=== PATIENT | male | born 1980 | race Caucasian/White ===

== ENCOUNTER 2019-06-21 11:52 | Emergency (ER) | payer BC ==
[2019-06-21 11:57] VITALS: BP 144/86; PULSE 74; RESP 19; TEMP 98.1
--- NOTE | 2019-06-21 12:04 | ED ---
Upper Extremity HPI - General Chief Complaint: Extremity Injury, Upper Stated Complaint: hand injury Time Seen by Provider: 06/21/19 12:00 Source: patient, RN notes reviewed Mode of arrival: ambulatory Limitations: no limitations - History of Present Illness Initial Comments: 39-year-old male presents emergency Department chief complaint of right hand m edial hand pain. Patient states that he is lifting a couch other day states that he slipped causing a couch and fell on his hand. Patient has pain along the proximal fifth metacarpal and wrist region. Patient is right-hand dominant patient doesn't that he's had prior fractures. Patient denies any paresthesias patient offers no other complaints at this time. - Related Data Home Medications Medication Instructions Recorded Confirmed Ibuprofen [Motrin Ib] 400 mg PO Q6H PRN 06/21/19 06/21/19 Lisinopril-Hctz 20-12.5 mg 1 tab PO BID 06/21/19 06/21/19 [Zestoretic 20-12.5] Previous Rx's Medication Instructions Recorded Ibuprofen [Motrin] 600 mg PO Q8HR PRN #30 tab 06/21/19 Allergies Allergy/AdvReac Type Severity Reaction Status Date / Time No Known Allergies Allergy Verified 06/21/19 12:30 Review of Systems ROS Statement: Those systems with pertinent positive or pertinent negative responses have been documented in the HPI. ROS Other: All systems not noted in ROS Statement are negative. Past Medical History Past Medical History: Hypertension History of Any Multi-Drug Resistant Organisms: None Reported Past Surgical History: Appendectomy, Orthopedic Surgery Past Psychological History: No Psychological Hx Reported Smoking Status: Never smoker Past Alcohol Use History: None Reported Past Drug Use History: None Reported General Exam Limitations: no limitations General appearance: alert, in no apparent distress Head exam: Present: atraumatic, normocephalic, normal inspection Neck exam: Present: normal inspection, full ROM. Absent: tenderness, meningismus, lymphadenopathy Respiratory exam: Present: normal lung sounds bilaterally. Absent: respiratory distress, wheezes, rales, rhonchi, stridor Extremities exam: Present: other (Right hand there is tenderness along the proximal fifth metacarpal region and wrist or aspect patient's full range of motion neurovascular intact there is mild discomfort with range of motion no obvious deformity) Course Vital Signs 06/21/19 11:55 Temperature 98.1 F Pulse Rate 74 Respiratory 19 Rate Blood Pressure 144/86 O2 Sat by Pulse 97 Oximetry Medical Decision Making - Medical Decision Making X-rays are negative for acute fracture of the hand and wrist. Patient has a right wrist sprain will be discharged return parameters were discussed. Disposition Clinical Impression: Right wrist sprain Disposition: HOME SELF-CARE Condition: Stable Instructions (If sedation given, give patient instructions): Wrist Injury (ED) Additional Instructions: Please return to the Emergency Department if symptoms worsen or any other concerns. Prescriptions: Ibuprofen [Motrin] 600 mg PO Q8HR PRN #30 tab PRN Reason: Pain Is patient prescribed a controlled substance at d/c from ED?: No Referrals: Sarah Yoder DO [Primary Care Provider] - 1-2 days Time of Disposition: 12:59
--- NOTE | 2019-06-21 12:41 | XR ---
EXAMINATION TYPE: XR wrist complete RT DATE OF EXAM: 06/21/2019 CLINICAL HISTORY: Fifth right metacarpal pain after crush injury. TECHNIQUE: Frontal, lateral and oblique images of the right wrist are obtained. Scaphoid view was al so obtained. COMPARISON: None FINDINGS: There is no acute fracture/dislocation evident in the right wrist. The joint spaces in th e right wrist appear within normal limits. The overlying soft tissue appears unremarkable. IMPRESSION: There is no acute fracture or dislocation in the right wrist.
[2019-06-21] MEDS ORDERED: ACET/COD 300 MG/30 MG STARTER PACK 6 TAB BTL PO STA (12:58)
== END 2019-06-21 13:05 | disposition home or self-care (01) ==
LOC: EC 11:52
DX: S63.501A Unspecified sprain of right wrist, initial encounter (principal); I10 Essential (primary) hypertension; Z79.899 Other long term (current) drug therapy; W23.0XXA Caught, crushed, jammed, or pinched between moving objects, initial encounter
CPT/HCPCS: 99283

== ENCOUNTER 2021-11-30 11:18 | Day surgery (SDC) | payer BC ==
[~2021-11-30 11:18] MED LIST: Pre Op ABX Message 1 EACH MISC MISCELLANE ONE
[2021-11-30] MEDS ORDERED: SODIUM CHLORIDE 0.9% 1,000 ML IV ONE (12:36)
[2021-11-30 12:57] LABS: HCT 28.4 % (39.0-53.0); HGB 9.3 gm/dL (13.0-17.5); MCH 30.2 pg (25.0-35.0); MCHC 32.9 g/dL (31.0-37.0); MCV 91.8 fL (80.0-100.0); Mean Platelet Volume 7.6; Platelet Count 387 k/uL (150-450); RBC 3.09 m/uL (4.30-5.90); RDW 14.7 % (11.5-15.5); WBC 8.6 k/uL (3.8-10.6)
[2021-11-30 13:06] LABS: Magnesium 2.8 mg/dL (1.6-2.3); Potassium 4.4 mmol/L (3.5-5.1)
[2021-11-30] MEDS ORDERED: MIDAZOLAM 2 MG/2 ML VIAL IVP ONE (13:20)
--- NOTE | 2021-11-30 14:07 | P.ANPRN ---
Procedure Note - Anesthesia - Nerve Block Performed Right Axillary Time Out Performed: Yes (:19) Date of Procedure: 11/30/21 Procedure Start Time: Procedure Stop Time: Location of Patient: PreOp Indication: Acute Post-Operative Pain, Requested by Surgeon (Dr Corral) Sedation Type: Sedate with meaningful contact maintained Preparation: Sterile Prep Position: Supine Catheter: None Needle Types: Pajunk Needle Gauge: Other (see comment) (22g) Ultrasound used to visualize needle placement: Yes Ultrasound used to observe medication spread: Yes Injectate: 0.5% Ropivacaine (see comment for volume) (25cc) Blood Aspirated: No Pain Paresthesia on Injection Noted: No Resistance on Injection: Normal Image Stored and Saved: Yes Events: Uneventful and Well Tolerated
[2021-11-30] MEDS ORDERED: HEPARIN SODIUM,PORCINE 5,000 UNIT/ML 1 ML VIAL ONE (14:21)
[2021-11-30] MEDS ORDERED: fentaNYL (PF) 50 MCG/ML 2 ML AMP ONE (14:21)
[2021-11-30] MEDS ORDERED: ROPIVACAINE 5 MG/ML 30 ML VIAL ONE (14:21)
[2021-11-30] MEDS ORDERED: PROPOFOL 10 MG/ML 20 ML VIAL IV ONE (14:21)
[2021-11-30] MEDS ORDERED: MIDAZOLAM 2 MG/2 ML VIAL ONE (14:21)
[2021-11-30] MEDS ORDERED: KETAMINE 10 MG/ML 20 ML VIAL ONE (14:21)
[2021-11-30] MEDS ORDERED: LIDOCAINE 1% INJ 10MG/ML (20 ML MDV) ONE (14:21)
[2021-11-30] MEDS ORDERED: ceFAZolin 1,000 MG VIAL IRRIGATION ONE (14:30)
[2021-11-30] MEDS ORDERED: GELATIN SPONGE,ABSORB (LARGE) 1 EACH SPONGE TOPICAL ONE (14:30)
[2021-11-30] MEDS ORDERED: THROMBIN (BOVINE) 5,000 UNIT VIAL TOPICAL ONE (14:30)
[2021-11-30] MEDS ORDERED: HEPARIN SODIUM,PORCINE 2,000 UNIT in SODIUM CHLORIDE 0.9% 500 ML 500 ML IRRIGATION ONE (14:39)
--- NOTE | 2021-11-30 15:41 | P.OP ---
Date of Procedure: 11/30/21 Preoperative Diagnosis: End-stage renal disease Postoperative Diagnosis: Same Procedure(s) Performed: Right upper extremity radiocephalic Yoselin fistula creation Anesthesia: regional Surgeon: Albert Corral Estimated Blood Loss (ml): 5 Pathology: none sent Condition: stable Disposition: PACU Indications for Procedure: 41-year-old gentleman with history of end-stage renal disease on hemodialysis via right-sided chest catheter presented to the office for workup for possible fistula creation. He underwent ultrasound which demonstrated large cephalic vein and therefore he presents today for radiocephalic fistula creation. Description of Procedure: After written and informed consent was obtained from the patient the patient was brought to the operative suite and laid in a supine position. The right arm was prepped and draped in the usual sterile fashion after appropriate anesthesia was performed per the anesthesiologist. Utilizing ultrasound the cephalic vein was visualized and marked and shown to be good size. A small vertical incision was then created with a 15 blade scalpel just proximal to the wrist and dissection was carried down to the radial artery which was dissected free in a circumferential manner. Proximal distal control was then obtained with vessel loops. Attention was then placed back to the cephalic vein which was located and dissected free in a circumferential manner distally to the wrist. At the wrist it was ligated with silk suture. Further dissection was carried around the vein and the vein was brought over to the radial artery. Serial dilation was then performed on the vein and good backbleeding was noted. Patient was administered 3000 units of heparin and the radial artery was clamped at the proximal and distal aspect. Utilizing 11 blade scalpel and arteriotomy was created and extended with Pott Ramires scissors. There was good brisk backbleeding noted from the radial artery and pulsatile blood flow visualized from the proximal aspect. The vein was then spatulated and an end-to-side rajan stomosis was created with a 7-0 Prolene suture. Prior to last sutures being placed the control was released from the vein revealing good backbleeding and distal control on the radial artery was released revealing good back flow. The proximal control was then released and good pulsatile blood flow was visualized in the fistula and final sutures were secured. The area was copiously irrigated with antibiotic solution. Hemostasis was assured. The vessels were then interrogated with Doppler which demonstrated good multiphasic signal distal to the anastomosis as well as positive bruit within the vein consistent with good fistula creation. Under ultrasound there was pulsatile flow noted in the cephalic vein. A large branch just proximal to the anastomosis was noted and this was suture ligated in normal fashion. After ligation the fistula had improved bruit. The incision was then closed in a multilayer fashion. The skin was cleansed and dressings were placed. Patient does procedure well and was sent to PACU for recovery. Plan - Discharge Summary New Discharge Prescriptions: No Action Furosemide [Lasix] 80 mg PO DIRECTED amLODIPine [Norvasc] 5 mg PO BID Calcium Acetate [Phoslo] 1,334 mg PO DIRECTED Furosemide [Lasix] 80 mg PO DIRECTED Discharge Medication List Calcium Acetate [Phoslo] 1,334 mg PO DIRECTED 11/30/21 [History] Furosemide [Lasix] 80 mg PO DIRECTED 11/30/21 [History] Furosemide [Lasix] 80 mg PO DIRECTED 11/30/21 [History] amLODIPine [Norvasc] 5 mg PO BID 11/30/21 [History]
[2021-11-30 15:49] VITALS: TEMP 97.5
[2021-11-30 16:17] VITALS: RESP 16
[2021-11-30] MEDS ORDERED: hydrALAZINE HCL 20 MG/ML 1 ML VIAL IVP ONE (16:33)
[2021-11-30 17:29] VITALS: BP 164/98; PULSE 84
== END 2021-11-30 17:42 | disposition home or self-care (01) ==
LOC: OR 11:18
PROVIDERS: ATTEND Surgery
DX: N18.6 End stage renal disease (principal); I10 Essential (primary) hypertension; G89.18 Other acute postprocedural pain; Z79.899 Other long term (current) drug therapy
CPT/HCPCS: 36821; 64415; 76942; 80048; 83735; 84100; 85027; J2250; J0360; J1644; J0690 ×2; J2001; J3010; J2795; J2704

== ENCOUNTER 2022-02-16 16:50 | Emergency (ER) | payer BC ==
[2022-02-16 16:57] VITALS: BP 122/73; RESP 18; TEMP 99
[2022-02-16] MEDS ORDERED: HYDROmorphone 1 MG/ML 1 ML SYRINGE IVP STA (18:23)
[2022-02-16] MEDS ORDERED: ONDANSETRON 4 MG/2 ML VIAL IVP STA (18:23)
[2022-02-16] MEDS ORDERED: SODIUM CHLORIDE 0.9% 500 ML 500 ML IV SCH (18:30)
--- NOTE | 2022-02-16 18:34 | ED ---
General Adult HPI - General Chief complaint: Chest Pain Stated complaint: Weakness,chest pain Time Seen by Provider: 02/16/22 18:14 Source: patient Mode of arrival: wheelchair Limitations: no limitations - History of Present Illness Initial comments: 41 year-old male patient with medical conditions including end-stage renal disease with dialysis and hypertension presents to the emergency department for fever, chills, body aches, cough, and significant pain to his right chest dialysis catheter. Symptoms present for the last week. States that his last dialysis treatment was Friday. States it was somewhat painful at that time but states it is much worse now. He is also reporting upper abdominal pain. He denies nausea or vomiting. States he is having frequent soft stools. Reports dry cough and shortness of breath. States he did take 2 Tylenol prior to coming in for temperature at 102F. States he produces minimal urine but denies any dysuria or hematuria. Denies any wounds or sores. Denies any sick contacts. Patient denies any recent rash, back pain, numbness, tingling, dizziness, weakness, headache, visual changes, or any other complaints. - Related Data Home Medications Medication Instructions Recorded Confirmed Calcium Acetate [Phoslo] 1,334 mg PO DIRECTED 11/30/21 11/30/21 Furosemide [Lasix] 80 mg PO DIRECTED 11/30/21 11/30/21 Furosemide [Lasix] 80 mg PO DIRECTED 11/30/21 11/30/21 amLODIPine [Norvasc] 5 mg PO BID 11/30/21 11/30/21 Previous Rx's Medication Instructions Recorded Amoxic-Pot Clav 875-125Mg 1 tab PO Q12HR #20 tablet 02/16/22 [Augmentin 875-125] Azithromycin [Zithromax Z Pack] 250 mg PO DIRECTED #6 tab 02/16/22 Ipratropium-Albuterol Nebulize 3 ml INHALATION Q4H PRN #90 ml 02/16/22 [Duoneb 0.5 mg-3 mg/3 ml Soln] Allergies Allergy/AdvReac Type Severity Reaction Status Date / Time No Known Allergies Allergy Verified 02/16/22 16:57 Review of Systems ROS Statement: Those systems with pertinent positive or pertinent negative responses have been documented in the HPI. ROS Other: All systems not noted in ROS Statement are negative. Past Medical History Past Medical History: Dialysis, Hypertension, Renal Disease Additional Past Medical History / Comment(s): Diaylsis since may 18 2021, Kidney Failure since May 2021 History of Any Multi-Drug Resistant Organisms: None Reported Past Surgical History: Appendectomy, Orthopedic Surgery Additional Past Surgical History / Comment(s): Hemodiaylsis catheter in Friday of 2020 Past Psychological History: No Psychological Hx Reported Smoking Status: Never smoker Past Alcohol Use History: None Reported Past Drug Use History: None Reported General Exam Limitations: no limitations General appearance: alert, in no apparent distress, other (This is a well- developed, well-nourished adult male in no acute distress.) Eye exam: Present: normal appearance, PERRL, EOMI. Absent: scleral icterus, conjunctival injection, periorbital swelling ENT exam: Present: normal exam, normal oropharynx, mucous membranes moist Respiratory exam: Present: normal lung sounds bilaterally, other (Right upper chest dialysis catheter, no surrounding swelling or erythema noted.). Absent: respiratory distress, wheezes, rales, rhonchi, stridor Cardiovascular Exam: Present: regular rate, normal rhythm, normal heart sounds. Absent: systolic murmur, diastolic murmur, rubs, gallop, clicks GI/Abdominal exam: Present: soft, tenderness (Midepigastric), normal bowel sounds. Absent: distended, guarding, rebound, rigid Neurological exam: Present: alert, oriented X3, CN II-XII intact Psychiatric exam: Present: normal affect, normal mood Skin exam: Present: warm, dry, intact, normal color. 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 Physical exam did reveal clear equal lung sounds. He was febrile upon arrival. Skin saturation is normal. He does have end-stage renal disease. Labs reviewed and did reveal normal white blood cell count. Creatinine is 15.56 which she states is usual for him. Chest x-ray did reveal interstitial pneumonia. I did discuss findings and results with him. Did offer admission. Patient would prefer discharge. We will start azithromycin and Augmentin. We do have blood cultures pending, we will call with any abnormal results. He is instructed to follow-up with his primary care physician early next week. Return parameters were discussed in detail. He verbalizes understanding and agrees with this plan. My attending is Dr. Douglas. - Lab Data Result diagrams: 02/16/22 19:15 02/16/22 19:15 Lab Results 02/16/22 02/16/22 02/16/22 Range/Units 17:10 17:10 19:15 WBC 5.8 (3.8-10.6) k/uL RBC 3.16 L (4.30-5.90) m/uL Hgb 9.4 L (13.0-17.5) gm/dL Hct 28.8 L (39.0-53.0) % MCV 91.0 (80.0-100.0) fL MCH 29.6 (25.0-35.0) pg MCHC 32.6 (31.0-37.0) g/dL RDW 13.6 (11.5-15.5) % Plt Count 182 (150-450) k/uL MPV 8.0 Neutrophils % 80 % Lymphocytes % 6 % Monocytes % 8 % Eosinophils % 1 % Basophils % 2 % Neutrophils # 4.6 (1.3-7.7) k/uL Lymphocytes # 0.3 L (1.0-4.8) k/uL Monocytes # 0.5 (0-1.0) k/uL Eosinophils # 0.1 (0-0.7) k/uL Basophils # 0.1 (0-0.2) k/uL PT (9.0-12.0) sec INR (<1.2) APTT (22.0-30.0) sec Sodium (137-145) mmol/L Potassium (3.5-5.1) mmol/L Chloride (98-107) mmol/L Carbon Dioxide (22-30) mmol/L Anion Gap mmol/L BUN (9-20) mg/dL Creatinine (0.66-1.25) mg/dL Est GFR (CKD-EPI)AfAm (>60 ml/min/1.73 sqM) Est GFR (CKD-EPI)NonAf (>60 ml/min/1.73 sqM) Glucose (74-99) mg/dL Plasma Lactic Acid Lauri (0.7-2.0) mmol/L Calcium (8.4-10.2) mg/dL Total Bilirubin (0.2-1.3) mg/dL AST (17-59) U/L ALT (4-49) U/L Alkaline Phosphatase (38-126) U/L Total Protein (6.3-8.2) g/dL Albumin (3.5-5.0) g/dL Lipase (23-300) U/L Coronavirus (PCR) Not Detected (Not Detectd) Influenza Type A RNA Not Detected (Not Detectd) Influenza Type B (PCR) Not Detected (Not Detectd) 02/16/22 02/16/22 02/16/22 Range/Units 19:15 19:15 19:19 WBC (3.8-10.6) k/uL RBC (4.30-5.90) m/uL Hgb (13.0-17.5) gm/dL Hct (39.0-53.0) % MCV (80.0-100.0) fL MCH (25.0-35.0) pg MCHC (31.0-37.0) g/dL RDW (11.5-15.5) % Plt Count (150-450) k/uL MPV Neutrophils % % Lymphocytes % % Monocytes % % Eosinophils % % Basophils % % Neutrophils # (1.3-7.7) k/uL Lymphocytes # (1.0-4.8) k/uL Monocytes # (0-1.0) k/uL Eosinophils # (0-0.7) k/uL Basophils # (0-0.2) k/uL PT 11.9 (9.0-12.0) sec INR 1.1 (<1.2) APTT 25.7 (22.0-30.0) sec Sodium 133 L (137-145) mmol/L Potassium 4.0 (3.5-5.1) mmol/L Chloride 92 L (98-107) mmol/L Carbon Dioxide 25 (22-30) mmol/L Anion Gap 16 mmol/L BUN 42 H (9-20) mg/dL Creatinine 15.56 H* (0.66-1.25) mg/dL Est GFR (CKD-EPI)AfAm 4 (>60 ml/min/1.73 sqM) Est GFR (CKD-EPI)NonAf 3 (>60 ml/min/1.73 sqM) Glucose 94 (74-99) mg/dL Plasma Lactic Acid Lauri 0.8 (0.7-2.0) mmol/L Calcium 8.9 (8.4-10.2) mg/dL Total Bilirubin 0.4 (0.2-1.3) mg/dL AST 45 (17-59) U/L ALT 68 H (4-49) U/L Alkaline Phosphatase 53 (38-126) U/L Total Protein 6.5 (6.3-8.2) g/dL Albumin 3.9 (3.5-5.0) g/dL Lipase 145 (23-300) U/L Coronavirus (PCR) (Not Detectd) Influenza Type A RNA (Not Detectd) Influenza Type B (PCR) (Not Detectd) - Radiology Data Radiology results: report reviewed, image reviewed Two-view chest x-ray is obtained. Report was reviewed in its entirety. Impression by Dr. Pulido shows perihilar interstitial edema this could be acute interstitial pneumonia. Disposition Clinical Impression: Pneumonia Disposition: HOME SELF-CARE Condition: Good Instructions (If sedation given, give patient instructions): Community Acquired Pneumonia (ED) Additional Instructions: Complete both antibiotics in full. Do breathing treatments as directed. Tylenol for fever control. Await call for blood culture results, you will only be called for abnormal results in 2-3 days. Follow-up with your primary care physician for recheck early next week. Return to the emergency department for a ny new, worsening, or concerning symptoms. Prescriptions: Amoxic-Pot Clav 875-125Mg [Augmentin 875-125] 1 tab PO Q12HR #20 tablet Ipratropium-Albuterol Nebulize [Duoneb 0.5 mg-3 mg/3 ml Soln] 3 ml INHALATION Q4H PRN #90 ml PRN Reason: Wheezing/Shortness of breath Azithromycin [Zithromax Z Pack] 250 mg PO DIRECTED #6 tab Is patient prescribed a controlled substance at d/c from ED?: No Referrals: Nonstaff,Physician [REFERRING] - 1-2 days Time of Disposition: 21:29
[2022-02-16 19:14] VITALS: PULSE 91
[2022-02-16 19:43] LABS: Basophils # (A) 0.1 k/uL (0-0.2); Basophils % (A) 2 %; Eosinophils # (A) 0.1 k/uL (0-0.7); Eosinophils % (A) 1 %; HCT 28.8 % (39.0-53.0); HGB 9.4 gm/dL (13.0-17.5); Lymphocytes # (A) 0.3 k/uL (1.0-4.8); Lymphocytes % (A) 6 %; MCH 29.6 pg (25.0-35.0); MCHC 32.6 g/dL (31.0-37.0); Monocytes # (A) 0.5 k/uL (0-1.0); Monocytes % (A) 8 %; Neutrophils # (A) 4.6 k/uL (1.3-7.7); Neutrophils % (A) 80 %; Platelet Count 182 k/uL (150-450); RBC 3.16 m/uL (4.30-5.90); RDW 13.6 % (11.5-15.5); WBC 5.8 k/uL (3.8-10.6)
[2022-02-16 19:53] LABS: Albumin 3.9 g/dL (3.5-5.0); Calcium 8.9 mg/dL (8.4-10.2); Total Bilirubin 0.4 mg/dL (0.2-1.3); Total Protein 6.5 g/dL (6.3-8.2)
[2022-02-16 19:55] LABS: INR 1.1 (<1.2); Partial Thromboplastin Time 25.7 sec (22.0-30.0); Prothrombin Time 11.9 sec (9.0-12.0)
--- NOTE | 2022-02-16 19:59 | XR ---
EXAMINATION TYPE: XR chest 2V DATE OF EXAM: 02/16/2022 COMPARISON: NONE HISTORY: Cough and congestion TECHNIQUE: 2 views FINDINGS: There is no confluent pneumonic infiltrate. There is right central venous catheter with ti p in the right atrium. No pleural effusion. There are no hilar masses. There are some mild bilateral perihilar interstitial edema. IMPRESSION: There is some perihilar interstitial edema. This could be acute interstitial pneumonia.
[2022-02-16] MEDS ORDERED: AZITHROMYCIN 500 MG TAB PO STA (21:25)
[2022-02-16] MEDS ORDERED: AMOXIC-POT CLAV 875MG STARTER PACK 2 TAB BTL PO STA (21:25)
== END 2022-02-16 22:00 | disposition home or self-care (01) ==
LOC: EC 16:50
DX: J18.9 Pneumonia, unspecified organism (principal); I10 Essential (primary) hypertension; Z20.822 Contact with and (suspected) exposure to COVID-19
CPT/HCPCS: 36415; 80053; 83605; 83690; 85025; 85610; 85730; 87040; 87077; 87186; 87502; 87635; 71046; 99285; 96374; 96375; J2405; J1170; 93005; 99284

== ENCOUNTER 2022-02-17 13:42 | Inpatient (IN) | payer BC ==
[2022-02-17] MEDS ORDERED: VANCOMYCIN IV PER PHARMACY 1 EACH MISC MISCELLANE PRN (14:37)
--- NOTE | 2022-02-17 14:43 | ED ---
General Adult HPI - General Chief complaint: Recheck/Abnormal Lab/Rx Stated complaint: recheck Time Seen by Provider: 02/17/22 13:55 Source: patient, RN notes reviewed, old records reviewed Mode of arrival: ambulatory Limitations: no limitations - History of Present Illness Initial comments: This is a 41-year-old male who presents emergency department with past medical history significant for dialysis starting June 07 and hypertension. Patient states he was here in the emergency room yesterday she didn't feel well he was diagnosed with pneumonia and sent home on Augmentin. Patient states he was called back to the emergency department because he had positive blood cultures that were gram-positive cocci in clusters. Patient states that she is having a little better than he was yesterday. Patient states he still little bit short of breath. Patient denies any fever or chills. Patient denies any chest pain or palpitations. Patient denies any abdominal pain. Patient states over the last couple days at his catheter site he has noticed some soreness that wasn't there before. - Related Data Home Medications Medication Instructions Recorded Confirmed Calcium Acetate [Phoslo] 1,334 mg PO DIRECTED 11/30/21 11/30/21 Furosemide [Lasix] 80 mg PO DIRECTED 11/30/21 11/30/21 Furosemide [Lasix] 80 mg PO DIRECTED 11/30/21 11/30/21 amLODIPine [Norvasc] 5 mg PO BID 11/30/21 11/30/21 Previous Rx's Medication Instructions Recorded Amoxic-Pot Clav 875-125Mg 1 tab PO Q12HR #20 tablet 02/16/22 [Augmentin 875-125] Azithromycin [Zithromax Z Pack] 250 mg PO DIRECTED #6 tab 02/16/22 Ipratropium-Albuterol Nebulize 3 ml INHALATION Q4H PRN #90 ml 02/16/22 [Duoneb 0.5 mg-3 mg/3 ml Soln] Allergies Allergy/AdvReac Type Severity Reaction Status Date / Time No Known Allergies Allergy Verified 02/17/22 13:54 Review of Systems ROS Statement: Those systems with pertinent positive or pertinent negative responses have been documented in the HPI. ROS Other: All systems not noted in ROS Statement are negative. Past Medical History Past Medical History: Dialysis, Hypertension, Renal Disease Additional Past Medical History / Comment(s): Diaylsis since may 18 2021, Kidney Failure since May 2021 History of Any Multi-Drug Resistant Organisms: None Reported Past Surgical History: Appendectomy, Orthopedic Surgery Additional Past Surgical History / Comment(s): Hemodiaylsis catheter in Friday of 2020 Past Psychological History: No Psychological Hx Reported Smoking Status: Never smoker Past Alcohol Use History: None Reported Past Drug Use History: None Reported General Exam - General Exam Comments Initial Comments: GENERAL: Patient is well-developed and well-nourished. Patient is nontoxic and well- hydrated and is in no acute distress. ENT: Neck is soft and supple. No significant lymphadenopathy is noted. Oropharynx is clear. Moist mucous membranes. Neck has full range of motion without eliciting any pain. EYES: The sclera were anicteric and conjunctiva were pink and moist. Extraocular movements were intact and pupils were equal round and reactive to light. Eyelids were unremarkable. PULMONARY: Patient some slight crackles in the right base CARDIOVASCULAR: There is a regular rate and rhythm without any murmurs gallops or rubs. ABDOMEN: Soft and nontender with normal bowel sounds. SKIN: Skin is clear with no lesions or rashes and otherwise unremarkable. NEUROLOGIC: Patient is alert and oriented x3. Cranial nerves II through XII are grossly intact. Motor and sensory are also intact. Normal speech, volume and content. Symmetrical smile. MUSCULOSKELETAL: Normal extremities with adequate strength and full range of motion. LYMPHATICS: No significant lymphadenopathy is noted PSYCHIATRIC: Normal psychiatric evaluation. Limitations: no limitations Course Vital Signs 02/17/22 13:51 Temperature 97.8 F Pulse Rate 83 Respiratory 18 Rate Blood Pressure 132/79 O2 Sat by Pulse 95 Oximetry Disposition Clinical Impression: Bacteremia, Dialysis patient, Pneumonia Disposition: ADMITTED IP TO THIS HOSP Referrals: Sarah Yoder DO [Primary Care Provider] - 1-2 days Time of Disposition: 14:43
[2022-02-17] MEDS ORDERED: SODIUM CHLORIDE 0.9% 1,000 ML IV ONE (14:44)
[2022-02-17] MEDS ORDERED: VANCOMYCIN 1,500 MG in SODIUM CHLORIDE 0.9% 250 ML IVPB STA (14:46)
[2022-02-17 15:13] LABS: Basophils # (A) 0.1 k/uL (0-0.2); Basophils % (A) 1 %; Eosinophils # (A) 0.1 k/uL (0-0.7); Eosinophils % (A) 1 %; HCT 27.7 % (39.0-53.0); Lymphocytes # (A) 0.3 k/uL (1.0-4.8); Lymphocytes % (A) 4 %; MCH 29.7 pg (25.0-35.0); MCHC 32.6 g/dL (31.0-37.0); MCV 91.1 fL (80.0-100.0); Monocytes # (A) 0.4 k/uL (0-1.0); Monocytes % (A) 5 %; Neutrophils % (A) 86 %; Platelet Count 190 k/uL (150-450); RBC 3.04 m/uL (4.30-5.90); WBC 8.1 k/uL (3.8-10.6)
[2022-02-17 15:24] LABS: Albumin 3.5 g/dL (3.5-5.0); Calcium 8.6 mg/dL (8.4-10.2); Total Bilirubin 0.6 mg/dL (0.2-1.3); Total Protein 5.9 g/dL (6.3-8.2)
[2022-02-17 15:29] LABS: Potassium 4.4 mmol/L (3.5-5.1)
[2022-02-17] MEDS ORDERED: IBUPROFEN 800 MG TAB PO PRN (16:34)
[2022-02-17] MEDS: CALCIUM ACETATE 667 MG TAB PO SCH (16:40)
[2022-02-17] MEDS ORDERED: FUROSEMIDE 80 MG TAB PO ONE (16:45)
[2022-02-17] MEDS: SEVELAMER 800 MG TAB PO SCH (16:49)
--- NOTE | 2022-02-17 16:53 | HP ---
HISTORY AND PHYSICAL DATE OF SERVICE: 02/17/2022 CHIEF COMPLAINTS: Abnormal blood cultures, not feeling well. HISTORY OF PRESENT ILLNESS: This 41-year-old gentleman with a past medical history of chronic kidney disease secondary to hypertension, on hemodialysis, was not feeling well over the past 3 or 4 days, had rigors and chills. Patient came to the ER yesterday. Pneumonia was suspected. Patient was not willing to stay. The patient went home. Currently the blood cultures are positive for Gram-positive cocci in groups, and the patient was directed to [facility] and is being admitted for further evaluation and treatment. There is no history of any fever, rigors or chills at this time. The chest x-ray done day before yesterday which was personally reviewed by me showed some increased bronchovascular markings. PAST MEDICAL HISTORY: History of hemodialysis, hypertension, renal disease. HOME MEDICATIONS: Reviewed. They include current Renvela. Doses and the rest of the medications are noted. ALLERGIES: NONE. FAMILY HISTORY: No history of heart disease or strokes in the family. SOCIAL HISTORY: No history of smoking. No history of alcohol intake. REVIEW OF SYSTEMS: Fourteen-point review of systems negative except as mentioned earlier. PHYSICAL EXAMINATION: Pulse is 84, blood pressure 125/70, respiration 28. HEENT: Conjunctivae normal. NECK: No jugular venous distention. Status post permanent dialysis catheter present. CARDIOVASCULAR: S1, S2 muffled. RESPIRATION: Breath sounds diminished at the bases. A few scattered rhonchi. No crackles. ABDOMEN: Soft, nontender. LEGS: No edema. No swelling. NERVOUS SYSTEM: Higher functions as mentioned earlier. Moves all 4 limbs. No focal deficit. LYMPHATICS: No lymph node palpable in neck, axillae or groin. SKIN: No ulcer, rash, bleeding. JOINTS: No active deforming arthropathy. LABS: Hemoglobin 9 and creatinine 17.8. Other labs are noted. ASSESSMENT: 1. Gram-positive bacteremia for evaluation. 2. Possible pneumonia. 3. Chronic kidney disease, on hemodialysis. 4. Chronic renal disease. RECOMMENDATIONS AND DISCUSSION: In this 41-year-old gentleman who presented with multiple complex medical issues, we will monitor the patient closely. I would recommend infectious disease evaluation and nephrology consultation. Broad-spectrum IV antibiotics. Resume the home medications. Symptomatic treatment. Repeat cultures. I would also recommend a 2D echo with Doppler to complete the workup. Prognosis is guarded because of multiple complex medical issues. Further recommendations to follow. See orders for further details. MMODL / IJN: [id number] /
[2022-02-17] MEDS: carvediloL 12.5 MG TAB PO SCH (17:01)
[2022-02-17] MEDS ORDERED: VELPHORO 500 MG PO SCH (17:30)
--- NOTE | 2022-02-17 18:18 | XR ---
EXAMINATION TYPE: XR chest 1V portable DATE OF EXAM: 02/17/2022 COMPARISON: 02/16/2022 HISTORY: Pneumonia TECHNIQUE: FINDINGS: There is some coarsening of interstitial markings. Heart appears enlarged. There is right c entral venous catheter with tip in the superior vena cava. No pneumothorax. No pleural effusion. IMPRESSION: Mild pulmonary interstitial edema without much change compared to yesterday.
[2022-02-17] MEDS: amLODIPine 5 MG TAB PO SCH (20:02)
[2022-02-17] MEDS: hydrALAZINE HCL 50 MG TAB PO SCH (20:02)
[2022-02-17] MEDS: HEPARIN SODIUM,PORCINE/PF 5,000 UNIT/0.5 ML SYRINGE SQ SCH (20:02)
[2022-02-17] MEDS: HYDROcodone/APAP 5-325MG 1 EACH TAB PO PRN (22:21)
--- NOTE | 2022-02-18 00:49 | P.CONS ---
History of Present Illness - Reason for Consult Consult date: 02/17/22 Bacteremia/pneumonia Requesting physician: Man Sood - Chief Complaint Fever x few days - History of Present Illness Patient is a 47-year-old female was brought into the ER last night from [facility] on the leg for evaluation of fever and hypoxemia, apparently the patient woke up the morning of presentation to the hospital with some rigors and chills patient denies having any headache or URI symptoms no chest pain or shortness of breath occasional cough no nausea no vomiting some lower abdominal pain and also have some urinary burning or frequency on presentation to the hospital the patient did have a fever of 103.6 F patient did have white count 21,000 with a left shift urine has been positive chest x-ray small right effusion or pleural reaction and did have significant elevated procalcitonin patient did have a negative SARS-CoV-2 influenza PCR blood cultures are currently pending patient was started on Rocephin 1 g daily infectious disease was consulted for further management of antibiotic therapy Review of Systems Positive point has been mentioned in the HPI rest of the systems are negative Past Medical History Past Medical History: Dialysis, Hypertension, Renal Disease Additional Past Medical History / Comment(s): Diaylsis since may 18 2021, right chest port since 2020, Kidney Failure since May 2021 r/t htn and pre- work out drinks History of Any Multi-Drug Resistant Organisms: None Reported Past Surgical History: Appendectomy, Orthopedic Surgery Additional Past Surgical History / Comment(s): Hemodiaylsis catheter in Friday of 2020, broken jaw repair Past Psychological History: No Psychological Hx Reported Smoking Status: Never smoker Past Alcohol Use History: None Reported Past Drug Use History: None Reported Medications and Allergies Home Medications Medication Instructions Recorded Confirmed Type Calcium Acetate [Phoslo] 1,334 mg PO TID-W/MEALS 11/30/21 02/17/22 History Furosemide [Lasix] 80 mg PO DIRECTED 11/30/21 02/17/22 History Furosemide [Lasix] 160 mg PO SUMOWEFR 11/30/21 02/17/22 History amLODIPine [Norvasc] 5 mg PO BID 11/30/21 02/17/22 History Amoxic-Pot Clav 875-125Mg 1 tab PO Q12HR #20 tablet 02/16/22 02/17/22 Rx [Augmentin 875-125] Acetaminophen Tab [Tylenol Tab] 1,000 mg PO Q6HR PRN 02/17/22 02/17/22 History Azithromycin [Zithromax Z Pack] See Taper PO DIRECTED 02/17/22 02/17/22 History Ferrous Sulfate [Feosol] 325 mg PO DAILY 02/17/22 02/17/22 History Ibuprofen [Motrin Ib] 800 mg PO Q8H PRN 02/17/22 02/17/22 History Ipratropium-Albuterol Nebulize 3 ml INHALATION RT-Q4H PRN 02/17/22 02/17/22 History [Duoneb 0.5 mg-3 mg/3 ml Soln] Sevelamer [Renvela] 2,400 mg PO TID-W/MEALS 02/17/22 02/17/22 History Velphoro 500mg Chewable Tab 500 mg PO TID-W/MEALS 02/17/22 02/17/22 History Vitamin C 1000mg Gummies 1 tab PO DAILY 02/17/22 02/17/22 History Vitamin D3 25 Mcg Gummies 1 tab PO DAILY 02/17/22 02/17/22 History carvediloL [Coreg] 12.5 mg PO BID 02/17/22 02/17/22 History hydrALAZINE HCL [Apresoline] 100 mg PO TID 02/17/22 02/17/22 History Allergies Allergy/AdvReac Type Severity Reaction Status Date / Time No Known Allergies Allergy Verified 02/17/22 15:39 Physical Exam Vitals: Vital Signs Temp Pulse Pulse Resp BP BP Pulse Ox 02/17/22 20:00 72 16 96 02/17/22 19:34 97.8 F 72 18 122/69 88 L 02/17/22 16:00 97.9 F 84 20 125/78 97 02/17/22 15:15 98.5 F 80 18 130/81 99 02/17/22 13:51 97.8 F 83 18 132/79 95 Intake and Output 02/17/22 02/17/22 02/17/22 06:59 14:59 22:59 Other: Voiding Method Toilet Weight 93.44 kg 93.44 kg GENERAL DESCRIPTION: Middle-aged male lying in bed, no distress. No tachypnea or accessory muscle of respiration use. HEENT: Shows Pallor , no scleral icterus. Oral mucous membrane is dry. No phary ngeal erythema or thrush NECK: Trachea central, no thyromegaly. LUNGS: Unlabored breathing. Clear to auscultation anteriorly. No wheeze or crackle. HEART: S1, S2, regular rate and rhythm. No loud murmur ABDOMEN: Soft, no tenderness , guarding or rigidity, no organomegaly EXTREMITIES: No edema of feet. SKIN: No rash, no masses palpable. NEUROLOGICAL: The patient is awake, alert, oriented x3, mood and affect normal. Results CBC & Chem 7: 02/18/22 04:11 02/19/22 03:38 Labs: Abnormal Lab Results - Last 24 Hours (Table) 02/17/22 02/17/22 Range/Units 14:55 14:55 RBC 3.04 L (4.30-5.90) m/uL Hgb 9.0 L (13.0-17.5) gm/dL Hct 27.7 L (39.0-53.0) % Lymphocytes # 0.3 L (1.0-4.8) k/uL Sodium 130 L (137-145) mmol/L Chloride 93 L (98-107) mmol/L Carbon Dioxide 21 L (22-30) mmol/L BUN 54 H (9-20) mg/dL Creatinine 17.80 H* (0.66-1.25) mg/dL Glucose 126 H (74-99) mg/dL ALT 60 H (4-49) U/L Total Protein 5.9 L (6.3-8.2) g/dL Assessment and Plan (1) Bacteremia Current Visit: Yes Status: Acute Code(s): R78.81 - BACTEREMIA SNOMED Code(s): 2901868 Plan: 1patient with a fever now with evidence of gram-positive bacteremia with gram- positive cocci in clusters likely Staph aureus and more likely related to the dialysis catheter infection clinic not behaving as pneumonia. 2- Blood cultures will be repeated daily to document clearance of his bacteremia. 3vancomycin pharmacy to dose. 4vascular surgery evaluation for removal of the dialysis catheter. We will follow on clinical condition and cultures to further adjust medication if needed Thank you for this consultation will follow this patient along with you Time with Patient: Greater than 30
[2022-02-18] MEDS: IPRATROPIUM-ALBUTEROL 3 ML NEB INHALATION PRN ×4 (01:05→20:03)
[2022-02-18] MEDS: guaiFENesin-DM 100-10MG/5ML 10 ML CUP PO PRN ×2 (01:29→21:02)
[2022-02-18] MEDS ORDERED: VANCOMYCIN 1,500 MG in SODIUM CHLORIDE 0.9% 250 ML IVPB ONE (06:00)
[2022-02-18] MEDS: FERROUS SULFATE 325 MG TAB PO SCH (08:31)
[2022-02-18] MEDS: FUROSEMIDE 80 MG TAB PO SCH (08:31)
[2022-02-18] MEDS: CHOLECALCIFEROL 25 MCG (1000 IU) TABLET PO SCH (08:31)
[2022-02-18] MEDS: ASCORBIC ACID 500 MG TAB PO SCH (08:31)
[2022-02-18] MEDS: SEVELAMER 800 MG TAB PO SCH ×3 (08:31→16:11)
[2022-02-18] MEDS: CALCIUM ACETATE 667 MG TAB PO SCH ×3 (08:32→16:11)
[2022-02-18] MEDS: HEPARIN SODIUM,PORCINE/PF 5,000 UNIT/0.5 ML SYRINGE SQ SCH ×2 (08:32→21:02)
[2022-02-18] MEDS: PANTOPRAZOLE 40 MG TABLET PO SCH (08:32)
[2022-02-18 09:26] LABS: Basophils # (A) 0.02 X 10*3/uL (0.00-0.10); Basophils % (A) 0.3 %; Eosinophils # (A) 0.14 X 10*3/uL (0.04-0.35); HCT 25.8 % (39.6-50.0); HGB 8.1 g/dL (13.0-17.0); Immature Grans, Automated 0.4 %; Lymphocytes # (A) 0.44 X 10*3/uL (0.90-5.00); Lymphocytes % (A) 6.2 %; MCH 28.2 pg (27.0-32.0); MCHC 31.4 g/dL (32.0-37.0); MCV 89.9 fL (80.0-97.0); Mean Platelet Volume 11.5 fL (9.5-12.2); Monocytes # (A) 0.59 X 10*3/uL (0.20-1.00); Monocytes % (A) 8.3 %; NRBC Per 100 WBC 0 /100 WBCS (0.0-0.0); Neutrophils # (A) 5.87 X 10*3/uL (1.80-7.70); Neutrophils % (A) 82.8 %; Platelet Count 175 X 10*3/uL (140-440); RBC 2.87 X 10*6/uL (4.40-5.60); RDW 13.2 % (11.5-14.5); WBC 7.09 X 10*3/uL (4.50-10.00)
--- NOTE | 2022-02-18 09:39 | P.NPCON ---
History of Present Illness - Reason for Consult end stage renal disease - History of Present Illness Reason for consultation: End-stage renal disease History of present illness: Patient is a 41-year-old male seen in consultation for end-stage renal disease. He is maintained on hemodialysis on Friday schedule but was recently switched to Friday schedule to be started this week. Last hemodialysis was on Friday. Patient presents to the hospital due to not feeling well for about one week. Patient states he's had fever as high as 104F. Patient states he was taking ibuprofen and Tylenol which broke the fever but he came back. He was also having body aches. He denies any significant chest pain or shortness of breath. No cough. Denies vomiting or diarrhea. Denies any urinary symptoms. Patient tested negative for coronavirus on 02/16/2022. He has a permacath for his dialysis access. Blood cultures positive for staph aureus from 02/16/2022. He denies any redness or drainage from the access site. No fever this admission. No active complaints at this time. Vital signs are stable. General: Awake and alert. No acute distress. HEENT: Head exam is unremarkable. LUNGS: Breath sounds decreased. HEART: Rate and Rhythm are regular. ABDOMEN: Soft, no distention. EXTREMITITES: No edema. Past Medical History Past Medical History: Dialysis, Hypertension, Renal Disease Additional Past Medical History / Comment(s): Diaylsis since may 18 2021, right chest port since 2020, Kidney Failure since May 2021 r/t htn and pre- work out drinks History of Any Multi-Drug Resistant Organisms: None Reported Past Surgical History: Appendectomy, Orthopedic Surgery Additional Past Surgical History / Comment(s): Hemodiaylsis catheter in Friday of 2020, broken jaw repair Past Psychological History: No Psychological Hx Reported Smoking Status: Never smoker Past Alcohol Use History: None Reported Past Drug Use History: None Reported Medications and Allergies Home Medications Medication Instructions Recorded Confirmed Type Calcium Acetate [Phoslo] 1,334 mg PO TID-W/MEALS 11/30/21 02/17/22 History Furosemide [Lasix] 80 mg PO DIRECTED 11/30/21 02/17/22 History Furosemide [Lasix] 160 mg PO SUMOWEFR 11/30/21 02/17/22 History amLODIPine [Norvasc] 5 mg PO BID 11/30/21 02/17/22 History Amoxic-Pot Clav 875-125Mg 1 tab PO Q12HR #20 tablet 02/16/22 02/17/22 Rx [Augmentin 875-125] Acetaminophen Tab [Tylenol Tab] 1,000 mg PO Q6HR PRN 02/17/22 02/17/22 History Azithromycin [Zithromax Z Pack] See Taper PO DIRECTED 02/17/22 02/17/22 His tory Ferrous Sulfate [Feosol] 325 mg PO DAILY 02/17/22 02/17/22 History Ibuprofen [Motrin Ib] 800 mg PO Q8H PRN 02/17/22 02/17/22 History Ipratropium-Albuterol Nebulize 3 ml INHALATION RT-Q4H PRN 02/17/22 02/17/22 History [Duoneb 0.5 mg-3 mg/3 ml Soln] Sevelamer [Renvela] 2,400 mg PO TID-W/MEALS 02/17/22 02/17/22 History Velphoro 500mg Chewable Tab 500 mg PO TID-W/MEALS 02/17/22 02/17/22 History Vitamin C 1000mg Gummies 1 tab PO DAILY 02/17/22 02/17/22 History Vitamin D3 25 Mcg Gummies 1 tab PO DAILY 02/17/22 02/17/22 History carvediloL [Coreg] 12.5 mg PO BID 02/17/22 02/17/22 History hydrALAZINE HCL [Apresoline] 100 mg PO TID 02/17/22 02/17/22 History Allergies Allergy/AdvReac Type Severity Reaction Status Date / Time No Known Allergies Allergy Verified 02/17/22 15:39 Physical Exam Vitals: Vital Signs Temp Pulse Pulse Resp BP BP Pulse Ox 02/18/22 08:39 80 02/18/22 08:19 80 02/18/22 08:00 98.3 F 79 123/73 93 L 02/18/22 02:44 85 95 02/18/22 02:00 98.6 F 90 24 120/71 92 L 02/18/22 01:12 88 02/17/22 20:00 72 16 96 02/17/22 19:34 97.8 F 72 18 122/69 88 L 02/17/22 16:00 97.9 F 84 20 125/78 97 02/17/22 15:15 98.5 F 80 18 130/81 99 02/17/22 13:51 97.8 F 83 18 132/79 95 Intake and Output 02/17/22 02/18/22 02/18/22 22:59 06:59 14:59 Other: Voiding Method Toilet # Voids 3 Weight 93.44 kg Results - Lab Results Most recent lab results Calcium 8.6 mg/dL (8.4-10.2) 02/17/22 14:55 02/18/22 04:11 02/17/22 14:55 Assessment and Plan Plan: Assessment: 1. End-stage renal disease maintained on hemodialysis on Friday schedule via permacath. 2. Fever. Tested negative for coronavirus on 02/16/2022. Likely permacath infection. Blood cultures positive for staph aureus from 02/16/2022. 3. Hyponatremia secondary to chronic kidney disease. 4. Anemia of chronic disease. 5. Hypertension with chronic kidney disease. Controlled. 6. Chronic kidney disease mineral bone disease maintained on phosphate binders. Plan: Hemodialysis today. Check cultures from the catheter. Receiving IV antibiotics. Infectious disease following. Plan to DC permacath after dialysis today. Add Aranesp. Monitor vancomycin levels. Dose to be adjusted for renal function. Monitor for clearance of bacteremia. Patient has a maturing AV fistula in the left upper extremity. Thank you for the consultation. I will continue to follow the patient with you during his hospital stay.
[2022-02-18 09:42] LABS: Anion Gap 20.1 mmol/L (10.00-18.00); BUN/Creat Ratio 2.98 Ratio (12.00-20.00); Calcium 8.6 mg/dL (8.7-10.3); Carbon Dioxide 19.7 mmol/L (20.0-27.5); Potassium 5.1 mmol/L (3.5-5.5)
[2022-02-18] MEDS: hydrALAZINE HCL 50 MG TAB PO SCH ×3 (10:00→21:02)
[2022-02-18] MEDS: amLODIPine 5 MG TAB PO SCH ×2 (10:00→21:02)
[2022-02-18] MEDS: carvediloL 12.5 MG TAB PO SCH ×2 (10:00→16:11)
--- NOTE | 2022-02-18 10:46 | P.GSCN ---
History of Present Illness History of present illness: 41-year-old gentleman, patient has history of chronic renal failure having dialysis through a right IJ 3 times a week. Patient came history of fever and culture came back positive for staph consulted for removal of the dialysis catheter. Patient has no history of UTI: Negative Neck examination neck is supple patient has a dialysis catheter right jugular approach patient has a Yoselin fistula in the right arm Chest is clear first and second sound normal Abdomen soft nontender Vascular brachial radial pulses are present patient is Yoselin fistula thrill present Plan is infected catheter right IJ which is scheduled to have a removal of the catheter after dialysis today Past Medical History Past Medical History: Dialysis, Hypertension, Renal Disease Additional Past Medical History / Comment(s): Diaylsis since may 18 2021, right chest port since 2020, Kidney Failure since May 2021 r/t htn and pre- work out drinks History of Any Multi-Drug Resistant Organisms: None Reported Past Surgical History: Appendectomy, Orthopedic Surgery Additional Past Surgical History / Comment(s): Hemodiaylsis catheter in Friday2020, broken jaw repair Past Psychological History: No Psychological Hx Reported Smoking Status: Never smoker Past Alcohol Use History: None Reported Past Drug Use History: None Reported Medications and Allergies Home Medications Medication Instructions Recorded Confirmed Type Calcium Acetate [Phoslo] 1,334 mg PO TID-W/MEALS 11/30/21 02/17/22 History Furosemide [Lasix] 80 mg PO DIRECTED 11/30/21 02/17/22 History Furosemide [Lasix] 160 mg PO SUMOWEFR 11/30/21 02/17/22 History amLODIPine [Norvasc] 5 mg PO BID 11/30/21 02/17/22 History Amoxic-Pot Clav 875-125Mg 1 tab PO Q12HR #20 tablet 02/16/22 02/17/22 Rx [Augmentin 875-125] Acetaminophen Tab [Tylenol Tab] 1,000 mg PO Q6HR PRN 02/17/22 02/17/22 History Azithromycin [Zithromax Z Pack] See Taper PO DIRECTED 02/17/22 02/17/22 History Ferrous Sulfate [Feosol] 325 mg PO DAILY 02/17/22 02/17/22 History Ibuprofen [Motrin Ib] 800 mg PO Q8H PRN 02/17/22 02/17/22 History Ipratropium-Albuterol Nebulize 3 ml INHALATION RT-Q4H PRN 02/17/22 02/17/22 History [Duoneb 0.5 mg-3 mg/3 ml Soln] Sevelamer [Renvela] 2,400 mg PO TID-W/MEALS 02/17/22 02/17/22 History Velphoro 500mg Chewable Tab 500 mg PO TID-W/MEALS 02/17/22 02/17/22 History Vitamin C 1000mg Gummies 1 tab PO DAILY 02/17/22 02/17/22 History Vitamin D3 25 Mcg Gummies 1 tab PO DAILY 02/17/22 02/17/22 History carvediloL [Coreg] 12.5 mg PO BID 02/17/22 02/17/22 History hydrALAZINE HCL [Apresoline] 100 mg PO TID 02/17/22 02/17/22 History Allergies Allergy/AdvReac Type Severity Reaction Status Date / Time No Known Allergies Allergy Verified 02/17/22 15:39 Surgical - Exam Vital Signs Temp Pulse Resp BP Pulse Ox 97.8 F 83 18 132/79 95 02/17/22 13:51 02/17/22 13:51 02/17/22 13:51 02/17/22 13:51 02/17/22 13:51 Results - Labs 02/18/22 04:11 02/18/22 04:11 Abnormal Lab Results - Last 24 Hours (Table) 02/17/22 02/17/22 02/18/22 Range/Units 14:55 14:55 04:11 RBC 3.04 L 2.87 L (4.30-5.90) m/uL Hgb 9.0 L 8.1 L (13.0-17.5) gm/dL Hct 27.7 L 25.8 L (39.0-53.0) % MCHC 31.4 L (32.0-37.0) g/dL Lymphocytes # 0.3 L 0.44 L (1.0-4.8) k/uL Sodium 130 L (137-145) mmol/L Chloride 93 L (98-107) mmol/L Carbon Dioxide 21 L (22-30) mmol/L Anion Gap (10.00-18.00) mmol/L BUN 54 H (9-20) mg/dL Creatinine 17.80 H* (0.66-1.25) mg/dL Est GFR (CKD-EPI)AfAm (60.0-200.0) Est GFR (CKD-EPI)NonAf (60.0-200.0) BUN/Creatinine Ratio (12.00-20.00) Ratio Glucose 126 H (74-99) mg/dL Calcium (8.7-10.3) mg/dL ALT 60 H (4-49) U/L C-Reactive Protein (0.00-0.80) mg/dL Total Protein 5.9 L (6.3-8.2) g/dL 02/18/22 Range/Units 04:11 RBC (4.30-5.90) m/uL Hgb (13.0-17.5) gm/dL Hct (39.0-53.0) % MCHC (32.0-37.0) g/dL Lymphocytes # (1.0-4.8) k/uL Sodium 132 L (137-145) mmol/L Chloride 92 L (98-107) mmol/L Carbon Dioxide 19.7 L (22-30) mmol/L Anion Gap 20.10 H (10.00-18.00) mmol/L BUN 57.0 H (9-20) mg/dL Creatinine 19.1 H* (0.66-1.25) mg/dL Est GFR (CKD-EPI)AfAm 3.0 L (60.0-200.0) Est GFR (CKD-EPI)NonAf 2.6 L (60.0-200.0) BUN/Creatinine Ratio 2.98 L (12.00-20.00) Ratio Glucose (74-99) mg/dL Calcium 8.6 L (8.7-10.3) mg/dL ALT (4-49) U/L C-Reactive Protein 21.00 H (0.00-0.80) mg/dL Total Protein (6.3-8.2) g/dL Diabetes panel 02/17/22 02/18/22 Range/Units 14:55 04:11 Sodium 130 L 132 L (137-145) mmol/L Potassium 4.4 5.1 (3.5-5.1) mmol/L Chloride 93 L 92 L (98-107) mmol/L Carbon Dioxide 21 L 19.7 L (22-30) mmol/L BUN 54 H 57.0 H (9-20) mg/dL Creatinine 17.80 H* 19.1 H* (0.66-1.25) mg/dL Glucose 126 H 91 (74-99) mg/dL Calcium 8.6 8.6 L (8.4-10.2) mg/dL AST 40 (17-59) U/L ALT 60 H (4-49) U/L Alkaline Phosphatase 43 (38-126) U/L Total Protein 5.9 L (6.3-8.2) g/dL Albumin 3.5 (3.5-5.0) g/dL Calcium panel 02/17/22 02/18/22 Range/Units 14:55 04:11 Calcium 8.6 8.6 L (8.4-10.2) mg/dL Albumin 3.5 (3.5-5.0) g/dL Pituitary panel 02/17/22 02/18/22 Range/Units 14:55 04:11 Sodium 130 L 132 L (137-145) mmol/L Potassium 4.4 5.1 (3.5-5.1) mmol/L Chloride 93 L 92 L (98-107) mmol/L Carbon Dioxide 21 L 19.7 L (22-30) mmol/L BUN 54 H 57.0 H (9-20) mg/dL Creatinine 17.80 H* 19.1 H* (0.66-1.25) mg/dL Glucose 126 H 91 (74-99) mg/dL Calcium 8.6 8.6 L (8.4-10.2) mg/dL Adrenal panel 02/17/22 02/18/22 Range/Units 14:55 04:11 Sodium 130 L 132 L (137-145) mmol/L Potassium 4.4 5.1 (3.5-5.1) mmol/L Chloride 93 L 92 L (98-107) mmol/L Carbon Dioxide 21 L 19.7 L (22-30) mmol/L BUN 54 H 57.0 H (9-20) mg/dL Creatinine 17.80 H* 19.1 H* (0.66-1.25) mg/dL Glucose 126 H 91 (74-99) mg/dL Calcium 8.6 8.6 L (8.4-10.2) mg/dL Total Bilirubin 0.6 (0.2-1.3) mg/dL AST 40 (17-59) U/L ALT 60 H (4-49) U/L Alkaline Phosphatase 43 (38-126) U/L Total Protein 5.9 L (6.3-8.2) g/dL Albumin 3.5 (3.5-5.0) g/dL
[2022-02-18] MEDS: HYDROcodone/APAP 5-325MG 1 EACH TAB PO PRN ×2 (11:49→19:35)
--- NOTE | 2022-02-18 13:32 | P.PN ---
Subjective Progress Note Date: 02/18/22 This is a 41 year old male who was recently admitted with bacteremia likely dialysis cath associated. Multiple medical consultations following and patient is scheduled to receive dialysis today and have right chest wall permacath removed today while awaiting for clearance of blood cultures. Catheter to be sent for analysis as well. Patient does have a maturing left arm av fistula that is maturing. Patient with features of sepsis present on admission. Patient is currently afebrile and denies chest pain or shortness of breath. Review of systems: Constitutional: No reports of fatigue, fever, or chills Cardiovascular: No reports of chest pain or palpitations Respiratory: No reports of shortness of breath or cough GI: No reports of nausea, no reports of of vomiting, no reports of diarrhea : No reports of dysuria or retention Neurovascular: reports of generalized weakness All medications have been reviewed Active Medications Hydrocodone Bitart/Acetaminophen (Hydrocodone/Apap 5-325mg 1 Each Tab) 1 each PO Q6HR PRN PRN Reason: Pain Last Admin: 02/17/22 22:21 Dose: 1 each Albuterol/Ipratropium (Ipratropium-Albuterol 3 Ml Neb) 3 ml INHALATION RT-Q4H PRN PRN Reason: Wheezing/Shortness of breath Last Admin: 02/18/22 08:18 Dose: 3 ml Amlodipine Besylate (Amlodipine 5 Mg Tab) 5 mg PO BID [facility] Last Admin: 02/17/22 20:02 Dose: 5 mg Ascorbic Acid (Ascorbic Acid 500 Mg Tab) 1,000 mg PO DAILY [facility] Last Admin: 02/18/22 08:31 Dose: 1,000 mg Calcium Acetate (Calcium Acetate 667 Mg Tab) 1,334 mg PO TID-W/MEALS [facility] Last Admin: 02/18/22 08:32 Dose: 1,334 mg Carvedilol (Carvedilol 12.5 Mg Tab) 12.5 mg PO AC-BID [facility] Last Admin: 02/17/22 17:01 Dose: 12.5 mg Cholecalciferol (Cholecalciferol 25 Mcg (1000 Iu) Tablet) 25 mcg PO DAILY [facility] Last Admin: 02/18/22 08:31 Dose: 25 mcg Darbepoetin Ezequiel (Darbepoetin Ezequiel 40 Mcg/0.4 Ml Syringe) 40 mcg SQ Q7D [facility] Ferrous Sulfate (Ferrous Sulfate 325 Mg Tab) 325 mg PO DAILY [facility] Last Admin: 02/18/22 08:31 Dose: 325 mg Furosemide (Furosemide 80 Mg Tab) 160 mg PO SUMOWEFR [facility] Last Admin: 02/18/22 08:31 Dose: 160 mg Furosemide (Furosemide 80 Mg Tab) 80 mg PO TuThSa [facility] Guaifenesin/Dextromethorphan (Guaifenesin-Dm 100-10mg/5ml 10 Ml Cup) 10 ml PO Q6HR PRN PRN Reason: Cough Last Admin: 02/18/22 01:29 Dose: 10 ml Heparin Sodium (Porcine) (Heparin Sodium,Porcine/Pf 5,000 Unit/0.5 Ml Syringe) 5,000 unit SQ Q12HR [facility] Last Admin: 02/18/22 08:32 Dose: 5,000 unit Hydralazine HCl (Hydralazine Hcl 50 Mg Tab) 100 mg PO TID [facility] Last Admin: 02/17/22 20:02 Dose: 100 mg Miscellaneous Information (Vancomycin Iv Per Pharmacy 1 Each Misc) 1 each MISCELLANE DIRECTED PRN; Protocol PRN Reason: Per Protocol Pantoprazole Sodium (Pantoprazole 40 Mg Tablet) 40 mg PO AC-BRKFST [facility] Last Admin: 02/18/22 08:32 Dose: 40 mg Sevelamer Carbonate (Sevelamer 800 Mg Tab) 2,400 mg PO TID-W/MEALS [facility] Last Admin: 02/18/22 08:31 Dose: 2,400 mg PHYSICAL EXAMINATION: GENERAL: The patient is alert and oriented x4, Well developed, well nourished. HEENT:PERRLA. EOMI. no scleral icterus. No conjunctival pallor. Normocephalic, atraumatic. No pharyngeal erythema. No thyromegaly. CARDIOVASCULAR: S1 and S2 muffled PULMONARY: diminished breath sounds bilaterally with no wheezing and some rhonchi noted. ABDOMEN: soft. non tender on exam. Obese. non-distended, normal bowel sounds. No palpable organomegaly. MUSCULOSKELETAL: No joint swelling or deformity. EXTREMITIES: No cyanosis, clubbing, or pedal edema. NEUROLOGICAL: Gross neurological examination did not reveal any focal deficits. diffuse weakness SKIN: No rashes. Assessment: Gram positive bacteremia with staph aureus, possible secondary to dialysis catheter of the right chest wall Possible pneumonia Chronic kidney disease, ESRD, on hemodialysis Chronic renal disease multiple complex medical issues GI prophylaxis DVT prophylaxis Full code Plan: Recommend to continue with current medications and management . Patient to receive dialysis today and have vascular surgery remove the right chest wall catheter and monitor for clearance of bacteremia. Recommend daily blood cultures. Follow up labs in am.Due to multiple complex medical issues, prognosis is guarded. The impression and plan of care has been dictated as a scribe by Eileen Kiser, nurse practitioner as directed. MD Adrian I have performed a history and examination and MDM of this patient, discussed the same with the dictator, and has been documented as a scribe. Based on total visit time, I have performed more than 50% of the visit. Any additional findings or plans will be noted. Objective - Vital Signs Vital signs: Vital Signs Temp 98.3 F 02/18/22 08:00 Pulse 80 02/18/22 08:39 Resp 24 02/18/22 02:00 BP 123/73 02/18/22 08:00 Pulse Ox 93 L 02/18/22 08:00 FiO2 Intake & Output 02/17/22 02/18/22 02/18/22 18:59 06:59 18:59 Weight 93.44 kg Other: Voiding Method Toilet # Voids 3 - Labs CBC & Chem 7: 02/18/22 04:11 02/18/22 04:11 Labs: Abnormal Lab Results - Last 24 Hours (Table) 02/17/22 02/17/22 02/18/22 Range/Units 14:55 14:55 04:11 RBC 3.04 L 2.87 L (4.30-5.90) m/uL Hgb 9.0 L 8.1 L (13.0-17.5) gm/dL Hct 27.7 L 25.8 L (39.0-53.0) % MCHC 31.4 L (32.0-37.0) g/dL Lymphocytes # 0.3 L 0.44 L (1.0-4.8) k/uL Sodium 130 L (137-145) mmol/L Chloride 93 L (98-107) mmol/L Carbon Dioxide 21 L (22-30) mmol/L Anion Gap (10.00-18.00) mmol/L BUN 54 H (9-20) mg/dL Creatinine 17.80 H* (0.66-1.25) mg/dL Est GFR (CKD-EPI)AfAm (60.0-200.0) Est GFR (CKD-EPI)NonAf (60.0-200.0) BUN/Creatinine Ratio (12.00-20.00) Ratio Glucose 126 H (74-99) mg/dL Calcium (8.7-10.3) mg/dL ALT 60 H (4-49) U/L C-Reactive Protein (0.00-0.80) mg/dL Total Protein 5.9 L (6.3-8.2) g/dL 02/18/22 Range/Units 04:11 RBC (4.30-5.90) m/uL Hgb (13.0-17.5) gm/dL Hct (39.0-53.0) % MCHC (32.0-37.0) g/dL Lymphocytes # (1.0-4.8) k/uL Sodium 132 L (137-145) mmol/L Chloride 92 L (98-107) mmol/L Carbon Dioxide 19.7 L (22-30) mmol/L Anion Gap 20.10 H (10.00-18.00) mmol/L BUN 57.0 H (9-20) mg/dL Creatinine 19.1 H* (0.66-1.25) mg/dL Est GFR (CKD-EPI)AfAm 3.0 L (60.0-200.0) Est GFR (CKD-EPI)NonAf 2.6 L (60.0-200.0) BUN/Creatinine Ratio 2.98 L (12.00-20.00) Ratio Glucose (74-99) mg/dL Calcium 8.6 L (8.7-10.3) mg/dL ALT (4-49) U/L C-Reactive Protein 21.00 H (0.00-0.80) mg/dL Total Protein (6.3-8.2) g/dL
[2022-02-18] MEDS: DARBEPOETIN ALFA 40 MCG/0.4 ML SYRINGE SQ SCH (16:11)
--- NOTE | 2022-02-18 19:45 | PCN ---
PROCEDURE NOTE PREOPERATIVE DIAGNOSIS: Acute on chronic renal failure, positive blood culture. POSTOPERATIVE DIAGNOSIS: Acute on chronic renal failure, positive blood culture. PROCEDURE: Removal of dialysis catheter, right jugular approach. PROCEDURE DESCRIPTION: The patient was seen. Right side of the neck and chest was prepped. Drapes were applied in sterile manner. Lidocaine 1% plain was infiltrated. A small incision was made at the site of the catheter, went circumferentially around the cuff of the catheter. Catheter was removed. Incision was closed with 3-0 nylon. Dressing was applied. Patient tolerated the procedure well. Tip of the catheter was sent for culture. MMODL / IJN: [id number] /
[2022-02-18 21:36] LABS: Hepatitis B Surface Antigen Nonreactive (Nonreactive)
[2022-02-18 21:37] LABS: Hepatitis B Surface Antibody Reactive (Nonreactive)
[2022-02-19 04:32] LABS: Anion Gap 13 mmol/L; Blood Urea Nitrogen 43 mg/dL (9-20); Calcium 8.5 mg/dL (8.4-10.2); Carbon Dioxide 22 mmol/L (22-30); Chloride 96 mmol/L (98-107); Glucose 87 mg/dL (74-99); Magnesium 2.3 mg/dL (1.6-2.3); Potassium 4.1 mmol/L (3.5-5.1); Sodium 131 mmol/L (137-145)
[2022-02-19 04:38] LABS: African American GFR (CKD) 4 (>60 ml/min/1.73 sqM); Non-African American GFR(CKD) 3 (>60 ml/min/1.73 sqM)
[2022-02-19] MEDS: CALCIUM ACETATE 667 MG TAB PO SCH ×3 (08:57→17:16)
[2022-02-19] MEDS: carvediloL 12.5 MG TAB PO SCH ×2 (08:58→17:16)
[2022-02-19] MEDS: PANTOPRAZOLE 40 MG TABLET PO SCH (08:58)
[2022-02-19] MEDS: SEVELAMER 800 MG TAB PO SCH ×3 (08:58→17:16)
--- NOTE | 2022-02-19 09:01 | P.PN ---
Subjective Patient is seen in follow-up for end-stage renal disease. He is maintained on hemodialysis on Friday schedule. Last hemodialysis was on 02/18/2022. Permacath removed 02/18/2022. Blood cultures positive for gram- positive cocci. Feels better today. No vomiting or diarrhea. Oral intake is good. Vital signs are stable. General: Awake and alert. No acute distress. HEENT: Head exam is unremarkable. LUNGS: Breath sounds decreased. HEART: Rate and Rhythm are regular. ABDOMEN: Soft, no distention. EXTREMITITES: No edema. Objective - Vital Signs Vital signs: Vital Signs Temp 98.2 F 02/19/22 07:00 Pulse 96 02/19/22 07:00 Resp 16 02/19/22 07:00 BP 138/78 02/19/22 07:00 Pulse Ox 96 02/19/22 07:00 FiO2 Intake & Output 02/18/22 02/19/22 02/19/22 18:59 06:59 18:59 Output Total 3000 Balance -3000 Output: Hemodialysis 3000 Other: Voiding Method Toilet # Voids 2 2 - Labs CBC & Chem 7: 02/18/22 04:11 02/19/22 03:38 Labs: Abnormal Lab Results - Last 24 Hours (Table) 02/18/22 02/18/22 02/18/22 Range/Units 04:11 04:11 04:11 RBC 2.87 L (4.40-5.60) X 10*6/uL Hgb 8.1 L (13.0-17.0) g/dL Hct 25.8 L (39.6-50.0) % MCHC 31.4 L (32.0-37.0) g/dL Lymphocytes # 0.44 L (0.90-5.00) X 10*3/uL Sodium 132 L (135-145) mmol/L Chloride 92 L (96-109) mmol/L Carbon Dioxide 19.7 L (20.0-27.5) mmol/L Anion Gap 20.10 H (10.00-18.00) mmol/L BUN 57.0 H (9.0-27.0) mg/dL Creatinine 19.1 H* (0.6-1.5) mg/dL Est GFR (CKD-EPI)AfAm 3.0 L (60.0-200.0) Est GFR (CKD-EPI)NonAf 2.6 L (60.0-200.0) BUN/Creatinine Ratio 2.98 L (12.00-20.00) Ratio Calcium 8.6 L (8.7-10.3) mg/dL C-Reactive Protein 21.00 H (0.00-0.80) mg/dL Hep Bs Antibody Reactive A (Nonreactive) 02/19/22 Range/Units 03:38 RBC (4.40-5.60) X 10*6/uL Hgb (13.0-17.0) g/dL Hct (39.6-50.0) % MCHC (32.0-37.0) g/dL Lymphocytes # (0.90-5.00) X 10*3/uL Sodium 131 L (135-145) mmol/L Chloride 96 L (96-109) mmol/L Carbon Dioxide (20.0-27.5) mmol/L Anion Gap (10.00-18.00) mmol/L BUN 43 H (9.0-27.0) mg/dL Creatinine 15.15 H* (0.6-1.5) mg/dL Est GFR (CKD-EPI)AfAm (60.0-200.0) Est GFR (CKD-EPI)NonAf (60.0-200.0) BUN/Creatinine Ratio (12.00-20.00) Ratio Calcium (8.7-10.3) mg/dL C-Reactive Protein (0.00-0.80) mg/dL Hep Bs Antibody (Nonreactive) Microbiology - Last 24 Hours (Table) 02/18/22 04:11 Blood Culture Gram Stain - Preliminary Blood 02/18/22 04:11 Blood Culture - Final Blood 02/18/22 13:30 Blood Culture Gram Stain - Preliminary Blood 02/18/22 13:30 Blood Culture - Final Blood 02/18/22 19:22 Catheter Tip Culture - Preliminary Catheter Tip 02/17/22 14:40 Blood Culture Gram Stain - Preliminary Blood 02/17/22 14:55 Blood Culture Gram Stain - Preliminary Blood 02/17/22 14:40 Blood Culture - Preliminary Blood No Growth after 24 hours 02/17/22 14:55 Blood Culture - Preliminary Blood No Growth after 24 hours Assessment and Plan Plan: Assessment: 1. End-stage renal disease maintained on hemodialysis on Friday schedule via permacath. 2. Fever. Tested negative for coronavirus on 02/16/2022. Likely permacath infection. Blood cultures positive for staph aureus from 02/16/2022. Cultures from this admission positive for gram-positive cocci. 3. Hyponatremia secondary to chronic kidney disease. 4. Anemia of chronic kidney disease. On Aranesp. 5. Hypertension with chronic kidney disease. Controlled. 6. Chronic kidney disease mineral bone disease maintained on phosphate binders. Plan: Last hemodialysis 02/18/2022. Permacath removed 02/18/2022. Monitor vancomycin levels. Dose to be adjusted for renal function. Monitor for clearance of bacteremia. New permacath will be placed once cleared by infectious disease. Patient has a maturing AV fistula in the left upper extremity. Continue to check labs daily.
[2022-02-19] MEDS: hydrALAZINE HCL 50 MG TAB PO SCH ×3 (10:55→22:11)
[2022-02-19] MEDS: ASCORBIC ACID 500 MG TAB PO SCH (10:55)
[2022-02-19] MEDS: CHOLECALCIFEROL 25 MCG (1000 IU) TABLET PO SCH (10:56)
[2022-02-19] MEDS: FERROUS SULFATE 325 MG TAB PO SCH (10:56)
[2022-02-19] MEDS: amLODIPine 5 MG TAB PO SCH ×2 (10:56→21:10)
[2022-02-19] MEDS: FUROSEMIDE 80 MG TAB PO SCH (11:00)
[2022-02-19] MEDS: HEPARIN SODIUM,PORCINE/PF 5,000 UNIT/0.5 ML SYRINGE SQ SCH ×2 (11:00→21:19)
[2022-02-19 11:27] LABS: Non-African American GFR(CKD) 2.6 (60.0-200.0)
--- NOTE | 2022-02-19 17:07 | P.PN ---
Subjective Progress Note Date: 02/18/22 Principal diagnosis: Bacteremia dialysis catheter infection Patient is a 41-year-old male with a past medical history significant for end-stage renal disease on hemodialysis presented to hospital with bacteremia secondary to dialysis catheter infection. On today's evaluation that is 02/18/2022, the patient is afebrile this morning, patient is currently undergoing dialysis with a plan for removal of catheter afterwards the patient denies having any chest pain or shortness of breath or cough no abdominal pain or diarrhea Objective - Vital Signs Vital signs: Vital Signs Temp 98.3 F 02/18/22 08:00 Pulse 80 02/18/22 11:57 Resp 24 02/18/22 02:00 BP 123/73 02/18/22 08:00 Pulse Ox 93 L 02/18/22 08:00 FiO2 Intake & Output 02/17/22 02/18/22 02/18/22 18:59 06:59 18:59 Weight 93.44 kg Other: Voiding Method Toilet # Voids 3 - Exam GENERAL DESCRIPTION: Middle-aged male lying in bed in no distress RESPIRATORY SYSTEM: Unlabored breathing , decreased breath sounds at bases HEART: S1 S2 regular rate and rhythm , ABDOMEN: Soft , no tenderness EXTREMITIES: No edema feet - Labs CBC & Chem 7: 02/18/22 04:11 02/19/22 03:38 Labs: Abnormal Lab Results - Last 24 Hours (Table) 02/17/22 02/17/22 02/18/22 Range/Units 14:55 14:55 04:11 RBC 3.04 L 2.87 L (4.30-5.90) m/uL Hgb 9.0 L 8.1 L (13.0-17.5) gm/dL Hct 27.7 L 25.8 L (39.0-53.0) % MCHC 31.4 L (32.0-37.0) g/dL Lymphocytes # 0.3 L 0.44 L (1.0-4.8) k/uL Sodium 130 L (137-145) mmol/L Chloride 93 L (98-107) mmol/L Carbon Dioxide 21 L (22-30) mmol/L Anion Gap (10.00-18.00) mmol/L BUN 54 H (9-20) mg/dL Creatinine 17.80 H* (0.66-1.25) mg/dL Est GFR (CKD-EPI)AfAm (60.0-200.0) Est GFR (CKD-EPI)NonAf (60.0-200.0) BUN/Creatinine Ratio (12.00-20.00) Ratio Glucose 126 H (74-99) mg/dL Calcium (8.7-10.3) mg/dL ALT 60 H (4-49) U/L C-Reactive Protein (0.00-0.80) mg/dL Total Protein 5.9 L (6.3-8.2) g/dL 02/18/22 Range/Units 04:11 RBC (4.30-5.90) m/uL Hgb (13.0-17.5) gm/dL Hct (39.0-53.0) % MCHC (32.0-37.0) g/dL Lymphocytes # (1.0-4.8) k/uL Sodium 132 L (137-145) mmol/L Chloride 92 L (98-107) mmol/L Carbon Dioxide 19.7 L (22-30) mmol/L Anion Gap 20.10 H (10.00-18.00) mmol/L BUN 57.0 H (9-20) mg/dL Creatinine 19.1 H* (0.66-1.25) mg/dL Est GFR (CKD-EPI)AfAm 3.0 L (60.0-200.0) Est GFR (CKD-EPI)NonAf 2.6 L (60.0-200.0) BUN/Creatinine Ratio 2.98 L (12.00-20.00) Ratio Glucose (74-99) mg/dL Calcium 8.6 L (8.7-10.3) mg/dL ALT (4-49) U/L C-Reactive Protein 21.00 H (0.00-0.80) mg/dL Total Protein (6.3-8.2) g/dL Assessment and Plan (1) Bacteremia Current Visit: Yes Status: Acute Code(s): R78.81 - BACTEREMIA SNOMED C ode(s): 8935302 Plan: 1patient with a fever now with evidence of gram-positive bacteremia with gram- positive cocci in clusters likely Staph aureus and more likely related to the dialysis catheter infection clinic not behaving as pneumonia. 2- Blood cultures will be repeated daily to document clearance of his bacteremia. 3patient continue with vancomycin pharmacy to dose while waiting for culture finalized. 4patient has been evaluated by vascular surgery and scheduled for removal of the dialysis catheter After dialysis today Time with Patient: Less than 30
--- NOTE | 2022-02-19 17:09 | P.PN ---
Subjective Progress Note Date: 02/19/22 Principal diagnosis: Bacteremia dialysis catheter infection Patient is a 41-year-old male with a past medical history significant for end-stage renal disease on hemodialysis presented to hospital with bacteremia secondary to dialysis catheter infection. Patient did have removal of the dialysis catheter on 02/18/2022 On today's evaluation that is 02/19/2022, the patient did have a low-grade fever last night, is afebrile this morning the patient is feeling better patient is breathing comfortably no chest pain shortness of breath or cough no nausea no vomiting no abdominal pain or any diarrhea Objective - Vital Signs Vital signs: Vital Signs Temp 97.9 F 02/19/22 14:21 Pulse 75 02/19/22 14:21 Resp 17 02/19/22 14:21 BP 136/81 02/19/22 14:21 Pulse Ox 96 02/19/22 14:21 FiO2 Intake & Output 02/18/22 02/19/22 02/19/22 18:59 06:59 18:59 Intake Total 296 Output Total 3000 Balance -3000 296 Intake: Oral 296 Output: Hemodialysis 3000 Other: Voiding Method Toilet Toilet # Voids 2 2 - Exam GENERAL DESCRIPTION: Middle-aged male lying in bed in no distress RESPIRATORY SYSTEM: Unlabored breathing , decreased breath sounds at bases HEART: S1 S2 regular rate and rhythm , ABDOMEN: Soft , no tenderness EXTREMITIES: No edema feet - Labs CBC & Chem 7: 02/18/22 04:11 02/19/22 03:38 Labs: Abnormal Lab Results - Last 24 Hours (Table) 02/18/22 02/18/22 02/19/22 Range/Units 04:11 04:11 03:38 Sodium 131 L (137-145) mmol/L Chloride 96 L (98-107) mmol/L BUN 43 H (9-20) mg/dL Creatinine 19.1 H* 15.15 H* (0.6-1.5) mg/dL Est GFR (CKD-EPI)AfAm 3.0 L (60.0-200.0) Est GFR (CKD-EPI)NonAf 2.6 L (60.0-200.0) Hep Bs Antibody Reactive A (Nonreactive) Microbiology - Last 24 Hours (Table) 02/17/22 14:40 Blood Culture Gram Stain - Preliminary Blood Blood Culture - Preliminary Presumptive Staph aureus 02/17/22 14:55 Blood Culture Gram Stain - Preliminary Blood Blood Culture - Preliminary Presumptive Staph aureus 02/18/22 04:11 Blood Culture Gram Stain - Preliminary Blood 02/18/22 13:30 Blood Culture Gram Stain - Preliminary Blood 02/18/22 04:11 Blood Culture - Final Blood 02/18/22 13:30 Blood Culture - Final Blood 02/18/22 19:22 Catheter Tip Culture - Preliminary Catheter Tip 02/17/22 14:40 Blood Culture - Preliminary Blood No Growth after 24 hours 02/17/22 14:55 Blood Culture - Preliminary Blood No Growth after 24 hours Assessment and Plan (1) Bacteremia Current Visit: Yes Status: Acute Code(s): R78.81 - BACTEREMIA SNOMED Cod e(s): 9573478 Plan: 1patient with a fever now with evidence of gram-positive bacteremia with gram- positive cocci in clusters likely Staph aureus and more likely related to the dialysis catheter infection clinic not behaving as pneumonia. 2- patient has been evaluated by vascular surgery and status post removal of the dialysis catheter on 02/18/2022 3blood cultures 02/18/2022 are positive will be repeated today as well as tomorrow morning. 4will initial culture likely MSSA we will discontinue vancomycin and start the patient on naficillin Time with Patient: Less than 30
--- NOTE | 2022-02-19 19:59 | P.PN ---
Subjective Progress Note Date: 02/19/22 This is a 41 year old male who was recently admitted with bacteremia likely dialysis cath associated. Multiple medical consultations following and patient is scheduled to receive dialysis today and have right chest wall permacath removed today while awaiting for clearance of blood cultures. Catheter to be sent for analysis as well. Patient does have a maturing left arm av fistula that is maturing. Patient with features of sepsis present on admission. Patient is currently afebrile and denies chest pain or shortness of breath. 02/19/2022 Patient is evaluated today status post right chest wall catheter removal with vascular surgery yesterday. Awaiting finalized cultures and blood cultures continue to be positive and ID following. Patient being started on Nafcillin and cultures likely MSSA. Patient reports to feeling much better status post catheter removal. Patient with low grade temps. Patient denies chest pain or shortness of breath. Patient tolerating diet and no reports of nausea or vomi ting noted. Recommend daily blood cultures. Review of systems: Constitutional: No reports of fatigue, fever, or chills Cardiovascular: No reports of chest pain or palpitations Respiratory: No reports of shortness of breath or cough GI: No reports of nausea, no reports of of vomiting, no reports of diarrhea : No reports of dysuria or retention Neurovascular: no reports of generalized weakness All medications have been reviewed Active Medications Hydrocodone Bitart/Acetaminophen (Hydrocodone/Apap 5-325mg 1 Each Tab) 1 each PO Q6HR PRN PRN Reason: Pain Last Admin: 02/18/22 19:35 Dose: 1 each Albuterol/Ipratropium (Ipratropium-Albuterol 3 Ml Neb) 3 ml INHALATION RT-Q4H PRN PRN Reason: Wheezing/Shortness of breath Last Admin: 02/18/22 20:03 Dose: 3 ml Amlodipine Besylate (Amlodipine 5 Mg Tab) 5 mg PO BID [facility] Last Admin: 02/19/22 10:56 Dose: 5 mg Ascorbic Acid (Ascorbic Acid 500 Mg Tab) 1,000 mg PO DAILY [facility] Last Admin: 02/19/22 10:55 Dose: 1,000 mg Calcium Acetate (Calcium Acetate 667 Mg Tab) 1,334 mg PO TID-W/MEALS [facility] Last Admin: 02/19/22 17:16 Dose: 1,334 mg Carvedilol (Carvedilol 12.5 Mg Tab) 12.5 mg PO AC-BID [facility] Last Admin: 02/19/22 17:16 Dose: 12.5 mg Cholecalciferol (Cholecalciferol 25 Mcg (1000 Iu) Tablet) 25 mcg PO DAILY [facility] Last Admin: 02/19/22 10:56 Dose: 25 mcg Darbepoetin Ezequiel (Darbepoetin Ezequiel 40 Mcg/0.4 Ml Syringe) 40 mcg SQ Q7D [facility] Last Admin: 02/18/22 16:11 Dose: 40 mcg Ferrous Sulfate (Ferrous Sulfate 325 Mg Tab) 325 mg PO DAILY [facility] Last Admin: 02/19/22 10:56 Dose: 325 mg Furosemide (Furosemide 80 Mg Tab) 160 mg PO SUMOWEFR [facility] Last Admin: 02/18/22 08:31 Dose: 160 mg Furosemide (Furosemide 80 Mg Tab) 80 mg PO TuThSa [facility] Last Admin: 02/19/22 11:00 Dose: 80 mg Guaifenesin/Dextromethorphan (Guaifenesin-Dm 100-10mg/5ml 10 Ml Cup) 10 ml PO Q6HR PRN PRN Reason: Cough Last Admin: 02/18/22 21:02 Dose: 10 ml Heparin Sodium (Porcine) (Heparin Sodium,Porcine/Pf 5,000 Unit/0.5 Ml Syringe) 5,000 unit SQ Q12HR [facility] Last Admin: 02/19/22 11:00 Dose: 5,000 unit Hydralazine HCl (Hydralazine Hcl 50 Mg Tab) 100 mg PO TID [facility] Last Admin: 02/19/22 16:20 Dose: 100 mg Nafcillin Sodium 2 gm/ (Dextrose/Water) 100 mls @ 50 mls/hr IVPB Q4HR [facility]; Protocol Pantoprazole Sodium (Pantoprazole 40 Mg Tablet) 40 mg PO AC-BRKFST [facility] Last Admin: 02/19/22 08:58 Dose: 40 mg Sevelamer Carbonate (Sevelamer 800 Mg Tab) 2,400 mg PO TID-W/MEALS [facility] Last Admin: 02/19/22 17:16 Dose: 2,400 mg PHYSICAL EXAMINATION: GENERAL: The patient is alert and oriented x4, Well developed, well nourished. HEENT:PERRLA. EOMI. no scleral icterus. No conjunctival pallor. Normocephalic, atraumatic. No pharyngeal erythema. No thyromegaly. CARDIOVASCULAR: S1 and S2 muffled , right chest wall tenderness on palpation PULMONARY: diminished breath sounds bilaterally with no wheezing and some rhonchi noted. ABDOMEN: soft. non tender on exam. Obese. non-distended, normal bowel sounds. No palpable organomegaly. MUSCULOSKELETAL: No joint swelling or deformity. EXTREMITIES: No cyanosis, clubbing, or pedal edema. NEUROLOGICAL: Gross neurological examination did not reveal any focal deficits. SKIN: No rashes. Assessment: Gram positive bacteremia with staph aureus, possible secondary to dialysis catheter of the right chest wall status post right chest wall permacath removal on 02/18/2022 Possible pneumonia, although less likely Chronic kidney disease, ESRD, on hemodialysis Chronic renal disease multiple complex medical issues GI prophylaxis DVT prophylaxis Full code Plan: Recommend to continue with current medications and management . Patient had dialysis catheter removed by vascular surgery yesterday and sent for culture. Recommend to continue daily blood cultures and monitor for clearance of bacteremia. Patient is afebrile but did have low grade temps last night. ID following and abx being transitioned to nafcillin. Vanco has been discontinued. . Follow up labs in am.Due to multiple complex medical issues, prognosis is guarded. The impression and plan of care has been dictated by Eileen Kiser, nurse practitioner as directed. MD Adrian I have performed a history and examination and MDM of this patient, discussed the same with the dictator, and agree with the dictator's assessment and plan as written ,documented as a scribe. Based on total visit time, I have performed more than 50% of the visit. Any additional findings or plans will be noted. Objective - Vital Signs Vital signs: Vital Signs Temp 97.8 F 02/19/22 19:41 Pulse 78 02/19/22 19:41 Resp 16 02/19/22 19:41 BP 127/67 02/19/22 19:41 Pulse Ox 92 L 02/19/22 19:41 FiO2 Intake & Output 02/19/22 02/19/22 02/20/22 06:59 18:59 06:59 Intake Total 1132 Balance 1132 Intake: Oral 1132 Other: Voiding Method Toilet Toilet # Voids 2 - Labs CBC & Chem 7: 02/18/22 04:11 02/19/22 03:38 Labs: Abnormal Lab Results - Last 24 Hours (Table) 02/18/22 02/18/22 02/19/22 Range/Units 04:11 04:11 03:38 Sodium 131 L (137-145) mmol/L Chloride 96 L (98-107) mmol/L BUN 43 H (9-20) mg/dL Creatinine 19.1 H* 15.15 H* (0.6-1.5) mg/dL Est GFR (CKD-EPI)AfAm 3.0 L (60.0-200.0) Est GFR (CKD-EPI)NonAf 2.6 L (60.0-200.0) Hep Bs Antibody Reactive A (Nonreactive) Microbiology - Last 24 Hours (Table) 02/17/22 14:55 Blood Culture - Preliminary Blood No Growth after 48 hours 02/17/22 14:40 Blood Culture - Preliminary Blood No Growth after 48 hours 02/17/22 14:40 Blood Culture Gram Stain - Preliminary Blood Blood Culture - Preliminary Presumptive Staph aureus 02/17/22 14:55 Blood Culture Gram Stain - Preliminary Blood Blood Culture - Preliminary Presumptive Staph aureus 02/18/22 04:11 Blood Culture Gram Stain - Preliminary Blood 02/18/22 13:30 Blood Culture Gram Stain - Preliminary Blood 02/18/22 04:11 Blood Culture - Final Blood 02/18/22 13:30 Blood Culture - Final Blood 02/18/22 19:22 Catheter Tip Culture - Preliminary Catheter Tip
[2022-02-19] MEDS: NAFCILLIN 2 GM in DEXTROSE 5% IN WATER 100 ML IVPB SCH ×2 (20:30)
[2022-02-20] MEDS: NAFCILLIN 2 GM in DEXTROSE 5% IN WATER 100 ML IVPB SCH ×14 (00:41→23:32)
[2022-02-20 07:05] LABS: Anion Gap 17 mmol/L; Blood Urea Nitrogen 65 mg/dL (9-20); Calcium 9.1 mg/dL (8.4-10.2); Carbon Dioxide 19 mmol/L (22-30); Chloride 96 mmol/L (98-107); Glucose 77 mg/dL (74-99); Potassium 4.7 mmol/L (3.5-5.1); Sodium 132 mmol/L (137-145)
[2022-02-20 07:08] LABS: Basophils # (A) 0.1 k/uL (0-0.2); Basophils % (A) 1 %; Eosinophils # (A) 0.3 k/uL (0-0.7); Eosinophils % (A) 7 %; Lymphocytes # (A) 0.6 k/uL (1.0-4.8); Lymphocytes % (A) 16 %; MCH 30.6 pg (25.0-35.0); MCHC 33.3 g/dL (31.0-37.0); MCV 91.7 fL (80.0-100.0); Monocytes # (A) 0.2 k/uL (0-1.0); Monocytes % (A) 6 %; Neutrophils # (A) 2.7 k/uL (1.3-7.7); Neutrophils % (A) 68 %; Platelet Count 237 k/uL (150-450); RBC 2.95 m/uL (4.30-5.90); RDW 13.6 % (11.5-15.5); WBC 3.9 k/uL (3.8-10.6)
[2022-02-20 07:11] LABS: African American GFR (CKD) 3 (>60 ml/min/1.73 sqM); Non-African American GFR(CKD) 3 (>60 ml/min/1.73 sqM)
[2022-02-20 07:47] LABS: Vancomycin,Random 21.3 ug/mL
[2022-02-20] MEDS: PANTOPRAZOLE 40 MG TABLET PO SCH (08:01)
[2022-02-20] MEDS: carvediloL 12.5 MG TAB PO SCH ×2 (08:01→17:57)
[2022-02-20] MEDS: SEVELAMER 800 MG TAB PO SCH ×3 (08:01→17:57)
[2022-02-20] MEDS: CALCIUM ACETATE 667 MG TAB PO SCH ×3 (08:02→17:57)
[2022-02-20] MEDS: FUROSEMIDE 80 MG TAB PO SCH (08:02)
[2022-02-20] MEDS: ASCORBIC ACID 500 MG TAB PO SCH (08:02)
[2022-02-20] MEDS: amLODIPine 5 MG TAB PO SCH ×2 (08:02→22:42)
[2022-02-20] MEDS: FERROUS SULFATE 325 MG TAB PO SCH (08:03)
[2022-02-20] MEDS: HEPARIN SODIUM,PORCINE/PF 5,000 UNIT/0.5 ML SYRINGE SQ SCH ×2 (08:03→22:42)
[2022-02-20] MEDS: CHOLECALCIFEROL 25 MCG (1000 IU) TABLET PO SCH (08:03)
[2022-02-20] MEDS: hydrALAZINE HCL 50 MG TAB PO SCH ×3 (08:03→22:42)
--- NOTE | 2022-02-20 11:23 | P.PN ---
Subjective Patient is seen in follow-up for end-stage renal disease. He is maintained on hemodialysis on Friday schedule. Last hemodialysis was on 02/18/2022. Permacath removed 02/18/2022. Blood cultures positive for staph aureus. Denies any active complaints. Vital signs are stable. General: Awake and alert. No acute distress. HEENT: Head exam is unremarkable. LUNGS: Breath sounds decreased. HEART: Rate and Rhythm are regular. ABDOMEN: Soft, no distention. EXTREMITITES: No edema. Objective - Vital Signs Vital signs: Vital Signs Temp 97.8 F 02/20/22 07:43 Pulse 76 02/20/22 07:43 Resp 18 02/20/22 07:43 BP 123/70 02/20/22 07:43 Pulse Ox 99 02/20/22 07:43 FiO2 Intake & Output 02/19/22 02/20/22 02/20/22 18:59 06:59 18:59 Intake Total 1132 296 Balance 1132 296 Intake: Oral 1132 296 Other: Voiding Method Toilet Toilet Toilet # Voids 2 - Labs CBC & Chem 7: 02/20/22 06:15 02/20/22 06:15 Labs: Abnormal Lab Results - Last 24 Hours (Table) 02/18/22 02/20/22 02/20/22 Range/Units 04:11 06:15 06:15 RBC 2.95 L (4.30-5.90) m/uL Hgb 9.0 L (13.0-17.5) gm/dL Hct 27.0 L (39.0-53.0) % Lymphocytes # 0.6 L (1.0-4.8) k/uL Sodium 132 L (137-145) mmol/L Chloride 96 L (98-107) mmol/L Carbon Dioxide 19 L (22-30) mmol/L BUN 65 H (9-20) mg/dL Creatinine 19.1 H* 19.11 H* (0.6-1.5) mg/dL Est GFR (CKD-EPI)AfAm 3.0 L (60.0-200.0) Est GFR (CKD-EPI)NonAf 2.6 L (60.0-200.0) Microbiology - Last 24 Hours (Table) 02/18/22 04:11 Blood Culture Gram Stain - Preliminary Blood Blood Culture - Preliminary Presumptive Staph aureus 02/18/22 13:30 Blood Culture Gram Stain - Preliminary Blood Blood Culture - Preliminary Presumptive Staph aureus 02/19/22 03:38 Blood Culture - Preliminary Blood No Growth after 24 hours 02/18/22 19:22 Catheter Tip Culture - Preliminary Catheter Tip Presumptive Staph aureus Coagulase Negative Staph 02/17/22 14:55 Blood Culture - Preliminary Blood No Growth after 48 hours 02/17/22 14:40 Blood Culture - Preliminary Blood No Growth after 48 hours 02/17/22 14:40 Blood Culture Gram Stain - Preliminary Blood Blood Culture - Preliminary Presumptive Staph aureus 02/17/22 14:55 Blood Culture Gram Stain - Preliminary Blood Blood Culture - Preliminary Presumptive Staph aureus Assessment and Plan Plan: Assessment: 1. End-stage renal disease maintained on hemodialysis on Friday schedule via permacath. 2. Fever. Tested negative for coronavirus on 02/16/2022. Likely permacath infection. Blood cultures positive for staph aureus from 02/16/2022. Cultures from this admission positive for staph aureus. 3. Hyponatremia secondary to chronic kidney disease. 4. Anemia of chronic kidney disease. On Aranesp. 5. Hypertension with chronic kidney disease. Controlled. 6. Chronic kidney disease mineral bone disease maintained on phosphate binders. Plan: Last hemodialysis 02/18/2022. Permacath removed 02/18/2022. Monitor vancomycin levels. Dose to be adjusted for renal function. Monitor for clearance of bacteremia. New permacath will be placed once cleared by infectious disease. Patient has a maturing AV fistula in the left upper extremity. Continue to check labs daily. Continue to assess daily for need for renal replacement therapy.
--- NOTE | 2022-02-20 15:50 | P.PN ---
Subjective Progress Note Date: 02/20/22 This is a 41 year old male who was recently admitted with bacteremia likely dialysis cath associated. Multiple medical consultations following and patient is scheduled to receive dialysis today and have right chest wall permacath removed today while awaiting for clearance of blood cultures. Catheter to be sent for analysis as well. Patient does have a maturing left arm av fistula that is maturing. Patient with features of sepsis present on admission. Patient is currently afebrile and denies chest pain or shortness of breath. 02/19/2022 Patient is evaluated today status post right chest wall catheter removal with vascular surgery yesterday. Awaiting finalized cultures and blood cultures continue to be positive and ID following. Patient being started on Nafcillin and cultures likely MSSA. Patient reports to feeling much better status post catheter removal. Patient with low grade temps. Patient denies chest pain or shortness of breath. Patient tolerating diet and no reports of nausea or vomi ting noted. Recommend daily blood cultures. 02/20/2022 Patient is seen in follow-up today and is afebrile and awaiting for cultures to finalized. Patient is maintained on IV antibiotics in the form of nafcillin with ID following and nephrology also following closely. Patient most recent repeat blood cultures from 75 are negative for 24 hours and catheter tip preliminary culture showing presumptive staph aureus and coagulase-negative staph. Awaiting for bacteremia clearance to determine discharge antibiotics and treatment plan moving forward. Patient may likely require another dialysis c atheter and nephrology is following closely. Patient does have a maturing AV fistula and follows with vascular surgery in the outpatient setting. Patient reports this was placed in November and unsure when it will be functioning. Patient is to follow-up for ultrasound with vascular in the outpatient setting. Patient denies any chest pain or shortness of breath. Again patient is afebrile today. No reports of nausea or vomiting and patient is tolerating diet. Review of systems: Constitutional: No reports of fatigue, fever, or chills Cardiovascular: No reports of chest pain or palpitations Respiratory: No reports of shortness of breath or cough GI: No reports of nausea, no reports of of vomiting, no reports of diarrhea : No reports of dysuria or retention Neurovascular: no reports of generalized weakness All medications have been reviewed Active Medications Hydrocodone Bitart/Acetaminophen (Hydrocodone/Apap 5-325mg 1 Each Tab) 1 each PO Q6HR PRN PRN Reason: Pain Last Admin: 02/18/22 19:35 Dose: 1 each Albuterol/Ipratropium (Ipratropium-Albuterol 3 Ml Neb) 3 ml INHALATION RT-Q4H PRN PRN Reason: Wheezing/Shortness of breath Last Admin: 02/18/22 20:03 Dose: 3 ml Amlodipine Besylate (Amlodipine 5 Mg Tab) 5 mg PO BID [facility] Last Admin: 02/20/22 08:02 Dose: 5 mg Ascorbic Acid (Ascorbic Acid 500 Mg Tab) 1,000 mg PO DAILY [facility] Last Admin: 02/20/22 08:02 Dose: 1,000 mg Calcium Acetate (Calcium Acetate 667 Mg Tab) 1,334 mg PO TID-W/MEALS [facility] Last Admin: 02/20/22 13:05 Dose: 1,334 mg Carvedilol (Carvedilol 12.5 Mg Tab) 12.5 mg PO AC-BID [facility] Last Admin: 02/20/22 08:01 Dose: 12.5 mg Cholecalciferol (Cholecalciferol 25 Mcg (1000 Iu) Tablet) 25 mcg PO DAILY [facility] Last Admin: 02/20/22 08:03 Dose: 25 mcg Darbepoetin Ezequiel (Darbepoetin Ezequiel 40 Mcg/0.4 Ml Syringe) 40 mcg SQ Q7D [facility] Last Admin: 02/18/22 16:11 Dose: 40 mcg Ferrous Sulfate (Ferrous Sulfate 325 Mg Tab) 325 mg PO DAILY [facility] Last Admin: 02/20/22 08:03 Dose: 325 mg Furosemide (Furosemide 80 Mg Tab) 160 mg PO SUMOWEFR [facility] Last Admin: 02/20/22 08:02 Dose: 160 mg Furosemide (Furosemide 80 Mg Tab) 80 mg PO TuThSa [facility] Last Admin: 02/19/22 11:00 Dose: 80 mg Guaifenesin/Dextromethorphan (Guaifenesin-Dm 100-10mg/5ml 10 Ml Cup) 10 ml PO Q6HR PRN PRN Reason: Cough Last Admin: 02/18/22 21:02 Dose: 10 ml Heparin Sodium (Porcine) (Heparin Sodium,Porcine/Pf 5,000 Unit/0.5 Ml Syringe) 5,000 unit SQ Q12HR [facility] Last Admin: 02/20/22 08:03 Dose: 5,000 unit Hydralazine HCl (Hydralazine Hcl 50 Mg Tab) 100 mg PO TID [facility] Last Admin: 02/20/22 08:03 Dose: 100 mg Nafcillin Sodium 2 gm/ (Dextrose/Water) 100 mls @ 50 mls/hr IVPB Q4HR [facility]; Pr otocol Last Admin: 02/20/22 13:05 Dose: 50 mls/hr Pantoprazole Sodium (Pantoprazole 40 Mg Tablet) 40 mg PO AC-BRKFST [facility] Last Admin: 02/20/22 08:01 Dose: 40 mg Sevelamer Carbonate (Sevelamer 800 Mg Tab) 2,400 mg PO TID-W/MEALS [facility] Last Admin: 02/20/22 13:04 Dose: 2,400 mg PHYSICAL EXAMINATION: GENERAL: The patient is alert and oriented x4, Well developed, well nourished. HEENT:PERRLA. EOMI. no scleral icterus. No conjunctival pallor. Normocephalic, atraumatic. No pharyngeal erythema. No thyromegaly. CARDIOVASCULAR: S1 and S2 muffled , right chest wall tenderness on palpation PULMONARY: diminished breath sounds bilaterally with no wheezing and some rhonchi noted. ABDOMEN: soft. non tender on exam. Obese. non-distended, normal bowel sounds. No palpable organomegaly. MUSCULOSKELETAL: No joint swelling or deformity. EXTREMITIES: No cyanosis, clubbing, or pedal edema. NEUROLOGICAL: Gross neurological examination did not reveal any focal deficits. SKIN: No rashes. Assessment: Gram positive bacteremia with staph aureus, most likely secondary to dialysis ca theter of the right chest wall status post right chest wall permacath removal on 02/18/2022 Possible pneumonia, although less likely Chronic kidney disease, ESRD, on hemodialysis Chronic renal disease multiple complex medical issues GI prophylaxis DVT prophylaxis Full code Plan: Recommend to continue with current medications and management . Patient had dialysis catheter removed by vascular surgery and sent for culture with cultures preliminary showing staph. Blood cultures from 02/19/2022 have been negative for 24 hours and will need to continue monitoring closely for at least 72 hour clearance of bacteremia prior to receiving another dialysis catheter. Recommend to continue daily blood cultures and monitor for clearance of bacteremia. Patient is afebrile and currently maintained on nafcillin. Vanco has been discontinued. Infectious disease following closely. . Follow up labs in am.Due to multiple complex medical issues, prognosis is guarded. The impression and plan of care has been dictated by Eileen Kiser, nurse practitioner as directed. MD Adrian I have performed a history and examination and MDM of this patient, discussed the same with the dictator, and agree with the dictator's assessment and plan as written ,documented as a scribe. Based on total visit time, I have performed more than 50% of the visit. Any additional findings or plans will be noted. Objective - Vital Signs Vital signs: Vital Signs Temp 97.7 F 02/20/22 13:42 Pulse 68 02/20/22 13:42 Resp 18 02/20/22 13:42 BP 126/66 02/20/22 13:42 Pulse Ox 95 02/20/22 13:42 FiO2 Intake & Output 02/19/22 02/20/22 02/20/22 18:59 06:59 18:59 Intake Total 1132 592 Balance 1132 592 Intake: Oral 1132 592 Other: Voiding Method Toilet Toilet Toilet # Voids 2 - Labs CBC & Chem 7: 02/20/22 06:15 02/20/22 06:15 Labs: Abnormal Lab Results - Last 24 Hours (Table) 02/20/22 02/20/22 Range/Units 06:15 06:15 RBC 2.95 L (4.30-5.90) m/uL Hgb 9.0 L (13.0-17.5) gm/dL Hct 27.0 L (39.0-53.0) % Lymphocytes # 0.6 L (1.0-4.8) k/uL Sodium 132 L (137-145) mmol/L Chloride 96 L (98-107) mmol/L Carbon Dioxide 19 L (22-30) mmol/L BUN 65 H (9-20) mg/dL Creatinine 19.11 H* (0.66-1.25) mg/dL Microbiology - Last 24 Hours (Table) 02/17/22 14:40 Blood Culture Gram Stain - Final Blood Blood Culture - Final Staphylococcus aureus 02/17/22 14:55 Blood Culture Gram Stain - Final Blood Blood Culture - Final Staphylococcus aureus 02/18/22 04:11 Blood Culture Gram Stain - Preliminary Blood Blood Culture - Preliminary Presumptive Staph aureus 02/18/22 13:30 Blood Culture Gram Stain - Preliminary Blood Blood Culture - Preliminary Presumptive Staph aureus 02/19/22 03:38 Blood Culture - Preliminary Blood No Growth after 24 hours 02/18/22 19:22 Catheter Tip Culture - Preliminary Catheter Tip Presumptive Staph aureus Coagulase Negative Staph 02/17/22 14:55 Blood Culture - Preliminary Blood No Growth after 48 hours 02/17/22 14:40 Blood Culture - Preliminary Blood No Growth after 48 hours
[2022-02-21] MEDS: NAFCILLIN 2 GM in DEXTROSE 5% IN WATER 100 ML IVPB SCH ×10 (03:55→20:54)
[2022-02-21 06:58] LABS: Anion Gap 18 mmol/L; Blood Urea Nitrogen 79 mg/dL (9-20); Calcium 8.8 mg/dL (8.4-10.2); Carbon Dioxide 20 mmol/L (22-30); Chloride 94 mmol/L (98-107); Glucose 91 mg/dL (74-99); Sodium 132 mmol/L (137-145)
[2022-02-21 07:03] LABS: African American GFR (CKD) 3 (>60 ml/min/1.73 sqM); Non-African American GFR(CKD) 2 (>60 ml/min/1.73 sqM)
--- NOTE | 2022-02-21 07:27 | P.PN ---
Subjective Progress Note Date: 02/20/22 Principal diagnosis: Bacteremia dialysis catheter infection Patient is a 41-year-old male with a past medical history significant for end-stage renal disease on hemodialysis presented to hospital with bacteremia secondary to dialysis catheter infection. Patient did have removal of the dialysis catheter on 02/18/2022 On today's evaluation that is 02/20/2022, the patient is afebrile this morning, the patient is feeling better patient is breathing comfortably, the patient denies chest pain shortness of breath or cough no nausea no vomiting no abdominal pain or any diarrhea Objective - Vital Signs Vital signs: Vital Signs Temp 97.8 F 02/20/22 07:43 Pulse 76 02/20/22 07:43 Resp 18 02/20/22 07:43 BP 123/70 02/20/22 07:43 Pulse Ox 99 02/20/22 07:43 FiO2 Intake & Output 02/19/22 02/20/22 02/20/22 18:59 06:59 18:59 Intake Total 1132 296 Balance 1132 296 Intake: Oral 1132 296 Other: Voiding Method Toilet Toilet Toilet # Voids 2 - Exam GENERAL DESCRIPTION: Middle-aged male lying in bed in no distress RESPIRATORY SYSTEM: Unlabored breathing , decreased breath sounds at bases HEART: S1 S2 regular rate and rhythm , ABDOMEN: Soft , no tenderness EXTREMITIES: No edema feet - Labs CBC & Chem 7: 02/20/22 06:15 02/21/22 05:47 Labs: Abnormal Lab Results - Last 24 Hours (Table) 02/20/22 02/20/22 Range/Units 06:15 06:15 RBC 2.95 L (4.30-5.90) m/uL Hgb 9.0 L (13.0-17.5) gm/dL Hct 27.0 L (39.0-53.0) % Lymphocytes # 0.6 L (1.0-4.8) k/uL Sodium 132 L (137-145) mmol/L Chloride 96 L (98-107) mmol/L Carbon Dioxide 19 L (22-30) mmol/L BUN 65 H (9-20) mg/dL Creatinine 19.11 H* (0.66-1.25) mg/dL Microbiology - Last 24 Hours (Table) 02/18/22 04:11 Blood Culture Gram Stain - Preliminary Blood Blood Culture - Preliminary Presumptive Staph aureus 02/18/22 13:30 Blood Culture Gram Stain - Preliminary Blood Blood Culture - Preliminary Presumptive Staph aureus 02/19/22 03:38 Blood Culture - Preliminary Blood No Growth after 24 hours 02/18/22 19:22 Catheter Tip Culture - Preliminary Catheter Tip Presumptive Staph aureus Coagulase Negative Staph 02/17/22 14:55 Blood Culture - Preliminary Blood No Growth after 48 hours 02/17/22 14:40 Blood Culture - Preliminary Blood No Growth after 48 hours 02/17/22 14:40 Blood Culture Gram Stain - Preliminary Blood Blood Culture - Preliminary Presumptive Staph aureus 02/17/22 14:55 Blood Culture Gram Stain - Preliminary Blood Blood Culture - Preliminary Presumptive Staph aureus Assessment and Plan (1) Bacteremia Current Visit: Yes Status: Acute Code(s): R78.81 - BACTEREMIA SNOMED Code(s): 2554690 Plan: 1patient with a fever now with evidence of gram-positive bacteremia with gram- positive cocci in clusters likely Staph aureus and more likely related to the dialysis catheter infection clinic not behaving as pneumonia. 2- patient has been evaluated by vascular surgery and status post removal of the dialysis catheter on 02/18/2022 3blood cultures 02/18/2022 are positive ,catheter tip positive blood cultures 02/19/2022 negative so far 4 the patient to continue with naficillin Time with Patient: Less than 30
[2022-02-21] MEDS: CALCIUM ACETATE 667 MG TAB PO SCH ×3 (07:38→16:59)
[2022-02-21] MEDS: PANTOPRAZOLE 40 MG TABLET PO SCH (07:38)
[2022-02-21] MEDS: carvediloL 12.5 MG TAB PO SCH ×2 (07:38→16:59)
[2022-02-21] MEDS: SEVELAMER 800 MG TAB PO SCH ×3 (07:38→17:00)
[2022-02-21] MEDS: FERROUS SULFATE 325 MG TAB PO SCH (08:53)
[2022-02-21] MEDS: hydrALAZINE HCL 50 MG TAB PO SCH ×3 (08:53→20:55)
[2022-02-21] MEDS: HEPARIN SODIUM,PORCINE/PF 5,000 UNIT/0.5 ML SYRINGE SQ SCH ×2 (08:53→20:55)
[2022-02-21] MEDS: ASCORBIC ACID 500 MG TAB PO SCH (08:53)
[2022-02-21] MEDS: amLODIPine 5 MG TAB PO SCH ×2 (08:53→20:55)
[2022-02-21] MEDS: CHOLECALCIFEROL 25 MCG (1000 IU) TABLET PO SCH (08:53)
[2022-02-21] MEDS: FUROSEMIDE 80 MG TAB PO SCH (08:57)
[2022-02-21] MEDS ORDERED: SODIUM BICARB 8.4% 50 ML SYR (1 MEQ/ML) IV STA (11:12)
[2022-02-21] MEDS ORDERED: SODIUM ZIRCONIUM CYCLOSILICATE 10 GM PACKET PO ONE (11:13)
--- NOTE | 2022-02-21 11:14 | P.PN ---
Subjective Patient is seen in follow-up for end-stage renal disease. He is maintained on hemodialysis on Friday schedule. Last hemodialysis was on 02/18/2022. Permacath removed 02/18/2022. Blood cultures positive for staph aureus. Denies any active complaints. No changes overnight. Vital signs are stable. General: Awake and alert. No acute distress. HEENT: Head exam is unremarkable. LUNGS: Breath sounds decreased. HEART: Rate and Rhythm are regular. ABDOMEN: Soft, no distention. EXTREMITITES: No edema. Objective - Vital Signs Vital signs: Vital Signs Temp 98.5 F 02/21/22 09:24 Pulse 81 02/21/22 09:24 Resp 17 02/21/22 09:24 BP 165/87 02/21/22 09:24 Pulse Ox 96 02/21/22 09:24 FiO2 Intake & Output 02/20/22 02/21/22 02/21/22 18:59 06:59 18:59 Intake Total 888 Output Total 100 Balance 888 -100 Intake: Oral 888 Output: Urine 100 Other: Voiding Method Toilet Toilet Toilet # Voids 2 2 - Labs CBC & Chem 7: 02/20/22 06:15 02/21/22 05:47 Labs: Abnormal Lab Results - Last 24 Hours (Table) 02/21/22 Range/Units 05:47 Sodium 132 L (137-145) mmol/L Chloride 94 L (98-107) mmol/L Carbon Dioxide 20 L (22-30) mmol/L BUN 79 H (9-20) mg/dL Creatinine 20.94 H* (0.66-1.25) mg/dL Microbiology - Last 24 Hours (Table) 02/20/22 06:15 Blood Culture - Preliminary Blood No Growth after 24 hours 02/19/22 03:38 Blood Culture - Preliminary Blood No Growth after 48 hours 02/18/22 19:22 Catheter Tip Culture - Preliminary Catheter Tip Staphylococcus aureus Coagulase Negative Staph 02/17/22 14:40 Blood Culture - Preliminary Blood No Growth after 72 hours 02/17/22 14:55 Blood Culture - Preliminary Blood No Growth after 72 hours 02/17/22 14:40 Blood Culture Gram Stain - Final Blood Blood Culture - Final Staphylococcus aureus 02/17/22 14:55 Blood Culture Gram Stain - Final Blood Blood Culture - Final Staphylococcus aureus 02/18/22 04:11 Blood Culture Gram Stain - Preliminary Blood Blood Culture - Preliminary Presumptive Staph aureus 02/18/22 13:30 Blood Culture Gram Stain - Preliminary Blood Blood Culture - Preliminary Presumptive Staph aureus Assessment and Plan Plan: Assessment: 1. End-stage renal disease maintained on hemodialysis on Friday schedule via permacath. 2. Fever. Tested negative for coronavirus on 02/16/2022. Likely permacath infection. Blood cultures positive for staph aureus from 02/16/2022. Cultures from this admission positive for staph aureus. 3. Hyponatremia secondary to chronic kidney disease. Stable. 4. Anemia of chronic kidney disease. On Aranesp. 5. Hypertension with chronic kidney disease. Controlled. 6. Chronic kidney disease mineral bone disease maintained on phosphate binders. Plan: Last hemodialysis 02/18/2022. Permacath removed 02/18/2022. Monitor for clearance of bacteremia. New permacath will be placed once cleared by infectious disease. Patient has a maturing AV fistula in the left upper extremity. Continue to check labs daily. Continue to assess daily for need for renal replacement therapy. Discussed with infectious disease. Permacath can possibly be placed tomorrow. 2 A sodium bicarbonate IV push today. Maintain Lasix. 10 g lokelma once today.
--- NOTE | 2022-02-21 15:42 | P.PN ---
Subjective Progress Note Date: 02/21/22 This is a 41 year old male who was recently admitted with bacteremia likely dialysis cath associated. Multiple medical consultations following and patient is scheduled to receive dialysis today and have right chest wall permacath removed today while awaiting for clearance of blood cultures. Catheter to be sent for analysis as well. Patient does have a maturing left arm av fistula that is maturing. Patient with features of sepsis present on admission. Patient is currently afebrile and denies chest pain or shortness of breath. 02/19/2022 Patient is evaluated today status post right chest wall catheter removal with vascular surgery yesterday. Awaiting finalized cultures and blood cultures continue to be positive and ID following. Patient being started on Nafcillin and cultures likely MSSA. Patient reports to feeling much better status post catheter removal. Patient with low grade temps. Patient denies chest pain or shortness of breath. Patient tolerating diet and no reports of nausea or vomi ting noted. Recommend daily blood cultures. 02/20/2022 Patient is seen in follow-up today and is afebrile and awaiting for cultures to finalized. Patient is maintained on IV antibiotics in the form of nafcillin with ID following and nephrology also following closely. Patient most recent repeat blood cultures from 75 are negative for 24 hours and catheter tip preliminary culture showing presumptive staph aureus and coagulase-negative staph. Awaiting for bacteremia clearance to determine discharge antibiotics and treatment plan moving forward. Patient may likely require another dialysis c atheter and nephrology is following closely. Patient does have a maturing AV fistula and follows with vascular surgery in the outpatient setting. Patient reports this was placed in November and unsure when it will be functioning. Patient is to follow-up for ultrasound with vascular in the outpatient setting. Patient denies any chest pain or shortness of breath. Again patient is afebrile today. No reports of nausea or vomiting and patient is tolerating diet. 02/21/2022 Patient is seen and evaluated in follow-up this morning continues to be afebrile and maintained on IV antibiotics with infectious disease following closely. Awaiting for bacteremia clearance and most recent blood cultures from 02/19/2022 and 02/20/2022 have been negative for 48 hours. Patient needs dialysis and possible temporary dialysis catheter placement tomorrow. Nephrology following closely and making corrections to potassium as potassium is elevated and creatinine remains elevated and is at 20 today. Continue with diuretics as well. Patient denies any chest pain or shortness of breath. Patient denies na usea or vomiting and tolerating diet. Recommend strict renal diet and follow-up labs. Review of systems: Constitutional: No reports of fatigue, fever, or chills Cardiovascular: No reports of chest pain or palpitations Respiratory: No reports of shortness of breath or cough GI: No reports of nausea, no reports of of vomiting, no reports of diarrhea : No reports of dysuria or retention Neurovascular: no reports of generalized weakness All medications have been reviewed Active Medications Hydrocodone Bitart/Acetaminophen (Hydrocodone/Apap 5-325mg 1 Each Tab) 1 each PO Q6HR PRN PRN Reason: Pain Last Admin: 02/18/22 19:35 Dose: 1 each Albuterol/Ipratropium (Ipratropium-Albuterol 3 Ml Neb) 3 ml INHALATION RT-Q4H PRN PRN Reason: Wheezing/Shortness of breath Last Admin: 02/18/22 20:03 Dose: 3 ml Amlodipine Besylate (Amlodipine 5 Mg Tab) 5 mg PO BID [facility] Last Admin: 02/21/22 08:53 Dose: 5 mg Ascorbic Acid (Ascorbic Acid 500 Mg Tab) 1,000 mg PO DAILY [facility] Last Admin: 02/21/22 08:53 Dose: 1,000 mg Calcium Acetate (Calcium Acetate 667 Mg Tab) 1,334 mg PO TID-W/MEALS [facility] Last Admin: 02/21/22 13:33 Dose: 1,334 mg Carvedilol (Carvedilol 12.5 Mg Tab) 12.5 mg PO AC-BID [facility] Last Admin: 02/21/22 07:38 Dose: 12.5 mg Cholecalciferol (Cholecalciferol 25 Mcg (1000 Iu) Tablet) 25 mcg PO DAILY [facility] Last Admin: 02/21/22 08:53 Dose: 25 mcg Darbepoetin Ezequiel (Darbepoetin Ezequiel 40 Mcg/0.4 Ml Syringe) 40 mcg SQ Q7D [facility] Last Admin: 02/18/22 16:11 Dose: 40 mcg Ferrous Sulfate (Ferrous Sulfate 325 Mg Tab) 325 mg PO DAILY [facility] Last Admin: 02/21/22 08:53 Dose: 325 mg Furosemide (Furosemide 80 Mg Tab) 160 mg PO SUMOWEFR [facility] Last Admin: 02/20/22 08:02 Dose: 160 mg Furosemide (Furosemide 80 Mg Tab) 80 mg PO TuThSa [facility] Last Admin: 02/21/22 08:57 Dose: 80 mg Guaifenesin/Dextromethorphan (Guaifenesin-Dm 100-10mg/5ml 10 Ml Cup) 10 ml PO Q6HR PRN PRN Reason: Cough Last Admin: 02/18/22 21:02 Dose: 10 ml Heparin Sodium (Porcine) (Heparin Sodium,Porcine/Pf 5,000 Unit/0.5 Ml Syringe) 5,000 unit SQ Q12HR [facility] Last Admin: 02/21/22 08:53 Dose: 5,000 unit Hydralazine HCl (Hydralazine Hcl 50 Mg Tab) 100 mg PO TID [facility] Last Admin: 02/21/22 08:53 Dose: 100 mg Nafcillin Sodium 2 gm/ (Dextrose/Water) 100 mls @ 50 mls/hr IVPB Q4HR [facility]; Protocol Last Admin: 02/21/22 13:09 Dose: 50 mls/hr Pantoprazole Sodium (Pantoprazole 40 Mg Tablet) 40 mg PO AC-BRKFST [facility] Last Admin: 02/21/22 07:38 Dose: 40 mg Sevelamer Carbonate (Sevelamer 800 Mg Tab) 2,400 mg PO TID-W/MEALS [facility] Last Admin: 02/21/22 13:34 Dose: 2,400 mg PHYSICAL EXAMINATION: GENERAL: The patient is alert and oriented x4, Well developed, well nourished. HEENT:PERRLA. EOMI. no scleral icterus. No conjunctival pallor. Normocephalic, atraumatic. No pharyngeal erythema. No thyromegaly. CARDIOVASCULAR: S1 and S2 muffled , right chest wall tenderness on palpation PULMONARY: diminished breath sounds bilaterally with no wheezing and some rhonchi noted. ABDOMEN: soft. non tender on exam. Obese. non-distended, normal bowel sounds. No palpable organomegaly. MUSCULOSKELETAL: No joint swelling or deformity. EXTREMITIES: No cyanosis, clubbing, or pedal edema. NEUROLOGICAL: Gross neurological examination did not reveal any focal deficits. SKIN: No rashes. Assessment: Gram positive bacteremia with staph aureus, most likely secondary to dialysis catheter of the right chest wall status post right chest wall permacath removal on 02/18/2022 Chronic kidney disease, ESRD, on hemodialysis Chronic renal disease Has a maturing AV fistula GI prophylaxis DVT prophylaxis Full code Plan: Recommend to continue with current medications and management . Patient had dialysis catheter removed by vascular surgery and sent for culture with cultures showing staph. Blood cultures from 02/19/2022 have been negative for 48 hours and will need to continue monitoring closely for at least 72 hour clearance of bacteremia prior to receiving another dialysis catheter. Possible discussion of dialysis catheter placement tomorrow as patient needs dialysis. Recommend lokelma for potassium of 5.0 and also maintain diuretics. Nephrology following closely. Recommend to continue daily blood cultures and monitor for clearance of bacteremia. Patient is afebrile and currently maintained on nafcillin. Infectious disease following closely. . Follow up labs in am.Due to multiple complex medical issues, prognosis is guarded. The impression and plan of care has been dictated by Eileen Kiser, nurse practitioner as directed. MD Soha I have performed a history and examination and MDM of this patient, discussed the same with the dictator, and agree with the dictator's assessment and plan as written ,documented as a scribe. Based on total visit time, I have performed more than 50% of the visit. Any additional findings or plans will be noted. Objective - Vital Signs Vital signs: Vital Signs Temp 98.5 F 02/21/22 09:24 Pulse 81 02/21/22 09:24 Resp 17 02/21/22 09:24 BP 165/87 02/21/22 09:24 Pulse Ox 96 02/21/22 09:24 FiO2 Intake & Output 02/20/22 02/21/22 02/21/22 18:59 06:59 18:59 Intake Total 888 Output Total 100 Balance 888 -100 Intake: Oral 888 Output: Urine 100 Other: Voiding Method Toilet Toilet Toilet # Voids 2 2 - Labs CBC & Chem 7: 02/20/22 06:15 02/21/22 05:47 Labs: Abnormal Lab Results - Last 24 Hours (Table) 02/21/22 Range/Units 05:47 Sodium 132 L (137-145) mmol/L Chloride 94 L (98-107) mmol/L Carbon Dioxide 20 L (22-30) mmol/L BUN 79 H (9-20) mg/dL Creatinine 20.94 H* (0.66-1.25) mg/dL Microbiology - Last 24 Hours (Table) 02/20/22 06:15 Blood Culture - Preliminary Blood No Growth after 24 hours 02/19/22 03:38 Blood Culture - Preliminary Blood No Growth after 48 hours 02/18/22 19:22 Catheter Tip Culture - Preliminary Catheter Tip Staphylococcus aureus Coagulase Negative Staph 02/17/22 14:40 Blood Culture - Preliminary Blood No Growth after 72 hours 02/17/22 14:55 Blood Culture - Preliminary Blood No Growth after 72 hours 02/17/22 14:40 Blood Culture Gram Stain - Final Blood Blood Culture - Final Staphylococcus aureus 02/17/22 14:55 Blood Culture Gram Stain - Final Blood Blood Culture - Final Staphylococcus aureus 02/18/22 04:11 Blood Culture Gram Stain - Preliminary Blood Blood Culture - Preliminary Presumptive Staph aureus 02/18/22 13:30 Blood Culture Gram Stain - Preliminary Blood Blood Culture - Preliminary Presumptive Staph aureus
[2022-02-22] MEDS: NAFCILLIN 2 GM in DEXTROSE 5% IN WATER 100 ML IVPB SCH ×12 (01:24→21:35)
[2022-02-22] MEDS: PANTOPRAZOLE 40 MG TABLET PO SCH (07:39)
[2022-02-22] MEDS: amLODIPine 5 MG TAB PO SCH ×2 (07:39→21:35)
[2022-02-22] MEDS: CALCIUM ACETATE 667 MG TAB PO SCH ×3 (07:39→17:07)
[2022-02-22] MEDS: hydrALAZINE HCL 50 MG TAB PO SCH ×3 (07:39→21:35)
[2022-02-22] MEDS: SEVELAMER 800 MG TAB PO SCH ×3 (07:39→17:07)
[2022-02-22] MEDS: FERROUS SULFATE 325 MG TAB PO SCH (07:40)
[2022-02-22] MEDS: CHOLECALCIFEROL 25 MCG (1000 IU) TABLET PO SCH (07:40)
[2022-02-22] MEDS: carvediloL 12.5 MG TAB PO SCH ×2 (07:40→17:07)
[2022-02-22] MEDS: FUROSEMIDE 80 MG TAB PO SCH (07:40)
[2022-02-22] MEDS: ASCORBIC ACID 500 MG TAB PO SCH (07:40)
--- NOTE | 2022-02-22 07:52 | P.PN ---
Subjective Progress Note Date: 02/21/22 Principal diagnosis: Bacteremia dialysis catheter infection Patient is a 41-year-old male with a past medical history significant for end-stage renal disease on hemodialysis presented to hospital with bacteremia secondary to dialysis catheter infection. Patient did have removal of the dialysis catheter on 02/18/2022 On today's evaluation that is 02/21/2022, the patient remains to be afebrile, the patient is breathing comfortably on room air, the patient denies chest pain shortness of breath or cough no nausea no vomiting no abdominal pain or any diarrhea Objective - Vital Signs Vital signs: Vital Signs Temp 98.5 F 02/21/22 09:24 Pulse 81 02/21/22 09:24 Resp 17 02/21/22 09:24 BP 165/87 02/21/22 09:24 Pulse Ox 96 02/21/22 09:24 FiO2 Intake & Output 02/20/22 02/21/22 02/21/22 18:59 06:59 18:59 Intake Total 888 Output Total 100 Balance 888 -100 Intake: Oral 888 Output: Urine 100 Other: Voiding Method Toilet Toilet Toilet # Voids 2 2 - Exam GENERAL DESCRIPTION: Middle-aged male lying in bed in no distress RESPIRATORY SYSTEM: Unlabored breathing , decreased breath sounds at bases HEART: S1 S2 regular rate and rhythm , ABDOMEN: Soft , no tenderness EXTREMITIES: No edema feet - Labs CBC & Chem 7: 02/20/22 06:15 02/21/22 05:47 Labs: Abnormal Lab Results - Last 24 Hours (Table) 02/21/22 Range/Units 05:47 Sodium 132 L (137-145) mmol/L Chloride 94 L (98-107) mmol/L Carbon Dioxide 20 L (22-30) mmol/L BUN 79 H (9-20) mg/dL Creatinine 20.94 H* (0.66-1.25) mg/dL Microbiology - Last 24 Hours (Table) 02/20/22 06:15 Blood Culture - Preliminary Blood No Growth after 24 hours 02/19/22 03:38 Blood Culture - Preliminary Blood No Growth after 48 hours 02/18/22 19:22 Catheter Tip Culture - Preliminary Catheter Tip Staphylococcus aureus Coagulase Negative Staph 02/17/22 14:40 Blood Culture - Preliminary Blood No Growth after 72 hours 02/17/22 14:55 Blood Culture - Preliminary Blood No Growth after 72 hours 02/17/22 14:40 Blood Culture Gram Stain - Final Blood Blood Culture - Final Staphylococcus aureus 02/17/22 14:55 Blood Culture Gram Stain - Final Blood Blood Culture - Final Staphylococcus aureus 02/18/22 04:11 Blood Culture Gram Stain - Preliminary Blood Blood Culture - Preliminary Presumptive Staph aureus 02/18/22 13:30 Blood Culture Gram Stain - Preliminary Blood Blood Culture - Preliminary Presumptive Staph aureus Assessment and Plan (1) Bacteremia Current Visit: Yes Status: Acute Code(s): R78.81 - BACTEREMIA SNOMED Code(s): 5233303 Plan: 1patient with a fever now with evidence of gram-positive bacteremia with gram- positive cocci in clusters likely Staph aureus and more likely related to the dialysis catheter infection clinic not behaving as pneumonia. 2- patient has been evaluated by vascular surgery and status post removal of the dialysis catheter on 02/18/2022 3blood cultures 02/18/2022 are positive,catheter tip were multiple pathogens including MSSA, positive blood cultures 02/19/2022 negative so far 4 the patient to continue with naficillin , we will wait for the blood culture to be negative at least 72 hours before her another catheter can be placed hopefully 02/23/2022, we will also obtain an echocardiogram to make sure no evidence of any cardiac valve abnormality, this plan was discussed with the nephrology Time with Patient: Less than 30
[2022-02-22] MEDS: HEPARIN SODIUM,PORCINE/PF 5,000 UNIT/0.5 ML SYRINGE SQ SCH ×2 (10:23→21:35)
--- NOTE | 2022-02-22 11:02 | P.PN ---
Subjective Patient is seen in follow-up for end-stage renal disease. He is maintained on hemodialysis on Friday schedule. Last hemodialysis was on 02/18/2022. Permacath removed 02/18/2022. Blood cultures positive for staph aureus. Denies any active complaints. No changes overnight. Vital signs are stable. General: Awake and alert. No acute distress. HEENT: Head exam is unremarkable. LUNGS: Breath sounds decreased. HEART: Rate and Rhythm are regular. ABDOMEN: Soft, no distention. EXTREMITITES: No edema. Objective - Vital Signs Vital signs: Vital Signs Temp 97.7 F 02/22/22 06:24 Pulse 75 02/22/22 06:24 Resp 20 02/22/22 06:24 BP 144/73 02/22/22 06:24 Pulse Ox 98 02/22/22 06:24 FiO2 Intake & Output 02/21/22 02/22/22 02/22/22 18:59 06:59 18:59 Other: Voiding Method Toilet Toilet # Voids 3 3 # Bowel Movements 1 - Labs CBC & Chem 7: 02/20/22 06:15 02/21/22 05:47 Labs: Microbiology - Last 24 Hours (Table) 02/20/22 06:15 Blood Culture - Preliminary Blood No Growth after 48 hours 02/21/22 05:47 Blood Culture - Preliminary Blood No Growth after 24 hours 02/19/22 03:38 Blood Culture - Preliminary Blood No Growth after 72 hours 02/18/22 19:22 Catheter Tip Culture - Preliminary Catheter Tip Staphylococcus aureus Coagulase Negative Staph Gram Neg Bacilli 02/17/22 14:55 Blood Culture - Preliminary Blood No Growth after 96 hours 02/17/22 14:40 Blood Culture - Preliminary Blood No Growth after 96 hours 02/18/22 04:11 Blood Culture Gram Stain - Final Blood Blood Culture - Final Staphylococcus aureus 02/18/22 13:30 Blood Culture Gram Stain - Final Blood Blood Culture - Final Staphylococcus aureus Assessment and Plan Plan: Assessment: 1. End-stage renal disease maintained on hemodialysis on Friday schedule via permacath. 2. Fever. Tested negative for coronavirus on 02/16/2022. Likely permacath infection. Blood cultures positive for staph aureus from 02/16/2022. Cultures from this admission positive for staph aureus. 3. Hyponatremia secondary to chronic kidney disease. Stable. 4. Anemia of chronic kidney disease. On Aranesp. 5. Hypertension with chronic kidney disease. Stable. Partially volume sensitive. 6. Chronic kidney disease mineral bone disease maintained on phosphate binders. Plan: Last hemodialysis 02/18/2022. Permacath removed 02/18/2022. Hemodialysis today. Patient has a AV fistula in his right upper extremity - discussed with vascular surgery - will attempt to use today with small needles. If dialysis goes well today using AV fistula, he is stable to be discharged from nephrology standpoint. Echocardiogram today.
[2022-02-22 11:12] LABS: Magnesium 3.2 mg/dL (1.5-2.4)
[2022-02-22 11:23] LABS: Anion Gap 23.1 mmol/L (10.00-18.00); BUN/Creat Ratio 3.61 Ratio (12.00-20.00); Calcium 9.3 mg/dL (8.7-10.3); Carbon Dioxide 19.8 mmol/L (20.0-27.5); Potassium 5.1 mmol/L (3.5-5.5)
[2022-02-22 12:18] LABS: African American GFR (CKD) 2.5 (60.0-200.0); Non-African American GFR(CKD) 2.1 (60.0-200.0)
[2022-02-22 14:04] VITALS: BMI 27.9
--- NOTE | 2022-02-22 18:17 | P.PN ---
Subjective Progress Note Date: 02/22/22 This is a 41 year old male who was recently admitted with bacteremia likely dialysis cath associated. Multiple medical consultations following and patient is scheduled to receive dialysis today and have right chest wall permacath removed today while awaiting for clearance of blood cultures. Catheter to be sent for analysis as well. Patient does have a maturing left arm av fistula that is maturing. Patient with features of sepsis present on admission. Patient is currently afebrile and denies chest pain or shortness of breath. 02/19/2022 Patient is evaluated today status post right chest wall catheter removal with vascular surgery yesterday. Awaiting finalized cultures and blood cultures continue to be positive and ID following. Patient being started on Nafcillin and cultures likely MSSA. Patient reports to feeling much better status post catheter removal. Patient with low grade temps. Patient denies chest pain or shortness of breath. Patient tolerating diet and no reports of nausea or vomi ting noted. Recommend daily blood cultures. 02/20/2022 Patient is seen in follow-up today and is afebrile and awaiting for cultures to finalized. Patient is maintained on IV antibiotics in the form of nafcillin with ID following and nephrology also following closely. Patient most recent repeat blood cultures from 75 are negative for 24 hours and catheter tip preliminary culture showing presumptive staph aureus and coagulase-negative staph. Awaiting for bacteremia clearance to determine discharge antibiotics and treatment plan moving forward. Patient may likely require another dialysis c atheter and nephrology is following closely. Patient does have a maturing AV fistula and follows with vascular surgery in the outpatient setting. Patient reports this was placed in November and unsure when it will be functioning. Patient is to follow-up for ultrasound with vascular in the outpatient setting. Patient denies any chest pain or shortness of breath. Again patient is afebrile today. No reports of nausea or vomiting and patient is tolerating diet. 02/21/2022 Patient is seen and evaluated in follow-up this morning continues to be afebrile and maintained on IV antibiotics with infectious disease following closely. Awaiting for bacteremia clearance and most recent blood cultures from 02/19/2022 and 02/20/2022 have been negative for 48 hours. Patient needs dialysis and possible temporary dialysis catheter placement tomorrow. Nephrology following closely and making corrections to potassium as potassium is elevated and creatinine remains elevated and is at 20 today. Continue with diuretics as well. Patient denies any chest pain or shortness of breath. Patient denies na usea or vomiting and tolerating diet. Recommend strict renal diet and follow-up labs. 02/22/2022 Patient is seen today and was evaluated by vascular surgery and right arm fistula has been cleared to use for hemodialysis and RN to come today to attempt to access and hemodialysis is ordered. Patient continues on IV nafcillin with ID following. 2D echo ordered and pending at this time. Patient being arranged for outpatient antibiotic therapy. Patient continues with Frecenius and will resume. VSS. Patient remains afebrile. Patient reports of some shortness of breath and feels overloaded. Recommend dialysis today once cleared by infectious disease. Continue to monitor blood cultures. 72 hours negative thus far. Review of systems: Constitutional: No reports of fatigue, fever, or chills Cardiovascular: No reports of chest pain or palpitations Respiratory: reports of some shortness of breath GI: No reports of nausea, no reports of of vomiting, no reports of diarrhea : No reports of dysuria or retention Neurovascular: no reports of generalized weakness All medications have been reviewed Active Medications Hydrocodone Bitart/Acetaminophen (Hydrocodone/Apap 5-325mg 1 Each Tab) 1 each PO Q6HR PRN PRN Reason: Pain Last Admin: 02/18/22 19:35 Dose: 1 each Albuterol/Ipratropium (Ipratropium-Albuterol 3 Ml Neb) 3 ml INHALATION RT-Q4H PRN PRN Reason: Wheezing/Shortness of breath Last Admin: 02/18/22 20:03 Dose: 3 ml Amlodipine Besylate (Amlodipine 5 Mg Tab) 5 mg PO BID [facility] Last Admin: 02/22/22 07:39 Dose: 5 mg Ascorbic Acid (Ascorbic Acid 500 Mg Tab) 1,000 mg PO DAILY [facility] Last Admin: 02/22/22 07:40 Dose: 1,000 mg Calcium Acetate (Calcium Acetate 667 Mg Tab) 1,334 mg PO TID-W/MEALS [facility] Last Admin: 02/22/22 17:07 Dose: 1,334 mg Carvedilol (Carvedilol 12.5 Mg Tab) 12.5 mg PO AC-BID [facility] Last Admin: 02/22/22 17:07 Dose: 12.5 mg Cholecalciferol (Cholecalciferol 25 Mcg (1000 Iu) Tablet) 25 mcg PO DAILY [facility] Last Admin: 02/22/22 07:40 Dose: 25 mcg Darbepoetin Ezequiel (Darbepoetin Ezequiel 40 Mcg/0.4 Ml Syringe) 40 mcg SQ Q7D [facility] Last Admin: 02/18/22 16:11 Dose: 40 mcg Ferrous Sulfate (Ferrous Sulfate 325 Mg Tab) 325 mg PO DAILY [facility] Last Admin: 02/22/22 07:40 Dose: 325 mg Furosemide (Furosemide 80 Mg Tab) 160 mg PO SUMOWEFR [facility] Last Admin: 02/22/22 07:40 Dose: 160 mg Furosemide (Furosemide 80 Mg Tab) 80 mg PO TuThSa [facility] Last Admin: 02/21/22 08:57 Dose: 80 mg Guaifenesin/Dextromethorphan (Guaifenesin-Dm 100-10mg/5ml 10 Ml Cup) 10 ml PO Q6HR PRN PRN Reason: Cough Last Admin: 02/18/22 21:02 Dose: 10 ml Heparin Sodium (Porcine) (Heparin Sodium,Porcine/Pf 5,000 Unit/0.5 Ml Syringe) 5,000 unit SQ Q12HR [facility] Last Admin: 02/22/22 10:23 Dose: Not Given Hydralazine HCl (Hydralazine Hcl 50 Mg Tab) 100 mg PO TID [facility] Last Admin: 02/22/22 17:07 Dose: 100 mg Nafcillin Sodium 2 gm/ (Dextrose/Water) 100 mls @ 50 mls/hr IVPB Q4HR [facility]; Protocol Last Admin: 02/22/22 17:07 Dose: 50 mls/hr Pantoprazole Sodium (Pantoprazole 40 Mg Tablet) 40 mg PO AC-BRKFST [facility] Last Admin: 02/22/22 07:39 Dose: 40 mg Sevelamer Carbonate (Sevelamer 800 Mg Tab) 2,400 mg PO TID-W/MEALS [facility] Last Admin: 02/22/22 17:07 Dose: 2,400 mg PHYSICAL EXAMINATION: GENERAL: The patient is alert and oriented x4, Well developed, well nourished. HEENT:PERRLA. EOMI. no scleral icterus. No conjunctival pallor. Normocephalic, atraumatic. No pharyngeal erythema. No thyromegaly. CARDIOVASCULAR: S1 and S2 muffled , right chest wall healing PULMONARY: diminished breath sounds bilaterally with no wheezing and some rhonchi noted. ABDOMEN: soft. non tender on exam. non-distended, normal bowel sounds. No palpable organomegaly. MUSCULOSKELETAL: No joint swelling or deformity. EXTREMITIES: No cyanosis, clubbing, or pedal edema. NEUROLOGICAL: Gross neurological examination did not reveal any focal deficits. SKIN: No rashes. Assessment: Gram positive bacteremia with staph aureus, most likely secondary to dialysis catheter of the right chest wall status post right chest wall permacath removal on 02/18/2022 Chronic kidney disease, ESRD, on hemodialysis Chronic renal disease Has a maturing AV fistula that has been cleared by vascular surgery for use GI prophylaxis DVT prophylaxis Full code Plan: Recommend to continue with current medications and management . Patient has right upper extremity av fistula and was seen by vascular surgery and cleared for use. Patient is to receive dialysis today. ID following as well and working on outpatient abx therapy. Awaiting 2D echo and if negative may be considered for discharge. Patient is afebrile and anxious to be discharged. Awaiting continued clearance of bacteremia. 72 hours clear thus far on one set. Nephrology following closely. Recommend to resume hemodialysis with frecenius. Patient is afebrile and currently maintained on nafcillin. . Follow up labs in am. Awaiting 2d echo report with possible discharge in 24 hours. Due to multiple complex medical issues, prognosis is guarded. The impression and plan of care has been dictated by Eileen Kiser, nurse practitioner as directed. MD Soha I have performed a history and examination and MDM of this patient, discussed the same with the dictator, and agree with the dictator's assessment and plan as written ,documented as a scribe. Based on total visit time, I have performed more than 50% of the visit. Any additional findings or plans will be noted. Objective - Vital Signs Vital signs: Vital Signs Temp 97.7 F 02/22/22 06:24 Pulse 75 02/22/22 06:24 Resp 20 02/22/22 06:24 BP 144/73 02/22/22 06:24 Pulse Ox 98 02/22/22 06:24 FiO2 Intake & Output 02/21/22 02/22/22 02/22/22 18:59 06:59 18:59 Other: Voiding Method Toilet Toilet # Voids 3 3 # Bowel Movements 1 - Labs CBC & Chem 7: 02/20/22 06:15 02/22/22 06:37 Labs: Microbiology - Last 24 Hours (Table) 02/20/22 06:15 Blood Culture - Preliminary Blood No Growth after 48 hours 02/21/22 05:47 Blood Culture - Preliminary Blood No Growth after 24 hours 02/19/22 03:38 Blood Culture - Preliminary Blood No Growth after 72 hours 02/18/22 19:22 Catheter Tip Culture - Preliminary Catheter Tip Staphylococcus aureus Coagulase Negative Staph Gram Neg Bacilli 02/17/22 14:55 Blood Culture - Preliminary Blood No Growth after 96 hours 02/17/22 14:40 Blood Culture - Preliminary Blood No Growth after 96 hours 02/18/22 04:11 Blood Culture Gram Stain - Final Blood Blood Culture - Final Staphylococcus aureus 02/18/22 13:30 Blood Culture Gram Stain - Final Blood Blood Culture - Final Staphylococcus aureus
--- NOTE | 2022-02-22 18:50 | CA ---
Transthoracic Echo Report Name: Dionicio Sosa Age: 41 Gender: M : 1980 Exam Date: 02/22/2022 08:22 Exam Location: [place] [facility] Ht (in): 72 Wt (lb): 206 Ordering Physician: Jane Blanton MD Attending/Referring Phys: [employer] Sand[employer] Apprentice Karla Dietz RDCS Procedure CPT: Indications: mssa bacteremia Cardiac Hx: Technical Quality: Fair Contrast 1: Total Dose (mL): Contrast 2: Total Dose (mL): MEASUREMENTS (Male / Female) Normal Values 2D ECHO LV Diastolic Diameter PLAX 6.1 cm 4.2 - 5.9 / 3.9 - 5.3 cm LV Systolic Diameter PLAX 3.6 cm IVS Diastolic Thickness 1.6 cm 0.6 - 1.0 / 0.6 - 0.9 cm LVPW Diastolic Thickness 1.5 cm 0.6 - 1.0 / 0.6 - 0.9 cm LV Relative Wall Thickness 0.5 RV Internal Dim ED PLAX 3.2 cm LA Volume 104.4 cm??? 18 - 58 / 22 - 52 cm??? M-MODE Aortic Root Diameter MM 3.8 cm LA Systolic Diameter MM 4.6 cm LA Ao Ratio MM 1.2 AV Cusp Separation MM 2.4 cm DOPPLER AV Peak Velocity 230.5 cm/s AV Peak Gradient 21.3 mmHg AV Mean Velocity 169.8 cm/s AV Mean Gradient 12.8 mmHg AV Velocity Time Integral 44.6 cm AI Peak Velocity 363.2 cm/s AI Peak Gradient 52.8 mmHg AI Pressure Half Time 344.8 ms LVOT Peak Velocity 161.5 cm/s LVOT Peak Gradient 10.4 mmHg MV Area PHT 4.9 cm??? Mitral E Point Velocity 108.1 cm/s Mitral A Point Velocity 85.9 cm/s Mitral E to A Ratio 1.3 MV Deceleration Time 156.3 ms MV E' Velocity 6.0 cm/s Mitral E to MV E' Ratio 17.9 TR Peak Velocity 305.1 cm/s TR Peak Gradient 37.2 mmHg Right Ventricular Systolic Press 42.2 mmHg FINDINGS Left Ventricle Moderately increased left ventricular wall thickness. Normal left ventricular systolic function with no obvious regional wall motion abnormalities. Left ventricular ejection fraction is estimated at55-60 %. Right Ventricle Normal right ventricular size and function. Mild pulmonary hypertension. Right Atrium Normal right atrial size. Left Atrium Severely increased left atrial volume.no evidence for an atrial septal defect. Mitral Valve Structurally normal mitral valve. Mild mitral regurgitation. Aortic Valve Trileaflet aortic valve. Mild aortic stenosis with a peak gradient of 21 mmHg and a mean gradient of 13 mmHg. Mild aortic regurgitation. Can not rule out Aortic valve vegetation. Tricuspid Valve Structurally normal tricuspid valve. Mild tricuspid regurgitation. Pulmonic Valve Structurally normal pulmonic valve. Trace pulmonic regurgitation. Pericardium Minimal pericardial effusion (normal variant). Aorta Normal size aortic root and proximal ascending aorta. CONCLUSIONS Normal left ventricular dimension and systolic function. Moderate concentric LVH Thickened aortic valve. Mild aortic stenosis was identified. An echodensity attached to the downstream side of the aortic valve was seen most on the 5 chamber view Previewed by: Dr. Mark Singleton MD (Electronically Signed) Final Date: 22 February 2022 18:49
[2022-02-23] MEDS: NAFCILLIN 2 GM in DEXTROSE 5% IN WATER 100 ML IVPB SCH ×12 (00:28→21:24)
[2022-02-23] MEDS ORDERED: hydrALAZINE HCL 50 MG TAB PO STA (02:47)
--- NOTE | 2022-02-23 08:34 | P.CRDCN ---
History of Present Illness History of present illness: HISTORY OF PRESENTING ILLNESS Patient is a pleasant 41-year-old male with history of COPD on end-stage renal disease, hypertension, staph aureus bacteremia. She presented 03/16 secondary to 4-5 days of fevers, chills and right ears. Blood cultures have been positive for staph aureus. Echocardiogram 02/22/2022 showed EF 55-60% and what appeared to be a echo density on the aortic valve with mild aortic regurgitation and mild aortic stenosis, mild tricuspid regurgitation. He denies any chest pain or pressure. He has not seen a personal lines appraiser previously. Denies any current shortness breath. Anxious to go home. Currently now going through dialysis with a radial AVF. REVIEW OF SYSTEMS At the time of my exam: CONSTITUTIONAL: +fever, + chills. CARDIOVASCULAR: Denies chest pain, shortness of breath, orthopnea, PND or palpitations. RESPIRATORY: Denies cough. GASTROINTESTINAL: Denies abdominal pain, diarrhea, constipation, nausea or vomiting. MUSCULOSKELETAL: Denies myalgias. NEUROLOGIC: Denies numbness, tingling or weakness. ENDOCRINE: Denies fatigue, weight change, polydipsia or polyurina. GENITOURINARY: Denies burning, hematuria or urgency with micturation. HEMATOLOGIC: Denies history of anemia or bleeding. PHYSICAL EXAMINATION Vital signs reviewed. CONSTITUTIONAL: No apparent distress. HEENT: Head is normocephalic. Pupils are equal, round. Sclerae anicteric. Mucous membranes of the mouth are moist. No JVD. No carotid bruit. CHEST EXAMINATION: Lungs are clear to auscultation. No chest wall tenderness is noted on palpation or with deep breathing. HEART EXAMINATION: Regular rate and rhythm. S1, S2 heard. No murmurs, gallops or rub. ABDOMEN: Soft, nontender. Positive bowel sounds. EXTREMITIES: 2+ peripheral pulses, no lower extremity edema and no calf tender ness. NEUROLOGIC EXAMINATION: Patient is awake, alert and oriented x3. ASSESSMENT 1. Persistent Aureus bacteremia likely source of dialysis catheter 2. Questionable vegetation on aortic valve 3. Mild aortic stenosis, mild aortic regurgitation 4. End-stage renal disease 5. Hypertension PLAN Transthoracic echo shows concern of aortic valve vegetation. Does not appear to have significant regurgitation or compromise even if this does represent a vegetation. Currently appears to be recovering from his bacteremia. Infectious disease recommendations for HOSSEIN appreciated. Likely HOSSEIN Friday or when able. If patient came to be stable and able to be performed outpatient may be performed outpatient within the next week. Past Medical History Past Medical History: Dialysis, Hypertension, Renal Disease Additional Past Medical History / Comment(s): Diaylsis since may 18 2021, right chest port since 2020, Kidney Failure since May 2021 r/t htn and pre- work out drinks History of Any Multi-Drug Resistant Organisms: None Reported Past Surgical History: Appendectomy, Orthopedic Surgery Additional Past Surgical History / Comment(s): Hemodiaylsis catheter in Friday of 2020, broken jaw repair Past Psychological History: No Psychological Hx Reported Smoking Status: Never smoker Past Alcohol Use History: None Reported Past Drug Use History: None Reported Medications and Allergies Home Medications Medication Instructions Recorded Confirmed Type Calcium Acetate [PhosLo] 1,334 mg PO TID-W/MEALS 11/30/21 02/17/22 History Furosemide [Lasix] 80 mg PO DIRECTED 11/30/21 02/17/22 History Furosemide [Lasix] 160 mg PO SUMOWEFR 11/30/21 02/17/22 History amLODIPine [Norvasc] 5 mg PO BID 11/30/21 02/17/22 History Acetaminophen Tab [Tylenol] 1,000 mg PO Q6HR PRN 02/17/22 02/17/22 History Ferrous Sulfate [Iron (65 MG 325 mg PO DAILY 02/17/22 02/17/22 History Elemental)] Ibuprofen [Motrin Ib] 800 mg PO Q8H PRN 02/17/22 02/17/22 History Ipratropium-Albuterol Nebulize 3 ml INHALATION RT-Q4H PRN 02/17/22 02/17/22 History [Duoneb 0.5 mg-3 mg/3 ml Soln] Sevelamer [Renvela] 2,400 mg PO TID-W/MEALS 02/17/22 02/17/22 History Velphoro 500mg Chewable Tab 500 mg PO TID-W/MEALS 02/17/22 02/17/22 History Vitamin C 1000mg Gummies 1 tab PO DAILY 02/17/22 02/17/22 History Vitamin D3 25 Mcg Gummies 1 tab PO DAILY 02/17/22 02/17/22 History carvediloL [Coreg*] 12.5 mg PO BID 02/17/22 02/17/22 History hydrALAZINE HCL [Apresoline] 100 mg PO TID 02/17/22 02/17/22 History Darbepoetin Ezequiel [Aranesp] 40 mcg SQ Q7D each 02/22/22 Rx Allergies Allergy/AdvReac Type Severity Reaction Status Date / Time No Known Allergies Allergy Verified 02/17/22 15:39 Physical Exam Vitals: Vital Signs Temp Pulse Resp BP Pulse Ox 02/23/22 05:51 172/94 02/23/22 02:00 98.3 F 81 16 171/89 93 L 02/22/22 20:00 79 16 02/22/22 19:55 98.3 F 79 16 173/88 95 02/22/22 15:48 98 F 75 16 157/77 96 02/22/22 14:32 163/80 Intake and Output 02/22/22 02/23/22 02/23/22 22:59 06:59 14:59 Other: Voiding Method Toilet # Voids 1 1 Results 02/20/22 06:15 02/22/22 06:37 Comprehensive Metabolic Panel 02/22/22 Range/Units 06:37 Sodium 134 L (135-145) mmol/L Potassium 5.1 (3.5-5.5) mmol/L Chloride 91 L (96-109) mmol/L Carbon Dioxide 19.8 L (20.0-27.5) mmol/L BUN 82.0 H (9.0-27.0) mg/dL Creatinine 22.7 H* (0.6-1.5) mg/dL Glucose 83 (70-110) mg/dL Calcium 9.3 (8.7-10.3) mg/dL Current Medications Generic Name Dose Route Start Last Admin Trade Name Freq PRN Reason Stop Dose Admin Hydrocodone Bitart/Acetaminophen 1 each 02/17/22 16:35 02/18/22 19:35 Hydrocodone/Apap 5-325mg 1 Each Tab PO 1 each Q6HR PRN Administration Pain Albuterol/Ipratropium 3 ml 02/17/22 16:34 02/18/22 20:03 Ipratropium-Albuterol 3 Ml Neb INHALATION 3 ml RT-Q4H PRN Administration Wheezing/Shortness of breath Amlodipine Besylate 5 mg 02/17/22 21:00 02/22/22 21:35 Amlodipine 5 Mg Tab PO 5 mg BID [facility] Administration Ascorbic Acid 1,000 mg 02/18/22 09:00 02/22/22 07:40 Ascorbic Acid 500 Mg Tab PO 1,000 mg DAILY [facility] Administration Calcium Acetate 1,334 mg 02/17/22 17:30 02/22/22 17:07 Calcium Acetate 667 Mg Tab PO 1,334 mg TID-W/MEALS [facility] Administration Carvedilol 12.5 mg 02/17/22 17:30 02/22/22 17:07 Carvedilol 12.5 Mg Tab PO 12.5 mg AC-BID [facility] Administration Cholecalciferol 25 mcg 02/18/22 09:00 02/22/22 07:40 Cholecalciferol 25 Mcg (1000 Iu) Tablet PO 25 mcg DAILY [facility] Administration Darbepoetin Ezequiel 40 mcg 02/18/22 10:00 02/18/22 16:11 Darbepoetin Ezequiel 40 Mcg/0.4 Ml Syringe SQ 40 mcg Q7D [facility] Administration Ferrous Sulfate 325 mg 02/18/22 09:00 02/22/22 07:40 Ferrous Sulfate 325 Mg Tab PO 325 mg DAILY [facility] Administration Furosemide 160 mg 02/18/22 09:00 02/22/22 07:40 Furosemide 80 Mg Tab PO 160 mg SUMOWEFR [facility] Administration Furosemide 80 mg 02/19/22 09:00 02/21/22 08:57 Furosemide 80 Mg Tab PO 80 mg TuThSa [facility] Administration Guaifenesin/Dextromethorphan 10 ml 02/18/22 01:10 02/18/22 21:02 Guaifenesin-Dm 100-10mg/5ml 10 Ml Cup PO 10 ml Q6HR PRN Administration Cough Heparin Sodium (Porcine) 5,000 unit 02/17/22 21:00 02/22/22 21:35 Heparin Sodium,Porcine/Pf 5,000 Unit/0.5 Ml Syringe SQ 5,000 unit Q12HR [facility] Administration Hydralazine HCl 100 mg 02/17/22 22:00 02/22/22 21:35 Hydralazine Hcl 50 Mg Tab PO 100 mg TID [facility] Administration Nafcillin Sodium 2 gm/ 100 mls @ 50 mls/hr 02/19/22 20:00 02/23/22 03:04 Dextrose/Water IVPB 50 mls/hr Q4HR [facility] Administration Protocol Pantoprazole Sodium 40 mg 02/18/22 07:30 02/22/22 07:39 Pantoprazole 40 Mg Tablet PO 40 mg AC-BRKFST [facility] Administration Sevelamer Carbonate 2,400 mg 02/17/22 17:30 02/22/22 17:07 Sevelamer 800 Mg Tab PO 2,400 mg TID-W/MEALS [facility] Administration Intake and Output 02/22/22 02/23/22 02/23/22 22:59 06:59 14:59 Other: Voiding Method Toilet # Voids 1 1 02/20/22 06:15 02/22/22 06:37
[2022-02-23] MEDS: carvediloL 12.5 MG TAB PO SCH ×2 (08:36→17:22)
[2022-02-23] MEDS: ASCORBIC ACID 500 MG TAB PO SCH (08:36)
[2022-02-23] MEDS: CALCIUM ACETATE 667 MG TAB PO SCH ×3 (08:36→17:24)
[2022-02-23] MEDS: amLODIPine 5 MG TAB PO SCH ×2 (08:36→21:25)
[2022-02-23] MEDS: FERROUS SULFATE 325 MG TAB PO SCH (08:36)
[2022-02-23] MEDS: HEPARIN SODIUM,PORCINE/PF 5,000 UNIT/0.5 ML SYRINGE SQ SCH ×2 (08:36→21:24)
[2022-02-23] MEDS: FUROSEMIDE 80 MG TAB PO SCH ×2 (08:37→10:43)
[2022-02-23] MEDS: PANTOPRAZOLE 40 MG TABLET PO SCH (08:37)
[2022-02-23] MEDS: SEVELAMER 800 MG TAB PO SCH ×3 (08:37→17:24)
[2022-02-23] MEDS: hydrALAZINE HCL 50 MG TAB PO SCH ×4 (08:37→21:25)
[2022-02-23] MEDS: CHOLECALCIFEROL 25 MCG (1000 IU) TABLET PO SCH (08:37)
[2022-02-23 09:44] LABS: African American GFR (CKD) 3.2 (60.0-200.0); Anion Gap 17.9 mmol/L (10.00-18.00); BUN/Creat Ratio 3.61 Ratio (12.00-20.00); Blood Urea Nitrogen 66.5 mg/dL (9.0-27.0); Calcium 9.2 mg/dL (8.7-10.3); Carbon Dioxide 21.1 mmol/L (20.0-27.5); Non-African American GFR(CKD) 2.7 (60.0-200.0)
--- NOTE | 2022-02-23 10:18 | P.PN ---
Subjective Patient is seen in follow-up for end-stage renal disease. He is maintained on hemodialysis on Friday schedule. Permacath removed 02/18/2022. Dialysis done yesterday using AV fistula and worked fine. HOSSEIN pending. Vital signs are stable. General: Awake and alert. No acute distress. HEENT: Head exam is unremarkable. LUNGS: Breath sounds decreased. HEART: Rate and Rhythm are regular. ABDOMEN: Soft, no distention. EXTREMITITES: No edema. Objective - Vital Signs Vital signs: Vital Signs Temp 98.3 F 02/23/22 08:00 Pulse 89 02/23/22 08:00 Resp 16 02/23/22 02:00 BP 172/93 02/23/22 08:00 Pulse Ox 97 02/23/22 08:00 FiO2 Intake & Output 02/22/22 02/23/22 02/23/22 18:59 06:59 18:59 Output Total 1999 Balance -1999 Weight 93.44 kg Output: Hemodialysis 1999 Other: Voiding Method Toilet # Voids 4 1 - Labs CBC & Chem 7: 02/20/22 06:15 02/23/22 06:16 Labs: Abnormal Lab Results - Last 24 Hours (Table) 02/22/22 02/23/22 Range/Units 06:37 06:16 Sodium 134 L (135-145) mmol/L Chloride 91 L (96-109) mmol/L Carbon Dioxide 19.8 L (20.0-27.5) mmol/L Anion Gap 23.10 H (10.00-18.00) mmol/L BUN 82.0 H 66.5 H (9.0-27.0) mg/dL Creatinine 22.7 H* 18.4 H* (0.6-1.5) mg/dL Est GFR (CKD-EPI)AfAm 2.5 L 3.2 L (60.0-200.0) Est GFR (CKD-EPI)NonAf 2.1 L 2.7 L (60.0-200.0) BUN/Creatinine Ratio 3.61 L 3.61 L (12.00-20.00) Ratio Magnesium 3.2 H (1.5-2.4) mg/dL Microbiology - Last 24 Hours (Table) 02/20/22 06:15 Blood Culture - Preliminary Blood No Growth after 72 hours 02/21/22 05:47 Blood Culture - Preliminary Blood No Growth after 48 hours 02/19/22 03:38 Blood Culture - Preliminary Blood No Growth after 96 hours 02/18/22 19:22 Catheter Tip Culture - Final Catheter Tip Staphylococcus aureus Coagulase Negative Staph Klebsiella pneumoniae 02/17/22 14:55 Blood Culture - Preliminary Blood No Growth after 120 hours 02/17/22 14:40 Blood Culture - Preliminary Blood No Growth after 120 hours Assessment and Plan Plan: Assessment: 1. End-stage renal disease maintained on hemodialysis on Friday schedule. Started to use AV fistula on 02/22/2022 without any problems. 2. Fever. Tested negative for coronavirus on 02/16/2022. Etiology is permacath infection. Blood cultures positive for staph aureus from 02/16/2022. Cultures from this admission positive for staph aureus. Catheter tip culture also positive for staph aureus and Klebsiella. 3. Hyponatremia secondary to chronic kidney disease. Improved postdialysis. 4. Anemia of chronic kidney disease. On Aranesp. 5. Hypertension with chronic kidney disease. Stable. Partially volume sensitive. 6. Chronic kidney disease mineral bone disease maintained on phosphate binders. Plan: Permacath removed 02/18/2022. Hemodialysis again today as he will be maintained on Friday schedule outpatient. Vegetation not ruled out. HOSSEIN pending. Discussed with cardiology. Increase dose of Coreg.
--- NOTE | 2022-02-23 11:14 | P.PN ---
Subjective Progress Note Date: 02/22/22 Principal diagnosis: Bacteremia dialysis catheter infection Patient is a 41-year-old male with a past medical history significant for end-stage renal disease on hemodialysis presented to hospital with bacteremia secondary to dialysis catheter infection. Patient did have removal of the dialysis catheter on 02/18/2022, patient did have a right arm fistula apparently mature and is getting used as of 02/22/2022 patient did have echocardiogram this morning report is pending On today's evaluation that is 02/22/2022, the patient continues to be afebrile, the patient is breathing comfortably on room air, the patient denies chest pain shortness of breath or cough, the patient denies nausea no vomiting no abdominal pain or any diarrhea Objective - Vital Signs Vital signs: Vital Signs Temp 97.7 F 02/22/22 06:24 Pulse 75 02/22/22 06:24 Resp 20 02/22/22 06:24 BP 144/73 02/22/22 06:24 Pulse Ox 98 02/22/22 06:24 FiO2 Intake & Output 02/21/22 02/22/22 02/22/22 18:59 06:59 18:59 Other: Voiding Method Toilet Toilet # Voids 3 3 # Bowel Movements 1 - Exam GENERAL DESCRIPTION: Middle-aged male lying in bed in no distress RESPIRATORY SYSTEM: Unlabored breathing , decreased breath sounds at bases HEART: S1 S2 regular rate and rhythm , ABDOMEN: Soft , no tenderness EXTREMITIES: No edema feet - Labs CBC & Chem 7: 02/20/22 06:15 02/23/22 06:16 Labs: Abnormal Lab Results - Last 24 Hours (Table) 02/22/22 Range/Units 06:37 Sodium 134 L (135-145) mmol/L Chloride 91 L (96-109) mmol/L Carbon Dioxide 19.8 L (20.0-27.5) mmol/L Anion Gap 23.10 H (10.00-18.00) mmol/L BUN 82.0 H (9.0-27.0) mg/dL Creatinine 22.7 H* (0.6-1.5) mg/dL Est GFR (CKD-EPI)AfAm 2.5 L (60.0-200.0) Est GFR (CKD-EPI)NonAf 2.1 L (60.0-200.0) BUN/Creatinine Ratio 3.61 L (12.00-20.00) Ratio Magnesium 3.2 H (1.5-2.4) mg/dL Microbiology - Last 24 Hours (Table) 02/20/22 06:15 Blood Culture - Preliminary Blood No Growth after 48 hours 02/21/22 05:47 Blood Culture - Preliminary Blood No Growth after 24 hours 02/19/22 03:38 Blood Culture - Preliminary Blood No Growth after 72 hours 02/18/22 19:22 Catheter Tip Culture - Preliminary Catheter Tip Staphylococcus aureus Coagulase Negative Staph Gram Neg Bacilli 02/17/22 14:55 Blood Culture - Preliminary Blood No Growth after 96 hours 02/17/22 14:40 Blood Culture - Preliminary Blood No Growth after 96 hours 02/18/22 04:11 Blood Culture Gram Stain - Final Blood Blood Culture - Final Staphylococcus aureus 02/18/22 13:30 Blood Culture Gram Stain - Final Blood Blood Culture - Final Staphylococcus aureus Assessment and Plan (1) Bacteremia Current Visit: Yes Status: Acute Code(s): R78.81 - BACTEREMIA SNOMED Code(s): 9049591 Plan: 1patient with a fever now with evidence of gram-positive bacteremia with gram- positive cocci in clusters likely Staph aureus and more likely related to the dialysis catheter infection clinic not behaving as pneumonia. 2- patient has been evaluated by vascular surgery and status post removal of the dialysis catheter on 02/18/2022 3blood cultures 02/18/2022 are positive,catheter tip were multiple pathogens including MSSA, positive blood cultures 02/19/2022 negative so far 4 the patient to continue with naficillin , we will wait for echocardiogram to make sure no evidence of any cardiac valve abnormality, if normal patient will go home on cefazolin post-each dialysis prescription was provided to the home health care case manager working on discharge Time with Patient: Less than 30
--- NOTE | 2022-02-23 14:11 | P.PN ---
Subjective Progress Note Date: 02/23/22 This is a 41 year old male who was recently admitted with bacteremia likely dialysis cath associated. Multiple medical consultations following and patient is scheduled to receive dialysis today and have right chest wall permacath removed today while awaiting for clearance of blood cultures. Catheter to be sent for analysis as well. Patient does have a maturing left arm av fistula that is maturing. Patient with features of sepsis present on admission. Patient is currently afebrile and denies chest pain or shortness of breath. 02/19/2022 Patient is evaluated today status post right chest wall catheter removal with vascular surgery yesterday. Awaiting finalized cultures and blood cultures continue to be positive and ID following. Patient being started on Nafcillin and cultures likely MSSA. Patient reports to feeling much better status post catheter removal. Patient with low grade temps. Patient denies chest pain or shortness of breath. Patient tolerating diet and no reports of nausea or vomit ing noted. Recommend daily blood cultures. 02/20/2022 Patient is seen in follow-up today and is afebrile and awaiting for cultures to finalized. Patient is maintained on IV antibiotics in the form of nafcillin with ID following and nephrology also following closely. Patient most recent repeat blood cultures from 75 are negative for 24 hours and catheter tip preliminary culture showing presumptive staph aureus and coagulase-negative staph. Awaiting for bacteremia clearance to determine discharge antibiotics and treatment plan moving forward. Patient may likely require another dialysis ca theter and nephrology is following closely. Patient does have a maturing AV fistula and follows with vascular surgery in the outpatient setting. Patient reports this was placed in November and unsure when it will be functioning. Patient is to follow-up for ultrasound with vascular in the outpatient setting. Patient denies any chest pain or shortness of breath. Again patient is afebrile today. No reports of nausea or vomiting and patient is tolerating diet. 02/21/2022 Patient is seen and evaluated in follow-up this morning continues to be afebrile and maintained on IV antibiotics with infectious disease following closely. Awaiting for bacteremia clearance and most recent blood cultures from 02/19/2022 and 02/20/2022 have been negative for 48 hours. Patient needs dialysis and possible temporary dialysis catheter placement tomorrow. Nephrology following closely and making corrections to potassium as potassium is elevated and creatinine remains elevated and is at 20 today. Continue with diuretics as well. Patient denies any chest pain or shortness of breath. Patient denies deion sea or vomiting and tolerating diet. Recommend strict renal diet and follow-up labs. 02/22/2022 Patient is seen today and was evaluated by vascular surgery and right arm fistula has been cleared to use for hemodialysis and RN to come today to attempt to access and hemodialysis is ordered. Patient continues on IV nafcillin with ID following. 2D echo ordered and pending at this time. Patient being arranged for outpatient antibiotic therapy. Patient continues with [facility] and will resume. VSS. Patient remains afebrile. Patient reports of some shortness of breath and feels overloaded. Recommend dialysis today once cleared by infectious disease. Continue to monitor blood cultures. 72 hours negative thus far. Echo report reviewed and there is an echodensity on the downstream noted and cardiology has been consulted per infectious disease for further evaluation of this density, need for possible HOSSEIN to assess for vegitation. Will await cardiology input and recommendations. 02/23/2022 Patient is evaluated today he underwent hemodialysis yesterday with 2 L of fluid off through his right arm fistula. Creatinine today is improved down to 18.4. He continues on IV nafcillin and recommendations from infectious disease would like patient to undergo HOSSEIN before discharge. This was discussed at bedside with patient and and he is agreeing to stay for the HOSSEIN which will most likely happen on Friday. Otherwise he will undergo hemodialysis again today, he is being followed by nephrology. Blood Pressure today 172/93, he is afebrile. Review of systems: Constitutional: No reports of fatigue, fever, or chills Cardiovascular: No reports of chest pain or palpitations Respiratory: reports of some shortness of breath GI: No reports of nausea, no reports of of vomiting, no reports of diarrhea : No reports of dysuria or retention Neurovascular: no reports of generalized weakness All medications have been reviewed Active Medications PHYSICAL EXAMINATION: GENERAL: The patient is alert and oriented x4, Well developed, well nourished. HEENT:PERRLA. EOMI. no scleral icterus. No conjunctival pallor. Normocephalic, atraumatic. No pharyngeal erythema. No thyromegaly. CARDIOVASCULAR: S1 and S2 muffled , right chest wall healing PULMONARY: diminished breath sounds bilaterally with no wheezing and some rhonchi noted. ABDOMEN: soft. non tender on exam. non-distended, normal bowel sounds. No palpable organomegaly. MUSCULOSKELETAL: No joint swelling or deformity. EXTREMITIES: No cyanosis, clubbing, or pedal edema. NEUROLOGICAL: Gross neurological examination did not reveal any focal deficits. SKIN: No rashes. Assessment: Gram positive bacteremia with staph aureus, most likely secondary to dialysis catheter of the right chest wall status post right chest wall permacath removal on 02/18/2022 Chronic kidney disease, ESRD, on hemodialysis Chronic renal disease Has a maturing AV fistula that has been cleared by vascular surgery for use GI prophylaxis DVT prophylaxis Full code Plan: Recommend to continue with current medications and management . Patient has right upper extremity av fistula and was seen by vascular surgery and cleared for use. Patient undwent dialysis yesterday and will receive dialysis today. ID following as well. 2 D Echo has been completed with possible vegetation on aortic valve and patient will undergo HOSSEIN most likely friday. Continues on IV Nafcillin while inpatient. Patient is afebrile and anxious to be discharged. Awaiting continued clearance of bacteremia. 96 hours clear thus far on one set. Nephrology following closely. Recommend to resume hemodialysis with imani outpatient. Due to multiple complex medical issues, prognosis is guarded. The impression and plan of care has been dictated by Alexia Oswald, Nurse Practitioner as directed. Dr. Linda MD I have performed a history and physical examination and medical decision making of this patient, discussed the same with the dictator, and agree with the dictators assessment and plan as written, documented as a scribe. Based on total visit time, I have performed more than 50% of this visit. Objective - Vital Signs Vital signs: Vital Signs Temp 98.3 F 02/23/22 08:00 Pulse 89 02/23/22 08:00 Resp 16 02/23/22 02:00 BP 172/93 02/23/22 08:00 Pulse Ox 97 02/23/22 08:00 FiO2 Intake & Output 02/22/22 02/23/22 02/23/22 18:59 06:59 18:59 Output Total 1999 Balance -1999 Weight 93.44 kg Output: Hemodialysis 1999 Other: Voiding Method Toilet # Voids 4 1 - Labs CBC & Chem 7: 02/20/22 06:15 02/23/22 06:16 Labs: Abnormal Lab Results - Last 24 Hours (Table) 02/22/22 02/23/22 Range/Units 06:37 06:16 Sodium 134 L (135-145) mmol/L Chloride 91 L (96-109) mmol/L Carbon Dioxide 19.8 L (20.0-27.5) mmol/L Anion Gap 23.10 H (10.00-18.00) mmol/L BUN 82.0 H 66.5 H (9.0-27.0) mg/dL Creatinine 22.7 H* 18.4 H* (0.6-1.5) mg/dL Est GFR (CKD-EPI)AfAm 2.5 L 3.2 L (60.0-200.0) Est GFR (CKD-EPI)NonAf 2.1 L 2.7 L (60.0-200.0) BUN/Creatinine Ratio 3.61 L 3.61 L (12.00-20.00) Ratio Magnesium 3.2 H (1.5-2.4) mg/dL Microbiology - Last 24 Hours (Table) 02/20/22 06:15 Blood Culture - Preliminary Blood No Growth after 72 hours 02/21/22 05:47 Blood Culture - Preliminary Blood No Growth after 48 hours 02/19/22 03:38 Blood Culture - Preliminary Blood No Growth after 96 hours 02/18/22 19:22 Catheter Tip Culture - Final Catheter Tip Staphylococcus aureus Coagulase Negative Staph Klebsiella pneumoniae 02/17/22 14:55 Blood Culture - Preliminary Blood No Growth after 120 hours 02/17/22 14:40 Blood Culture - Preliminary Blood No Growth after 120 hours Assessment and Plan Time with Patient: Less than 30
--- NOTE | 2022-02-23 22:05 | P.PN ---
Subjective Progress Note Date: 02/23/22 Principal diagnosis: Bacteremia dialysis catheter infection Patient is a 41-year-old male with a past medical history significant for end-stage renal disease on hemodialysis presented to hospital with bacteremia secondary to dialysis catheter infection. Patient did have removal of the dialysis catheter on 02/18/2022, patient did have a right arm fistula apparently mature and is getting used as of 02/22/2022 patient did have echocardiogram which did shows thickened aortic wall and concern for possible vegetation On today's evaluation that is 02/23/2022, the patient denies any fever or chills, the patient is breathing comfortably on room air, the patient denies chest pain shortness of breath or cough, the patient denies nausea no vomiting no abdominal pain or any diarrhea, patient is feeling better and wants to go home Objective - Vital Signs Vital signs: Vital Signs Temp 98.3 F 02/23/22 08:00 Pulse 89 02/23/22 08:40 Resp 16 02/23/22 08:40 BP 172/93 02/23/22 08:00 Pulse Ox 97 02/23/22 08:00 FiO2 Intake & Output 02/22/22 02/23/22 02/23/22 18:59 06:59 18:59 Output Total 1999 Balance -1999 Weight 93.44 kg Output: Hemodialysis 1999 Other: Voiding Method Toilet Toilet # Voids 4 1 - Exam GENERAL DESCRIPTION: Middle-aged male lying in bed in no distress RESPIRATORY SYSTEM: Unlabored breathing , decreased breath sounds at bases HEART: S1 S2 regular rate and rhythm , ABDOMEN: Soft , no tenderness EXTREMITIES: No edema feet - Labs CBC & Chem 7: 02/20/22 06:15 02/23/22 06:16 Labs: Abnormal Lab Results - Last 24 Hours (Table) 02/22/22 02/23/22 Range/Units 06:37 06:16 Sodium 134 L (135-145) mmol/L Chloride 91 L (96-109) mmol/L Carbon Dioxide 19.8 L (20.0-27.5) mmol/L Anion Gap 23.10 H (10.00-18.00) mmol/L BUN 82.0 H 66.5 H (9.0-27.0) mg/dL Creatinine 22.7 H* 18.4 H* (0.6-1.5) mg/dL Est GFR (CKD-EPI)AfAm 2.5 L 3.2 L (60.0-200.0) Est GFR (CKD-EPI)NonAf 2.1 L 2.7 L (60.0-200.0) BUN/Creatinine Ratio 3.61 L 3.61 L (12.00-20.00) Ratio Magnesium 3.2 H (1.5-2.4) mg/dL Microbiology - Last 24 Hours (Table) 02/20/22 06:15 Blood Culture - Preliminary Blood No Growth after 72 hours 02/21/22 05:47 Blood Culture - Preliminary Blood No Growth after 48 hours 02/19/22 03:38 Blood Culture - Preliminary Blood No Growth after 96 hours 02/18/22 19:22 Catheter Tip Culture - Final Catheter Tip Staphylococcus aureus Coagulase Negative Staph Klebsiella pneumoniae 02/17/22 14:55 Blood Culture - Preliminary Blood No Growth after 120 hours 02/17/22 14:40 Blood Culture - Preliminary Blood No Growth after 120 hours Assessment and Plan (1) Bacteremia Current Visit: Yes Status: Acute Code(s): R78.81 - BACTEREMIA SNOMED Code(s): 2055447 Plan: 1patient with a fever now with evidence of gram-positive bacteremia with gram- positive cocci in clusters likely Staph aureus and more likely related to the dialysis catheter infection clinic not behaving as pneumonia. 2- patient has been evaluated by vascular surgery and status post removal of the dialysis catheter on 02/18/2022 3blood cultures 02/18/2022 are positive,catheter tip were multiple pathogens including MSSA, blood cultures 02/19/2022 negative so far 4 the patient echocardiogram did shows aortic valve abnormality and a question of endocarditis. Waiting for the HOSSEIN to be completed and that will determine further course as for his antibiotic duration and surgery or no surgery is concerned this was discussed with the admitting team 5continue with Naficillin while inpatient Time with Patient: Less than 30
[2022-02-24] MEDS: NAFCILLIN 2 GM in DEXTROSE 5% IN WATER 100 ML IVPB SCH ×14 (00:07→23:17)
[2022-02-24] MEDS: HYDROcodone/APAP 5-325MG 1 EACH TAB PO PRN ×2 (00:07→23:17)
[2022-02-24] MEDS: CALCIUM ACETATE 667 MG TAB PO SCH ×3 (07:47→17:03)
[2022-02-24] MEDS: PANTOPRAZOLE 40 MG TABLET PO SCH (07:47)
[2022-02-24] MEDS: SEVELAMER 800 MG TAB PO SCH ×3 (07:47→17:04)
[2022-02-24] MEDS: HEPARIN SODIUM,PORCINE/PF 5,000 UNIT/0.5 ML SYRINGE SQ SCH ×2 (07:47→21:11)
[2022-02-24] MEDS: FUROSEMIDE 80 MG TAB PO SCH (07:47)
[2022-02-24] MEDS: hydrALAZINE HCL 50 MG TAB PO SCH ×3 (07:47→21:11)
[2022-02-24] MEDS: CHOLECALCIFEROL 25 MCG (1000 IU) TABLET PO SCH (07:47)
[2022-02-24] MEDS: amLODIPine 5 MG TAB PO SCH ×2 (07:48→21:11)
[2022-02-24] MEDS: carvediloL 12.5 MG TAB PO SCH ×2 (07:48→17:04)
[2022-02-24] MEDS: ASCORBIC ACID 500 MG TAB PO SCH (07:48)
[2022-02-24] MEDS: FERROUS SULFATE 325 MG TAB PO SCH (07:48)
--- NOTE | 2022-02-24 11:05 | P.PN ---
Subjective Patient is seen in follow-up for end-stage renal disease. He is maintained on hemodialysis on Friday schedule. Permacath removed 02/18/2022. Last dialysis 02/23/2022 using AV fistula without any problems. HOSSEIN pending. Wants to go home. Vital signs are stable. General: Awake and alert. No acute distress. HEENT: Head exam is unremarkable. LUNGS: Breath sounds decreased. HEART: Rate and Rhythm are regular. ABDOMEN: Soft, no distention. EXTREMITITES: No edema. Objective - Vital Signs Vital signs: Vital Signs Temp 97.8 F 02/24/22 08:00 Pulse 78 02/24/22 08:00 Resp 14 02/24/22 07:53 BP 177/102 02/24/22 08:00 Pulse Ox 96 02/24/22 08:00 FiO2 Intake & Output 02/23/22 02/24/22 02/24/22 18:59 06:59 18:59 Intake Total 200 300 Output Total 2300 Balance 200 -2000 Intake: Intake, IV Titration 200 Amount Nafcillin 2 gm In 200 Dextrose 5% in Water 100 ml @ 50 mls/hr IVPB Q4HR [facility] Rx#:[id number] Hemodialysis 300 Output: Hemodialysis 2300 Other: Voiding Method Toilet Toilet Toilet # Voids 2 - Labs CBC & Chem 7: 02/20/22 06:15 02/23/22 06:16 Labs: Abnormal Lab Results - Last 24 Hours (Table) 02/23/22 Range/Units 06:16 BUN 66.5 H (9.0-27.0) mg/dL Creatinine 18.4 H* (0.6-1.5) mg/dL Est GFR (CKD-EPI)AfAm 3.2 L (60.0-200.0) Est GFR (CKD-EPI)NonAf 2.7 L (60.0-200.0) BUN/Creatinine Ratio 3.61 L (12.00-20.00) Ratio Microbiology - Last 24 Hours (Table) 02/20/22 06:15 Blood Culture - Preliminary Blood No Growth after 96 hours 02/21/22 05:47 Blood Culture - Preliminary Blood No Growth after 72 hours 02/19/22 03:38 Blood Culture - Preliminary Blood No Growth after 120 hours 02/17/22 14:40 Blood Culture - Final Blood No Growth after 144 hours 02/17/22 14:55 Blood Culture - Final Blood No Growth after 144 hours Assessment and Plan Plan: Assessment: 1. End-stage renal disease maintained on hemodialysis on Friday schedule. Started to use AV fistula on 02/22/2022 without any p roblems. 2. Fever. Tested negative for coronavirus on 02/16/2022. Etiology is permacath infection. Blood cultures positive for staph aureus from 02/16/2022. Cultures from this admission positive for staph aureus. Catheter tip culture also positive for staph aureus and Klebsiella. 3. Hyponatremia secondary to chronic kidney disease. Improved postdialysis. 4. Anemia of chronic kidney disease. On Aranesp. 5. Hypertension with chronic kidney disease. 6. Chronic kidney disease mineral bone disease maintained on phosphate binders. Plan: Permacath removed 02/18/2022. Hemodialysis on Friday. Last dialysis was 02/23/2022. He will be maintained on Friday schedule. Vegetation not ruled out. HOSSEIN pending. Increased dose of Coreg yesterday. Add clonidine.
[2022-02-24] MEDS: cloNIDine HCL 0.1 MG TAB PO SCH ×3 (11:47→21:11)
--- NOTE | 2022-02-24 14:17 | P.PN ---
Subjective Progress Note Date: 02/24/22 This is a 41 year old male who was recently admitted with bacteremia likely dialysis cath associated. Multiple medical consultations following and patient is scheduled to receive dialysis today and have right chest wall permacath removed today while awaiting for clearance of blood cultures. Catheter to be sent for analysis as well. Patient does have a maturing left arm av fistula that is maturing. Patient with features of sepsis present on admission. Patient is currently afebrile and denies chest pain or shortness of breath. 02/19/2022 Patient is evaluated today status post right chest wall catheter removal with vascular surgery yesterday. Awaiting finalized cultures and blood cultures continue to be positive and ID following. Patient being started on Nafcillin and cultures likely MSSA. Patient reports to feeling much better status post catheter removal. Patient with low grade temps. Patient denies chest pain or shortness of breath. Patient tolerating diet and no reports of nausea or vomit ing noted. Recommend daily blood cultures. 02/20/2022 Patient is seen in follow-up today and is afebrile and awaiting for cultures to finalized. Patient is maintained on IV antibiotics in the form of nafcillin with ID following and nephrology also following closely. Patient most recent repeat blood cultures from 75 are negative for 24 hours and catheter tip preliminary culture showing presumptive staph aureus and coagulase-negative staph. Awaiting for bacteremia clearance to determine discharge antibiotics and treatment plan moving forward. Patient may likely require another dialysis ca theter and nephrology is following closely. Patient does have a maturing AV fistula and follows with vascular surgery in the outpatient setting. Patient reports this was placed in November and unsure when it will be functioning. Patient is to follow-up for ultrasound with vascular in the outpatient setting. Patient denies any chest pain or shortness of breath. Again patient is afebrile today. No reports of nausea or vomiting and patient is tolerating diet. 02/21/2022 Patient is seen and evaluated in follow-up this morning continues to be afebrile and maintained on IV antibiotics with infectious disease following closely. Awaiting for bacteremia clearance and most recent blood cultures from 02/19/2022 and 02/20/2022 have been negative for 48 hours. Patient needs dialysis and possible temporary dialysis catheter placement tomorrow. Nephrology following closely and making corrections to potassium as potassium is elevated and creatinine remains elevated and is at 20 today. Continue with diuretics as well. Patient denies any chest pain or shortness of breath. Patient denies deion sea or vomiting and tolerating diet. Recommend strict renal diet and follow-up labs. 02/22/2022 Patient is seen today and was evaluated by vascular surgery and right arm fistula has been cleared to use for hemodialysis and RN to come today to attempt to access and hemodialysis is ordered. Patient continues on IV nafcillin with ID following. 2D echo ordered and pending at this time. Patient being arranged for outpatient antibiotic therapy. Patient continues with [facility] and will resume. VSS. Patient remains afebrile. Patient reports of some shortness of breath and feels overloaded. Recommend dialysis today once cleared by infectious disease. Continue to monitor blood cultures. 72 hours negative thus far. Echo report reviewed and there is an echodensity on the downstream noted and cardiology has been consulted per infectious disease for further evaluation of this density, need for possible HOSSEIN to assess for vegitation. Will await cardiology input and recommendations. 02/23/2022 Patient is evaluated today he underwent hemodialysis yesterday with 2 L of fluid off through his right arm fistula. Creatinine today is improved down to 18.4. He continues on IV nafcillin and recommendations from infectious disease would like patient to undergo HOSSEIN before discharge. This was discussed at bedside with patient and and he is agreeing to stay for the HOSSEIN which will most likely happen on Friday. Otherwise he will undergo hemodialysis again today, he is being followed by nephrology. Blood Pressure today 172/93, he is afebrile. 02/24/2022 Blood pressure elevated throughout the evening at 170 systolic. We will recheck this morning after morning medications. Nephrology has also added clonidine and increased patients dose of coreg. Patient received hemodialysis yesterday with 2.3 L off. Repeat blood cultures are continuing to show negative at preliminary 120 hours. Current plan is for HOSSEIN tentatively for Friday. Patient would like to be discharged home. He is being followed closely by nephrology, cardiology and infectious disease services. Review of systems: Constitutional: No reports of fatigue, fever, or chills Cardiovascular: No reports of chest pain or palpitations Respiratory: reports of some shortness of breath GI: No reports of nausea, no reports of of vomiting, no reports of diarrhea : No reports of dysuria or retention Neurovascular: no reports of generalized weakness All medications have been reviewed Active Medications PHYSICAL EXAMINATION: GENERAL: The patient is alert and oriented x4, Well developed, well nourished. HEENT:PERRLA. EOMI. no scleral icterus. No conjunctival pallor. Normocephalic, atraumatic. No pharyngeal erythema. No thyromegaly. CARDIOVASCULAR: S1 and S2 muffled , right chest wall healing PULMONARY: diminished breath sounds bilaterally with no wheezing and some rhonchi noted. ABDOMEN: soft. non tender on exam. non-distended, normal bowel sounds. No palpable organomegaly. MUSCULOSKELETAL: No joint swelling or deformity. EXTREMITIES: No cyanosis, clubbing, or pedal edema. NEUROLOGICAL: Gross neurological examination did not reveal any focal deficits. SKIN: No rashes. Assessment: Gram positive bacteremia with staph aureus, most likely secondary to dialysis catheter of the right chest wall status post right chest wall permacath removal on 02/18/2022 Chronic kidney disease, ESRD, on hemodialysis Chronic renal disease Has a maturing AV fistula that has been cleared by vascular surgery for use GI prophylaxis DVT prophylaxis Full code Plan: Recommend to continue with current medications and management . Patient has right upper extremity av fistula and was seen by vascular surgery and cleared for use. Patient undwent dialysis for the last 2 days. ID following as well. 2 D Echo has been completed with possible vegetation on aortic valve and patient will undergo HOSSEIN most likely friday. Continues on IV Nafcillin while inpatient. Patient is afebrile and anxious to be discharged. Awaiting continued clearance of bacteremia. 120 hours clear thus far on one set. Nephrology following closely. Recommend to resume hemodialysis with frecindaus outpatient. Due to multiple complex medical issues, prognosis is guarded. The impression and plan of care has been dictated by Alexia Oswald Nurse Practitioner as directed. Dr. Linda MD I have performed a history and physical examination and medical decision making of this patient, discussed the same with the dictator, and agree with the dictators assessment and plan as written, documented as a scribe. Based on total visit time, I have performed more than 50% of this visit. Objective - Vital Signs Vital signs: Vital Signs Temp 97.8 F 02/24/22 08:00 Pulse 78 02/24/22 08:00 Resp 14 02/24/22 07:53 BP 177/102 02/24/22 08:00 Pulse Ox 96 02/24/22 08:00 FiO2 Intake & Output 02/23/22 02/24/22 02/24/22 18:59 06:59 18:59 Intake Total 200 300 Output Total 2300 Balance 200 -2000 Intake: Intake, IV Titration 200 Amount Nafcillin 2 gm In 200 Dextrose 5% in Water 100 ml @ 50 mls/hr IVPB Q4HR JULIANNA Rx#:[id number] Hemodialysis 300 Output: Hemodialysis 2300 Other: Voiding Method Toilet Toilet Toilet # Voids 2 - Labs CBC & Chem 7: 02/20/22 06:15 02/23/22 06:16 Labs: Abnormal Lab Results - Last 24 Hours (Table) 02/23/22 Range/Units 06:16 BUN 66.5 H (9.0-27.0) mg/dL Creatinine 18.4 H* (0.6-1.5) mg/dL Est GFR (CKD-EPI)AfAm 3.2 L (60.0-200.0) Est GFR (CKD-EPI)NonAf 2.7 L (60.0-200.0) BUN/Creatinine Ratio 3.61 L (12.00-20.00) Ratio Microbiology - Last 24 Hours (Table) 02/20/22 06:15 Blood Culture - Preliminary Blood No Growth after 96 hours 02/21/22 05:47 Blood Culture - Preliminary Blood No Growth after 72 hours 02/19/22 03:38 Blood Culture - Preliminary Blood No Growth after 120 hours 02/17/22 14:40 Blood Culture - Final Blood No Growth after 144 hours 02/17/22 14:55 Blood Culture - Final Blood No Growth after 144 hours Assessment and Plan Time with Patient: Less than 30
--- NOTE | 2022-02-24 20:40 | P.PN ---
Subjective HISTORY OF PRESENTING ILLNESS Patient is a pleasant 41-year-old male with history of COPD on end-stage renal disease, hypertension, staph aureus bacteremia. She presented 03/16 secondary to 4-5 days of fevers, chills and right ears. Blood cultures have been positive for staph aureus. Echocardiogram 02/22/2022 showed EF 55-60% and what appeared to be a echo density on the aortic valve with mild aortic regurgitation and mild aortic stenosis, mild tricuspid regurgitation. He denies any chest pain or pressure. He has not seen a yoke setter previously. Denies any current shortness breath. Anxious to go home. Currently now going through dialysis with a radial AVF. 02/24 Patient seen and examined. No new events. States he is feeling well. Anxious to go home. PHYSICAL EXAMINATION Vital signs reviewed. CONSTITUTIONAL: No apparent distress. HEENT: Head is normocephalic. Pupils are equal, round. Sclerae anicteric. Mucous membranes of the mouth are moist. No JVD. No carotid bruit. CHEST EXAMINATION: Lungs are clear to auscultation. No chest wall tenderness is noted on palpation or with deep breathing. HEART EXAMINATION: Regular rate and rhythm. S1, S2 heard. No murmurs, gallops or rub. ABDOMEN: Soft, nontender. Positive bowel sounds. EXTREMITIES: 2+ peripheral pulses, no lower extremity edema and no calf tenderness. NEUROLOGIC EXAMINATION: Patient is awake, alert and oriented x3. ASSESSMENT 1. Persistent staph Aureus bacteremia likely source of dialysis catheter 2. Questionable vegetation on aortic valve 3. Mild aortic stenosis, mild aortic regurgitation 4. End-stage renal disease 5. Hypertension PLAN Check HOSSEIN tomorrow given concern of aortic valve vegetation. Continue with antibiotics. Blood pressure somewhat labile however elevated over last 24 hours. Objective - Vital Signs Vital signs: Vital Signs Temp 98.2 F 02/24/22 14:00 Pulse 74 02/24/22 14:00 Resp 14 02/24/22 07:53 BP 176/91 02/24/22 14:00 Pulse Ox 97 02/24/22 14:00 FiO2 Intake & Output 02/24/22 02/24/22 02/25/22 06:59 18:59 06:59 Intake Total 300 Output Total 2300 -1999 Intake: Hemodialysis 300 Output: Hemodialysis 2300 Other: Voiding Method Toilet Toilet # Voids 2 2 - Labs CBC & Chem 7: 02/20/22 06:15 02/23/22 06:16 Labs: Microbiology - Last 24 Hours (Table) 02/20/22 06:15 Blood Culture - Preliminary Blood No Growth after 96 hours 02/21/22 05:47 Blood Culture - Preliminary Blood No Growth after 72 hours 02/19/22 03:38 Blood Culture - Preliminary Blood No Growth after 120 hours 02/17/22 14:40 Blood Culture - Final Blood No Growth after 144 hours 02/17/22 14:55 Blood Culture - Final Blood No Growth after 144 hours
[2022-02-25] MEDS: NAFCILLIN 2 GM in DEXTROSE 5% IN WATER 100 ML IVPB SCH ×4 (05:02→07:21)
[2022-02-25] MEDS: CALCIUM ACETATE 667 MG TAB PO SCH (07:13)
[2022-02-25] MEDS: PANTOPRAZOLE 40 MG TABLET PO SCH (07:13)
[2022-02-25] MEDS: CHOLECALCIFEROL 25 MCG (1000 IU) TABLET PO SCH (07:13)
[2022-02-25] MEDS: ASCORBIC ACID 500 MG TAB PO SCH (07:13)
[2022-02-25] MEDS: SEVELAMER 800 MG TAB PO SCH (07:13)
[2022-02-25] MEDS: HEPARIN SODIUM,PORCINE/PF 5,000 UNIT/0.5 ML SYRINGE SQ SCH (07:14)
[2022-02-25] MEDS: FERROUS SULFATE 325 MG TAB PO SCH (07:14)
[2022-02-25] MEDS: carvediloL 12.5 MG TAB PO SCH (07:21)
[2022-02-25] MEDS: cloNIDine HCL 0.1 MG TAB PO SCH (07:21)
[2022-02-25] MEDS: hydrALAZINE HCL 50 MG TAB PO SCH (07:21)
[2022-02-25] MEDS: amLODIPine 5 MG TAB PO SCH (07:21)
[2022-02-25] MEDS: FUROSEMIDE 80 MG TAB PO SCH (07:21)
[2022-02-25] MEDS ORDERED: fentaNYL (PF) 50 MCG/ML 2 ML AMP ONE ×2 (07:55→08:20)
[2022-02-25] MEDS: BENZOCAINE SPRAY 1 CAN TOPICAL ONE ×2 (08:00→08:10)
[2022-02-25] MEDS: fentaNYL (PF) 50 MCG/ML 2 ML AMP IV ONE ×5 (08:10→08:20)
[2022-02-25] MEDS ORDERED: MIDAZOLAM 2 MG/2 ML VIAL IV ONE (08:10)
[2022-02-25] MEDS: MIDAZOLAM 2 MG/2 ML VIAL IV ONE ×4 (08:12→08:20)
[2022-02-25] MEDS ORDERED: IV FLUID CONTINUATION 200 ML IV ONE (08:18)
[2022-02-25 09:25] VITALS: RESP 18
[2022-02-25 09:53] VITALS: BP 163/80; PULSE 74; TEMP 98
[2022-02-25] MEDS: DARBEPOETIN ALFA 40 MCG/0.4 ML SYRINGE SQ SCH (10:03)
--- NOTE | 2022-02-25 12:43 | P.TEE ---
Description of Procedure(s): Procedure performed: Transesophageal Echocardiogram with color flow doppler, pulsed wave doppler and continuous wave doppler, moderate conscious sedation Moderate conscious sedation: Moderate conscious sedation was supplied with direct supervision of myself using Versed and Fentanyl. Complications: none Indications: Bacteremia, questionable aortic valve mass PROCEDURE: After the risks, benefits and alternatives of the above mentioned procedure was explained in detail with the patient, informed consent was obtained. Patient was brought to the lab in a fasting state. Patient was given IV Versed and Fentanyl for sedation. The throat was sprayed with Hurricane to anesthetize the throat. A lubricated Omni probe was then introduced into the esophagus and stomach and multiple views were obtained. 2D echo with color flow doppler, pulsed wave doppler and continuous wave doppler was utilized. Agitated saline bubbles were injected to assess for any intra-atrial shunt. The probe was then removed. Patient tolerated the procedure well. Patient was transferred to the post procedure area in stable and satisfactory condition. FINDINGS: 1. The aortic valve is tricuspid and functioning normally. There is an artifact right coronary cusp however no mass or vegetation noted. No aortic insufficiency or aortic stenosis. 2. The mitral valve appears be normal with mild mitral regurgitation. 3. Tricuspid valve normal without any significant tricuspid regurgitation. 4. The interatrial septum is intact. No evidence of PFO. 5. Left ventricular size and function is normal with left ventricular EF 55- 60%. There is left ventricular hypertrophy noted.
--- NOTE | 2022-02-27 07:13 | CDI ---
Documentation Clarification Form Date: 02/27/2022 06:27:00 AM From: Domitila Tubbs Admit Date: 02/17/2022 02:44:00 PM Patient Name: Dionicio Sosa Visit Number: [id number] Discharge Date: 02/25/2022 12:28:00 PM ATTENTION: The Clinical Documentation Specialists (CDI) and [facility] Coding Staff appreciate your assistance in clarifying documentation. Please respond to the clarification below the line at the bottom and electronically sign. The CDI & [facility] Coding staff will review the response and follow-up if needed. Please note: Queries are made part of the Legal Health Record. If you have any questions, please contact the author of this message via ITS. Dr. Kaitlin Adam Per 02/18, 02/19, 02/20, 02/21, 02/22, 02/23 and 02/24 PN's "Patient with features of sepsis present on admission. Throughout chart bacteremia is documented. Please clarify if patient had sepsis or bacteremia. History/Risk Factors: Positive blood cultures. Infected dialysis catheter Clinical Indicators: WBC: 8.1 Blood cultures: positive staph aureus Vitals signs: 97.8 F, 83 bpm, 132/79, 95% RA Treatment: Removal of catheter, IV antibiotics ID Consult: Bacteremia due to dailysis catheter Antibiotics: Vancomycin In your professional opinion, please clarify if these findings signify one of the following conditions: [x ] Sepsis POA [ ] Sepsis, Not POA [ ] Sepsis ruled out [ ] Severe Sepsis with organ failure [ ] Septic Shock [ ] SIRS, without underlying infectious process [ ] Other, please specify [ ] Unable to determine SIRS Criteria: 2 or more of the following may indicate SIRS -Temperature < 96.8F (36C) or > 101.0F (38.3C) -Heart Rate > 90 bpm -Respiratory Rate > 20 breaths/min or PaCO2 < 32 mmHg -White Blood Cell Count > 12,000 or < 4,000 cells/mm3 or > 10% bands MTDD
--- NOTE | 2022-02-28 19:05 | P.DS ---
Providers Date of admission: 02/17/22 14:44 Expected date of discharge: 02/25/22 Attending physician: Gabe Cam MD Consults: 02/17/22 14:44 Consult Physician Urgent Consulting Provider: Jane Blanton Consult Reason/Comments: Bacteremia, pneumonia Do you want consulting provider notified?: Yes 02/17/22 14:45 Consult Physician Urgent Consulting Provider: Michael Mendez Consult Reason/Comments: Chronic renal failure Do you want consulting provider notified?: Yes 02/18/22 00:49 Consult Physician Routine Consulting Provider: Barrett Polanco Consult Reason/Comments: infected dialysis catheter Do you want consulting provider notified?: Yes 02/22/22 22:30 Consult Physician Urgent Consulting Provider: Mark Singleton Consult Reason/Comments: abnormal echo , ?vegetation , HOSSEIN Do you want consulting provider notified?: Yes Primary care physician: [facility] Course: Final Diagnosis Gram positive bacteremia with staph aureus, most likely secondary to dialysis catheter of the right chest wall sepsis, present on admission status post right chest wall permacath removal on 02/18/2022 Chronic kidney disease, ESRD, on hemodialysis Chronic renal disease Has a maturing AV fistula that has been cleared by vascular surgery for use GI prophylaxis DVT prophylaxis Full code Discharge disposition Patient is being discharged in a stable condition with guarded prognosis to home. Patient will follow-up with Dr. webster and Dr. Blanton in the outpatient setting upon discharge. Patient is also to follow-up with nephrology in one week. Patient will continue on hemodialysis on his scheduled t//s. Patient to continue on antibiotics post dialysis per ID recommendations. Total time taken is greater than 35 minutes. Hospital course This is a 41-year-old male who was recently admitted Bacteremia secondary to right chest wall permacath and was removed. Patient did have maturing right arm fistula and was evaluated by cardiology and vascular surgery and is functional and was accessed. HOSSEIN was negative for vegetation, some artifact noted with hypertrophy. Patient is to follow up closely with ID outpatient and also other consultations. Currently no reports of chest pain, shortness of breath, or palpitations. Patient is afebrile. No reports of nausea or vomiting and patient is tolerating diet. Patient will be discharged home today. Guarded prognosis. Physical exam: Gen: This is a 41 -year-old male awake, alert and oriented 3 well-developed, well-nourished. HEENT: Head is atraumatic, normocephalic. Pupils equal, round. Sclerae is anicteric. NECK: Supple. No JVD. No lymphadenopathy. No thyromegaly. LUNGS: Clear to auscultation. No wheezes or rhonchi. No intercostal retractions. HEART: Regular rate and rhythm. No murmur. ABDOMEN: Soft. Bowel sounds are present. No masses. No tenderness. EXTREMITIES: No pedal edema. No calf tenderness. NEUROLOGICAL: Patient is awake, alert and oriented x3. Cranial nerves 2 through 12 are grossly intact. Please refer to medication reconciliation sheet for a list of medications. The impression and plan of care has been dictated by Eileen Kiser, Nurse Practitioner as directed. Dr. Linda MD I have performed a history and examination and MDM of this patient, discussed the same with the dictator, and agree with the dictator's assessment and plan as written ,documented as a scribe. Based on total visit time, I have performed more than 50% of the visit. Patient Condition at Discharge: Fair Plan - Discharge Summary New Discharge Prescriptions: New Darbepoetin Ezequiel [Aranesp] 40 mcg SQ Q7D each cloNIDine HCL [Catapres] 0.1 mg PO TID 30 Days #90 tab carvediloL [Coreg*] 25 mg PO AC-BID 30 Days #120 tab Continue Furosemide [Lasix] 80 mg PO DIRECTED amLODIPine [Norvasc] 5 mg PO BID Calcium Acetate [PhosLo] 1,334 mg PO TID-W/MEALS Sevelamer [Renvela] 2,400 mg PO TID-W/MEALS Acetaminophen Tab [Tylenol] 1,000 mg PO Q6HR PRN PRN Reason: Pain Or Fever > 100.5 hydrALAZINE HCL [Apresoline] 100 mg PO TID Furosemide [Lasix] 160 mg PO SUMOWEFR Ibuprofen [Motrin Ib] 800 mg PO Q8H PRN PRN Reason: Pain Or Fever > 100.5 Vitamin C 1000mg Gummies 1 tab PO DAILY Ipratropium-Albuterol Nebulize [Duoneb 0.5 mg-3 mg/3 ml Soln] 3 ml INHALATION RT-Q4H PRN PRN Reason: Wheezing/Shortness of breath Ferrous Sulfate [Iron (65 MG Elemental)] 325 mg PO DAILY Vitamin D3 25 Mcg Gummies 1 tab PO DAILY Velphoro 500mg Chewable Tab 500 mg PO TID-W/MEALS Discontinued Amoxic-Pot Clav 875-125Mg [Augmentin 875-125] 1 tab PO Q12HR #20 tablet carvediloL [Coreg*] 12.5 mg PO BID Azithromycin [Zithromax Z Pack] See Taper PO DIRECTED Discharge Medication List Calcium Acetate [PhosLo] 1,334 mg PO TID-W/MEALS 11/30/21 [History] Furosemide [Lasix] 80 mg PO DIRECTED 11/30/21 [History] Furosemide [Lasix] 160 mg PO SUMOWEFR 11/30/21 [History] amLODIPine [Norvasc] 5 mg PO BID 11/30/21 [History] Acetaminophen Tab [Tylenol] 1,000 mg PO Q6HR PRN 02/17/22 [History] Ferrous Sulfate [Iron (65 MG Elemental)] 325 mg PO DAILY 02/17/22 [History] Ibuprofen [Motrin Ib] 800 mg PO Q8H PRN 02/17/22 [History] Ipratropium-Albuterol Nebulize [Duoneb 0.5 mg-3 mg/3 ml Soln] 3 ml INHALATION RT-Q4H PRN 02/17/22 [History] Sevelamer [Renvela] 2,400 mg PO TID-W/MEALS 02/17/22 [History] Velphoro 500mg Chewable Tab 500 mg PO TID-W/MEALS 02/17/22 [History] Vitamin C 1000mg Gummies 1 tab PO DAILY 02/17/22 [History] Vitamin D3 25 Mcg Gummies 1 tab PO DAILY 02/17/22 [History] hydrALAZINE HCL [Apresoline] 100 mg PO TID 02/17/22 [History] Darbepoetin Ezequiel [Aranesp] 40 mcg SQ Q7D each 02/22/22 [Rx] carvediloL [Coreg*] 25 mg PO AC-BID 30 Days #120 tab 02/25/22 [Rx] cloNIDine HCL [Catapres] 0.1 mg PO TID 30 Days #90 tab 02/25/22 [Rx] Follow up Appointment(s)/Referral(s): [facility] [NON-STAFF] - 02/26/22 Jane Blanton MD [STAFF PHYSICIAN] - 03/05/22 3:15 pm Sarah Yoder DO [Primary Care Provider] - 1-2 days (patient to call and make appointment after discharge ) Patient Instructions/Handouts: End Stage Kidney Disease (DC), Bacteremia (DC) Activity/Diet/Wound Care/Special Instructions: Activity Limited until follow-up Follow-up with primary care provider on discharge Follow-up with nephrology and continue with hemodialysis as scheduled with Juan Continue antibiotics post dialysis and follow up with infectious disease Dr. Blanton in one week Discharge/Stand Alone Forms: Work/Release Restrictions Form, Work/School Release / Restrict Discharge Disposition: HOME SELF-CARE
--- NOTE | 2022-03-04 12:26 | P.PN ---
Subjective Progress Note Date: 02/24/22 Principal diagnosis: Bacteremia dialysis catheter infection Patient is a 41-year-old male with a past medical history significant for end-stage renal disease on hemodialysis presented to hospital with bacteremia secondary to dialysis catheter infection. Patient did have removal of the dialysis catheter on 02/18/2022, patient did have a right arm fistula apparently mature and is getting used as of 02/22/2022 patient did have echocardiogram which did shows thickened aortic wall and concern for possible vegetation On today's evaluation that is 02/24/2022, the patient continues to be afebrile, the patient is breathing comfortably on room air, the patient denies chest pain shortness of breath or cough, the patient denies nausea no vomiting no abdominal pain or any diarrhea, patient is currently waiting for HOSSEIN for abnormal echo concerning for endocarditis Objective - Vital Signs Vital signs: Vital Signs Temp 97.8 F 02/24/22 08:00 Pulse 78 02/24/22 08:00 Resp 14 02/24/22 07:53 BP 177/102 02/24/22 08:00 Pulse Ox 96 02/24/22 08:00 FiO2 Intake & Output 02/23/22 02/24/22 02/24/22 18:59 06:59 18:59 Intake Total 200 300 Output Total 2300 Balance 200 -2000 Intake: Intake, IV Titration 200 Amount Nafcillin 2 gm In 200 Dextrose 5% in Water 100 ml @ 50 mls/hr IVPB Q4HR [facility] Rx#:[id number] Hemodialysis 300 Output: Hemodialysis 2300 Other: Voiding Method Toilet Toilet Toilet # Voids 2 - Exam GENERAL DESCRIPTION: Middle-aged male lying in bed in no distress RESPIRATORY SYSTEM: Unlabored breathing , decreased breath sounds at bases HEART: S1 S2 regular rate and rhythm , ABDOMEN: Soft , no tenderness EXTREMITIES: No edema feet - Labs CBC & Chem 7: 02/20/22 06:15 02/23/22 06:16 Labs: Microbiology - Last 24 Hours (Table) 02/20/22 06:15 Blood Culture - Preliminary Blood No Growth after 96 hours 02/21/22 05:47 Blood Culture - Preliminary Blood No Growth after 72 hours 02/19/22 03:38 Blood Culture - Preliminary Blood No Growth after 120 hours 02/17/22 14:40 Blood Culture - Final Blood No Growth after 144 hours 02/17/22 14:55 Blood Culture - Final Blood No Growth after 144 hours Assessment and Plan (1) Bacteremia Status: Acute Code(s): R78.81 - BACTEREMIA SNOMED Code(s): 5850831 Plan: 1patient with a fever now with evidence of gram-positive bacteremia with gram-positive cocci in clusters likely Staph aureus and more likely related to the dialysis catheter infection clinic not behaving as pneumonia. 2- patient has been evaluated by vascular surgery and status post removal of the dialysis catheter on 02/18/2022 3blood cultures 02/18/2022 are positive,catheter tip were multiple pathogens including MSSA, blood cultures 02/19/2022 negative so far 4 the patient echocardiogram did shows aortic valve abnormality and a question of endocarditis. The patient is currently waiting for the HOSSEIN to be completed and that will determine further course as for his antibiotic duration and surgery or no surgery 5patient to continue with Naficillin and monitor clinical course closely Time with Patient: Less than 30
--- NOTE | 2022-03-04 12:30 | P.PN ---
Subjective Progress Note Date: 02/25/22 Principal diagnosis: Bacteremia dialysis catheter infection Patient is a 41-year-old male with a past medical history significant for end-stage renal disease on hemodialysis presented to hospital with bacteremia secondary to dialysis catheter infection. Patient did have removal of the dialysis catheter on 02/18/2022, patient did have a right arm fistula apparently mature and is getting used as of 02/22/2022 patient did have echocardiogram which did shows thickened aortic wall and concern for possible vegetation, the patient is status post HOSSEIN completed this morning with a verbal report mention no endocarditis On today's evaluation that is 02/25/2022, the patient denies any fever or any chills, the patient is breathing comfortably, patient denies having any chest pain or shortness of breath or cough no abdominal pain no diarrhea feeling better and wants to go home Objective - Vital Signs Vital signs: Vital Signs Temp 98.0 F 02/25/22 08:50 Pulse 74 02/25/22 08:50 Resp 18 02/25/22 08:50 BP 163/80 02/25/22 08:50 Pulse Ox 94 L 02/25/22 08:50 FiO2 Intake & Output 02/24/22 02/25/22 02/25/22 18:59 06:59 18:59 Intake Total 100 Balance 100 Intake: IV 100 Other: Voiding Method Toilet Toilet # Voids 2 - Exam GENERAL DESCRIPTION: Middle-aged male lying in bed in no distress RESPIRATORY SYSTEM: Unlabored breathing , decreased breath sounds at bases HEART: S1 S2 regular rate and rhythm , ABDOMEN: Soft , no tenderness EXTREMITIES: No edema feet - Labs CBC & Chem 7: 02/20/22 06:15 02/23/22 06:16 Labs: Microbiology - Last 24 Hours (Table) 02/20/22 06:15 Blood Culture - Preliminary Blood No Growth after 120 hours 02/21/22 05:47 Blood Culture - Preliminary Blood No Growth after 96 hours 02/19/22 03:38 Blood Culture - Final Blood No Growth after 144 hours Assessment and Plan (1) Bacteremia Status: Acute Code(s): R78.81 - BACTEREMIA SNOMED Code(s): 7794002 Plan: 1patient with a fever now with evidence of gram-positive bacteremia with gram-positive cocci in clusters likely Staph aureus and more likely related to the dialysis catheter infection clinic not behaving as pneumonia. 2- patient has been evaluated by vascular surgery and status post removal of the dialysis catheter on 02/18/2022 3blood cultures 02/18/2022 are positive,catheter tip were multiple pathogens including MSSA, blood cultures 02/19/2022 negative so far 4 the patient echocardiogram did shows aortic valve abnormality and a question of endocarditis., However HOSSEIN reported this morning did not show any vegetation antibiotic will be switched over to cefazolin 2 g post dialysis on Friday and and 3 g post dialysis on Friday 2 weeks and close out patient follow-up Time with Patient: Less than 30
== END 2022-02-25 12:28 | disposition home or self-care (01) | DRG 252 ==
LOC: EC 13:42 → 4SSUR 14:44
PROVIDERS: ADMIT Internal Medicine; ATTEND Internal Medicine
PROC: 05PY03Z Removal of Infusion Device from Upper Vein, Open Approach (ICD-10-PCS; principal; 2022-02-18)
PROC: 5A1D70Z Performance of Urinary Filtration, Intermittent, Less than 6 Hours Per Day (ICD-10-PCS; 2022-02-18)
PROC: B246ZZ4 Ultrasonography of Right and Left Heart, Transesophageal (ICD-10-PCS; 2022-02-25)
DX: T80.211A Bloodstream infection due to central venous catheter, initial encounter (principal); A41.9 Sepsis, unspecified organism; N18.6 End stage renal disease; E87.1 Hypo-osmolality and hyponatremia; I12.0 Hypertensive chronic kidney disease with stage 5 chronic kidney disease or end stage renal disease; N17.9 Acute kidney failure, unspecified; J90 Pleural effusion, not elsewhere classified; B95.61 Methicillin susceptible Staphylococcus aureus infection as the cause of diseases classified elsewhere; B96.89 Other specified bacterial agents as the cause of diseases classified elsewhere; D63.1 Anemia in chronic kidney disease; J44.9 Chronic obstructive pulmonary disease, unspecified; E83.9 Disorder of mineral metabolism, unspecified; R09.02 Hypoxemia; Y84.8 Other medical procedures as the cause of abnormal reaction of the patient, or of later complication, without mention of misadventure at the time of the procedure; Z79.899 Other long term (current) drug therapy; Z99.2 Dependence on renal dialysis
CPT/HCPCS: 71045; 80048; 80053; 80202; 83735; 85025; 86140; 86706; 87040; 87070; 87077; 87186; 87340; 90935; 93306; 93312; 93320; 93325; 94640; 94760; 96365; 99285

== ENCOUNTER 2022-07-06 21:00 | Emergency (ER) | payer BC ==
[2022-07-06 21:04] VITALS: TEMP 98.3
[2022-07-06 21:25] VITALS: RESP 24
--- NOTE | 2022-07-06 22:12 | ED ---
General Adult HPI - General Chief complaint: Shortness of Breath Stated complaint: SOB/Chest pain Time Seen by Provider: 07/06/22 21:28 Source: patient, RN notes reviewed, old records reviewed Mode of arrival: ambulatory Limitations: no limitations - History of Present Illness Initial comments: Patient is a 42-year-old male with past medical history remarkable for ESRD on hemodialysis done from home Friday, , Friday. Did not dialyze today. Usually manages his own fluid removal based ON the way. Presents over concern for two-week history of worsening shortness of breath as well as pleuritic chest pain present only when coughing the last 2 weeks. Denies any sick contacts. Denies any productive cough. Endorses some mild lower extremity edema. Endorses worsening orthopnea. Denies PND. Denies fevers, chills, sick contacts. Denies any chest pain at rest. Denies any nausea, vomiting, abdominal pain. Is not normally on oxygen at home. Endorses exertional dyspnea. Presents over concern for possible infectious etiology versus other cause for his current shortness of breath. - Related Data Home Medications Medication Instructions Recorded Confirmed Calcium Acetate [PhosLo] 1,334 mg PO TID-W/MEALS 11/30/21 02/17/22 Furosemide [Lasix] 80 mg PO DIRECTED 11/30/21 02/17/22 Furosemide [Lasix] 160 mg PO SUMOWEFR 11/30/21 02/17/22 amLODIPine [Norvasc] 5 mg PO BID 11/30/21 02/17/22 Acetaminophen Tab [Tylenol] 1,000 mg PO Q6HR PRN 02/17/22 02/17/22 Ferrous Sulfate [Iron (65 MG 325 mg PO DAILY 02/17/22 02/17/22 Elemental)] Ibuprofen [Motrin Ib] 800 mg PO Q8H PRN 02/17/22 02/17/22 Ipratropium-Albuterol Nebulize 3 ml INHALATION RT-Q4H PRN 02/17/22 02/17/22 [Duoneb 0.5 mg-3 mg/3 ml Soln] Sevelamer [Renvela] 2,400 mg PO TID-W/MEALS 02/17/22 02/17/22 Velphoro 500mg Chewable Tab 500 mg PO TID-W/MEALS 02/17/22 02/17/22 Vitamin C 1000mg Gummies 1 tab PO DAILY 02/17/22 02/17/22 Vitamin D3 25 Mcg Gummies 1 tab PO DAILY 02/17/22 02/17/22 hydrALAZINE HCL [Apresoline] 100 mg PO TID 02/17/22 02/17/22 Previous Rx's Medication Instructions Recorded Darbepoetin Ezequiel [Aranesp] 40 mcg SQ Q7D each 02/22/22 carvediloL [Coreg*] 25 mg PO AC-BID 30 Days #120 tab 02/25/22 cloNIDine HCL [Catapres] 0.1 mg PO TID 30 Days #90 tab 02/25/22 Allergies Allergy/AdvReac Type Severity Reaction Status Date / Time No Known Allergies Allergy Verified 07/06/22 21:05 Review of Systems ROS Statement: Those systems with pertinent positive or pertinent negative responses have been documented in the HPI. Review of Systems: CONST: Denies fever EYES: Denies blurry vision ENT: Denies nasal congestion C/V: Denies Chest pain RESP: Endorses shortness of breath GI: Denies abdominal pain : Denies dysuria SKIN: Denies rash. MSK: Denies joint pain. NEURO: Denies headache ROS Other: All systems not noted in ROS Statement are negative. Past Medical History Past Medical History: Dialysis, Hypertension, Renal Disease Additional Past Medical History / Comment(s): Diaylsis since may 18 2021, right chest port since 2020, Kidney Failure since May 2021 r/t htn and pre- work out drinks History of Any Multi-Drug Resistant Organisms: None Reported Past Surgical History: Appendectomy, Orthopedic Surgery Additional Past Surgical History / Comment(s): Hemodiaylsis catheter in Friday of 2020, broken jaw repair Past Psychological History: No Psychological Hx Reported Smoking Status: Never smoker Past Alcohol Use History: None Reported Past Drug Use History: None Reported General Exam - General Exam Comments Initial Comments: General: Appears in no acute distress. HEAD: Normal with no signs of head trauma. EYES: PERRLA, EOMI, conjunctiva normal, no discharge. ENT: Hearing grossly intact, normal oropharynx. RESPIRATORY: Relatively clear breath sounds bilaterally. Mild increased work of breathing. Mild hypoxia 91 and 92% on room air. C/V: Regular rate and rhythm. S1 and S2 auscultated, 1-2+ pitting edema that is symmetrical in bilateral lower extremities, peripheral pulses 2+ and intact throughout.Right upper extremity AV fistula palpable thrill and audible bruit. ABD: Abd is soft, nontender, nondistended EXT: Normal range of motion, no obvious deformity SKIN: No rashes or lesions observed on exposed skin. NEURO: Alert and oriented 4. Limitations: no limitations Course Vital Signs 07/06/22 07/06/22 07/06/22 21:02 21:19 21:23 Temperature 98.3 F Pulse Rate 104 H 98 Respiratory 32 H 22 24 Rate Blood Pressure 156/89 178/85 O2 Sat by Pulse 91 L 95 Oximetry 07/06/22 22:25 Temperature Pulse Rate 98 Respiratory 24 Rate Blood Pressure 158/115 O2 Sat by Pulse 97 Oximetry Medical Decision Making - Medical Decision Making Based on the patient's presentation and physical exam, I'm concerned for fluid overload state for the patient. Cannot rule out other etiology for his symptoms including infectious and therefore we will obtain a cardiac workup, Covid swab, flu swab, chest x-ray, screening EKG. He was in agreement this plan. Patient is resting comfortably at this time. He was placed on 2 L nasal cannula for comfort. He was in agreement with this plan. Vital signs were otherwise within acceptable limits. EKG showed no signs of acute ischemia. Chest x-ray interpreted by myself reveals bilateral pulmonary edema, no pneumothorax, no bony traumatic injury. Bony edema likely secondary to volume overload state. Laboratory studies are remarkable for chronic anemia of 9.2 which is stable. BUN and creatinine are elevated in the setting of ESRD. Troponin is mildly elevated to 0.061 which is likely secondary to his elevated kidney function, as well as the underlying volume overload state. Patient's BNP is 110,000. Covid and influenza negative. I updated the patient on the results of his workup. I believe it is best to admit him to hospital to have nephrology evaluate him and having received dialysis here in the hospital. This with a can adjust much fluid is being removed with each dialysis run. The patient declines this and would like to go home. I advised him of the risks with discharge home. He feels confident that he may feel improved if she dialyzes himself this evening and he needs to go to work tomorrow. States he will return if he does not improve after the dialysis run. Patient is understanding of the risks. He can make his own medical decisions. He is competent. The patient was apprised of the potential risks of leaving the hospital AGAINST MEDICAL ADVICE, including serious complications, permanent disability, and . At the time of my interview the patient, the patient was alert, oriented, and capable. Patient signed AMA form, which was witnessed and signed by nursing staff, and placed in patient's chart. I urged the patient to return to the hospital as soon as possible to complete evaluation and treatment. - Lab Data Result diagrams: 07/06/22 22:07/06/22 22: Lab Results 07/06/22 07/06/22 07/06/22 Range/Units 22: 22: 22: WBC 9.0 (3.8-10.6) k/uL RBC 3.12 L (4.30-5.90) m/uL Hgb 9.2 L (13.0-17.5) gm/dL Hct 27.6 L (39.0-53.0) % MCV 88.4 (80.0-100.0) fL MCH 29.6 (25.0-35.0) pg MCHC 33.4 (31.0-37.0) g/dL RDW 15.5 (11.5-15.5) % Plt Count 300 (150-450) k/uL MPV 8.0 Neutrophils % 80 % Lymphocytes % 9 % Monocytes % 3 % Eosinophils % 6 % Basophils % 1 % Neutrophils # 7.1 (1.3-7.7) k/uL Lymphocytes # 0.8 L (1.0-4.8) k/uL Monocytes # 0.3 (0-1.0) k/uL Eosinophils # 0.6 (0-0.7) k/uL Basophils # 0.1 (0-0.2) k/uL Hypochromasia Slight PT 11.6 (9.0-12.0) sec INR 1.1 (<1.2) APTT 23.2 (22.0-30.0) sec Sodium 135 L (137-145) mmol/L Potassium 4.6 (3.5-5.1) mmol/L Chloride 97 L (98-107) mmol/L Carbon Dioxide 26 (22-30) mmol/L Anion Gap 12 mmol/L BUN 74 H (9-20) mg/dL Creatinine 15.74 H* (0.66-1.25) mg/dL Est GFR (CKD-EPI)AfAm 4 (>60 ml/min/1.73 sqM) Est GFR (CKD-EPI)NonAf 3 (>60 ml/min/1.73 sqM) Glucose 80 (74-99) mg/dL Calcium 9.1 (8.4-10.2) mg/dL Magnesium 2.3 (1.6-2.3) mg/dL Total Bilirubin 0.9 (0.2-1.3) mg/dL AST 31 (17-59) U/L ALT 34 (4-49) U/L Alkaline Phosphatase 41 (38-126) U/L Troponin I (0.000-0.034) ng/mL NT-Pro-B Natriuret Pep pg/mL Total Protein 6.2 L (6.3-8.2) g/dL Albumin 4.1 (3.5-5.0) g/dL Coronavirus (PCR) (Not Detectd) Influenza Type A RNA (Not Detectd) Influenza Type B (PCR) (Not Detectd) 07/06/22 07/06/22 07/06/22 Range/Units 22:01 22:01 22:23 WBC (3.8-10.6) k/uL RBC (4.30-5.90) m/uL Hgb (13.0-17.5) gm/dL Hct (39.0-53.0) % MCV (80.0-100.0) fL MCH (25.0-35.0) pg MCHC (31.0-37.0) g/dL RDW (11.5-15.5) % Plt Count (150-450) k/uL MPV Neutrophils % % Lymphocytes % % Monocytes % % Eosinophils % % Basophils % % Neutrophils # (1.3-7.7) k/uL Lymphocytes # (1.0-4.8) k/uL Monocytes # (0-1.0) k/uL Eosinophils # (0-0.7) k/uL Basophils # (0-0.2) k/uL Hypochromasia PT (9.0-12.0) sec INR (<1.2) APTT (22.0-30.0) sec Sodium (137-145) mmol/L Potassium (3.5-5.1) mmol/L Chloride (98-107) mmol/L Carbon Dioxide (22-30) mmol/L Anion Gap mmol/L BUN (9-20) mg/dL Creatinine (0.66-1.25) mg/dL Est GFR (CKD-EPI)AfAm (>60 ml/min/1.73 sqM) Est GFR (CKD-EPI)NonAf (>60 ml/min/1.73 sqM) Glucose (74-99) mg/dL Calcium (8.4-10.2) mg/dL Magnesium (1.6-2.3) mg/dL Total Bilirubin (0.2-1.3) mg/dL AST (17-59) U/L ALT (4-49) U/L Alkaline Phosphatase (38-126) U/L Troponin I 0.061 H* (0.000-0.034) ng/mL NT-Pro-B Natriuret Pep [id number] pg/mL Total Protein (6.3-8.2) g/dL Albumin (3.5-5.0) g/dL Coronavirus (PCR) (Not Detectd) Influenza Type A RNA Not Detected (Not Detectd) Influenza Type B (PCR) Not Detected (Not Detectd) 07/06/22 Range/Units 22:23 WBC (3.8-10.6) k/uL RBC (4.30-5.90) m/uL Hgb (13.0-17.5) gm/dL Hct (39.0-53.0) % MCV (80.0-100.0) fL MCH (25.0-35.0) pg MCHC (31.0-37.0) g/dL RDW (11.5-15.5) % Plt Count (150-450) k/uL MPV Neutrophils % % Lymphocytes % % Monocytes % % Eosinophils % % Basophils % % Neutrophils # (1.3-7.7) k/uL Lymphocytes # (1.0-4.8) k/uL Monocytes # (0-1.0) k/uL Eosinophils # (0-0.7) k/uL Basophils # (0-0.2) k/uL Hypochromasia PT (9.0-12.0) sec INR (<1.2) APTT (22.0-30.0) sec Sodium (137-145) mmol/L Potassium (3.5-5.1) mmol/L Chloride (98-107) mmol/L Carbon Dioxide (22-30) mmol/L Anion Gap mmol/L BUN (9-20) mg/dL Creatinine (0.66-1.25) mg/dL Est GFR (CKD-EPI)AfAm (>60 ml/min/1.73 sqM) Est GFR (CKD-EPI)NonAf (>60 ml/min/1.73 sqM) Glucose (74-99) mg/dL Calcium (8.4-10.2) mg/dL Magnesium (1.6-2.3) mg/dL Total Bilirubin (0.2-1.3) mg/dL AST (17-59) U/L ALT (4-49) U/L Alkaline Phosphatase (38-126) U/L Troponin I (0.000-0.034) ng/mL NT-Pro-B Natriuret Pep pg/mL Total Protein (6.3-8.2) g/dL Albumin (3.5-5.0) g/dL Coronavirus (PCR) Not Detected (Not Detectd) Influenza Type A RNA (Not Detectd) Influenza Type B (PCR) (Not Detectd) - EKG Data -: EKG Interpreted by Me EKG Comments: 12-lead Electrocardiogram Interpretation Note EKG was reviewed and interpreted by myself. 12-lead ECG performed at 2111 is interpreted by me as revealing normal sinus rhythm at a rate of 95 beats per minute. [place] is normal. DC interval is 152 ms, QRS duration is 99 ms, QTc is 420 ms. Patient does have isolated T-wave inversions in leads V5 and V6. Patient does have T waves in lead V6 that are inverted from February 2022. These findings may be chronic.. There were no other acute ST or T wave abnormalities to suggest myocardial ischemia or injury. R wave progression across the pr ecordium was satisfactory. By my interpretation this EKG is non-diagnostic for acute ischemia. Disposition Clinical Impression: Volume overload state of heart, ESRD on hemodialysis, Dyspnea, Elevated troponin Disposition: Left Against Medical Advice Condition: Undetermined Instructions (If sedation given, give patient instructions): Pulmonary Edema (ED), Dialysis Diet (DC), End Stage Kidney Disease (ED) Is patient prescribed a controlled substance at d/c from ED?: No Referrals: None,Stated [Primary Care Provider] - 1-2 days Time of Disposition: 23:50
[2022-07-06 22:14] LABS: Basophils # (A) 0.1 k/uL (0-0.2); Basophils % (A) 1 %; Eosinophils # (A) 0.6 k/uL (0-0.7); Eosinophils % (A) 6 %; HCT 27.6 % (39.0-53.0); HGB 9.2 gm/dL (13.0-17.5); Hypochromasia Slight; Lymphocytes # (A) 0.8 k/uL (1.0-4.8); Lymphocytes % (A) 9 %; MCH 29.6 pg (25.0-35.0); MCHC 33.4 g/dL (31.0-37.0); MCV 88.4 fL (80.0-100.0); Monocytes # (A) 0.3 k/uL (0-1.0); Monocytes % (A) 3 %; Neutrophils # (A) 7.1 k/uL (1.3-7.7); Neutrophils % (A) 80 %; Platelet Count 300 k/uL (150-450); RBC 3.12 m/uL (4.30-5.90); RDW 15.5 % (11.5-15.5)
[2022-07-06 22:24] LABS: Albumin 4.1 g/dL (3.5-5.0); Calcium 9.1 mg/dL (8.4-10.2); Magnesium 2.3 mg/dL (1.6-2.3); Potassium 4.6 mmol/L (3.5-5.1); Total Bilirubin 0.9 mg/dL (0.2-1.3); Total Protein 6.2 g/dL (6.3-8.2)
[2022-07-06 22:27] LABS: INR 1.1 (<1.2); Partial Thromboplastin Time 23.2 sec (22.0-30.0); Prothrombin Time 11.6 sec (9.0-12.0)
--- NOTE | 2022-07-06 22:31 | XR ---
EXAMINATION TYPE: XR chest 2V DATE OF EXAM: 07/06/2022 COMPARISON: 02/17/2022 HISTORY: Short of breath TECHNIQUE: FINDINGS: Heart is enlarged. There is pulmonary interstitial and to lesser extent airspace edema. The re are no hilar masses. Costophrenic angles are clear. There are chest leads. No mediastinal adenopat hy. IMPRESSION: There is some pulmonary edema which is mostly new compared to old exam and could be acute heart failure.
[2022-07-07 00:09] VITALS: BP 185/116; PULSE 110
== END 2022-07-07 00:15 | disposition left against medical advice (07) ==
LOC: EC 21:00
DX: E87.70 Fluid overload, unspecified (principal); R06.00 Dyspnea, unspecified; R77.8 Other specified abnormalities of plasma proteins; I12.0 Hypertensive chronic kidney disease with stage 5 chronic kidney disease or end stage renal disease; N18.6 End stage renal disease; Z20.822 Contact with and (suspected) exposure to COVID-19; Z53.29 Procedure and treatment not carried out because of patient's decision for other reasons
CPT/HCPCS: 36415; 71046; 80053; 83735; 83880; 84484; 85025; 85610; 85730; 87502; 87635; 93005; 99285

== ENCOUNTER 2022-08-30 12:43 | Observation (INO) | payer BC ==
--- NOTE | 2022-08-30 13:24 | ED ---
General Adult HPI - General Chief complaint: Recheck/Abnormal Lab/Rx Stated complaint: kidney failure-not feeling well Time Seen by Provider: 08/30/22 12:47 Source: patient Mode of arrival: ambulatory Limitations: no limitations - History of Present Illness Initial comments: Dictation was produced using [employer] dictation software. please excuse any grammatical, word or spelling errors. Chief Complaint: 42-year-old male presents emergency department for feeling unwell for 1-2 weeks History of Present Illness: Is a 42-year-old male he dialyzes himself at home through an upper right extremity dialysis axis. He dialyzes himself everyday except for one day of the week. Patient for the last 1-2 weeks has been feeling unwell. He was off all last week. He went to work today states that he felt so sick that he was not able to continue working. Patient has been having symptoms of fatigue, dizziness. He does have a cough that is nonproductive. No other sick contacts. No abdominal pain. No chest pain. Patient noticed some redness around his right upper extremity. The ROS documented in this emergency department record has been reviewed and confirmed by me. Those systems with pertinent positive or negative responses h ave been documented in the HPI. All other systems are other negative and/or noncontributory. PHYSICAL EXAM: General Impression: Alert and oriented x3, not in acute distress HEENT: Normocephalic atraumatic, extra-ocular movements intact, pupils equal and reactive to light bilaterally, mucous membranes moist. Cardiovascular: Heart regular rate and rhythm Chest: Able to complete full sentences, no retractions, no tachypnea Abdomen: abdomen soft, non-tender, non-distended, no organomegaly Right upper extremity: Palpable thrill and audible bruit at the right wrist, there is some redness and warmth to touch of the area Musculoskeletal: Pulses present and equal in all extremities, no peripheral edema Motor: no focal deficits noted Neurological: CN II-XII grossly intact, no focal motor or sensory deficits noted Skin: Intact with no visualized rashes Psych: Normal affect and mood ED course: 42-year-old male presents to the emergency department for 1-2 weeks of general malaise. Patient does hemodialysis at home. Vital signs upon arrival are within acceptable limits. Nursing notes and chart review was performed My EKG interpretation: Ventricular rate 103, sinus tachycardia,. 120, QRS 107, QTc 412. No OH prolongation, no QTC prolongation, no ST or T-wave changes noted. EKG compared to 07/06/2022 showing no changes. Overall, this EKG is unremarkable Laboratory evaluation obtained. Hemoglobin 8.8. This is around his baseline. No leukocytosis. Coag panel is negative. Metabolic panel shows elevated renal markers. Potassium 5.2. Patient states he dialyzed himself yesterday. For panel viral PCR is negative. Chest x-ray is nonacute. Disposition options were discussed with patient. Patient is agreeable for observation admission with consultation to nephrology. There is concern that patient is not getting adequate dialysis. Was pt. sent in by a medical professional or institution (, [facility], CHILD CARE SUPERVISOR, urgent care, hospital, or [facility]...) When possible be specific @ -No Did you speak to anyone other than the patient for history (EMS, parent, family, police, friend...)? What history was obtained from this source @ -No Did you review nursing and triage notes (agree or disagree)? Why? @ -I reviewed and agree with nursing and triage notes Were old charts reviewed (outside hosp., previous admission, EMS record, old EKG, old radiological studies, urgent care reports/EKG's, [facility] records)? Report findings @ -No old charts were reviewed Differential Diagnosis (chest pain, altered mental status, abdominal pain women, abdominal pain men, vaginal bleeding, weakness, fever, dyspnea, syncope, headache, dizziness, GI bleed, back pain, seizure, CVA, palpatations, mental he alth)? @ -not applicable EKG interpreted by me (3pts min.). @ -As above X-rays interpreted by me (1pt min.). @ -As above CT interpreted by me (1pt min.). @ -None done U/S interpreted by me (1pt. min.). @ -None done What testing was considered but not performed or refused? (CT, X-rays, U/S, labs)? Why? @ -None What meds were considered but not given or refused? Why? @ -None Did you discuss the management of the patient with other professionals (professionals i.e. , PA, CHILD CARE SUPERVISOR, lab, RT, psych nurse, social media marketing manager, oracle database consultant, teacher, security officer, nurse case management)? Give summary @ -No Was smoking cessation discussed for >3mins.? @ -No Was critical care preformed (if so, how long)? @ -No Were there social determinants of health that impacted care today? How? (Homelessness, low income, unemployed, alcoholism, drug addiction, transportation, low edu. Level, literacy, decrease access to med. care, fdc, rehab)? @ -No Was there de-escalation of care discussed even if they declined (Discuss DNR or withdrawal of care, Hospice)? DNR status @ -No What co-morbidities impacted this encounter? (DM, HTN, Smoking, COPD, CAD, Cancer, CVA, ARF, Chemo, Hep., AIDS, mental health diagnosis, sleep apnea, morbid obesity)? @ -None Was patient admitted / discharged? Hospital course, mention meds given and route, prescriptions, significant lab abnormalities, going to OR and other pertinent info. @ -See above Undiagnosed new problem with uncertain prognosis? @ -No Drug Therapy requiring intensive monitoring for toxicity (Heparin, Nitro, Insulin, Cardizem)? @ -No Were any procedures done? @ -No Diagnosis/symptom? @ -Inadequate hemodialysis, malaise Acute, or Chronic, or Acute on Chronic? @ -Acute Uncomplicated (without systemic symptoms) or Complicated (systemic symptoms)? @ -unComplicated Side effects of treatment? @ -No Exacerbation, Progression, or Severe Exacerbation? @ -No Poses a threat to life or bodily function? How? (Chest pain, [place], [place], pneumonia, PE, COPD, DKA, ARF, appy, cholecystitis, CVA, Diverticulitis, Homicidal, Suicidal, threat to staff... and all critical care pts) @ -Yes - Related Data Home Medications Medication Instructions Recorded Confirmed Calcium Acetate [PhosLo] 1,334 mg PO TID-W/MEALS 11/30/21 02/17/22 Furosemide [Lasix] 80 mg PO DIRECTED 11/30/21 02/17/22 Furosemide [Lasix] 160 mg PO SUMOWEFR 11/30/21 02/17/22 amLODIPine [Norvasc] 5 mg PO BID 11/30/21 02/17/22 Acetaminophen Tab [Tylenol] 1,000 mg PO Q6HR PRN 02/17/22 02/17/22 Ferrous Sulfate [Iron (65 MG 325 mg PO DAILY 02/17/22 02/17/22 Elemental)] Ibuprofen [Motrin Ib] 800 mg PO Q8H PRN 02/17/22 02/17/22 Ipratropium-Albuterol Nebulize 3 ml INHALATION RT-Q4H PRN 02/17/22 02/17/22 [Duoneb 0.5 mg-3 mg/3 ml Soln] Sevelamer [Renvela] 2,400 mg PO TID-W/MEALS 02/17/22 02/17/22 Velphoro 500mg Chewable Tab 500 mg PO TID-W/MEALS 02/17/22 02/17/22 Vitamin C 1000mg Gummies 1 tab PO DAILY 02/17/22 02/17/22 Vitamin D3 25 Mcg Gummies 1 tab PO DAILY 02/17/22 02/17/22 hydrALAZINE HCL [Apresoline] 100 mg PO TID 02/17/22 02/17/22 Previous Rx's Medication Instructions Recorded Darbepoetin Ezequiel [Aranesp] 40 mcg SQ Q7D each 02/22/22 carvediloL [Coreg*] 25 mg PO AC-BID 30 Days #120 tab 02/25/22 cloNIDine HCL [Catapres] 0.1 mg PO TID 30 Days #90 tab 02/25/22 Allergies Allergy/AdvReac Type Severity Reaction Status Date / Time sulfamethoxazole Allergy Rash/Hives Verified 08/30/22 12:53 [From Bactrim] trimethoprim [From Bactrim] Allergy Rash/Hives Verified 08/30/22 12:53 Review of Systems ROS Statement: Those systems with pertinent positive or pertinent negative responses have been documented in the HPI. ROS Other: All systems not noted in ROS Statement are negative. Past Medical History Past Medical History: Dialysis, Hypertension, Renal Disease Additional Past Medical History / Comment(s): Diaylsis since may 18 2021, right chest port since 2020, Kidney Failure since May 2021 r/t htn and pre- work out drinks History of Any Multi-Drug Resistant Organisms: None Reported Past Surgical History: Appendectomy, Orthopedic Surgery Additional Past Surgical History / Comment(s): Hemodiaylsis catheter in Friday of 2020, broken jaw repair Past Psychological History: No Psychological Hx Reported Smoking Status: Never smoker Past Alcohol Use History: None Reported Past Drug Use History: None Reported General Exam Limitations: no limitations Course Vital Signs 08/30/22 12:51 Temperature 98.7 F Pulse Rate 101 H Respiratory 24 Rate Blood Pressure 152/86 O2 Sat by Pulse 97 Oximetry Medical Decision Making - Lab Data Result diagrams: 08/30/22 13:45 08/30/22 13:45 Lab Results 08/30/22 08/30/22 08/30/22 Range/Units 13:45 13:45 13:45 WBC 9.0 (3.8-10.6) k/uL RBC 2.97 L (4.30-5.90) m/uL Hgb 8.8 L (13.0-17.5) gm/dL Hct 27.2 L (39.0-53.0) % MCV 91.5 (80.0-100.0) fL MCH 29.6 (25.0-35.0) pg MCHC 32.3 (31.0-37.0) g/dL RDW 16.8 H (11.5-15.5) % Plt Count 247 (150-450) k/uL MPV 7.9 Neutrophils % 83 % Lymphocytes % 4 % Monocytes % 3 % Eosinophils % 8 % Basophils % 1 % Neutrophils # 7.5 (1.3-7.7) k/uL Lymphocytes # 0.4 L (1.0-4.8) k/uL Monocytes # 0.3 (0-1.0) k/uL Eosinophils # 0.7 (0-0.7) k/uL Basophils # 0.1 (0-0.2) k/uL Anisocytosis Slight PT 11.3 (9.0-12.0) sec INR 1.1 (<1.2) APTT 20.3 L (22.0-30.0) sec Sodium 133 L (137-145) mmol/L Potassium 5.2 H (3.5-5.1) mmol/L Chloride 93 L (98-107) mmol/L Carbon Dioxide 24 (22-30) mmol/L Anion Gap 16 mmol/L BUN 99 H (9-20) mg/dL Creatinine 19.11 H* (0.66-1.25) mg/dL Est GFR (CKD-EPI)AfAm 3 (>60 ml/min/1.73 sqM) Est GFR (CKD-EPI)NonAf 3 (>60 ml/min/1.73 sqM) Glucose 76 (74-99) mg/dL Plasma Lactic Acid Lauri (0.7-2.0) mmol/L Calcium 8.9 (8.4-10.2) mg/dL Magnesium 2.7 H (1.6-2.3) mg/dL Total Bilirubin 0.7 (0.2-1.3) mg/dL AST 28 (17-59) U/L ALT 37 (4-49) U/L Alkaline Phosphatase 46 (38-126) U/L Total Protein 6.3 (6.3-8.2) g/dL Albumin 4.0 (3.5-5.0) g/dL Influenza Type A (PCR) (Not Detectd) Influenza Type B (PCR) (Not Detectd) RSV (PCR) (Not Detectd) SARS-CoV-2 (PCR) (Not Detectd) 08/30/22 08/30/22 Range/Units 13:45 13:45 WBC (3.8-10.6) k/uL RBC (4.30-5.90) m/uL Hgb (13.0-17.5) gm/dL Hct (39.0-53.0) % MCV (80.0-100.0) fL MCH (25.0-35.0) pg MCHC (31.0-37.0) g/dL RDW (11.5-15.5) % Plt Count (150-450) k/uL MPV Neutrophils % % Lymphocytes % % Monocytes % % Eosinophils % % Basophils % % Neutrophils # (1.3-7.7) k/uL Lymphocytes # (1.0-4.8) k/uL Monocytes # (0-1.0) k/uL Eosinophils # (0-0.7) k/uL Basophils # (0-0.2) k/uL Anisocytosis PT (9.0-12.0) sec INR (<1.2) APTT (22.0-30.0) sec Sodium (137-145) mmol/L Potassium (3.5-5.1) mmol/L Chloride (98-107) mmol/L Carbon Dioxide (22-30) mmol/L Anion Gap mmol/L BUN (9-20) mg/dL Creatinine (0.66-1.25) mg/dL Est GFR (CKD-EPI)AfAm (>60 ml/min/1.73 sqM) Est GFR (CKD-EPI)NonAf (>60 ml/min/1.73 sqM) Glucose (74-99) mg/dL Plasma Lactic Acid Lauri 0.5 L (0.7-2.0) mmol/L Calcium (8.4-10.2) mg/dL Magnesium (1.6-2.3) mg/dL Total Bilirubin (0.2-1.3) mg/dL AST (17-59) U/L ALT (4-49) U/L Alkaline Phosphatase (38-126) U/L Total Protein (6.3-8.2) g/dL Albumin (3.5-5.0) g/dL Influenza Type A (PCR) Not Detected (Not Detectd) Influenza Type B (PCR) Not Detected (Not Detectd) RSV (PCR) Not Detected (Not Detectd) SARS-CoV-2 (PCR) Not Detected (Not Detectd) Disposition Clinical Impression: Malaise Disposition: ADMITTED IP TO THIS HOSP Condition: Fair Referrals: Rayne Gonzalez MD [Primary Care Provider] - 1-2 days Decision Time: 16:12
[2022-08-30] MEDS ORDERED: MORPHINE SULFATE 4 MG/ML SYRINGE IV STA (13:48)
[2022-08-30 14:16] LABS: Anisocytosis Slight; Basophils # (A) 0.1 k/uL (0-0.2); Basophils % (A) 1 %; Eosinophils # (A) 0.7 k/uL (0-0.7); Eosinophils % (A) 8 %; HCT 27.2 % (39.0-53.0); HGB 8.8 gm/dL (13.0-17.5); Lymphocytes # (A) 0.4 k/uL (1.0-4.8); Lymphocytes % (A) 4 %; MCH 29.6 pg (25.0-35.0); MCHC 32.3 g/dL (31.0-37.0); MCV 91.5 fL (80.0-100.0); Mean Platelet Volume 7.9; Monocytes # (A) 0.3 k/uL (0-1.0); Monocytes % (A) 3 %; Neutrophils # (A) 7.5 k/uL (1.3-7.7); Neutrophils % (A) 83 %; Platelet Count 247 k/uL (150-450); RBC 2.97 m/uL (4.30-5.90); RDW 16.8 % (11.5-15.5)
--- NOTE | 2022-08-30 14:16 | XR ---
EXAMINATION TYPE: XR chest 2V DATE OF EXAM: 08/30/2022 2:12 PM COMPARISON: Chest radiographs from 07/06/2022 TECHNIQUE: XR chest 2V Frontal and lateral views of the chest. CLINICAL INDICATION:Male, 42 years old with history of constitutional symptoms, cough; FINDINGS: Lungs/Pleura: There is no evidence of pleural effusion, focal consolidation, or pneumothorax. Coarse interstitial lung markings. Heart/mediastinum: Cardiomediastinal silhouette is prominent size and stable. Musculoskeletal: No acute osseous pathology. IMPRESSION: Mild pulmonary interstitial edema.
[2022-08-30 14:22] LABS: Potassium 5.2 mmol/L (3.5-5.1)
[2022-08-30 14:24] LABS: Calcium 8.9 mg/dL (8.4-10.2); Total Bilirubin 0.7 mg/dL (0.2-1.3); Total Protein 6.3 g/dL (6.3-8.2)
[2022-08-30 14:25] LABS: Magnesium 2.7 mg/dL (1.6-2.3)
[2022-08-30 14:45] LABS: INR 1.1 (<1.2); Partial Thromboplastin Time 20.3 sec (22.0-30.0); Prothrombin Time 11.3 sec (9.0-12.0)
[2022-08-30] MEDS ORDERED: NALOXONE 0.4 MG/ML 1 ML VIAL IV PRN (16:03)
[2022-08-30] MEDS: ONDANSETRON 4 MG/2 ML VIAL IVP PRN (17:29)
[2022-08-30] MEDS: MORPHINE SULFATE 4 MG/ML SYRINGE IVP PRN ×2 (17:31→22:55)
[2022-08-30] MEDS ORDERED: hydrALAZINE HCL 20 MG/ML 1 ML VIAL IVP PRN (18:25)
[2022-08-30] MEDS: carvediloL 12.5 MG TAB PO SCH (20:30)
[2022-08-30] MEDS: MUPIROCIN 2% OINT 22 GM TUBE TOPICAL SCH (20:30)
[2022-08-30] MEDS: amLODIPine 5 MG TAB PO SCH (20:30)
[2022-08-31] MEDS: carvediloL 12.5 MG TAB PO SCH ×2 (06:17→17:02)
[2022-08-31] MEDS: SEVELAMER 800 MG TAB PO SCH ×2 (06:17→17:03)
[2022-08-31] MEDS: MORPHINE SULFATE 4 MG/ML SYRINGE IVP PRN ×3 (06:20→20:37)
[2022-08-31] MEDS: CALCIUM ACETATE 667 MG TAB PO SCH ×2 (08:32→17:02)
[2022-08-31] MEDS: MUPIROCIN 2% OINT 22 GM TUBE TOPICAL SCH ×3 (08:33→20:39)
[2022-08-31] MEDS: amLODIPine 5 MG TAB PO SCH ×2 (08:33→20:37)
[2022-08-31 11:17] LABS: Anisocytosis Slight; Basophils % (A) 1 %; Eosinophils # (A) 0.8 k/uL (0-0.7); Eosinophils % (A) 13 %; HCT 25.2 % (39.0-53.0); HGB 8.3 gm/dL (13.0-17.5); Lymphocytes # (A) 0.3 k/uL (1.0-4.8); Lymphocytes % (A) 6 %; MCHC 32.8 g/dL (31.0-37.0); MCV 91.4 fL (80.0-100.0); Mean Platelet Volume 7.9; Monocytes # (A) 0.3 k/uL (0-1.0); Monocytes % (A) 4 %; Neutrophils # (A) 4.6 k/uL (1.3-7.7); Neutrophils % (A) 76 %; Platelet Count 201 k/uL (150-450); RBC 2.76 m/uL (4.30-5.90); RDW 16.3 % (11.5-15.5)
[2022-08-31 11:28] LABS: ALT 34 U/L (4-49); AST 23 U/L (17-59); Albumin 3.7 g/dL (3.5-5.0); Albumin/Globulin Ratio 1.7; Alkaline Phosphatase 42 U/L (38-126); Anion Gap 14 mmol/L; Carbon Dioxide 27 mmol/L (22-30); Chloride 93 mmol/L (98-107); Globulin 2.2 g/dL; Glucose 92 mg/dL (74-99); Potassium 5.1 mmol/L (3.5-5.1); Sodium 134 mmol/L (137-145); Total Bilirubin 0.5 mg/dL (0.2-1.3); Total Protein 5.9 g/dL (6.3-8.2)
[2022-08-31 11:34] LABS: African American GFR (CKD) 3 (>60 ml/min/1.73 sqM); Non-African American GFR(CKD) 2 (>60 ml/min/1.73 sqM)
[2022-08-31 12:02] LABS: Blood Urea Nitrogen 109 mg/dL (9-20)
[2022-08-31] MEDS: ONDANSETRON 4 MG/2 ML VIAL IVP PRN (12:43)
--- NOTE | 2022-08-31 13:14 | P.NPCON ---
History of Present Illness - Reason for Consult Consult date: 08/31/22 end stage renal disease - Chief Complaint Nausea vomiting - History of Present Illness This is a 42-year-old male seen in consultation because of ESRD on dialysis since 05/18/2021, home hemodialysis 5 days a week at home with a fistula in his right arm. Cause of his ESRD is supposedly hypertension which is somewhat surprising He came in because of nausea vomiting confusion at times with uncontrolled blood pressure for the last several days. Recently his dialysis was increased from 30 L back to 40 and her back about a month ago and was told that he has good clearance. Admission creatinine was 19 BUN was 99 potassium is 5.2 bicarb was 24 and hemoglobin is 8.8 More recently there was some infiltration of his fistula and was treated with antibiotics. Not clear what he took. He was similarly admitted on 02/17/2022 not feeling weak for a week with a temperature of 104, and gram positives bacteremia, staph aureus. Past Medical History Past Medical History: Dialysis, Hypertension, Renal Disease Additional Past Medical History / Comment(s): Diaylsis since may 18 2021, right chest port since 2020, Kidney Failure since May 2021 r/t htn and pre- work out drinks History of Any Multi-Drug Resistant Organisms: None Reported Past Surgical History: Appendectomy, Orthopedic Surgery Additional Past Surgical History / Comment(s): Hemodiaylsis catheter in Friday2020, broken jaw repair Past Psychological History: No Psychological Hx Reported Smoking Status: Never smoker Past Alcohol Use History: None Reported Past Drug Use History: None Reported Medications and Allergies Home Medications Medication Instructions Recorded Confirmed Type Calcium Acetate [PhosLo] 1,334 mg PO BID-W/MEALS 11/30/21 08/30/22 History amLODIPine [Norvasc] 5 mg PO BID 11/30/21 08/30/22 History Lanthanum Carbonate [Lanthanum 1,000 mg PO BID-W/MEALS 08/30/22 08/30/22 History Carbonate Chew] Mupirocin 2% Oint [Bactroban 2% 1 applic TOPICAL TID 08/30/22 08/30/22 History Oint] carvediloL [Coreg] 12.5 mg PO BID 08/30/22 08/30/22 History Allergies Allergy/AdvReac Type Severity Reaction Status Date / Time sulfamethoxazole Allergy Rash/Hives Verified 08/30/22 17:38 [From Bactrim] trimethoprim [From Bactrim] Allergy Rash/Hives Verified 08/30/22 17:38 Physical Exam Vitals: Vital Signs Temp Pulse Pulse Pulse Resp BP BP 08/31/22 08:00 104 H 86 18 08/31/22 07:00 98.2 F 86 18 137/75 08/31/22 06:17 154/78 08/31/22 03:25 97.7 F 84 18 144/85 08/31/22 02:37 104 H 101 H 17 08/30/22 20:30 104 H 101 H 17 08/30/22 19:07 98.0 F 101 H 16 161/91 08/30/22 18:18 104 H 08/30/22 18:10 98.0 F 101 H 17 172/101 08/30/22 17:02 104 H 20 158/91 Pulse Ox 08/31/22 08:00 08/31/22 07:00 93 L 08/31/22 06:17 08/31/22 03:25 95 08/31/22 02:37 08/30/22 20:30 08/30/22 19:07 92 L 08/30/22 18:18 08/30/22 18:10 93 L 08/30/22 17:02 94 L Intake and Output 08/30/22 08/31/22 08/31/22 22:59 06:59 14:59 Intake Total 118 Balance 118 Intake: Oral 118 Other: Voiding Method CAPD CAPD CAPD # Voids 0 0 Weight 92.986 kg On exam he is a well-built male comfortable. No JVP noted neck is supple no facial asymmetry Lungs are clear to auscultation good air entry bilaterally Heart sounds unremarkable especially there was no rub murmur gallop Abdomen soft nontender Extremity examination no edema Neurologically awake alert oriented No asterixis. Results - Lab Results Most recent lab results Calcium 9.0 mg/dL (8.4-10.2) 08/31/22 10:55 Magnesium 2.7 mg/dL (1.6-2.3) H 08/30/22 13:45 08/31/22 10:55 08/31/22 10:55 Assessment and Plan Assessment: Impression 1. ESRD on home hemodialysis 5 times a week with a fistula in the right forearm. 2. Admitted with nausea vomiting for several weeks, possible under dialysis although supposedly he was told that he had good clearance a month ago after increase in his dialysate volume from 30 L to 4 L a month ago. The cause of this is not clear. We will recheck his clearance 3. Rule out infection 4. Anemia rule out iron deficiency 5. Not on a transplant list. Recommendation 1. Will be dialyzed today 2. Obtain blood culture is not done 3. Check KT/V is a measure of dialysis adequacy. 4. Check iron saturation 5. Start Aranesp 60 g every week 6. If he does not improve with 2 consecutive dialysis consider doing EGD. Thank you for this consultation we'll continue to follow
--- NOTE | 2022-08-31 13:36 | P.HPIM ---
History of Present Illness H&P Date: 08/31/22 History of present illness; patient is a 42-year-old gentleman with past medical history significant for end-stage renal disease on home dialysis 5 times a week, hypertension, anemia who presented to the ER because of nausea and vomiting. Patient stated that for the last few weeks he'll be noticing that he gets Confused often. Also complaining of shortness of breath on exertion. Patient also has been complaining of nausea and vomiting. Denies abdominal pain. Denies any chest pain. Patient states that his blood pressure also been high at home. Denies any swelling of lower extremities. Because of the symptoms, patient came to the ER of [facility]. Initial chest x-ray showed mild pulmonary edema. Initial lab work done showed patient hemoglobin of 8.8, hematocrit of 27.2, platelet count 247, sodium 133, potassium 5.2, BUN 99, creatinine 19.11. Patient was admitted to hospitalist service for further evaluation and treatment REVIEW OF SYSTEMS: CONSTITUTIONAL: No fever,. Complaining of malaise and fatigue HEENT: No recent visual problems or hearing problems. Denied any sore throat. CARDIOVASCULAR: No chest pain, no palpitations, no syncope. Complaining of shortness of breath on exertion PULMONARY: no cough, no hemoptysis. GASTROINTESTINAL: No diarrhea, no abdominal pain. NEUROLOGICAL: No headaches, no weakness, no numbness. HEMATOLOGICAL: Denies any bleeding or petechiae. GENITOURINARY: Denies any burning micturition, frequency, or urgency. MUSCULOSKELETAL/RHEUMATOLOGICAL: Denies any joint pain, swelling, or any muscle pain. ENDOCRINE: Denies any polyuria or polydipsia. The rest of the 14-point review of systems is negative. PHYSICAL EXAMINATION: GENERAL: The patient is alert and oriented x3, not in any acute distress. Well developed, well nourished. HEENT: Pupils are round and equally reacting to light. EOMI. No scleral icterus. No conjunctival pallor. Normocephalic, atraumatic. No pharyngeal erythema. No thyromegaly. CARDIOVASCULAR: S1 and S2 present. No murmurs, rubs, or gallops. PULMONARY: Chest is clear to auscultation, no wheezing or crackles. ABDOMEN: Soft, nontender, nondistended, normoactive bowel sounds. No palpable organomegaly. MUSCULOSKELETAL: No joint swelling or deformity. EXTREMITIES: No cyanosis, clubbing, or pedal edema. NEUROLOGICAL: Gross neurological examination did not reveal any focal deficits. SKIN: No rashes. Assessment and plan End-stage renal disease. Hyperkalemia Uncontrolled hypertension Anemia Plan; Monitor CBC Monitor CMP Blood cultures ordered Ordered anemia workup Ordered 2-D echo Resume home meds of Norvasc, Coreg, Renvela and PhosLo Follow-up in nephrology recommendations DVT prophylaxis: Past Medical History Past Medical History: Dialysis, Hypertension, Renal Disease Additional Past Medical History / Comment(s): Diaylsis since may 18 2021, right chest port since 2020, Kidney Failure since May 2021 r/t htn and pre- work out drinks History of Any Multi-Drug Resistant Organisms: None Reported Past Surgical History: Appendectomy, Orthopedic Surgery Additional Past Surgical History / Comment(s): Hemodiaylsis catheter in Friday2020, broken jaw repair Past Psychological History: No Psychological Hx Reported Smoking Status: Never smoker Past Alcohol Use History: None Reported Past Drug Use History: None Reported Medications and Allergies Home Medications Medication Instructions Recorded Confirmed Type Calcium Acetate [PhosLo] 1,334 mg PO BID-W/MEALS 11/30/21 08/30/22 History amLODIPine [Norvasc] 5 mg PO BID 11/30/21 08/30/22 History Lanthanum Carbonate [Lanthanum 1,000 mg PO BID-W/MEALS 08/30/22 08/30/22 History Carbonate Chew] Mupirocin 2% Oint [Bactroban 2% 1 applic TOPICAL TID 08/30/22 08/30/22 History Oint] carvediloL [Coreg] 12.5 mg PO BID 08/30/22 08/30/22 History Allergies Allergy/AdvReac Type Severity Reaction Status Date / Time sulfamethoxazole Allergy Rash/Hives Verified 08/30/22 17:38 [From Bactrim] trimethoprim [From Bactrim] Allergy Rash/Hives Verified 08/30/22 17:38 Physical Exam Vitals: Vital Signs Temp Pulse Pulse Pulse Resp BP BP 08/31/22 08:00 104 H 86 18 08/31/22 07:00 98.2 F 86 18 137/75 08/31/22 06:17 154/78 08/31/22 03:25 97.7 F 84 18 144/85 08/31/22 02:37 104 H 101 H 17 08/30/22 20:30 104 H 101 H 17 08/30/22 19:07 98.0 F 101 H 16 161/91 08/30/22 18:18 104 H 08/30/22 18:10 98.0 F 101 H 17 172/101 08/30/22 17:02 104 H 20 158/91 Pulse Ox 08/31/22 08:00 08/31/22 07:00 93 L 08/31/22 06:17 08/31/22 03:25 95 08/31/22 02:37 08/30/22 20:30 08/30/22 19:07 92 L 08/30/22 18:18 08/30/22 18:10 93 L 08/30/22 17:02 94 L Intake and Output 08/30/22 08/31/22 08/31/22 22:59 06:59 14:59 Intake Total 118 Balance 118 Intake: Oral 118 Other: Voiding Method CAPD CAPD CAPD # Voids 0 0 Weight 92.986 kg Results CBC & Chem 7: 08/31/22 10:55 08/31/22 10:55 Labs: Abnormal Lab Results - Last 24 Hours (Table) 08/30/22 08/30/22 08/30/22 Range/Units 13:45 13:45 13:45 RBC 2.97 L (4.30-5.90) m/uL Hgb 8.8 L (13.0-17.5) gm/dL Hct 27.2 L (39.0-53.0) % RDW 16.8 H (11.5-15.5) % Lymphocytes # 0.4 L (1.0-4.8) k/uL Eosinophils # (0-0.7) k/uL APTT 20.3 L (22.0-30.0) sec Sodium 133 L (137-145) mmol/L Potassium 5.2 H (3.5-5.1) mmol/L Chloride 93 L (98-107) mmol/L BUN 99 H (9-20) mg/dL Creatinine 19.11 H* (0.66-1.25) mg/dL Plasma Lactic Acid Lauri (0.7-2.0) mmol/L Magnesium 2.7 H (1.6-2.3) mg/dL Total Protein (6.3-8.2) g/dL 08/30/22 08/31/22 08/31/22 Range/Units 13:45 10:55 10:55 RBC 2.76 L (4.30-5.90) m/uL Hgb 8.3 L (13.0-17.5) gm/dL Hct 25.2 L (39.0-53.0) % RDW 16.3 H (11.5-15.5) % Lymphocytes # 0.3 L (1.0-4.8) k/uL Eosinophils # 0.8 H (0-0.7) k/uL APTT (22.0-30.0) sec Sodium 134 L (137-145) mmol/L Potassium (3.5-5.1) mmol/L Chloride 93 L (98-107) mmol/L BUN 109 H* (9-20) mg/dL Creatinine 22.06 H* (0.66-1.25) mg/dL Plasma Lactic Acid Lauri 0.5 L (0.7-2.0) mmol/L Magnesium (1.6-2.3) mg/dL Total Protein 5.9 L (6.3-8.2) g/dL Thrombosis Risk Factor Assmnt - Choose All That Apply Any of the Below Risk Factors Present?: Yes Each Factor Represents 1 point: Age 41-60 years Other Risk Factors: No Thrombosis Risk Factor Assessment Total Risk Factor Score: 1 Thrombosis Risk Factor Assessment Level: Low Risk
[2022-08-31] MEDS ORDERED: DARBEPOETIN ALFA 60 MCG/0.3 ML SYRINGE SQ SCH (14:00)
[2022-09-01 00:11] LABS: % Iron Saturation 7.81 (15.00-50.00)
[2022-09-01] MEDS: MORPHINE SULFATE 4 MG/ML SYRINGE IVP PRN ×3 (04:45→23:48)
[2022-09-01] MEDS: ONDANSETRON 4 MG/2 ML VIAL IVP PRN (06:52)
[2022-09-01] MEDS: SEVELAMER 800 MG TAB PO SCH ×2 (08:16→17:52)
[2022-09-01] MEDS: amLODIPine 5 MG TAB PO SCH ×2 (08:16→20:01)
[2022-09-01] MEDS: MUPIROCIN 2% OINT 22 GM TUBE TOPICAL SCH ×3 (08:17→20:01)
[2022-09-01] MEDS: CALCIUM ACETATE 667 MG TAB PO SCH ×2 (08:17→17:52)
[2022-09-01 09:05] LABS: HCT 26.9 % (39.6-50.0); HGB 8.4 g/dL (13.0-17.0); MCH 29.6 pg (27.0-32.0); MCHC 31.2 g/dL (32.0-37.0); MCV 94.7 fL (80.0-97.0); Mean Platelet Volume 10.3 fL (9.5-12.2); NRBC Per 100 WBC 0 /100 WBCS (0.0-0.0); Platelet Count 234 X 10*3/uL (140-440); RBC 2.84 X 10*6/uL (4.40-5.60); RDW 15.8 % (11.5-14.5); WBC 6.68 X 10*3/uL (4.50-10.00)
[2022-09-01 09:23] LABS: Albumin/Globulin Ratio 1.99 (1.60-3.17); Anion Gap 14.4 mmol/L (10.00-18.00); BUN/Creat Ratio 3.5 Ratio (12.00-20.00); Calcium 9.2 mg/dL (8.7-10.3); Carbon Dioxide 28.9 mmol/L (20.0-27.5); Potassium 4.6 mmol/L (3.5-5.5); Total Bilirubin 0.3 mg/dL (0.30-1.20)
[2022-09-01] MEDS: carvediloL 12.5 MG TAB PO SCH ×2 (10:26→17:51)
--- NOTE | 2022-09-01 11:43 | P.PN ---
Subjective Progress Note Date: 09/01/22 patient is a 42-year-old gentleman with past medical history significant for end-stage renal disease on home dialysis 5 times a week, hypertension, anemia who presented to the ER because of nausea and vomiting. Patient stated that for the last few weeks he'll be noticing that he gets Confused often. Also complaining of shortness of breath on exertion. Patient also has been complaining of nausea and vomiting. Denies abdominal pain. Denies any chest pain. Patient states that his blood pressure also been high at home. Denies any swelling of lower extremities. Because of the symptoms, patient came to the ER of [place]. Initial chest x-ray showed mild pulmonary edema. Initial lab work done showed patient hemoglobin of 8.8, hematocrit of 27.2, platelet count 247, sodium 133, potassium 5.2, BUN 99, creatinine 19.11. Patient was admitted to hospitalist service for further evaluation and treatment 09/01. Patient seen and examined. Patient underwent dialysis yesterday. States he feels much better after that. Shortness of breath is improved. Vital signs stable REVIEW OF SYSTEMS: CONSTITUTIONAL: No fever, no malaise,. CARDIOVASCULAR: No chest pain, no palpitations, no syncope. PULMONARY: No shortness of breath, no cough, GASTROINTESTINAL: No diarrhea, no nausea, no vomiting, no abdominal pain. NEUROLOGICAL: No headaches, no weakness, PHYSICAL EXAMINATION: GENERAL: The patient is alert and oriented x3, not in any acute distress. Well developed, well nourished. HEENT: Pupils are round and equally reacting to light. EOMI. No scleral icterus. No conjunctival pallor. Normocephalic, atraumatic. No pharyngeal erythema. No thyromegaly. CARDIOVASCULAR: S1 and S2 present. No murmurs, rubs, or gallops. PULMONARY: Chest is clear to auscultation, no wheezing or crackles. ABDOMEN: Soft, nontender, nondistended, normoactive bowel sounds. No palpable organomegaly. MUSCULOSKELETAL: No joint swelling or deformity. EXTREMITIES: No cyanosis, clubbing, or pedal edema. NEUROLOGICAL: Gross neurological examination did not reveal any focal deficits. SKIN: No rashes. Assessment and plan End-stage renal disease. Hyperkalemia Uncontrolled hypertension Anemia Plan; Monitor CBC Monitor CMP Follow-up on blood cultures Follow-up on 2-D echo Continue Norvasc, Coreg, Renvela and PhosLo Follow-up in nephrology recommendations Objective - Vital Signs Vital signs: Vital Signs Temp 98.4 F 09/01/22 07:55 Pulse 104 H 09/01/22 08:00 Resp 16 09/01/22 08:00 BP 135/72 09/01/22 07:55 Pulse Ox 92 L 09/01/22 07:55 FiO2 Intake & Output 08/31/22 09/01/22 09/01/22 18:59 06:59 18:59 Intake Total 118 Balance 118 Intake: Oral 118 Other: Voiding Method CAPD CAPD # Voids 0 0 - Labs CBC & Chem 7: 09/01/22 06:11 09/01/22 06:11 Labs: Abnormal Lab Results - Last 24 Hours (Table) 08/31/22 08/31/22 08/31/22 Range/Units 10:55 14:50 19:00 RBC (4.40-5.60) X 10*6/uL Hgb (13.0-17.0) g/dL Hct (39.6-50.0) % MCHC (32.0-37.0) g/dL RDW (11.5-14.5) % Sodium 134 L (137-145) mmol/L Chloride 93 L (98-107) mmol/L Carbon Dioxide (20.0-27.5) mmol/L BUN 109 H* 112 H* 42 H (9-20) mg/dL Creatinine 22.06 H* (0.66-1.25) mg/dL Est GFR (CKD-EPI)AfAm (60.0-200.0) Est GFR (CKD-EPI)NonAf (60.0-200.0) BUN/Creatinine Ratio (12.00-20.00) Ratio Iron 27 L (65-175) ug/dL % Saturation 7.81 L (15.00-50.00) Total Protein 5.9 L (6.3-8.2) g/dL 09/01/22 09/01/22 Range/Units 06:11 06:11 RBC 2.84 L (4.40-5.60) X 10*6/uL Hgb 8.4 L (13.0-17.0) g/dL Hct 26.9 L (39.6-50.0) % MCHC 31.2 L (32.0-37.0) g/dL RDW 15.8 H (11.5-14.5) % Sodium (137-145) mmol/L Chloride 94 L (98-107) mmol/L Carbon Dioxide 28.9 H (20.0-27.5) mmol/L BUN 48.0 H (9-20) mg/dL Creatinine 13.7 H* (0.66-1.25) mg/dL Est GFR (CKD-EPI)AfAm 4.5 L (60.0-200.0) Est GFR (CKD-EPI)NonAf 3.9 L (60.0-200.0) BUN/Creatinine Ratio 3.50 L (12.00-20.00) Ratio Iron (65-175) ug/dL % Saturation (15.00-50.00) Total Protein 6.0 L (6.3-8.2) g/dL Microbiology - Last 24 Hours (Table) 08/30/22 13:45 Blood Culture - Preliminary Blood No Growth after 24 hours
--- NOTE | 2022-09-01 13:00 | P.PN ---
Subjective Progress Note Date: 09/01/22 Principal diagnosis: This is a 42-year-old male known to us with ESRD on dialysis at home 5 days a week, came in because of not feeling well. There is some suspicion that he may be noncompliant with his treatment regimen. I spoke to Dr. 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 He is labs are suggestive under dialysis although he claims name entry and was supported by his and daughter were in the room that he is doing dialysis 5 days history. He is using a 40 L bag that should give him adequate clearances. In spite of this he came in with creatinine off and, , with a BUN of 99 and 109. Sodium and bicarbonate and albumin 1 normal though. He was dialyzed yesterday. His pre-and post BUN were 112 and 42 suggesting that there is no problem with the access an no recirculation. This morning is feeling better denies any nausea vomiting shortness of breath. He is awake and alert. Seems very little urine. Objective - Vital Signs Vital signs: Vital Signs Temp 98.4 F 09/01/22 07:55 Pulse 104 H 09/01/22 08:00 Resp 16 09/01/22 08:00 BP 135/72 09/01/22 07:55 Pulse Ox 92 L 09/01/22 07:55 FiO2 Intake & Output 08/31/22 09/01/22 09/01/22 18:59 06:59 18:59 Intake Total 118 Balance 118 Intake: Oral 118 Other: Voiding Method CAPD CAPD # Voids 0 0 On examination awake alert oriented comfortable No JVP neck is supple no facial asymmetry Lungs clear to auscultation good air entry bilaterally Heart sounds unremarkable Abdomen soft nontender Extremity Examination unremarkable no edema Neurologically awake alert oriented no asterixis - Labs CBC & Chem 7: 09/01/22 06:11 09/01/22 06:11 Labs: Abnormal Lab Results - Last 24 Hours (Table) 08/31/22 08/31/22 09/01/22 Range/Units 14:50 19:00 06:11 RBC 2.84 L (4.40-5.60) X 10*6/uL Hgb 8.4 L (13.0-17.0) g/dL Hct 26.9 L (39.6-50.0) % MCHC 31.2 L (32.0-37.0) g/dL RDW 15.8 H (11.5-14.5) % Chloride (96-109) mmol/L Carbon Dioxide (20.0-27.5) mmol/L BUN 112 H* 42 H (9-20) mg/dL Creatinine (0.6-1.5) mg/dL Est GFR (CKD-EPI)AfAm (60.0-200.0) Est GFR (CKD-EPI)NonAf (60.0-200.0) BUN/Creatinine Ratio (12.00-20.00) Ratio Iron 27 L (65-175) ug/dL % Saturation 7.81 L (15.00-50.00) Total Protein (6.2-8.2) g/dL 09/01/22 Range/Units 06:11 RBC (4.40-5.60) X 10*6/uL Hgb (13.0-17.0) g/dL Hct (39.6-50.0) % MCHC (32.0-37.0) g/dL RDW (11.5-14.5) % Chloride 94 L (96-109) mmol/L Carbon Dioxide 28.9 H (20.0-27.5) mmol/L BUN 48.0 H (9-20) mg/dL Creatinine 13.7 H* (0.6-1.5) mg/dL Est GFR (CKD-EPI)AfAm 4.5 L (60.0-200.0) Est GFR (CKD-EPI)NonAf 3.9 L (60.0-200.0) BUN/Creatinine Ratio 3.50 L (12.00-20.00) Ratio Iron (65-175) ug/dL % Saturation (15.00-50.00) Total Protein 6.0 L (6.2-8.2) g/dL Microbiology - Last 24 Hours (Table) 08/30/22 13:45 Blood Culture - Preliminary Blood No Growth after 24 hours Assessment and Plan Assessment: Impression 1. ESRD on home hemodialysis 5 times a week with a fistula in the right forearm. Admitted with under dialysis with questionable compliance 2. Admitted with nausea vomiting for several weeks, possible under dialysis although supposedly he was told that he had good clearance a month ago after increase in his dialysate volume from 30 L to 4 L a month ago. The cause of this is not clear. His pre-and post BUN are not suggestive of any problem with the fistula such as recirculation 3. Rule out infection, blood cultures so far negative drawn 08/30/2022 2 days ago 4. Anemia. 5. Iron saturation 7% on 08/31/2022 iron deficiency 6. Not on a transplant list. Recommendation 1. Will be dialyzed today and he may be discharged after this. 2. Regarding is iron deficiency we can address this as an outpatient.
[2022-09-02] MEDS: carvediloL 12.5 MG TAB PO SCH ×2 (06:05→16:49)
[2022-09-02] MEDS: CALCIUM ACETATE 667 MG TAB PO SCH ×2 (07:56→17:51)
[2022-09-02] MEDS: MUPIROCIN 2% OINT 22 GM TUBE TOPICAL SCH ×3 (07:57→20:26)
[2022-09-02] MEDS: amLODIPine 5 MG TAB PO SCH ×2 (07:57→20:24)
[2022-09-02] MEDS: SEVELAMER 800 MG TAB PO SCH ×2 (07:57→17:51)
[2022-09-02 09:24] LABS: Basophils # (A) 0.05 X 10*3/uL (0.00-0.10); Eosinophils # (A) 0.64 X 10*3/uL (0.04-0.35); Eosinophils % (A) 12.3 %; HCT 29.5 % (39.6-50.0); Immature Grans, Automated 0.4 %; Lymphocytes # (A) 0.46 X 10*3/uL (0.90-5.00); Lymphocytes % (A) 8.8 %; MCHC 30.5 g/dL (32.0-37.0); MCV 95.2 fL (80.0-97.0); Mean Platelet Volume 9.9 fL (9.5-12.2); Monocytes # (A) 0.46 X 10*3/uL (0.20-1.00); Monocytes % (A) 8.8 %; NRBC Per 100 WBC 0 /100 WBCS (0.0-0.0); Neutrophils # (A) 3.59 X 10*3/uL (1.80-7.70); Neutrophils % (A) 68.7 %; Platelet Count 243 X 10*3/uL (140-440); RDW 15.5 % (11.5-14.5); WBC 5.22 X 10*3/uL (4.50-10.00)
[2022-09-02 09:31] LABS: Albumin 3.9 g/dL (3.8-4.9); Albumin/Globulin Ratio 1.95 (1.60-3.17); Anion Gap 11.2 mmol/L (10.00-18.00); BUN/Creat Ratio 3.14 Ratio (12.00-20.00); Blood Urea Nitrogen 41.5 mg/dL (9.0-27.0); Calcium 9.5 mg/dL (8.7-10.3); Carbon Dioxide 28.8 mmol/L (20.0-27.5); Potassium 4.8 mmol/L (3.5-5.5); Total Bilirubin 0.3 mg/dL (0.30-1.20); Total Protein 5.9 g/dL (6.2-8.2)
[2022-09-02] MEDS: MORPHINE SULFATE 4 MG/ML SYRINGE IVP PRN ×2 (09:59→20:58)
[2022-09-02 11:31] LABS: African American GFR (CKD) 4.5 (60.0-200.0); Non-African American GFR(CKD) 3.9 (60.0-200.0)
[2022-09-02 11:55] LABS: African American GFR (CKD) 4.7 (60.0-200.0); Non-African American GFR(CKD) 4.1 (60.0-200.0)
--- NOTE | 2022-09-02 13:23 | P.PN ---
Subjective Progress Note Date: 09/02/22 patient is a 42-year-old gentleman with past medical history significant for end-stage renal disease on home dialysis 5 times a week, hypertension, anemia who presented to the ER because of nausea and vomiting. Patient stated that for the last few weeks he'll be noticing that he gets Confused often. Also complaining of shortness of breath on exertion. Patient also has been complaining of nausea and vomiting. Denies abdominal pain. Denies any chest pain. Patient states that his blood pressure also been high at home. Denies any swelling of lower extremities. Because of the symptoms, patient came to the ER of [place]. Initial chest x-ray showed mild pulmonary edema. Initial lab work done showed patient hemoglobin of 8.8, hematocrit of 27.2, platelet count 247, sodium 133, potassium 5.2, BUN 99, creatinine 19.11. Patient was admitted to hospitalist service for further evaluation and treatment 09/01. Patient seen and examined. Patient underwent dialysis yesterday. States he feels much better after that. Shortness of breath is improved. Vital signs stable 09/02. Patient seen and examined. Laying comfortably in the bed. Vital signs stable. Plan for dialysis today REVIEW OF SYSTEMS: CONSTITUTIONAL: No fever, no malaise,. CARDIOVASCULAR: No chest pain, no palpitations, no syncope. PULMONARY: No shortness of breath, no cough, GASTROINTESTINAL: No diarrhea, no nausea, no vomiting, no abdominal pain. NEUROLOGICAL: No headaches, no weakness, PHYSICAL EXAMINATION: GENERAL: The patient is alert and oriented x3, not in any acute distress. Well developed, well nourished. HEENT: Pupils are round and equally reacting to light. EOMI. No scleral icterus. No conjunctival pallor. Normocephalic, atraumatic. No pharyngeal erythema. No thyromegaly. CARDIOVASCULAR: S1 and S2 present. No murmurs, rubs, or gallops. PULMONARY: Chest is clear to auscultation, no wheezing or crackles. ABDOMEN: Soft, nontender, nondistended, normoactive bowel sounds. No palpable organomegaly. MUSCULOSKELETAL: No joint swelling or deformity. EXTREMITIES: No cyanosis, clubbing, or pedal edema. NEUROLOGICAL: Gross neurological examination did not reveal any focal deficits. SKIN: No rashes. Assessment and plan End-stage renal disease. Hyperkalemia Uncontrolled hypertension Anemia Plan; Monitor CBC Monitor CMP Follow-up on blood cultures Follow-up on 2-D echo Continue Norvasc, Coreg, Renvela and PhosLo Continue dialysis per nephrology Objective - Vital Signs Vital signs: Vital Signs Temp 98 F 09/02/22 07:00 Pulse 104 H 09/02/22 08:00 Resp 15 09/02/22 08:00 BP 151/78 09/02/22 07:00 Pulse Ox 94 L 09/02/22 07:00 FiO2 Intake & Output 09/01/22 09/02/22 09/02/22 18:59 06:59 18:59 Intake Total 220 Balance 220 Intake: Oral 220 Other: Voiding Method CAPD CAPD CAPD # Voids 0 0 - Labs CBC & Chem 7: 09/02/22 05:12 09/02/22 05:12 Labs: Abnormal Lab Results - Last 24 Hours (Table) 09/01/22 09/02/22 09/02/22 Range/Units 06:11 05:12 05:12 RBC 3.10 L (4.40-5.60) X 10*6/uL Hgb 9.0 L (13.0-17.0) g/dL Hct 29.5 L (39.6-50.0) % MCHC 30.5 L (32.0-37.0) g/dL RDW 15.5 H (11.5-14.5) % Lymphocytes # 0.46 L (0.90-5.00) X 10*3/uL Eosinophils # 0.64 H (0.04-0.35) X 10*3/uL Carbon Dioxide 28.8 H (20.0-27.5) mmol/L BUN 41.5 H (9.0-27.0) mg/dL Creatinine 13.7 H* 13.2 H* (0.6-1.5) mg/dL Est GFR (CKD-EPI)AfAm 4.5 L 4.7 L (60.0-200.0) Est GFR (CKD-EPI)NonAf 3.9 L 4.1 L (60.0-200.0) BUN/Creatinine Ratio 3.14 L (12.00-20.00) Ratio Total Protein 5.9 L (6.2-8.2) g/dL Microbiology - Last 24 Hours (Table) 08/31/22 14:50 Blood Culture - Preliminary Blood No Growth after 24 hours 08/30/22 13:45 Blood Culture - Preliminary Blood No Growth after 48 hours
[2022-09-02 20:17] VITALS: RESP 17
[2022-09-03] MEDS: MORPHINE SULFATE 4 MG/ML SYRINGE IVP PRN ×2 (04:53→09:21)
[2022-09-03] MEDS: SEVELAMER 800 MG TAB PO SCH (07:57)
[2022-09-03] MEDS: carvediloL 12.5 MG TAB PO SCH (07:57)
[2022-09-03] MEDS: CALCIUM ACETATE 667 MG TAB PO SCH (07:57)
[2022-09-03] MEDS: amLODIPine 5 MG TAB PO SCH (07:57)
[2022-09-03] MEDS: MUPIROCIN 2% OINT 22 GM TUBE TOPICAL SCH (07:58)
[2022-09-03 08:04] VITALS: BP 131/75; PULSE 80; TEMP 98.1
[2022-09-03 09:00] LABS: HCT 30.1 % (39.6-50.0); HGB 9.1 g/dL (13.0-17.0); MCH 28.9 pg (27.0-32.0); MCHC 30.2 g/dL (32.0-37.0); MCV 95.6 fL (80.0-97.0); NRBC Per 100 WBC 0 /100 WBCS (0.0-0.0); Platelet Count 276 X 10*3/uL (140-440); RBC 3.15 X 10*6/uL (4.40-5.60); RDW 15.7 % (11.5-14.5); WBC 6.46 X 10*3/uL (4.50-10.00)
[2022-09-03 09:12] LABS: African American GFR (CKD) 5.4 (60.0-200.0); Albumin/Globulin Ratio 1.82 (1.60-3.17); BUN/Creat Ratio 2.91 Ratio (12.00-20.00); Blood Urea Nitrogen 34.3 mg/dL (9.0-27.0); Calcium 9.1 mg/dL (8.7-10.3); Globulin 2.2 g/dL (1.6-3.3); Non-African American GFR(CKD) 4.6 (60.0-200.0); Potassium 4.4 mmol/L (3.5-5.5); Total Bilirubin 0.2 mg/dL (0.30-1.20); Total Protein 6.2 g/dL (6.2-8.2)
--- NOTE | 2022-09-03 11:26 | P.DS ---
Providers Date of admission: 08/30/22 16:04 Expected date of discharge: 09/03/22 Attending physician: Gabe Cam MD Consults: 08/30/22 16:03 Consult Physician Routine Consulting Provider: Stephen Everett Consult Reason/Comments: suspect inadequate HD Do you want consulting provider notified?: Yes Primary care physician: Rayne Gonzalez MD Hospital Course: Discharge diagnoses; End-stage renal disease. Hyperkalemia Uncontrolled hypertension Anemia Hospital course; patient is a 42-year-old gentleman with past medical history significant for end-stage renal disease on home dialysis 5 times a week, hypertension, anemia who presented to the ER because of nausea and vomiting. Patient stated that for the last few weeks he'll be noticing that he gets Confused often. Also complaining of shortness of breath on exertion. Patient also has been complaining of nausea and vomiting. Denies abdominal pain. Denies any chest pain. Patient states that his blood pressure also been high at home. Denies any swelling of lower extremities. Because of the symptoms, patient came to the ER of [place]. Initial chest x-ray showed mild pulmonary edema. Initial lab work done showed patient hemoglobin of 8.8, hematocrit of 27.2, platelet count 247, sodium 133, potassium 5.2, BUN 99, creatinine 19.11. Patient was admitted to hospitalist service for further evaluation and treatment 09/01. Patient seen and examined. Patient underwent dialysis yesterday. States he feels much better after that. Shortness of breath is improved. Vital signs stable 09/02. Patient seen and examined. Laying comfortably in the bed. Vital signs stable. Plan for dialysis today 09/03. Patient seen and examined. Vital signs stable. Patient underwent dialysis yesterday. Outpatient follow-up with nephrology PHYSICAL EXAMINATION: GENERAL: The patient is alert and oriented x3, not in any acute distress. Well developed, well nourished. HEENT: Pupils are round and equally reacting to light. EOMI. No scleral icterus. No conjunctival pallor. Normocephalic, atraumatic. No pharyngeal erythema. No thyromegaly. CARDIOVASCULAR: S1 and S2 present. No murmurs, rubs, or gallops. PULMONARY: Chest is clear to auscultation, no wheezing or crackles. ABDOMEN: Soft, nontender, nondistended, normoactive bowel sounds. No palpable organomegaly. MUSCULOSKELETAL: No joint swelling or deformity. EXTREMITIES: No cyanosis, clubbing, or pedal edema. NEUROLOGICAL: Gross neurological examination did not reveal any focal deficits. SKIN: No rashes. Patient Condition at Discharge: Fair Plan - Discharge Summary Discharge Rx Participant: No New Discharge Prescriptions: Continue amLODIPine [Norvasc] 5 mg PO BID Calcium Acetate [PhosLo] 1,334 mg PO BID-W/MEALS Mupirocin 2% Oint [Bactroban 2% Oint] 1 applic TOPICAL TID carvediloL [Coreg] 12.5 mg PO BID Lanthanum Carbonate [Lanthanum Carbonate Chew] 1,000 mg PO BID-W/MEALS Discharge Medication List Calcium Acetate [PhosLo] 1,334 mg PO BID-W/MEALS 11/30/21 [History] amLODIPine [Norvasc] 5 mg PO BID 11/30/21 [History] Lanthanum Carbonate [Lanthanum Carbonate Chew] 1,000 mg PO BID-W/MEALS 08/30/22 [History] Mupirocin 2% Oint [Bactroban 2% Oint] 1 applic TOPICAL TID 08/30/22 [History] carvediloL [Coreg] 12.5 mg PO BID 08/30/22 [History] Follow up Appointment(s)/Referral(s): Rayne Gonzalez MD [Primary Care Provider] - 1-2 days Michael Mendez DO [STAFF PHYSICIAN] - 1 Week Discharge Disposition: HOME SELF-CARE
--- NOTE | 2022-09-03 13:06 | P.PN ---
Subjective Patient is seen for follow-up for end-stage renal disease. He is maintained on home hemodialysis with questionable compliance as outpatient. He has had consecutive treatments during his hospitalization with improvement in serum creatinine which is down to 11.8 today. Patient can be discharged from nephrology standpoint and follow-up as outpatient Objective - Vital Signs Vital signs: Vital Signs Temp 98.1 F 09/03/22 07:00 Pulse 80 09/03/22 07:00 Resp 17 09/03/22 08:00 BP 131/75 09/03/22 07:00 Pulse Ox 95 09/03/22 07:00 FiO2 Intake & Output 09/02/22 09/03/22 09/03/22 18:59 06:59 18:59 Intake Total 520 118 Output Total 3878 Balance -3358 118 Intake: Oral 220 118 Hemodialysis 300 Output: Hemodialysis 9 Other 1789 Other: Voiding Method CAPD # Voids 0 0 - Exam Awake, comfortable, no acute distress Examination of the heart S1 and S2 Examination lungs bilateral breath sounds are heard Abdomen is soft nontender Examination lower extremities shows no significant edema. AV fistula in the right forearm appears intact - Labs CBC & Chem 7: 09/03/22 03:41 09/03/22 03:41 Labs: Abnormal Lab Results - Last 24 Hours (Table) 09/03/22 09/03/22 Range/Units 03:41 03:41 RBC 3.15 L (4.40-5.60) X 10*6/uL Hgb 9.1 L (13.0-17.0) g/dL Hct 30.1 L (39.6-50.0) % MCHC 30.2 L (32.0-37.0) g/dL RDW 15.7 H (11.5-14.5) % Carbon Dioxide 29.0 H (20.0-27.5) mmol/L BUN 34.3 H (9.0-27.0) mg/dL Creatinine 11.8 H* (0.6-1.5) mg/dL Est GFR (CKD-EPI)AfAm 5.4 L (60.0-200.0) Est GFR (CKD-EPI)NonAf 4.6 L (60.0-200.0) BUN/Creatinine Ratio 2.91 L (12.00-20.00) Ratio Total Bilirubin 0.20 L (0.30-1.20) mg/dL Microbiology - Last 24 Hours (Table) 08/31/22 14:50 Blood Culture - Preliminary Blood No Growth after 48 hours 08/30/22 13:45 Blood Culture - Preliminary Blood No Growth after 72 hours Assessment and Plan Assessment: 1. ESRD on home hemodialysis 5 times a week with a fistula in the right forearm. Admitted with under dialysis with questionable compliance 2. Admitted with nausea vomiting for several weeks, possible under dialysis although supposedly he was told that he had good clearance a month ago after increase in his dialysate volume from 30 L to 4 L a month ago. The cause of this is not clear. His pre-and post BUN are not suggestive of any problem with the fistula such as recirculation 3. Rule out infection, blood cultures so far negative drawn 08/30/2022 2 days ago 4. Anemia. 5. Iron saturation 7% on 08/31/2022 iron deficiency 6. Not on a transplant list. Plan: Patient can be discharged from nephrology standpoint. Follow-up as outpatient for home hemodialysis.
--- NOTE | 2022-09-03 16:01 | CA ---
Transthoracic Echo Report Name: Dionicio Sosa Age: 42 Gender: M : 1980 Exam Date: 09/03/2022 08:29 Exam Location: [facility] Ht (in): 72 Wt (lb): 205 Ordering Physician: Pasquale Maya MD Attending/Referring Phys: [facility] Justice Umesh Ramos RDCS Procedure CPT: Indications: SHORTNESS OF BREATH Cardiac Hx: Technical Quality: Contrast 1: Total Dose (mL): Contrast 2: Total Dose (mL): MEASUREMENTS (Male / Female) Normal Values 2D ECHO LV Diastolic Diameter PLAX 4.0 cm 4.2 - 5.9 / 3.9 - 5.3 cm LV Systolic Diameter PLAX 3.7 cm IVS Diastolic Thickness 1.5 cm 0.6 - 1.0 / 0.6 - 0.9 cm LVPW Diastolic Thickness 3.8 cm 0.6 - 1.0 / 0.6 - 0.9 cm LV Relative Wall Thickness 1.3 RV Internal Dim ED PLAX 3.2 cm LA Systolic Diameter LX 3.6 cm 3.0 - 4.0 / 2.7 - 3.8 cm LV Diastolic Volume MOD BP 140.4 cm??? 67 - 155 / 56 - 104 cm??? LV Systolic Volume MOD BP 82.7 cm??? 22 - 58 / 19 - 49 cm??? LV Ejection Fraction MOD BP 41.1 % >= 55 % LV Diastolic Volume MOD 4C 138.9 cm??? LV Systolic Volume MOD 4C 72.5 cm??? LV Ejection Fraction MOD 4C 47.8 % LV Diastolic Length 4C 8.4 cm LV Systolic Length 4C 7.2 cm LV Diastolic Volume MOD 2C 129.7 cm??? LV Systolic Volume MOD 2C 71.5 cm??? LV Ejection Fraction MOD 2C 44.9 % LV Diastolic Length 2C 9.3 cm LV Systolic Length 2C 9.6 cm LA Volume 107.6 cm??? 18 - 58 / 22 - 52 cm??? M-MODE Aortic Root Diameter MM 3.4 cm LA Systolic Diameter MM 5.2 cm LA Ao Ratio MM 1.5 MV E Point Septal Separation 1.0 cm AV Cusp Separation MM 2.0 cm DOPPLER AV Peak Velocity 146.4 cm/s AV Peak Gradient 8.6 mmHg AI Peak Velocity 319.3 cm/s AI Peak Gradient 40.8 mmHg AI Pressure Half Time 540.2 ms MV Area PHT 5.9 cm??? MR Peak Velocity 405.7 cm/s MR Peak Gradient 65.8 mmHg Mitral E Point Velocity 129.6 cm/s Mitral A Point Velocity 74.0 cm/s Mitral E to A Ratio 1.8 MV Deceleration Time 129.5 ms MV E' Velocity 5.5 cm/s Mitral E to MV E' Ratio 23.5 TR Peak Velocity 251.9 cm/s TR Peak Gradient 25.4 mmHg Right Ventricular Systolic Press 27.8 mmHg PV Peak Velocity 123.9 cm/s PV Peak Gradient 6.1 mmHg FINDINGS Left Ventricle Moderately increased septal wall thickness. Moderately increased left ventricular systolic volume. Moderately decreased left ventricular ejection fraction. Right Ventricle Right ventricle systolic dysfunction. Increased right ventricular wall thickness. Right Atrium Normal right atrial size. Left Atrium Severely increased left atrial volume. Mildly increased left atrial area. Mitral Valve Mitral valve thickened. Mild mitral regurgitation. Aortic Valve Trileaflet aortic valve. Thickened aortic valve without stenosis. Tricuspid Valve Structurally normal tricuspid valve. Mild tricuspid regurgitation. Pulmonic Valve Mild pulmonic regurgitation. Pericardium No pericardial effusion. Aorta Normal size aortic root and proximal ascending aorta. CONCLUSIONS Mildly Reduced LV systolic function with septal hypokinesis Previewed by: Dr. Hoang Hernandez MD (Electronically Signed) Final Date: 03 September 2022 15:59
== END 2022-09-03 11:57 | disposition home or self-care (01) ==
LOC: EC 12:43 → 6NMEDSUR 16:04
PROVIDERS: ADMIT Internal Medicine; ATTEND Internal Medicine
DX: R11.2 Nausea with vomiting, unspecified (principal); I12.0 Hypertensive chronic kidney disease with stage 5 chronic kidney disease or end stage renal disease; N18.6 End stage renal disease; D63.1 Anemia in chronic kidney disease; E87.5 Hyperkalemia; E61.1 Iron deficiency; Z99.2 Dependence on renal dialysis; Z79.899 Other long term (current) drug therapy; Z88.2 Allergy status to sulfonamides; Z20.822 Contact with and (suspected) exposure to COVID-19
CPT/HCPCS: 96372; 96376 ×6; 96374; 96375; 99285; 36415; 93005; 93306; 80053 ×5; 83540; 83550; 83605; 83735; 84520; 85025 ×3; 85027 ×2; 85610; 85730; 87040 ×2; 87636; 71046; G0378 ×5; J2270 ×5; J2405 ×3; J0881; 90935

== ENCOUNTER 2023-08-13 11:59 | Emergency (ER) | payer BC | END 2023-08-13 12:56 | disposition left against medical advice (07) | LOC: EC 11:59 | DX: Z53.21 Procedure and treatment not carried out due to patient leaving prior to being seen by health care provider (principal) | CPT/HCPCS: 99499 ==

== ENCOUNTER 2023-10-23 07:43 | Emergency (ER) | payer BC ==
[2023-10-23 07:52] VITALS: RESP 18
--- NOTE | 2023-10-23 08:06 | ED ---
Upper Extremity HPI - General Chief Complaint: Extremity Injury, Upper Stated Complaint: L Shoulder Pain Time Seen by Provider: 10/23/23 07:47 Source: patient, RN notes reviewed Mode of arrival: ambulatory Limitations: no limitations - History of Present Illness Initial Comments: This is a 43-year-old male who presents to the emergency department for left shoulder pain. Patient was moving a basketball hoop last night, when he suddenly heard and felt a pop in his left shoulder. When he woke up this morning, the pain became much more severe and he noticed a possible deformity. He is unable to move the arm as a result of the pain. MD Complaint: Injury to:: left, shoulder - Related Data Home Medications Medication Instructions Recorded Confirmed Velphoro 500mg 500 mg PO DIRECTED PRN 10/04/22 10/04/22 Velphoro 500mg 500 mg PO TID-W/MEALS 10/04/22 10/04/22 carvediloL [Coreg] 3.125 mg PO BID 10/04/22 10/04/22 Previous Rx's Medication Instructions Recorded Famotidine [Pepcid] 20 mg PO DAILY #30 tablet 10/07/22 amLODIPine [Norvasc] 5 mg PO BID #60 tab 10/07/22 Allergies Allergy/AdvReac Type Severity Reaction Status Date / Time sulfamethoxazole Allergy Rash/Hives Verified 10/23/23 07:47 [From Bactrim] trimethoprim [From Bactrim] Allergy Rash/Hives Verified 10/23/23 07:47 Review of Systems ROS Statement: Those systems with pertinent positive or pertinent negative responses have been documented in the HPI. ROS Other: All systems not noted in ROS Statement are negative. Past Medical History Past Medical History: Dialysis, Hypertension, Renal Disease Additional Past Medical History / Comment(s): Diaylsis since may 18 2021, right chest port since 2020, Kidney Failure since May 2021 r/t htn and pre- work out drinks History of Any Multi-Drug Resistant Organisms: None Reported Past Surgical History: Appendectomy, Orthopedic Surgery Additional Past Surgical History / Comment(s): Hemodiaylsis catheter in Friday of 2020, broken jaw repair Past Anesthesia/Blood Transfusion Reactions: No Reported Reaction Past Psychological History: No Psychological Hx Reported Smoking Status: Never smoker Past Alcohol Use History: None Reported Past Drug Use History: None Reported General Exam Limitations: no limitations General appearance: alert, in no apparent distress Head exam: Present: atraumatic, normocephalic, normal inspection Respiratory exam: Present: normal lung sounds bilaterally. Absent: respiratory distress, wheezes, rales, rhonchi, stridor Cardiovascular Exam: Present: regular rate, normal rhythm, normal heart sounds. Absent: systolic murmur, diastolic murmur, rubs, gallop, clicks Extremities exam: Present: other (Tenderness palpation over the left shoulder and surrounding areas. Limited range of motion secondary to pain. 2+ radial pulses.) Neurological exam: Present: alert, oriented X3, CN II-XII intact Psychiatric exam: Present: normal affect, normal mood Skin exam: Present: warm, dry, intact, normal color. Absent: rash Course Vital Signs 10/23/23 10/23/23 10/23/23 07:44 08:38 09:03 Temperature 97.6 F 97.8 F Pulse Rate 91 78 76 Respiratory 18 18 Rate Blood Pressure 208/112 129/71 131/93 O2 Sat by Pulse 97 99 96 Oximetry 10/23/23 10/23/23 10/23/23 09:07 09:15 10:06 Temperature 98.1 F Pulse Rate 69 Respiratory 18 Rate Blood Pressure 131/93 136/89 157/82 O2 Sat by Pulse 95 97 Oximetry Medical Decision Making - Medical Decision Making This is a 43-year-old male who presents to the emergency department for left shoulder pain. Was pt. sent in by a medical professional or institution? @ -No Did you speak to anyone other than the patient for history? @ -No Did you review nursing and triage notes? @ -Yes, and I agree, it is accurate with regards to the patient's symptoms. Were old charts reviewed? @ -No Differential Diagnosis? @ -Differential Musculoskeletal: Muscular strain, contusion, ligament sprain, fracture, arthritis, septic arthritis, bursitis, cellulitis, muscle spasm, nerve compression, DVT, arterial occlusion, herpes zoster, electrolyte abnormality, tumor.... This is not meant to be in all inclusive list EKG interpreted by me (3pts min.)? @ -Not obtained X-rays interpreted by me (1pt min.)? @ -X-ray of the left shoulder obtained. My interpretation identifies no acute fractures. CT interpreted by me (1pt min.)? @ -Not obtained U/S interpreted by me (1pt. min.)? @ -Not obtained What testing was considered but not performed? (CT, X-rays, U/S, labs)? Why? @ -None What meds were considered but not given? Why? @ -None Did you discuss the management of the patient with other professionals? @ -No Did you reconcile home meds? @ -No Was smoking cessation discussed for >3mins.? @ -No Was critical care preformed (if so, how long)? @ -No Were there social determinants of health that impacted care today? How? (Homelessness, low income, unemployed, alcoholism, drug addiction, tra nsportation, low edu. Level, literacy, decrease access to med. care, prison, rehab)? @ -No Was there de-escalation of care discussed even if they declined? (Discuss DNR or withdrawal of care, Hospice)? @ -No What co-morbidities impacted this encounter? (DM, HTN, Smoking, COPD, CAD, Cancer, CVA, Hep., AIDS, mental health diagnosis, sleep apnea, morbid obesity)? @ -Renal disease Was patient admitted / discharged? @ -Discharged. X-ray of the left shoulder obtained demonstrating no acute process. Discussed with the patient that this does not rule out the possibility of an injury to the rotator cuff, tendons, or ligaments. Symptoms well- controlled in the emergency department. Information for orthopedic follow-up provided for further evaluation in the event symptoms do not improve. Advised Tylenol as needed for pain relief. Patient discharged home in stable condition. Undiagnosed new problem with uncertain prognosis? @ -None Drug Therapy requiring intensive monitoring for toxicity (Heparin, Nitro, Insulin, Cardizem)? @ -None Were any procedures done? @ -None Diagnosis/symptom? @ -Left shoulder pain/injury Acute, or Chronic, or Acute on Chronic? @ -Acute Uncomplicated (without systemic symptoms) or Complicated (systemic symptoms)? @ -Uncomplicated Side effects of treatment? @ -None Exacerbation, Progression, or Severe Exacerbation] @ -Not applicable Poses a threat to life or bodily function? @ -This may limit the use of the left arm for the mean time. Return precautions reviewed in depth, the patient is instructed to return to the emergency department with any new, worsening, or concerning symptoms. Patient verbalized understanding. This case was discussed in detail with the attending ED physician, Dr. Douglas. Presentation, findings, and treatment plan discussed in detail as well. - Radiology Data Radiology results: report reviewed, image reviewed Disposition Clinical Impression: Left shoulder pain Disposition: HOME SELF-CARE Instructions (If sedation given, give patient instructions): Rotator Cuff Injury (ED), Shoulder Sprain (ED) Additional Instructions: Return to the emergency department with any new, worsening, or concerning symptoms. Take Tylenol as needed for pain relief and take the [place] when your pain is the most severe. Be aware that it may make you drowsy. Contact orthopedics as listed below for a follow-up appointment and reevaluation of ongoing symptoms. Follow up with your primary care provider in 1-2 days. Is patient prescribed a controlled substance at d/c from ED?: Yes When asked, does pt state using other controlled substances?: No If prescribed controlled substance>3 days was MAPS reviewed?: Prescribed <3 Days Referrals: Nonstaff,Physician [Primary Care Provider] - 1-2 days Hakeem Glass MD [Medical Doctor] - 1-2 days Time of Disposition: 09:46
--- NOTE | 2023-10-23 08:09 | XR ---
EXAMINATION TYPE: XR shoulder complete LT DATE OF EXAM: 10/23/2023 CLINICAL HISTORY: pain COMPARISON: NONE TECHNIQUE: Three views of the left shoulder are obtained. FINDINGS: There is no acute fracture/dislocation evident. The acromioclavicular and glenohumeral ignacio int spaces appear within normal limits. The visualized ribs are intact and unremarkable. IMPRESSION: 1. There is no acute fracture or dislocation. ICD 10 NO FRACTURE, INITIAL EVALUATION
[2023-10-23] MEDS: HYDROmorphone 1 MG/ML 1 ML SYRINGE IM STA (08:11)
[2023-10-23] MEDS: KETOROLAC 15 MG/ML 1 ML VIAL IM STA (08:14)
[2023-10-23] MEDS: SODIUM CHLORIDE 0.9% 1,000 ML IV STA (08:35)
[2023-10-23] MEDS: ONDANSETRON 4 MG/2 ML VIAL IM STA (08:53)
[2023-10-23] MEDS: ONDANSETRON 4 MG/2 ML VIAL IVP STA (09:05)
[2023-10-23 10:13] VITALS: PULSE 69
[2023-10-23 10:14] VITALS: BP 157/82; TEMP 98.1
== END 2023-10-23 10:10 | disposition home or self-care (01) ==
LOC: EC 07:43
DX: M25.512 Pain in left shoulder (principal); I12.0 Hypertensive chronic kidney disease with stage 5 chronic kidney disease or end stage renal disease; N18.6 End stage renal disease; Z99.2 Dependence on renal dialysis; Z88.8 Allergy status to other drugs, medicaments and biological substances
CPT/HCPCS: 73030; 99284; 96374; 96361; 96372 ×2; J2405; J1170

== ENCOUNTER 2024-01-23 21:27 | Inpatient (IN) | payer BC ==
--- NOTE | 2024-01-23 22:20 | ED ---
Weakness HPI - General Chief complaint: Weakness Stated complaint: Vomitting, Weakness Time Seen by Provider: 01/23/24 21:35 Source: patient Mode of arrival: EMS Limitations: no limitations - History of Present Illness Initial comments: 43-year-old male with past medical history of end-stage renal disease on home hemodialysis who presents emergency department with bodyaches, fevers and cough. States that for the past 3 days he has had symptoms. Patient has had little to eat or drink due to his symptoms. He did not do dialysis today due to weakness. He has not taken anything for his fever yet. Admits to vomiting. Patient denies any chest pain or abdominal pain. Patient does not make any urine. He does admit to a history of bacteremia due to his home hemodialysis. Patient also reports to a blistering rash. No other alleviating, precipitating or modifying factors - Related Data Home Medications Medication Instructions Recorded Confirmed Folic Acid/Vit B Complex and C 0.8 mg PO DAILY 01/24/24 01/24/24 [Nephro-Do Tablet] Lanthanum Carbonate [Lanthanum 1,000 - 2,000 mg PO TID-W/MEALS 01/24/24 01/24/24 Carbonate Chewable] Sevelamer [Renvela] 2,400 mg PO TID-W/MEALS 01/24/24 01/24/24 Sevelamer [Renvela] 800 mg PO DAILY PRN 01/24/24 01/24/24 Testosterone Cypionate 200 mg IM Q7D 01/24/24 01/24/24 [Depo-Testosterone] amLODIPine [Norvasc] 10 mg PO DAILY 01/24/24 01/24/24 calcitrioL [Rocaltrol] 0.5 mcg PO Q7D 01/24/24 01/24/24 Previous Rx's Medication Instructions Recorded Acetaminophen Tab [Tylenol] 650 mg PO Q6HR PRN tab 01/26/24 Azithromycin [Zithromax] 500 mg PO DAILY #3 tab 01/26/24 Cefdinir [Omnicef] 300 mg PO Q12HR #10 capsule 01/26/24 carvediloL [Coreg] 3.125 mg PO BID-W/MEALS #60 tab 01/26/24 Allergies Allergy/AdvReac Type Severity Reaction Status Date / Time sulfamethoxazole Allergy Rash/Hives Verified 01/24/24 13:46 [From Bactrim] trimethoprim [From Bactrim] Allergy Rash/Hives Verified 01/24/24 13:46 Review of Systems ROS Statement: Those systems with pertinent positive or pertinent negative responses have been documented in the HPI. ROS Other: All systems not noted in ROS Statement are negative. Past Medical History Past Medical History: Dialysis, Hypertension, Renal Disease Additional Past Medical History / Comment(s): Diaylsis since may 18 2021, right chest port since 2020, Kidney Failure since May 2021 r/t htn and pre- work out drinks History of Any Multi-Drug Resistant Organisms: None Reported Past Surgical History: Appendectomy, Orthopedic Surgery Additional Past Surgical History / Comment(s): Hemodiaylsis catheter in Friday of 2020, broken jaw repair Past Anesthesia/Blood Transfusion Reactions: No Reported Reaction Past Psychological History: No Psychological Hx Reported Smoking Status: Never smoker Past Alcohol Use History: None Reported Past Drug Use History: None Reported - Past Family History Mother Brother(s) Family Medical History: Hyperlipidemia General Exam Limitations: no limitations General appearance: alert, in no apparent distress Head exam: Present: atraumatic, normocephalic, normal inspection Eye exam: Present: normal appearance, PERRL, EOMI. Absent: scleral icterus, conjunctival injection, periorbital swelling ENT exam: Present: mucous membranes dry Neck exam: Present: normal inspection. Absent: tenderness, meningismus, lymphadenopathy Respiratory exam: Present: wheezes. Absent: respiratory distress, rales, rhonchi, stridor Cardiovascular Exam: Present: normal rhythm, tachycardia GI/Abdominal exam: Present: soft, normal bowel sounds. Absent: distended, tenderness, guarding, rebound, rigid Extremities exam: Present: other (Graft right upper extremity with palpable thrill) Neurological exam: Present: alert, oriented X3, CN II-XII intact Skin exam: Present: other (Multiple ruptured blisters. No surrounding cellulitis) Course Vital Signs 01/23/24 01/23/24 01/23/24 21:29 22:48 23:01 Temperature 100.7 F H 98.7 F Pulse Rate 109 H 102 H Pulse Rate [ Outsole Leveler ] Respiratory 20 20 Rate Blood Pressure 164/85 Blood Pressure [Left Arm] O2 Sat by Pulse 96 97 Oximetry 01/24/24 01/24/24 01/24/24 01:00 03:32 05:38 Temperature 98.2 F Pulse Rate 106 H 100 Pulse Rate [ Outsole Leveler ] Respiratory 20 18 Rate Blood Pressure 158/82 145/100 Blood Pressure [Left Arm] O2 Sat by Pulse 95 96 97 Oximetry 01/24/24 01/24/24 01/24/24 09:02 13:23 16:00 Temperature 98.8 F Pulse Rate 103 H 76 128 H Pulse Rate [ Outsole Leveler ] Respiratory 24 18 18 Rate Blood Pressure 154/95 154/103 158/107 Blood Pressure [Left Arm] O2 Sat by Pulse 95 97 98 Oximetry 01/24/24 01/24/24 01/24/24 18:41 19:16 20:37 Temperature Pulse Rate 113 H 110 H 109 H Pulse Rate [ Outsole Leveler ] Respiratory 18 19 19 Rate Blood Pressure 153/95 144/96 145/102 Blood Pressure [Left Arm] O2 Sat by Pulse 95 100 Oximetry 01/24/24 01/24/24 22:00 22:40 Temperature 99.8 F H 98.0 F Pulse Rate 122 H Pulse Rate [ 113 H Outsole Leveler ] Respiratory 19 20 Rate Blood Pressure 156/97 Blood Pressure 156/97 [Left Arm] O2 Sat by Pulse 99 99 Oximetry Medical Decision Making - Medical Decision Making Was pt. sent in by a medical professional or institution (, PA, TOPOGRAPHY TECHNICIAN, urgent care, hospital, or usp...) When possible be specific @ -No Did you speak to anyone other than the patient for history (EMS, parent, family, police, friend...)? What history was obtained from this source @ -Spoke with EMS for history Did you review nursing and triage notes (agree or disagree)? Why? @ -I reviewed and agree with nursing and triage notes Were old charts reviewed (outside hosp., previous admission, EMS record, old EKG, old radiological studies, urgent care reports/EKG's, usp records)? Report findings @ -No old charts were reviewed Differential Diagnosis (chest pain, altered mental status, abdominal pain women, abdominal pain men, vaginal bleeding, weakness, fever, dyspnea, syncope, headache, dizziness, GI bleed, back pain, seizure, CVA, palpatations, mental health, musculoskeletal)? @ -Differential Fever: Pneumonia, viral URI, endocarditis, myocarditis, pericarditis, otitis, sinusitis, peritonsillar Abscess, retropharyngeal Abscess, epiglottitis, peritonitis, appendicitis, Karen cystitis, diverticulitis, hepatitis, colitis, UTI, PID, TOA, pyelonephritis, prostatitis, epididymitis, meningitis, encephalitis, pulmonary embolism, CVA, thyroid storm, pancreatitis, adrenal crisis, cavernous sinus thrombosis, this is not meant to be an all-inclusive list. EKG interpreted by me (3pts min.). @ -Yes and demonstrates sinus tachycardia with a rate of 111. CA interval 124. QRS 108. QTc of 398. Mild ST depression inferior leads as well as V5V6 X-rays interpreted by me (1pt min.). @ -Yes and demonstrates bilateral pneumonia CT interpreted by me (1pt min.). @ -None done U/S interpreted by me (1pt. min.). @ -None done What testing was considered but not performed or refused? (CT, X-rays, U/S, labs)? Why? @ -None What meds were considered but not given or refused? Why? @ -None Did you discuss the management of the patient with other professionals (professionals i.e. , PA, TOPOGRAPHY TECHNICIAN, lab, RT, psych nurse, social contact worker, epic interface analyst, teacher, air crew officer, housing case manager)? Give summary @ -Spoke with Dr. Ramesh who will admit the patient Was smoking cessation discussed for >3mins.? @ -No Was critical care preformed (if so, how long)? @ -No Were there social determinants of health that impacted care today? How? (Ho melessness, low income, unemployed, alcoholism, drug addiction, transportation, low edu. Level, literacy, decrease access to med. care, care home, rehab)? @ -No Was there de-escalation of care discussed even if they declined (Discuss DNR or withdrawal of care, Hospice)? DNR status @ -No What co-morbidities impacted this encounter? (DM, HTN, Smoking, COPD, CAD, Cancer, CVA, ARF, Chemo, Hep., AIDS, mental health diagnosis, sleep apnea, morbid obesity)? @ -End-stage renal disease on hemodialysis Was patient admitted / discharged? Hospital course, mention meds given and route, prescriptions, significant lab abnormalities, going to OR and other pertinent info. @ -Upon arrival patient seen and evaluated in room 22. Thorough history and physical exam was performed. IV was established. Laboratory studies are conducted. Chest x-ray was performed. Chest x-ray does demonstrate pneumonia. Patient initiated on antibiotics. He will be admitted. Spoke with Dr. Ramesh for admission Undiagnosed new problem with uncertain prognosis? @ -No Drug Therapy requiring intensive monitoring for toxicity (Heparin, Nitro, Insulin, Cardizem)? @ -No Were any procedures done? @ -No Diagnosis/symptom? @ -Acute pyrexia, community-acquired pneumonia, end-stage renal disease on hemodialysis Acute, or Chronic, or Acute on Chronic? @ -Acute Uncomplicated (without systemic symptoms) or Complicated (systemic symptoms)? @ -Complicated Side effects of treatment? @ -No Exacerbation, Progression, or Severe Exacerbation? @ -No Poses a threat to life or bodily function? How? (Chest pain, [place], [place], pneumonia, PE, COPD, DKA, ARF, appy, cholecystitis, CVA, Diverticulitis, Homicidal, Suicidal, threat to staff... and all critical care pts) @ -No - Lab Data Result diagrams: 01/26/24 05:48 01/26/24 05:48 Lab Results 01/23/24 01/23/24 01/23/24 Range/Units 22:40 22:40 22:40 WBC 7.6 (3.8-10.6) k/uL RBC 4.25 L (4.30-5.90) m/uL Hgb 12.0 L (13.0-17.5) gm/dL Hct 38.9 L (39.0-53.0) % MCV 91.6 (80.0-100.0) fL MCH 28.2 (25.0-35.0) pg MCHC 30.8 L (31.0-37.0) g/dL RDW 15.6 H (11.5-15.5) % Plt Count 256 (150-450) k/uL MPV 8.2 Neutrophils % 83 % Lymphocytes % 6 % Monocytes % 5 % Eosinophils % 1 % Basophils % 2 % Neutrophils # 6.4 (1.3-7.7) k/uL Lymphocytes # 0.5 L (1.0-4.8) k/uL Monocytes # 0.4 (0-1.0) k/uL Eosinophils # 0.1 (0-0.7) k/uL Basophils # 0.1 (0-0.2) k/uL Sodium 134 L (137-145) mmol/L Potassium 5.5 H (3.5-5.1) mmol/L Chloride 93 L (98-107) mmol/L Carbon Dioxide 22 (22-30) mmol/L Anion Gap 19 mmol/L BUN 80 H (9-20) mg/dL Creatinine 19.43 H* (0.66-1.25) mg/dL Est GFR (CKD-EPI)AfAm 3 (>60 ml/min/1.73 sqM) Est GFR (CKD-EPI)NonAf 3 (>60 ml/min/1.73 sqM) Glucose 81 (74-99) mg/dL Plasma Lactic Acid Lauri 1.0 (0.7-2.0) mmol/L Calcium 8.9 (8.4-10.2) mg/dL Total Bilirubin 1.0 (0.2-1.3) mg/dL AST 52 (17-59) U/L ALT 85 H (4-49) U/L Alkaline Phosphatase 72 (38-126) U/L Total Protein 6.6 (6.3-8.2) g/dL Albumin 4.0 (3.5-5.0) g/dL Lipase 335 H (23-300) U/L Influenza Type A (PCR) (Not Detectd) Influenza Type B (PCR) (Not Detectd) RSV (PCR) (Not Detectd) SARS-CoV-2 (PCR) (Not Detectd) 01/23/24 Range/Units 22:40 WBC (3.8-10.6) k/uL RBC (4.30-5.90) m/uL Hgb (13.0-17.5) gm/dL Hct (39.0-53.0) % MCV (80.0-100.0) fL MCH (25.0-35.0) pg MCHC (31.0-37.0) g/dL RDW (11.5-15.5) % Plt Count (150-450) k/uL MPV Neutrophils % % Lymphocytes % % Monocytes % % Eosinophils % % Basophils % % Neutrophils # (1.3-7.7) k/uL Lymphocytes # (1.0-4.8) k/uL Monocytes # (0-1.0) k/uL Eosinophils # (0-0.7) k/uL Basophils # (0-0.2) k/uL Sodium (137-145) mmol/L Potassium (3.5-5.1) mmol/L Chloride (98-107) mmol/L Carbon Dioxide (22-30) mmol/L Anion Gap mmol/L BUN (9-20) mg/dL Creatinine (0.66-1.25) mg/dL Est GFR (CKD-EPI)AfAm (>60 ml/min/1.73 sqM) Est GFR (CKD-EPI)NonAf (>60 ml/min/1.73 sqM) Glucose (74-99) mg/dL Plasma Lactic Acid Lauri (0.7-2.0) mmol/L Calcium (8.4-10.2) mg/dL Total Bilirubin (0.2-1.3) mg/dL AST (17-59) U/L ALT (4-49) U/L Alkaline Phosphatase (38-126) U/L Total Protein (6.3-8.2) g/dL Albumin (3.5-5.0) g/dL Lipase (23-300) U/L Influenza Type A (PCR) Not Detected (Not Detectd) Influenza Type B (PCR) Not Detected (Not Detectd) RSV (PCR) Not Detected (Not Detectd) SARS-CoV-2 (PCR) Not Detected (Not Detectd) Disposition Clinical Impression: Pneumonia, Pyrexia, ESRD (end stage renal disease) on dialysis Disposition: ADMITTED IP TO THIS [facility] Condition: Good Is patient prescribed a controlled substance at d/c from ED?: No Time of Disposition: 00:08 Decision to Admit Reason: Admit from EC Decision Date: 01/24/24 Decision Time: 00:08
[2024-01-23] MEDS: MORPHINE SULFATE 4 MG/ML SYRINGE IVP STA (22:47)
[2024-01-23] MEDS: ONDANSETRON 4 MG/2 ML VIAL IVP STA (22:47)
[2024-01-23] MEDS: ACETAMINOPHEN TAB 500 MG TAB PO STA (22:48)
[2024-01-23] MEDS: SODIUM CHLORIDE 0.9% 1,000 ML IV STA (22:49)
[2024-01-23 23:08] LABS: Basophils # (A) 0.1 k/uL (0-0.2); Basophils % (A) 2 %; Eosinophils # (A) 0.1 k/uL (0-0.7); Eosinophils % (A) 1 %; HCT 38.9 % (39.0-53.0); Lymphocytes # (A) 0.5 k/uL (1.0-4.8); Lymphocytes % (A) 6 %; MCH 28.2 pg (25.0-35.0); MCHC 30.8 g/dL (31.0-37.0); MCV 91.6 fL (80.0-100.0); Mean Platelet Volume 8.2; Monocytes # (A) 0.4 k/uL (0-1.0); Monocytes % (A) 5 %; Neutrophils # (A) 6.4 k/uL (1.3-7.7); Neutrophils % (A) 83 %; Platelet Count 256 k/uL (150-450); RBC 4.25 m/uL (4.30-5.90); RDW 15.6 % (11.5-15.5); WBC 7.6 k/uL (3.8-10.6)
[2024-01-23 23:25] LABS: ALT 85 U/L (4-49); AST 52 U/L (17-59); Alkaline Phosphatase 72 U/L (38-126); Anion Gap 19 mmol/L; Blood Urea Nitrogen 80 mg/dL (9-20); Calcium 8.9 mg/dL (8.4-10.2); Carbon Dioxide 22 mmol/L (22-30); Chloride 93 mmol/L (98-107); Glucose 81 mg/dL (74-99); Lipase 335 U/L (23-300); Potassium 5.5 mmol/L (3.5-5.1); Sodium 134 mmol/L (137-145); Total Protein 6.6 g/dL (6.3-8.2)
[2024-01-23 23:30] LABS: African American GFR (CKD) 3 (>60 ml/min/1.73 sqM); Non-African American GFR(CKD) 3 (>60 ml/min/1.73 sqM)
--- NOTE | 2024-01-23 23:43 | XR ---
EXAMINATION TYPE: XR chest 2V DATE OF EXAM: 01/23/2024 COMPARISON: Prior chest x-ray October 04, 2022 HISTORY: Fever TECHNIQUE: Frontal and lateral views of the chest are obtained. FINDINGS: There are new peripheral bilateral midlung increased opacities left greater than right. N o pleural effusion or pneumothorax seen bilaterally. Cardiomegaly is present. The osseous structure s are intact. IMPRESSION: New left greater than right peripheral midlung acute infiltrates.
[2024-01-24] MEDS ORDERED: NALOXONE 0.4 MG/ML 1 ML VIAL IV PRN (00:08)
[2024-01-24] MEDS ORDERED: PNEUMONIA PROTOCOL UTILIZED 1 EACH MISC PO PRN (00:13)
[2024-01-24] MEDS: FAMOTIDINE 20 MG/2 ML VIAL IV STA (00:29)
[2024-01-24] MEDS: MORPHINE SULFATE 4 MG/ML SYRINGE IV PRN (01:19)
[2024-01-24] MEDS: AZITHROMYCIN 500 MG in SODIUM CHLORIDE 0.9% 250 ML IVPB STA (01:23)
--- NOTE | 2024-01-24 02:43 | P.HPIM ---
History of Present Illness H&P Date: 01/24/24 Patient is a 43-year-old male with a PMH of ESRD on hemodialysis (self performed at home) via right forearm AV fistula, hypertension, and hyperlipidemia who presents to the emergency room with complaints of cough and myalgias. Patient reports that over the past 5 days he has been experiencing generalized bodyaches and intermittent fevers which gradually worsened. He then developed a productive cough 3 days ago. Denies experiencing any lower extremity swelling or pain. Also denies chest discomfort, nausea, vomiting, abdominal pain, diarrhea. Chest x-ray in the emergency room revealed bilateral scattered infiltrates with EKG showing sinus tachycardia at 111 bpm with T wave inversion in lead V5 and LVH as reviewed by me. Laboratory evaluation was remarkable for hemoglobin 12.0, sodium 134, potassium 5.5, chloride 93, BUN 80, creatinine 19.4, and lipase 335. ED documentation reviewed and case discussed with ED provider. Review of systems: Pertinent positives and negatives as discussed in HPI, a complete review of systems was performed and all other systems are negative. Physical examination: Vital signs reviewed General: non toxic, no distress, appears at stated age Derm: no unusual rashes/lesions, warm Head: atraumatic, normocephalic, symmetric Eyes: EOMI, no lid lag, anicteric sclera, pupils equal round reactive to light ENT: Nose and ears atraumatic Neck: No cervical lymphadenopathy, trachea midline, supple Mouth: no lip lesion, mucus membranes moist Cardiovascular: S1S2 reg, no murmur, positive dorsalis pedis pulse bilateral, no edema Lungs: Some scattered rhonchi without wheezing, no accessory muscle use Abdominal: soft, nontender to palpation, no guarding Ext: muscle strength 5 out of 5 in all 4 extremities grossly, no gross muscle atrophy, no contractures, right AV fistula with palpable thrill Neuro: CN II-XI grossly intact, no gross focal neuro deficits Psych: Alert, oriented, appropriate affect Assessment: Community-acquired pneumonia ESRD on hemodialysis Hyperkalemia Hypochloremic hyponatremia Transaminitis Imaging: Chest x-ray in the emergency room revealed bilateral scattered infiltrates with EKG showing sinus tachycardia at 111 bpm with T wave inversion in lead V5 and LVH as reviewed by me. Data Review: Laboratory evaluation was remarkable for hemoglobin 12.0, sodium 134, potassium 5.5, chloride 93, BUN 80, creatinine 19.4, and lipase 335. Plan: Continue with azithromycin and ceftriaxone at this time Nephrology consulted for resumption of hemodialysis Cardiac monitoring Follow-up Legionella, blood, and sputum cultures Monitor BMP DVT prophylaxis: Lovenox subcu The patient is admitted with an anticipated greater than 2 midnight stay for evaluation of CAP CODE STATUS: Full Code Discussed with: Patient Anticipated discharge place: Home Past Medical History Past Medical History: Dialysis, Hypertension, Renal Disease Additional Past Medical History / Comment(s): Diaylsis since may 18 2021, right chest port since 2020, Kidney Failure since May 2021 r/t htn and pre- work out drinks History of Any Multi-Drug Resistant Organisms: None Reported Past Surgical History: Appendectomy, Orthopedic Surgery Additional Past Surgical History / Comment(s): Hemodiaylsis catheter in Friday2020, broken jaw repair Past Anesthesia/Blood Transfusion Reactions: No Reported Reaction Past Psychological History: No Psychological Hx Reported Smoking Status: Never smoker Past Alcohol Use History: None Reported Past Drug Use History: None Reported - Past Family History Mother Brother(s) Family Medical History: Hyperlipidemia Medications and Allergies Home Medications Medication Instructions Recorded Confirmed Type Velphoro 500mg 500 mg PO DIRECTED PRN 10/04/22 10/04/22 History Velphoro 500mg 500 mg PO TID-W/MEALS 10/04/22 10/04/22 History carvediloL [Coreg] 3.125 mg PO BID 10/04/22 10/04/22 History Famotidine [Pepcid] 20 mg PO DAILY #30 tablet 10/07/22 Rx amLODIPine [Norvasc] 5 mg PO BID #60 tab 10/07/22 Rx Allergies Allergy/AdvReac Type Severity Reaction Status Date / Time sulfamethoxazole Allergy Rash/Hives Verified 01/23/24 21:36 [From Bactrim] trimethoprim [From Bactrim] Allergy Rash/Hives Verified 01/23/24 21:36 Physical Exam Vitals: Vital Signs Temp Pulse Resp BP Pulse Ox 01/24/24 01:00 106 H 20 158/82 95 01/23/24 23:01 102 H 20 97 01/23/24 21:29 100.7 F H 109 H 20 164/85 96 Intake and Output 01/23/24 01/23/24 01/24/24 14:59 22:59 06:59 Other: Weight 88.451 kg Results CBC & Chem 7: 01/23/24 22:40 01/23/24 22:40 Labs: Abnormal Lab Results - Last 24 Hours (Table) 01/23/24 01/23/24 Range/Units 22:40 22:40 RBC 4.25 L (4.30-5.90) m/uL Hgb 12.0 L (13.0-17.5) gm/dL Hct 38.9 L (39.0-53.0) % MCHC 30.8 L (31.0-37.0) g/dL RDW 15.6 H (11.5-15.5) % Lymphocytes # 0.5 L (1.0-4.8) k/uL Sodium 134 L (137-145) mmol/L Potassium 5.5 H (3.5-5.1) mmol/L Chloride 93 L (98-107) mmol/L BUN 80 H (9-20) mg/dL Creatinine 19.43 H* (0.66-1.25) mg/dL ALT 85 H (4-49) U/L Lipase 335 H (23-300) U/L
[2024-01-24] MEDS: IBUPROFEN 200 MG TAB PO STA (04:59)
[2024-01-24] MEDS: ENOXAPARIN 30 MG/0.3 ML SYRINGE SQ SCH (08:08)
[2024-01-24] MEDS: ACETAMINOPHEN TAB 325 MG TAB PO PRN (09:02)
[2024-01-24] MEDS ORDERED: VANCOMYCIN IV PER PHARMACY 1 EACH MISC MISCELLANE PRN (09:20)
[2024-01-24] MEDS: PIPERACILLIN-TAZOBACTAM 3.375 GM in SODIUM CHLORIDE 0.9% 100 ML IVPB SCH (09:30)
[2024-01-24] MEDS: VANCOMYCIN 1,500 MG in SODIUM CHLORIDE 0.9% 500 ML 500 ML IVPB SCH (10:33)
--- NOTE | 2024-01-24 12:00 | P.NPCON ---
History of Present Illness - Reason for Consult end stage renal disease - History of Present Illness Reason for consultation: End-stage renal disease History of present illness: Patient is a 43-year-old male seen in renal consultation for end-stage renal disease. He is maintained on home hemodialysis via AV fistula. Last hemodialysis treatment was on . Patient states since Friday night he has been feeling unwell. He denies checking his fever at home but did develop chills starting Friday. He also developed vomiting and diarrhea on Friday. He has been coughing up brownish phlegm and states now it is red. He denies chest pain. Denies history of diabetes or coronary artery disease. Chest x-ray suggestive of pneumonia. He is currently on IV antibiotics. Pulmonology has been consulted for potential bronchoscopy. Vital signs are stable. General: No acute distress. HEENT: Head exam is unremarkable. LUNGS: No audible rhonchi or wheezes. HEART: Rate and Rhythm are regular. ABDOMEN: Nontender. EXTREMITITES: No edema. Past Medical History Past Medical History: Dialysis, Hypertension, Renal Disease Additional Past Medical History / Comment(s): Diaylsis since may 18 2021, right chest port since 2020, Kidney Failure since May 2021 r/t htn and pre- work out drinks History of Any Multi-Drug Resistant Organisms: None Reported Past Surgical History: Appendectomy, Orthopedic Surgery Additional Past Surgical History / Comment(s): Hemodiaylsis catheter in Friday of 2020, broken jaw repair Past Anesthesia/Blood Transfusion Reactions: No Reported Reaction Past Psychological History: No Psychological Hx Reported Smoking Status: Never smoker Past Alcohol Use History: None Reported Past Drug Use History: None Reported - Past Family History Mother Brother(s) Family Medical History: Hyperlipidemia Medications and Allergies Home Medications Medication Instructions Recorded Confirmed Type Velphoro 500mg 500 mg PO DIRECTED PRN 10/04/22 10/04/22 History Velphoro 500mg 500 mg PO TID-W/MEALS 10/04/22 10/04/22 History carvediloL [Coreg] 3.125 mg PO BID 10/04/22 10/04/22 History Famotidine [Pepcid] 20 mg PO DAILY #30 tablet 10/07/22 Rx amLODIPine [Norvasc] 5 mg PO BID #60 tab 10/07/22 Rx Allergies Allergy/AdvReac Type Severity Reaction Status Date / Time sulfamethoxazole Allergy Rash/Hives Verified 01/23/24 21:36 [From Bactrim] trimethoprim [From Bactrim] Allergy Rash/Hives Verified 01/23/24 21:36 Physical Exam Vitals: Vital Signs Temp Pulse Resp BP Pulse Ox 01/24/24 09:02 103 H 24 154/95 95 01/24/24 05:38 98.2 F 100 18 145/100 97 01/24/24 03:32 96 01/24/24 01:00 106 H 20 158/82 95 01/23/24 23:01 102 H 20 97 01/23/24 22:48 98.7 F 01/23/24 21:29 100.7 F H 109 H 20 164/85 96 Intake and Output 01/23/24 01/24/24 01/24/24 22:59 06:59 14:59 Other: Weight 88.451 kg Results - Lab Results Most recent lab results Calcium 8.9 mg/dL (8.4-10.2) 01/23/24 22:40 01/23/24 22:40 01/23/24 22:40 Assessment and Plan Plan: Assessment: 1. End-stage renal disease maintained on home hemodialysis via AV fistula. 2. Pneumonia maintained on antibiotics. 3. Hypertension with chronic kidney disease. 4. Chronic kidney disease mineral bone disease. Plan: Hemodialysis today. Follow-up cultures. Monitor vancomycin levels. Dose to be adjusted for renal function. Renal diet. Check phosphorus level. Resume home dose amlodipine and coreg. Thank you for the consultation. I will continue to follow the patient with you during his hospital stay.
[2024-01-24] MEDS: amLODIPine 10 MG TAB PO SCH (12:09)
[2024-01-24] MEDS: carvediloL 3.125 MG TAB PO SCH (12:09)
--- NOTE | 2024-01-24 12:28 | P.CNPUL ---
History of Present Illness Consult date: 01/24/24 Requesting physician: Pricila Metzger Reason for consult: dyspnea, abnormal CXR/CT Chief complaint: Shortness of breath, muscle aches, fever History of present illness: This is a 43-year-old male patient with a known history of end-stage renal disease secondary to hypertension and anabolic steroid use. He started on dialysis in 2020. He has a right upper extremity AV fistula and does his dialysis treatments at home 5 days a week. The past several days he has had increasing body aches, fever cough and congestion. He has had poor oral intake. He did not do his dialysis yesterday due to his weakness. He ended up coming into the emergency room last night for the same. Chest x-ray reveals bilateral peripheral opacities left greater than right. Cardiomegaly. White count 7.6. Hemoglobin 12.0. Platelets 256. Sodium 134. Potassium 5.5. Bicarb 22. BUN 80. Creatinine 19.4. AST 52. ALT 85. Lipase 335. Viral screen pending. He is currently on vancomycin, Zosyn, ceftriaxone. He is seen today in consultation in the emergency department. He is currently sitting up on a stretcher. Awake and alert in no acute distress. He is maintaining good O2 saturations in the mid 90s on 2 L/min per nasal cannula. Initial temperature 100.7 he is currently afebrile. Somewhat hypertensive. Tachycardic. Review of Systems REVIEW OF SYSTEMS: CONSTITUTIONAL: Positive for generalized body aches, weakness. Denies any recent significant weight loss or weight gain. EYES: Denies change in vision. EARS, NOSE, MOUTH, THROAT: Denies headaches, denies sore throat. CARDIOVASCULAR: Denies chest pain, palpitations or syncopal episodes. RESPIRATORY: Positive for shortness of breath, cough, congestion no hemoptysis. GASTROINTESTINAL: Denies change in appetite, denies abdominal pain GENITOURINARY: Denies hematuria, denies infections. MUSKULOSKELETAL: Denies pain, denies swelling. INTEGUMENTARY: Denies rash, denies eczema. NEUROLOGICAL: Denies recent memory loss, no recent seizure activity. PSYCHIATRIC: Denies anxiety, denies depression. HEMATOLOGIC/LYMPHATIC: Denies anemia, denies enlarged lymph nodes. Past Medical History Past Medical History: Dialysis, Hypertension, Renal Disease Additional Past Medical History / Comment(s): Diaylsis since may 18 2021, right chest port since 2020, Kidney Failure since May 2021 r/t htn and pre- work out drinks History of Any Multi-Drug Resistant Organisms: None Reported Past Surgical History: Appendectomy, Orthopedic Surgery Additional Past Surgical History / Comment(s): Hemodiaylsis catheter in Friday of 2020, broken jaw repair Past Anesthesia/Blood Transfusion Reactions: No Reported Reaction Past Psychological History: No Psychological Hx Reported Smoking Status: Never smoker Past Alcohol Use History: None Reported Past Drug Use History: None Reported - Past Family History Mother Brother(s) Family Medical History: Hyperlipidemia Medications and Allergies Home Medications Medication Instructions Recorded Confirmed Type Velphoro 500mg 500 mg PO DIRECTED PRN 10/04/22 10/04/22 History Velphoro 500mg 500 mg PO TID-W/MEALS 10/04/22 10/04/22 History carvediloL [Coreg] 3.125 mg PO BID 10/04/22 10/04/22 History Famotidine [Pepcid] 20 mg PO DAILY #30 tablet 10/07/22 Rx amLODIPine [Norvasc] 5 mg PO BID #60 tab 10/07/22 Rx Allergies Allergy/AdvReac Type Severity Reaction Status Date / Time sulfamethoxazole Allergy Rash/Hives Verified 01/23/24 21:36 [From Bactrim] trimethoprim [From Bactrim] Allergy Rash/Hives Verified 01/23/24 21:36 Physical Exam Vitals: Vital Signs Temp Pulse Resp BP Pulse Ox 01/24/24 09:02 103 H 24 154/95 95 01/24/24 05:38 98.2 F 100 18 145/100 97 01/24/24 03:32 96 01/24/24 01:00 106 H 20 158/82 95 01/23/24 23:01 102 H 20 97 01/23/24 22:48 98.7 F 01/23/24 21:29 100.7 F H 109 H 20 164/85 96 Intake and Output 01/23/24 01/24/24 01/24/24 22:59 06:59 14:59 Other: Weight 88.451 kg GENERAL EXAM: Alert, pleasant, 43-year-old male patient, on 2 L nasal cannula, fairly comfortable in no apparent distress. HEAD: Normocephalic. EYES: Normal reaction of pupils, equal size. NOSE: Clear with pink turbinates. THROAT: No erythema or exudates. NECK: No masses, no JVD. CHEST: No chest wall deformity. LUNGS: Equal air entry with coarse rhonchi bilaterally. CVS: S1 and S2 normal with no audible murmur, regular rhythm. ABDOMEN: No hepatosplenomegaly, normal bowel sounds, no guarding or rigidity. SPINE: No scoliosis or deformity SKIN: No rashes CENTRAL NERVOUS SYSTEM: No focal deficits, tone is normal in all 4 extremities. EXTREMITIES: Right upper extremity AV fistula. There is no peripheral edema. No clubbing, no cyanosis. Peripheral pulses are intact. Results - Laboratory Findings CBC and BMP: 01/23/24 22:40 01/23/24 22:40 Abnormal lab findings: Abnormal Labs 01/23/24 01/23/24 22:40 22:40 RBC 4.25 L Hgb 12.0 L Hct 38.9 L MCHC 30.8 L RDW 15.6 H Lymphocytes # 0.5 L Sodium 134 L Potassium 5.5 H Chloride 93 L BUN 80 H Creatinine 19.43 H* ALT 85 H Lipase 335 H - Diagnostic Findings Chest x-ray: image reviewed Assessment and Plan Assessment: Acute hypoxemic respiratory failure secondary to suspected community-acquired pneumonia. Viral screen negative. Procalcitonin pending. Legionella screen pending Acute on chronic renal failure secondary to missed hemodialysis yesterday Hyperkalemia secondary to above End-stage renal disease secondary to years of anabolic steroid use and hypertension Hypertension Plan: The patient was seen and evaluated Chest x-ray, labs and medications reviewed Procalcitonin pending Legionella screen pending Sputum culture pending Blood cultures pending To be on community-acquired pneumonia antibiotics for now Discussed with Dr. Spencer Will continue ceftriaxone and azithromycin No need for vancomycin and Zosyn at this point Plan is for hemodialysis today We will continue to follow and make further recommendations based on his clinical status I have personally seen and examined the patient, performed the documentation and the assessment and plan as written. Number of minutes spent on the visit: 20.
[2024-01-24] MEDS: ONDANSETRON 4 MG/2 ML VIAL IVP PRN (13:16)
[2024-01-24] MEDS: HYDROmorphone 0.5 MG/0.5 ML SYRINGE IVP PRN (14:13)
[2024-01-24] MEDS ORDERED: PROCHLORPERAZINE INJ 10 MG/2 ML VIAL IVP PRN (14:54)
[2024-01-24] MEDS: HEPARIN SODIUM,PORCINE 5,000 UNIT/ML 1 ML VIAL SQ SCH (17:15)
--- NOTE | 2024-01-25 07:31 | XR ---
EXAMINATION TYPE: XR chest 2V DATE OF EXAM: 01/25/2024 7:07 AM CLINICAL INDICATION:Male, 43 years old with history of pneumonia; [facility] COMPARISON: Chest radiographs from TECHNIQUE: XR chest 2V Frontal and lateral views of the chest. FINDINGS: Lungs/Pleura: Similar multifocal airspace opacities prominent perihilar regions. No evidence of pneum othorax or pleural effusion. Pulmonary vascularity: Unremarkable. Heart/mediastinum: Cardiomediastinal silhouette is prominent in size. Musculoskeletal: No acute osseous pathology. IMPRESSION: Similar multifocal airspace opacities.
[2024-01-25] MEDS: AZITHROMYCIN 500 MG TAB PO SCH (08:33)
--- NOTE | 2024-01-25 08:38 | P.PN ---
Subjective Progress Note Date: 01/25/24 This is a 43-year-old male patient with a known history of end-stage renal disease secondary to hypertension and anabolic steroid use. He started on dialysis in 2020. He has a right upper extremity AV fistula and does his dialysis treatments at home 5 days a week. The past several days he has had increasing body aches, fever cough and congestion. He has had poor oral intake. He did not do his dialysis yesterday due to his weakness. He ended up coming into the emergency room last night for the same. Chest x-ray reveals bilateral peripheral opacities left greater than right. Cardiomegaly. White count 7.6. Hemoglobin 12.0. Platelets 256. Sodium 134. Potassium 5.5. Bicarb 22. BUN 80. Creatinine 19.4. AST 52. ALT 85. Lipase 335. Viral screen pending. He is currently on vancomycin, Zosyn, ceftriaxone. He is seen today in consultation in the emergency department. He is currently sitting up on a stretcher. Awake and alert in no acute distress. He is maintaining good O2 saturations in the mid 90s on 2 L/min per nasal cannula. Initial temperature 100.7 he is currently afebrile. Somewhat hypertensive. Tachycardic. The patient is seen today January 25, 2024 in follow-up on the regular medical floor. He is currently resting quite comfortably in bed. Awake and alert in no acute distress. Breathing easier today compared to yesterday. He is maintaining O2 saturations in the upper 90s on 4 L/min. Per nasal cannula. He did undergo hemodialysis yesterday with 3 L of fluid removed. Chest x-ray continues to show similar multifocal airspace opacities. proBNP was 90,400. His procalcitonin was 1.4. He is continued on ceftriaxone and azithromycin. Heparin for DVT prophylaxis. Today's labs are pending. Objective - Vital Signs Vital signs: Vital Signs Temp 98.9 F 01/25/24 08:00 Pulse 105 H 01/25/24 08:00 Resp 20 01/25/24 08:00 BP 143/80 01/25/24 08:00 Pulse Ox 93 L 01/25/24 08:22 FiO2 Intake & Output 01/24/24 01/25/24 01/25/24 18:59 06:59 18:59 Intake Total 1350 Output Total 3000 Balance -1650 Weight 88.451 kg Intake: Oral 950 Hemodialysis 400 Output: Hemodialysis 3000 - Exam GENERAL EXAM: Alert, 43-year-old male on 4 L nasal cannula, comfortable in no apparent distress. HEAD: Normocephalic. EYES: Normal reaction of pupils, equal size. NOSE: Clear with pink turbinates. THROAT: No erythema or exudates. NECK: No masses, no JVD. CHEST: No chest wall deformity. LUNGS: Equal air entry with coarse rhonchi bilaterally. CVS: S1 and S2 normal with no audible murmur, regular rhythm. ABDOMEN: No hepatosplenomegaly, normal bowel sounds, no guarding or rigidity. SPINE: No scoliosis or deformity SKIN: No rashes CENTRAL NERVOUS SYSTEM: No focal deficits, tone is normal in all 4 extremities. EXTREMITIES: Right upper extremity AV fistula. There is no peripheral edema. No clubbing, no cyanosis. Peripheral pulses are intact. - Labs CBC & Chem 7: 01/23/24 22:40 01/23/24 22:40 Labs: Abnormal Lab Results - Last 24 Hours (Table) 01/24/24 Range/Units 13:09 Procalcitonin 1.40 H (0.02-0.09) ng/mL Microbiology - Last 24 Hours (Table) 01/23/24 22:40 Blood Culture - Preliminary Blood 01/23/24 22:55 Blood Culture - Preliminary Blood Assessment and Plan Assessment: Acute hypoxemic respiratory failure secondary to suspected community-acquired pneumonia and fluid volume overload. Viral screen negative. proBNP 90,400, procalcitonin 1.4. Legionella screen pending Acute on chronic renal failure secondary to missed hemodialysis Hyperkalemia secondary to above End-stage renal disease secondary to years of anabolic steroid use and hypertension Hypertension Plan: The patient was seen and evaluated Chest x-ray and medications reviewed Today's labs are pending Procalcitonin 1.4 Continue ceftriaxone and azithromycin Had hemodialysis yesterday with 3 L of fluid removed Titrate down the FiO2 as tolerated This patient was seen independently by the pulmonary nurse practitioner addressing pulmonary issues I have personally seen and examined the patient, performed the documentation and the assessment and plan as written. Number of minutes spent on the visit: 25.
[2024-01-25] MEDS ORDERED: AZITHROMYCIN 500 MG TAB PO SCH (09:00)
[2024-01-25 09:41] LABS: Basophils # (A) 0.06 X 10*3/uL (0.00-0.10); Eosinophils # (A) 0.05 X 10*3/uL (0.04-0.35); Eosinophils % (A) 0.8 %; HGB 10.2 g/dL (13.0-17.0); Lymphocytes # (A) 0.52 X 10*3/uL (0.90-5.00); Lymphocytes % (A) 8.8 %; MCH 28.2 pg (27.0-32.0); MCHC 31.9 g/dL (32.0-37.0); MCV 88.4 FL (80.0-97.0); Monocytes # (A) 0.35 X 10*3/uL (0.20-1.00); Monocytes % (A) 5.9 %; NRBC Per 100 WBC 0 X 10*3/uL (0.00-0.01); Neutrophils # (A) 4.93 X 10*3/uL (1.80-7.70); Neutrophils % (A) 83.2 %; Platelet Count 231 X 10*3/uL (140-440); RBC 3.62 X 10*6/uL (4.40-5.60); RDW 15.6 % (11.5-14.5); WBC 5.93 X 10*3/uL (4.50-10.00)
[2024-01-25 10:05] LABS: Phosphorus 6.2 mg/dL (2.4-5.1)
[2024-01-25 10:26] LABS: BUN/Creat Ratio 3.26 Ratio (12.00-20.00); Blood Urea Nitrogen 52.2 mg/dL (9.0-27.0); Calcium 8.7 mg/dL (8.7-10.3); Carbon Dioxide 24.9 mmol/L (21.6-31.8); Chloride 89 mmol/L (96-109); Glucose 89 mg/dL (70-110); Potassium 4.8 mmol/L (3.5-5.5); Sodium 133 mmol/L (135-145)
--- NOTE | 2024-01-25 11:41 | P.PN ---
Subjective Patient is seen in follow-up for end-stage renal disease. He is maintained on home hemodialysis. No problems with dialysis yesterday. Cough improved. Denies chest pain or shortness of breath. Vital signs are stable. General: No acute distress. HEENT: Head exam is unremarkable. LUNGS: No audible rhonchi or wheezes. HEART: Rate and Rhythm are regular. ABDOMEN: Nontender. EXTREMITITES: No edema. Objective - Vital Signs Vital signs: Vital Signs Temp 98.9 F 01/25/24 08:00 Pulse 105 H 01/25/24 08:00 Resp 20 01/25/24 08:00 BP 143/80 01/25/24 08:00 Pulse Ox 93 L 01/25/24 08:22 FiO2 Intake & Output 01/24/24 01/25/24 01/25/24 18:59 06:59 18:59 Intake Total 1350 Output Total 3000 Balance -1650 Weight 88.451 kg Intake: Oral 950 Hemodialysis 400 Output: Hemodialysis 3000 - Labs CBC & Chem 7: 01/25/24 06:33 01/25/24 06:33 Labs: Abnormal Lab Results - Last 24 Hours (Table) 01/24/24 01/25/24 01/25/24 Range/Units 13:09 06:33 06:33 RBC 3.62 L (4.40-5.60) X 10*6/uL Hgb 10.2 L (13.0-17.0) g/dL Hct 32.0 L (39.6-50.0) % MCHC 31.9 L (32.0-37.0) g/dL RDW 15.6 H (11.5-14.5) % Lymphocytes # 0.52 L (0.90-5.00) X 10*3/uL Sodium 133 L (135-145) mmol/L Chloride 89 L (96-109) mmol/L Anion Gap 19.10 H (4.00-12.00) mmol/L BUN 52.2 H (9.0-27.0) mg/dL Creatinine 16.0 A* (0.6-1.5) mg/dL Est GFR (CKD-EPI) 3 L (>=60) BUN/Creatinine Ratio 3.26 L (12.00-20.00) Ratio Phosphorus 6.2 H (2.4-5.1) mg/dL Procalcitonin 1.40 H (0.02-0.09) ng/mL Microbiology - Last 24 Hours (Table) 01/23/24 22:40 Blood Culture - Preliminary Blood 01/23/24 22:55 Blood Culture - Preliminary Blood Assessment and Plan Plan: Assessment: 1. End-stage renal disease maintained on home hemodialysis via AV fistula. 2. Pneumonia maintained on antibiotics. 3. Hypertension with chronic kidney disease. 4. Chronic kidney disease mineral bone disease. Phosphorus level 6.2. Plan: Hemodialysis tomorrow. Follow-up cultures. Renal diet. Resume Renvela.
[2024-01-25] MEDS: SEVELAMER 800 MG TAB PO SCH (12:19)
--- NOTE | 2024-01-25 12:39 | P.PN ---
Subjective Progress Note Date: 01/25/24 No new complaitns today. Had dialysis yesterday and had 3L pulled off. Tachcyardia improved. Ongoing abx. PC is 1.4 Gen: In NAD, non-toxic HEENT: normocephalic, atraumatic, hearing acuity is intant, mucous membranes moist CVS: perfusing all extremities well, no pitting edema, Respiratory: symmetric chest expansion, no accessory muscle use, GI: soft, NTTP, ND, : no suprapubic tenderness, no CVA tenderness MSK/Derm: no rashes, cyanosis, right upper extremity fistula, distal blisters in both the upper extremities and lower extremities Neuro: CN II-XII intact, no motor weakness, Psych: cooperative, euthymic mood, judgment and insight is intact Hospital course: Patient is a 43-year-old male with a PMH of ESRD on hemodialysis (self performed at home) via right forearm AV fistula, hypertension, and hyperlipidemia who presents to the emergency room with complaints of cough and myalgias. Chest x- ray in the emergency room revealed bilateral scattered infiltrates with EKG showing sinus tachycardia at 111 bpm with T wave inversion in lead V5 and LVH as reviewed by me. Laboratory evaluation was remarkable for hemoglobin 12.0, sodium 134, potassium 5.5, chloride 93, BUN 80, creatinine 19.4, and lipase 335. Assessment/plan: Severe sepsis secondary to Community-acquired pneumonia -Continue with azithromycin and ceftriaxone at this time -BCx pending, legionella pending -pulmonology following for consideration of bronch -CXR with multifocal pneumonia, personally interpreted ESRD on hemodialysis Hyperkalemia Hypochloremic hyponatremia -Nephrology consulted -ongoing dialysis with UF DVT prophylaxis: Lovenox subcu The patient is admitted with an anticipated greater than 2 midnight stay for evaluation of CAP CODE STATUS: Full Code Discussed with: Patient Anticipated discharge place: Home Objective - Vital Signs Vital signs: Vital Signs Temp 98.9 F 01/25/24 08:00 Pulse 105 H 01/25/24 08:00 Resp 20 01/25/24 08:00 BP 143/80 01/25/24 08:00 Pulse Ox 93 L 01/25/24 08:22 FiO2 Intake & Output 01/24/24 01/25/24 01/25/24 18:59 06:59 18:59 Intake Total 1350 Output Total 3000 Balance -1650 Weight 88.451 kg Intake: Oral 950 Hemodialysis 400 Output: Hemodialysis 3000 - Labs CBC & Chem 7: 01/25/24 06:33 01/25/24 06:33 Labs: Abnormal Lab Results - Last 24 Hours (Table) 01/24/24 01/25/24 01/25/24 Range/Units 13:09 06:33 06:33 RBC 3.62 L (4.40-5.60) X 10*6/uL Hgb 10.2 L (13.0-17.0) g/dL Hct 32.0 L (39.6-50.0) % MCHC 31.9 L (32.0-37.0) g/dL RDW 15.6 H (11.5-14.5) % Lymphocytes # 0.52 L (0.90-5.00) X 10*3/uL Sodium 133 L (135-145) mmol/L Chloride 89 L (96-109) mmol/L Anion Gap 19.10 H (4.00-12.00) mmol/L BUN 52.2 H (9.0-27.0) mg/dL Creatinine 16.0 A* (0.6-1.5) mg/dL Est GFR (CKD-EPI) 3 L (>=60) BUN/Creatinine Ratio 3.26 L (12.00-20.00) Ratio Phosphorus 6.2 H (2.4-5.1) mg/dL Procalcitonin 1.40 H (0.02-0.09) ng/mL Microbiology - Last 24 Hours (Table) 01/23/24 22:40 Blood Culture - Preliminary Blood 01/23/24 22:55 Blood Culture - Preliminary Blood
[2024-01-26 07:48] LABS: Hepatitis B Surface Antigen Nonreactive (Nonreactive)
[2024-01-26 07:50] VITALS: BP 132/82; PULSE 76; RESP 18; TEMP 97.9
[2024-01-26 09:19] LABS: Magnesium 2.5 mg/dL (1.5-2.4)
[2024-01-26 09:42] LABS: BUN/Creat Ratio 3.25 Ratio (12.00-20.00); Blood Urea Nitrogen 63.1 mg/dL (9.0-27.0); Calcium 8.9 mg/dL (8.7-10.3); Carbon Dioxide 23.6 mmol/L (21.6-31.8); Chloride 89 mmol/L (96-109); Glucose 86 mg/dL (70-110); Sodium 133 mmol/L (135-145)
[2024-01-26 09:49] LABS: Basophils # (A) 0.04 X 10*3/uL (0.00-0.10); Basophils % (A) 0.7 %; Eosinophils # (A) 0.15 X 10*3/uL (0.04-0.35); Eosinophils % (A) 2.6 %; HCT 32.9 % (39.6-50.0); HGB 10.5 g/dL (13.0-17.0); Lymphocytes # (A) 0.43 X 10*3/uL (0.90-5.00); Lymphocytes % (A) 7.5 %; MCH 28.2 pg (27.0-32.0); MCHC 31.9 g/dL (32.0-37.0); MCV 88.4 FL (80.0-97.0); Mean Platelet Volume 10.4 FL (9.5-12.2); Monocytes # (A) 0.29 X 10*3/uL (0.20-1.00); Monocytes % (A) 5.1 %; NRBC Per 100 WBC 0 X 10*3/uL (0.00-0.01); Neutrophils % (A) 83.6 %; Platelet Count 240 X 10*3/uL (140-440); RBC 3.72 X 10*6/uL (4.40-5.60); RDW 15.5 % (11.5-14.5); WBC 5.74 X 10*3/uL (4.50-10.00)
--- NOTE | 2024-01-26 12:37 | P.DS ---
Providers Date of admission: 01/24/24 00:12 Expected date of discharge: 01/26/24 Attending physician: Pricila Metzger MD Consults: 01/24/24 00:08 Consult Physician Urgent Consulting Provider: Michael Mendez Consult Reason/Comments: esrd on hd Do you want consulting provider notified?: Yes 01/24/24 08:38 Consult Physician Routine Consulting Provider: Sen Spencer Consult Reason/Comments: multifocal pneumonia, bronch? Do you want consulting provider notified?: Yes Primary care physician: Physician Nonstaff Hospital Course: Severe sepsis secondary to Community-acquired pneumonia ESRD on hemodialysis Hyperkalemia Hypochloremic hyponatremia Gen: In NAD, non-toxic HEENT: normocephalic, atraumatic, hearing acuity is intant, mucous membranes moist CVS: perfusing all extremities well, no pitting edema, Respiratory: symmetric chest expansion, no accessory muscle use, GI: soft, NTTP, ND, : no suprapubic tenderness, no CVA tenderness MSK/Derm: no rashes, cyanosis, right upper extremity fistula, distal blisters in both the upper extremities and lower extremities Neuro: CN II-XII intact, no motor weakness, Psych: cooperative, euthymic mood, judgment and insight is intact Hospital course: Patient is a 43-year-old male with a PMH of ESRD on hemodialysis (self performed at home) via right forearm AV fistula, hypertension, and hyperlipidemia who presents to the emergency room with complaints of cough and myalgias. Chest x- ray in the emergency room revealed bilateral scattered infiltrates with EKG showing sinus tachycardia at 111 bpm with T wave inversion in lead V5 and LVH as reviewed by me. Laboratory evaluation was remarkable for hemoglobin 12.0, sodium 134, potassium 5.5, chloride 93, BUN 80, creatinine 19.4, and lipase 335. Patient was admitted to the hospital and treated for community-acquired pneumonia. Blood cultures remain negative. Pulmonology was consulted and recommended ongoing treatment for community-acquired pneumonia. Patient improved back to room air with treatment with antibiotics as well as dialysis session with ultrafiltration of 3 L. Patient was subsequently discharged home to continue his home hemodialysis as well as to complete 7 days of cefdinir and 5 days of azithromycin. I spent 34 minutes coordinating this discharge. Patient Condition at Discharge: Good Plan - Discharge Summary New Discharge Prescriptions: New Azithromycin [Zithromax] 500 mg PO DAILY #3 tab carvediloL [Coreg] 3.125 mg PO BID-W/MEALS #60 tab Cefdinir [Omnicef] 300 mg PO Q12HR #10 capsule Acetaminophen Tab [Tylenol] 650 mg PO Q6HR PRN tab PRN Reason: Mild Pain Or Fever > 100.5 Continue amLODIPine [Norvasc] 10 mg PO DAILY Folic Acid/Vit B Complex and C [Nephro-Do Tablet] 0.8 mg PO DAILY Testosterone Cypionate [Depo-Testosterone] 200 mg IM Q7D calcitrioL [Rocaltrol] 0.5 mcg PO Q7D Lanthanum Carbonate [Lanthanum Carbonate Chewable] 1,000 - 2,000 mg PO TID- W/MEALS Sevelamer [Renvela] 2,400 mg PO TID-W/MEALS Sevelamer [Renvela] 800 mg PO DAILY PRN PRN Reason: snacks Discontinued Sodium Bicarbonate Tab 650 mg PO BID carvediloL [Coreg] 25 mg PO DAILY Discharge Medication List Folic Acid/Vit B Complex and C [Nephro-Do Tablet] 0.8 mg PO DAILY 01/24/24 [History] Lanthanum Carbonate [Lanthanum Carbonate Chewable] 1,000 - 2,000 mg PO TID- W/MEALS 01/24/24 [History] Sevelamer [Renvela] 2,400 mg PO TID-W/MEALS 01/24/24 [History] Sevelamer [Renvela] 800 mg PO DAILY PRN 01/24/24 [History] Testosterone Cypionate [Depo-Testosterone] 200 mg IM Q7D 01/24/24 [History] amLODIPine [Norvasc] 10 mg PO DAILY 01/24/24 [History] calcitrioL [Rocaltrol] 0.5 mcg PO Q7D 01/24/24 [History] Acetaminophen Tab [Tylenol] 650 mg PO Q6HR PRN tab 01/26/24 [Rx] Azithromycin [Zithromax] 500 mg PO DAILY #3 tab 01/26/24 [Rx] Cefdinir [Omnicef] 300 mg PO Q12HR #10 capsule 01/26/24 [Rx] carvediloL [Coreg] 3.125 mg PO BID-W/MEALS #60 tab 01/26/24 [Rx] Follow up Appointment(s)/Referral(s): Nonstaff,Physician [Primary Care Provider] - 1-2 days Discharge Disposition: HOME SELF-CARE
--- NOTE | 2024-01-27 15:16 | CDI ---
Documentation Clarification Form Date: 01/27/2024 02:58:45 PM From: Stephany Leigh RN CCDS Phone: [phone] Admit Date: 01/24/2024 12:12:00 AM Patient Name: Dionicio Sosa Visit Number: [id number] Discharge Date: 01/26/2024 11:55:00 AM ATTENTION: The Clinical Documentation Specialists (CDI) and [facility] Coding Staff appreciate your assistance in clarifying documentation. Please respond to the clarification below the line at the bottom and electronically sign. The CDI & [facility] Coding staff will review the response and follow-up if needed. Please note: Queries are made part of the Legal Health Record. If you have any questions, please contact the author of this message via ITS. Dr. Malcolm Louise Sepsis is documented 01/25, Discharge summary, which may lack sufficient clinical evidence/support in the medical record. Additional clarification is requested. History/Risk Factors:43-year-old male presents to the ED with cough and myalgias. Has been experiencing generalized body aches and intermittent fevers which gradually worsened and developed a productive cough three days ago. Medical History: ESRD, Dialysis and HTN. 01/23, H&P Clinical Indicators: VSS, 01/22 21:29: B/P 164/65; HR 109; Temp 100.7 F Oral; SpO2 96% CXR, 01/22: New left greater than right peripheral midlung acute infiltrates. LAB, 01/22: Wbc 7.6, Neutrophils 6.4; lactic acid venous 1.0 Treatment: 01/22 Tylenol 1,000mg PO x 1; Antibiotics: 01/22 Azithromycin ivpb x 1; 01/23 Ceftriaxone ivpb x 1; 01/23 Zoysn 3.375gm IVPB x 1; 01/23 Vancomycin 1,500mg IVPB x 1; 01/24 Zithromax 500mg po daily x 2 doses; 01/24 -01/25 Ceftriaxone IVPB x 4 doses Only 2 doses administered. Fluids: 01/22 0.9NS 1L IV Bolus; Please clarify if Sepsis is a valid diagnosis? [ ] No, Sepsis is ruled out [x] Yes, Sepsis is present as evidence by (additional clinical support): tachycardia, RR, oxygen requirement [ ] Other (please specify diagnosis) [ ] Unable to determine History/Risk Factors: SIRS Criteria: 2 or more of the following may indicate SIRS Temperature < 96.8F (36C) or > 101.0F (38.3C) Heart Rate > 90 bpm Respiratory Rate > 20 breaths/min or PaCO2 < 32 mmHg White Blood Cell Count > 12,000 or < 4,000 cells/mm3 or > 10% bands (Template Last Revised: January 2024) MTDD
== END 2024-01-26 11:55 | disposition home or self-care (01) | DRG 871 ==
LOC: EC 21:27 → 5NMEDONC 01-24 00:12
PROVIDERS: ADMIT Internal Medicine; ATTEND Internal Medicine
PROC: 5A1D70Z Performance of Urinary Filtration, Intermittent, Less than 6 Hours Per Day (ICD-10-PCS; principal; 2024-01-24)
DX: A41.9 Sepsis, unspecified organism (principal); J18.9 Pneumonia, unspecified organism; J96.01 Acute respiratory failure with hypoxia; N18.6 End stage renal disease; N17.9 Acute kidney failure, unspecified; I12.0 Hypertensive chronic kidney disease with stage 5 chronic kidney disease or end stage renal disease; E87.1 Hypo-osmolality and hyponatremia; R65.20 Severe sepsis without septic shock; E83.9 Disorder of mineral metabolism, unspecified; Z99.2 Dependence on renal dialysis; Z28.310 Unvaccinated for COVID-19; E87.8 Other disorders of electrolyte and fluid balance, not elsewhere classified; E87.70 Fluid overload, unspecified; E87.5 Hyperkalemia; E78.5 Hyperlipidemia, unspecified; R21 Rash and other nonspecific skin eruption; R74.01 Elevation of levels of liver transaminase levels; Z91.158 Patient's noncompliance with renal dialysis for other reason; Z79.899 Other long term (current) drug therapy; Z88.1 Allergy status to other antibiotic agents; Z88.2 Allergy status to sulfonamides
CPT/HCPCS: 36415; 71046; 80048; 80053; 83605; 83690; 83735; 83880; 84100; 84145; 85025; 86706; 87040; 87340; 87636; 90935; 93005; 94760; 96361; 96365; 96366; 96367; 96368; 96372; 96375; 96376; 99285

== ENCOUNTER 2024-08-25 01:25 | Emergency (ER) | payer BC ==
--- NOTE | 2024-08-25 01:53 | ED ---
Fall HPI - General Chief Complaint: Fall Stated Complaint: Fall, R Hip Pain Time Seen by Provider: 08/25/24 01:32 Source: patient, RN notes reviewed Mode of arrival: wheelchair Limitations: no limitations - History of Present Illness Initial Comments: Patient is a 44 year old male with past medical history of renal disease on dialysis and hypertension presenting for R hip and knee pain x 3 days. He states 3 days ago he slipped down his 2 cement stairs and landed on his right hip. He states he has not been able to bear weight, or bend his knee due to the pain. He states that he also had to leave dialysis 30 minutes earlier yesterday because sitting also causes pain and made him feel nauseous, causing him to have to lay on the floor. He states the pain is a 11/10. He states that he has tried Ibuprofen and heating pads, without relief. He denies numbness, tingling, assosciated back pain. - Related Data Home Medications Medication Instructions Recorded Confirmed Folic Acid/Vit B Complex and C 0.8 mg PO DAILY 01/24/24 01/24/24 [Nephro-Do Tablet] Lanthanum Carbonate [Lanthanum 1,000 - 2,000 mg PO TID-W/MEALS 01/24/24 01/24/24 Carbonate Chewable] Sevelamer [Renvela] 2,400 mg PO TID-W/MEALS 01/24/24 01/24/24 Sevelamer [Renvela] 800 mg PO DAILY PRN 01/24/24 01/24/24 Testosterone Cypionate 200 mg IM Q7D 01/24/24 01/24/24 [Depo-Testosterone] amLODIPine [Norvasc] 10 mg PO DAILY 01/24/24 01/24/24 calcitrioL [Rocaltrol] 0.5 mcg PO Q7D 01/24/24 01/24/24 Previous Rx's Medication Instructions Recorded Acetaminophen Tab [Tylenol] 650 mg PO Q6HR PRN tab 01/26/24 Azithromycin [Zithromax] 500 mg PO DAILY #3 tab 01/26/24 Cefdinir [Omnicef] 300 mg PO Q12HR #10 capsule 01/26/24 carvediloL [Coreg] 3.125 mg PO BID-W/MEALS #60 tab 01/26/24 Cyclobenzaprine [Flexeril] 10 mg PO TID PRN #15 tab 08/25/24 Allergies Allergy/AdvReac Type Severity Reaction Status Date / Time sulfamethoxazole Allergy Rash/Hives Verified 08/25/24 01:29 [From Bactrim] trimethoprim [From Bactrim] Allergy Rash/Hives Verified 08/25/24 01:29 Review of Systems ROS Statement: Those systems with pertinent positive or pertinent negative responses have been documented in the HPI. ROS Other: All systems not noted in ROS Statement are negative. Past Medical History Past Medical History: Dialysis, Hypertension, Renal Disease Additional Past Medical History / Comment(s): Diaylsis since may 18 2021, right chest port since 2020, Kidney Failure since May 2021 r/t htn and pre- work out drinks History of Any Multi-Drug Resistant Organisms: None Reported Past Surgical History: Appendectomy, Orthopedic Surgery Additional Past Surgical History / Comment(s): Hemodiaylsis catheter in Friday of 2020, broken jaw repair Past Anesthesia/Blood Transfusion Reactions: No Reported Reaction Past Psychological History: No Psychological Hx Reported Smoking Status: Never smoker Past Alcohol Use History: None Reported Past Drug Use History: None Reported - Past Family History Mother Brother(s) Family Medical History: Hyperlipidemia General Exam General appearance: alert, in no apparent distress, in distress Head exam: Present: atraumatic, normocephalic, normal inspection Eye exam: Present: normal appearance, PERRL, EOMI. Absent: scleral icterus, conjunctival injection, periorbital swelling Neck exam: Present: normal inspection. Absent: tenderness, meningismus, lymphadenopathy Respiratory exam: Present: normal lung sounds bilaterally. Absent: respiratory distress, wheezes, rales, rhonchi, stridor Cardiovascular Exam: Present: regular rate, normal rhythm, normal heart sounds. Absent: systolic murmur, diastolic murmur, rubs, gallop, clicks GI/Abdominal exam: Present: soft, normal bowel sounds. Absent: distended, tenderness, guarding, rebound, rigid Extremities exam: Present: tenderness. Absent: full ROM (unable to extend hip or knee) Right Hip exam: Present: tenderness. Absent: full ROM, ecchymosis Upper Leg exam: Present: tenderness. Absent: full ROM Knee exam: Present: tenderness. Absent: full ROM Ankle exam: Present: normal inspection, full ROM Gait: unable to bear weight Back exam: Present: normal inspection Psychiatric exam: Present: normal affect, normal mood, anxious Skin exam: Present: warm, dry, intact, normal color. Absent: rash Course Vital Signs 08/25/24 08/25/24 08/25/24 01:27 01:37 03:09 Temperature 101.2 F H 98.8 F Pulse Rate 104 H 107 H 106 H Respiratory 20 19 18 Rate Blood Pressure 167/111 170/122 147/88 O2 Sat by Pulse 97 98 97 Oximetry Medical Decision Making - Medical Decision Making Was pt. sent in by a medical professional or institution (, [facility], [facility], urgent care, hospital, or long-term...) When possible be specific @ -No Did you speak to anyone other than the patient for history (EMS, parent, family, police, friend...)? What history was obtained from this source @ -No Did you review nursing and triage notes (agree or disagree)? Why? @ -I reviewed and agree with nursing and triage notes Were old charts reviewed (outside hosp., previous admission, EMS record, old EKG, old radiological studies, urgent care reports/EKG's, long-term records)? Report findings @ -No old charts were reviewed Differential Diagnosis (chest pain, altered mental status, abdominal pain women, abdominal pain men, vaginal bleeding, weakness, fever, dyspnea, syncope, headache, dizziness, GI bleed, back pain, seizure, CVA, palpatations, mental health, musculoskeletal)? @ -Fall, hip contusion, hip fracture, leg fracture EKG interpreted by me (3pts min.). @ -None X-rays interpreted by me (1pt min.). @ -X-ray right hip no acute fracture noted X-ray right knee no acute fracture CT interpreted by me (1pt min.). @ -None done U/S interpreted by me (1pt. min.). @ -None done What testing was considered but not performed or refused? (CT, X-rays, U/S, labs)? Why? @ -None What meds were considered but not given or refused? Why? @ -None Did you discuss the management of the patient with other professionals (professionals i.e. , [facility], [facility], lab, RT, psych nurse, geriatric social work professor, lab head, teacher, physics technical officer, correctional case manager)? Give summary @ -No Was smoking cessation discussed for >3mins.? @ -No Was critical care preformed (if so, how long)? @ -No Were there social determinants of health that impacted care today? How? (Homelessness, low income, unemployed, alcoholism, drug addiction, transportation, low edu. Level, literacy, decrease access to med. care, halfway, rehab)? @ -No Was there de-escalation of care discussed even if they declined (Discuss DNR or withdrawal of care, Hospice)? DNR status @ -No What co-morbidities impacted this encounter? (DM, HTN, Smoking, COPD, CAD, Cancer, CVA, ARF, Chemo, Hep., AIDS, mental health diagnosis, sleep apnea, morbid obesity)? @ -None Was patient admitted / discharged? Hospital course, mention meds given and route, prescriptions, significant lab abnormalities, going to OR and other pertinent info. @ -Discharge patient presented for fall, right hip pain, right hip contusion. Patient's x-rays were negative. Patient is able to ambulate now after some analgesics. Patient initially had fever upon arrival though upon repeat check not noted have fever, patient has no symptoms and no overt signs of infection. Patient feels comfortable discharge and close follow-up. Undiagnosed new problem with uncertain prognosis? @ -No Drug Therapy requiring intensive monitoring for toxicity (Heparin, Nitro, Insulin, Cardizem)? @ -No Were any procedures done? @ -No Diagnosis/symptom? @ -Fall, hip contusion Acute, or Chronic, or Acute on Chronic? @ -Acute Uncomplicated (without systemic symptoms) or Complicated (systemic symptoms)? @ -Uncomplicated Side effects of treatment? @ -No Exacerbation, Progression, or Severe Exacerbation? @ -No Poses a threat to life or bodily function? How? (Chest pain, [place], [place], pneumonia, PE, COPD, DKA, ARF, appy, cholecystitis, CVA, Diverticulitis, Homicidal, S uicidal, threat to staff... and all critical care pts) @ -No - Lab Data Lab Results 08/25/24 Range/Units 02:20 Influenza Type A (PCR) Not Detected (Not Detectd) Influenza Type B (PCR) Not Detected (Not Detectd) RSV (PCR) Not Detected (Not Detectd) SARS-CoV-2 (PCR) Not Detected (Not Detectd) Disposition Clinical Impression: Fall, Contusion of right hip Disposition: HOME SELF-CARE Condition: Stable Instructions (If sedation given, give patient instructions): Hip Contusion (ED) Additional Instructions: Please return to the Emergency Department if symptoms worsen or any other concerns. Prescriptions: Cyclobenzaprine [Flexeril] 10 mg PO TID PRN #15 tab PRN Reason: Muscle Spasm Is patient prescribed a controlled substance at d/c from ED?: No Referrals: None,Stated [Primary Care Provider] - 1-2 days Time of Disposition: 03:38
[2024-08-25] MEDS: HYDROmorphone 1 MG/ML 1 ML SYRINGE IM STA (02:21)
[2024-08-25 03:16] VITALS: RESP 18
[2024-08-25] MEDS: CYCLOBENZAPRINE 10MG STARTER 3 TAB BTL PO STA (03:45)
[2024-08-25] MEDS: ACET/COD 300 MG/30 MG STARTER PACK 6 TAB BTL PO STA (03:46)
[2024-08-25] MEDS: carvediloL 3.125 MG TAB PO STA (03:46)
[2024-08-25] MEDS: HYDROcodone/APAP 10-325MG 1 EACH TAB PO ONE (03:46)
[2024-08-25] MEDS: amLODIPine 10 MG TAB PO STA (03:46)
[2024-08-25 03:50] VITALS: BP 150/92; PULSE 78; TEMP 98.3
--- NOTE | 2024-08-25 05:03 | XR ---
EXAM: 2 VIEWS OF THE RIGHT HIP AND 3 VIEWS OF THE RIGHT KNEE CLINICAL HISTORY: ITS.REASON XR Reason: fall TECHNIQUE: 2 views of the right hip and 3 views of the right knee were obtained. COMPARISON: No relevant prior studies available. IMPRESSION: 1. No evidence of acutely displaced fracture or dislocation within the right hip or right knee. 2. Mild lateral tibiofemoral compartment and patellofemoral compartment osteoarthrosis. 3. Vascular calcifications.
== END 2024-08-25 03:50 | disposition home or self-care (01) ==
LOC: EC 01:25
DX: S70.01XA Contusion of right hip, initial encounter (principal); Z88.2 Allergy status to sulfonamides; Z88.1 Allergy status to other antibiotic agents; W10.8XXA Fall (on) (from) other stairs and steps, initial encounter
CPT/HCPCS: 87636; 73502; 73562; 99284; 96372; J1171

== ENCOUNTER 2024-08-28 02:46 | Emergency (ER) | payer BC ==
[2024-08-28] MEDS: HYDROmorphone 0.5 MG/0.5 ML SYRINGE IM STA (03:13)
--- NOTE | 2024-08-28 03:16 | ED ---
General Adult HPI - General Chief complaint: Extremity Injury, Lower Stated complaint: Right hip pain Time Seen by Provider: 08/28/24 03:00 Source: patient, RN notes reviewed, old records reviewed Mode of arrival: wheelchair Limitations: no limitations - History of Present Illness Initial comments: Patient is a 44-year-old male who presents emergency department complaining of right hip pain. Patient fell approximately 5 days ago. Was already evaluated for this pain in our department. X-rays were obtained on August 25 which revealed no obvious acute fracture or injury of the right hip or knee. Patient does have significant arthritis of the right knee. States he is having continued pain primarily in the lateral aspect of the right hip with radiation down towards the outside aspect of the right knee. States this is inhibited his ability to ambulate. Has a history of ESRD and does hemodialysis at home and has not missed any runs. Has no other acute complaints. Presents over concern for continued pain of the right hip.Patient denies any urinary or bowel incontinence or retention. Denies lower extremity paralysis. Denies any groin paresthesias. Denies any back pain. - Related Data Home Medications Medication Instructions Recorded Confirmed Folic Acid/Vit B Complex and C 0.8 mg PO DAILY 01/24/24 01/24/24 [Nephro-Do Tablet] Lanthanum Carbonate [Lanthanum 1,000 - 2,000 mg PO TID-W/MEALS 01/24/24 01/24/24 Carbonate Chewable] Sevelamer [Renvela] 2,400 mg PO TID-W/MEALS 01/24/24 01/24/24 Sevelamer [Renvela] 800 mg PO DAILY PRN 01/24/24 01/24/24 Testosterone Cypionate 200 mg IM Q7D 01/24/24 01/24/24 [Depo-Testosterone] amLODIPine [Norvasc] 10 mg PO DAILY 01/24/24 01/24/24 calcitrioL [Rocaltrol] 0.5 mcg PO Q7D 01/24/24 01/24/24 Previous Rx's Medication Instructions Recorded Acetaminophen Tab [Tylenol] 650 mg PO Q6HR PRN tab 01/26/24 Azithromycin [Zithromax] 500 mg PO DAILY #3 tab 01/26/24 Cefdinir [Omnicef] 300 mg PO Q12HR #10 capsule 01/26/24 carvediloL [Coreg] 3.125 mg PO BID-W/MEALS #60 tab 01/26/24 Cyclobenzaprine [Flexeril] 10 mg PO TID PRN #15 tab 08/25/24 HYDROcodone/APAP 5-325MG [[place] 1 tab PO Q6HR PRN 3 Days #12 tab 08/28/24 5-325] methocarbamoL [Robaxin] 1,000 mg PO QID PRN 5 Days #40 tab 08/28/24 Allergies Allergy/AdvReac Type Severity Reaction Status Date / Time sulfamethoxazole Allergy Rash/Hives Verified 08/28/24 03:00 [From Bactrim] trimethoprim [From Bactrim] Allergy Rash/Hives Verified 08/28/24 03:00 Review of Systems ROS Statement: Those systems with pertinent positive or pertinent negative responses have been documented in the HPI. Review of Systems: CONST: Denies fever EYES: Denies blurry vision ENT: Denies nasal congestion C/V: Denies Chest pain RESP: Denies shortness of breath GI: Denies abdominal pain : Denies dysuria SKIN: Denies rash. MSK: Endorses right hip pain NEURO: Denies headache ROS Other: All systems not noted in ROS Statement are negative. Past Medical History Past Medical History: Dialysis, Hypertension, Renal Disease Additional Past Medical History / Comment(s): Diaylsis since may 18 2021, right chest port since 2020, Kidney Failure since May 2021 r/t htn and pre- work out drinks History of Any Multi-Drug Resistant Organisms: None Reported Past Surgical History: Appendectomy, Orthopedic Surgery Additional Past Surgical History / Comment(s): Hemodiaylsis catheter in Friday of 2020, broken jaw repair Past Anesthesia/Blood Transfusion Reactions: No Reported Reaction Past Psychological History: No Psychological Hx Reported Smoking Status: Never smoker Past Alcohol Use History: None Reported Past Drug Use History: None Reported - Past Family History Mother Brother(s) Family Medical History: Hyperlipidemia General Exam - General Exam Comments Initial Comments: General: Appears in no acute distress. HEAD: Normal with no signs of head trauma. EYES: EOMI. ENT: Hearing grossly intact. RESPIRATORY: No respiratory distress. C/V: Regular rate and rhythm. Right upper extremity AV fistula has a palpable thrill and audible bruit. ABD: Abdomen is nondistended. EXT: No obvious deformity. Tenderness to palpation over the lateral right hip with no obvious deformity. Reduced range of motion secondary to pain. Pain seems to radiate down the lateral aspect of the femur. No midline lumbar spine tenderness to palpation.Neurovascular intact throughout the right lower extremity. SKIN: No rashes or lesions observed on exposed skin. NEURO: Alert and oriented. Limitations: no limitations Course Vital Signs 08/28/24 02:49 Temperature 98 F Pulse Rate 92 Respiratory 16 Rate Blood Pressure 153/107 O2 Sat by Pulse 98 Oximetry Medical Decision Making - Medical Decision Making Was pt. sent in by a medical professional or institution (, PA, SPACE AND STORAGE CLERK, urgent care, hospital, or [facility]...) When possible be specific @ -No Did you speak to anyone other than the patient for history (EMS, parent, family, police, friend...)? What history was obtained from this source @ -No Did you review nursing and triage notes (agree or disagree)? Why? @ -I reviewed and agree with nursing and triage notes Were old charts reviewed (outside hosp., previous admission, EMS record, old EKG, old radiological studies, urgent care reports/EKG's, [facility] records)? Report findings @ -Reviewed x-rays from August 25, 2024. These showed no obvious acute fracture. Arthritis in the right knee. Differential Diagnosis (chest pain, altered mental status, abdominal pain women, abdominal pain men, vaginal bleeding, weakness, fever, dyspnea, syncope, headache, dizziness, GI bleed, back pain, seizure, CVA, palpatations, mental health, musculoskeletal)? @ -Differential Musculoskeletal Muscular strain, contusion, ligament sprain, fracture, arthritis, septic arthritis, bursitis, cellulitis, muscle spasm, nerve compression, DVT, arterial occlusion, herpes zoster, electrolyte abnormality, tumor.... This is not meant to be in all inclusive list EKG interpreted by me (3pts min.). @ -None done X-rays interpreted by me (1pt min.). @ -None done CT interpreted by me (1pt min.). @ -CT hip shows the area of injection and air in the muscle. Old pelvic fractures present. No obvious injury to the right femur or hip. U/S interpreted by me (1pt. min.). @ -None done What testing was considered but not performed or refused? (CT, X-rays, U/S, labs)? Why? @ -None What meds were considered but not given or refused? Why? @ -None Did you discuss the management of the patient with other professionals (professionals i.e. , PA, SPACE AND STORAGE CLERK, lab, RT, psych nurse, social services analyst, geothermal hvac technician, teacher, ground nuclear weapons assembly officer, child support case officer)? Give summary @ -No Was smoking cessation discussed for >3mins.? @ -No Was critical care preformed (if so, how long)? @ -No Were there social determinants of health that impacted care today? How? (Homelessness, low income, unemployed, alcoholism, drug addiction, transportation, low edu. Level, literacy, decrease access to med. care, [place] [facility], rehab)? @ -No Was there de-escalation of care discussed even if they declined (Discuss DNR or withdrawal of care, Hospice)? DNR status @ -No What co-morbidities impacted this encounter? (DM, HTN, Smoking, COPD, CAD, Cancer, CVA, ARF, Chemo, Hep., AIDS, mental health diagnosis, sleep apnea, morbid obesity)? @ -None Was patient admitted / discharged? Hospital course, mention meds given and route, prescriptions, significant lab abnormalities, going to OR and other pertinent info. @ -Based on patient's presentation and physical exam, presents with continued right hip and lateral femur pain after a fall from earlier this week. We will obtain CT imaging of the right hip without contrast. Patient will be administered IM Dilaudid. He was in agreement this plan. Close are within acceptable limits. Exam is relatively unremarkable however he does have pain with movement of the right hip. Imaging unremarkable for obvious traumatic injury. I updated the patient. Patient is feeling improved. Patient will be discharged home at this time with analgesia medications, crutches and instructions to follow-up with orthopedics if pain persist. Does seem to be more muscular pain or muscular spasm. He was in agreement this plan. I will provide the patient with a prescription for Robaxin, [place]. I instructed the patient to follow up with their PCP in the next 1-3 days. I provided contact information for follow up with orthopedic surgery. I explained that the patient should return to the emergency department if they experience any wors ening symptoms. Strict return precautions were discussed with the patient. The patient expressed understanding of these instructions. I answered all questions that the patient had. The patient was discharged home in fair condition with their prescriptions and follow up information. Undiagnosed new problem with uncertain prognosis? @ -No Drug Therapy requiring intensive monitoring for toxicity (Heparin, Nitro, Insulin, Cardizem)? @ -No Were any procedures done? @ -No Diagnosis/symptom? @ -Right hip pain, muscle spasm Acute, or Chronic, or Acute on Chronic? @ -Acute Uncomplicated (without systemic symptoms) or Complicated (systemic symptoms)? @ -Uncomplicated Side effects of treatment? @ -None Exacerbation, Progression, or Severe Exacerbation] @ -No Poses a threat to life or bodily function? @ -Unlikely Disposition Clinical Impression: Right hip pain, Muscle spasm Disposition: HOME SELF-CARE Condition: Fair Instructions (If sedation given, give patient instructions): Hip Pain (ED) Prescriptions: HYDROcodone/APAP 5-325MG [[place] 5-325] 1 tab PO Q6HR PRN 3 Days #12 tab PRN Reason: Pain methocarbamoL [Robaxin] 1,000 mg PO QID PRN 5 Days #40 tab PRN Reason: Pain Is patient prescribed a controlled substance at d/c from ED?: No Referrals: None,Stated [Primary Care Provider] - 1-2 days Luis Enrique Malcolm MD [STAFF PHYSICIAN] - 1-2 days Forms: Area PCPs Time of Disposition: 07:39
--- NOTE | 2024-08-28 07:25 | CT ---
EXAMINATION TYPE: CT hip RT wo con DATE OF EXAM: 08/28/2024 3:35 AM COMPARISON: None. CLINICAL INDICATION: Male, 44 years old with history of pain, fall radiating to foot TECHNIQUE: Contrast used: mL of , (none if empty) Oral contrast used: (none if empty) Axial images 3 mm thick sections. Reconstructed images in the coronal and sagittal planes. FINDINGS: There is some free air within the soft tissues over the greater trochanter. Femoral head articulates with the acetabulum. Joint space is preserved. No acute fractures of the lef t hip or proximal femur are evident. Some vascular calcification is noted Old fracture fragments may be present posterior to the ischio ramus and at the right pubic symphysis. No acute fracture identified. IMPRESSION: 1. NO ACUTE OSSEOUS ABNORMALITY EVIDENT. 2. OLD APPEARING FRACTURE FRAGMENTS AT THE RIGHT PUBIC SYMPHYSIS AND POSSIBLE AVULSION FROM THE RIGHT POSTERIOR FASCIAL RAMUS. 3. SOME LINEAR FREE AIR TRACKING OVER THE GREATER TROCHANTER WITHIN THE SOFT TISSUES OF THE RIGHT HIP IS PRESENT [facility], , 08/28/2024 7:23 AM
[2024-08-28] MEDS: HYDROcodone/APAP 5-325MG 1 EACH TAB PO STA (07:46)
[2024-08-28 07:49] VITALS: BP 141/84; PULSE 89; RESP 18
[2024-08-28 08:04] VITALS: TEMP 98
== END 2024-08-28 08:04 | disposition home or self-care (01) ==
LOC: EC 02:46
DX: M25.551 Pain in right hip (principal); M62.838 Other muscle spasm; Z88.2 Allergy status to sulfonamides
CPT/HCPCS: 73700; 99284; 96372; J1171

== ENCOUNTER 2024-10-13 01:45 | Emergency (ER) | payer BC ==
[2024-10-13 02:53] LABS: Influenza A Not Detected (Not Detectd); Influenza B Not Detected (Not Detectd); RSV Not Detected (Not Detectd)
[2024-10-13 03:41] LABS: Anisocytosis Slight; Basophils # (A) 0.1 k/uL (0-0.2); Basophils % (A) 1 %; Eosinophils # (A) 0.4 k/uL (0-0.7); Eosinophils % (A) 4 %; HCT 46.1 % (39.0-53.0); HGB 14.2 gm/dL (13.0-17.5); Lymphocytes # (A) 0.9 k/uL (1.0-4.8); Lymphocytes % (A) 9 %; MCH 28.7 pg (25.0-35.0); MCHC 30.9 g/dL (31.0-37.0); Mean Platelet Volume 7.9; Monocytes # (A) 0.3 k/uL (0-1.0); Monocytes % (A) 3 %; Neutrophils # (A) 8.2 k/uL (1.3-7.7); Neutrophils % (A) 82 %; Platelet Count 172 k/uL (150-450); RBC 4.95 m/uL (4.30-5.90); RDW 18.3 % (11.5-15.5); WBC 10.1 k/uL (3.8-10.6)
[2024-10-13 04:02] LABS: ALT 24 U/L (4-49); AST 20 U/L (17-59); African American GFR (CKD) 4 (>60 ml/min/1.73 sqM); Albumin 4.4 g/dL (3.5-5.0); Alkaline Phosphatase 85 U/L (38-126); Anion Gap 18 mmol/L; Blood Urea Nitrogen 73 mg/dL (9-20); Calcium 9.2 mg/dL (8.4-10.2); Carbon Dioxide 24 mmol/L (22-30); Chloride 90 mmol/L (98-107); Glucose 83 mg/dL (74-99); Non-African American GFR(CKD) 4 (>60 ml/min/1.73 sqM); Potassium 5.5 mmol/L (3.5-5.1); Sodium 132 mmol/L (137-145); Total Bilirubin 1.1 mg/dL (0.2-1.3)
--- NOTE | 2024-10-13 04:25 | XR ---
EXAM: XR Chest, 2 Views CLINICAL HISTORY: ITS.REASON XR Reason: cough TECHNIQUE: Frontal and lateral views of the chest. COMPARISON: No relevant prior studies available. FINDINGS: Lungs: Unremarkable. No consolidation. Pleural space: Unremarkable. No pneumothorax. Heart: Cardiomegaly. Mediastinum: Unremarkable. Bones/joints: Unremarkable. IMPRESSION: No consolidation.
[2024-10-13 04:39] LABS: NT-Pro-B-Type Natriuretic Pept 122000 pg/mL
--- NOTE | 2024-10-13 05:17 | ED ---
General Adult HPI - General Chief complaint: Upper Respiratory Infection Stated complaint: cough,body aches Time Seen by Provider: 10/13/24 01:52 Source: patient Mode of arrival: ambulatory Limitations: no limitations - History of Present Illness Initial comments: This patient is a 44-year-old man with history of kidney failure, who performs home dialysis. Presents to have evaluation for cough, congestion, sore throat going on 2 to 3 days now. Patient concerned because partner diagnosed with pneumonia. Patient denies chest pain, dyspnea, productive cough. No fever or chills. -: days(s) Severity scale (1-10): 0 Consistency: constant Improves with: none Worsens with: none Associated Symptoms: cough Treatments Prior to Arrival: none - Related Data Home Medications Medication Instructions Recorded Confirmed Folic Acid/Vit B Complex and C 0.8 mg PO DAILY 01/24/24 01/24/24 [Nephro-Do Tablet] Lanthanum Carbonate [Lanthanum 1,000 - 2,000 mg PO TID-W/MEALS 01/24/24 01/24/24 Carbonate Chewable] Sevelamer [Renvela] 2,400 mg PO TID-W/MEALS 01/24/24 01/24/24 Sevelamer [Renvela] 800 mg PO DAILY PRN 01/24/24 01/24/24 Testosterone Cypionate 200 mg IM Q7D 01/24/24 01/24/24 [Depo-Testosterone] amLODIPine [Norvasc] 10 mg PO DAILY 01/24/24 01/24/24 calcitrioL [Rocaltrol] 0.5 mcg PO Q7D 01/24/24 01/24/24 Previous Rx's Medication Instructions Recorded Acetaminophen Tab [Tylenol] 650 mg PO Q6HR PRN tab 01/26/24 Azithromycin [Zithromax] 500 mg PO DAILY #3 tab 01/26/24 Cefdinir [Omnicef] 300 mg PO Q12HR #10 capsule 01/26/24 carvediloL [Coreg] 3.125 mg PO BID-W/MEALS #60 tab 01/26/24 Cyclobenzaprine [Flexeril] 10 mg PO TID PRN #15 tab 08/25/24 HYDROcodone/APAP 5-325MG [[place] 1 tab PO Q6HR PRN 3 Days #12 tab 08/28/24 5-325] methocarbamoL [Robaxin] 1,000 mg PO QID PRN 5 Days #40 tab 08/28/24 Allergies Allergy/AdvReac Type Severity Reaction Status Date / Time sulfamethoxazole Allergy Rash/Hives Verified 10/13/24 01:49 [From Bactrim] trimethoprim [From Bactrim] Allergy Rash/Hives Verified 10/13/24 01:49 Review of Systems ROS Statement: Those systems with pertinent positive or pertinent negative responses have been documented in the HPI. ROS Other: All systems not noted in ROS Statement are negative. Constitutional: Denies: fever, chills, weakness ENT: Reports: throat pain, congestion Respiratory: Reports: cough. Denies: dyspnea, wheezes, hemoptysis Cardiovascular: Denies: chest pain, palpitations, orthopnea, edema, syncope Gastrointestinal: Denies: abdominal pain, nausea, vomiting Genitourinary: Denies: dysuria, hematuria Musculoskeletal: Denies: back pain Skin: Denies: rash Neurological: Denies: headache, weakness, numbness Past Medical History Past Medical History: Dialysis, Hypertension, Renal Disease Additional Past Medical History / Comment(s): Diaylsis since may 18 2021, right chest port since 2020, Kidney Failure since May 2021 r/t htn and pre- work out drinks History of Any Multi-Drug Resistant Organisms: None Reported Past Surgical History: Appendectomy, Orthopedic Surgery Additional Past Surgical History / Comment(s): Hemodiaylsis catheter in Friday of 2020, broken jaw repair Past Anesthesia/Blood Transfusion Reactions: No Reported Reaction Past Psychological History: No Psychological Hx Reported Smoking Status: Never smoker Past Alcohol Use History: None Reported Past Drug Use History: None Reported - Past Family History Mother Brother(s) Family Medical History: Hyperlipidemia General Exam Limitations: no limitations General appearance: alert, in no apparent distress Head exam: Present: atraumatic, normocephalic Eye exam: Present: normal appearance. Absent: scleral icterus, conjunctival injection ENT exam: Present: normal oropharynx Neck exam: Present: normal inspection Respiratory exam: Present: normal lung sounds bilaterally. Absent: respiratory distress, wheezes, rales, rhonchi, stridor, accessory muscle use Cardiovascular Exam: Present: regular rate, normal rhythm, normal heart sounds. Absent: systolic murmur, diastolic murmur, rubs, gallop GI/Abdominal exam: Present: soft. Absent: distended, tenderness, guarding, rebound, rigid, mass Extremities exam: Present: normal inspection, normal capillary refill. Absent: pedal edema, calf tenderness Back exam: Present: normal inspection. Absent: CVA tenderness (R), CVA tenderness (L) Neurological exam: Present: alert Skin exam: Present: warm, dry, intact, normal color. Absent: rash Course Vital Signs 10/13/24 10/13/24 10/13/24 01:46 04:15 05:28 Temperature 98.1 F 98.0 F Pulse Rate 101 H 97 97 Respiratory 20 19 18 Rate Blood Pressure 166/113 142/91 138/91 O2 Sat by Pulse 98 97 97 Oximetry 10/13/24 06:48 Temperature 98.8 F Pulse Rate 100 Respiratory 20 Rate Blood Pressure 153/91 O2 Sat by Pulse 97 Oximetry Medical Decision Making - Medical Decision Making Patient is 44-year-old man with history of end-stage renal disease presenting that evaluation for concerns about possible pneumonia given recent exposure. The patient's workup includes viral panel that was negative and chest x-ray which I interpreted as negative for acute infiltrate, pneumothorax, congestive heart failure. Discussed results with patient who would like to go home. Patient counseled about blood pressure, states he will take his medications and also dialysis usually helps with his pressure. Discussed return parameters Was pt. sent in by a medical professional or institution ([facility], [employer] WELDER, urgent care, hospital, or group home...) When possible be specific @ -[No] Did you speak to anyone other than the patient for history (EMS, parent, family, police, friend...)? What history was obtained from this source @ -[No] Did you review nursing and triage notes (agree or disagree)? Why? @ -[I reviewed and agree with nursing and triage notes] Were old charts reviewed (outside hosp., previous admission, EMS record, old EKG, old radiological studies, urgent care reports/EKG's, group home records)? Report findings @ -[No old charts were reviewed] Differential Diagnosis (chest pain, altered mental status, abdominal pain women, abdominal pain men, vaginal bleeding, weakness, fever, dyspnea, syncope, headache, dizziness, GI bleed, back pain, seizure, CVA, palpatations, mental health, musculoskeletal)? @ -[Differential cough: Coronary syndrome, arrhythmia, tamponade, asthma, COPD, pulmonary embolism, pneumonia, pneumothorax, pulmonary effusion, anaphylaxis, diabetic ketoacidosis, this is not meant to be an all-inclusive list. EKG interpreted by me (3pts min.). @ -[ X-rays interpreted by me (1pt min.). @ -[I interpreted as above CT interpreted by me (1pt min.). @ -[None done] U/S interpreted by me (1pt. min.). @ -[None done] What testing was considered but not performed or refused? (CT, X-rays, U/S, labs)? Why? @ -[None] What meds were considered but not given or refused? Why? @ -[None] Did you discuss the management of the patient with other professionals (rubio miller i.e. , PA, [employer] WELDER, lab, RT, psych nurse, manager social responsibility, bellman driver, teacher, logistics officer, window caser)? Give summary @ -[No] Was smoking cessation discussed for >3mins.? @ -[No] Was critical care preformed (if so, how long)? @ -[No] Were there social determinants of health that impacted care today? How? (Homelessness, low income, unemployed, alcoholism, drug addiction, transportation, low edu. Level, literacy, decrease access to med. care, correction, rehab)? @ -[No] Was there de-escalation of care discussed even if they declined (Discuss DNR or withdrawal of care, Hospice)? DNR status @ -[No] What co-morbidities impacted this encounter? (DM, HTN, Smoking, COPD, CAD, Cancer, CVA, ARF, Chemo, Hep., AIDS, mental health diagnosis, sleep apnea, morbid obesity)? @ -[Hypertension, end-stage renal disease Was patient admitted / discharged? Hospital course, mention meds given and route, prescriptions, significant lab abnormalities, going to OR and other pertinent info. @ -[See above Undiagnosed new problem with uncertain prognosis? @ -[No] Drug Therapy requiring intensive monitoring for toxicity (Heparin, Nitro, Insulin, Cardizem)? @ -[No] Were any procedures done? @ -[No] Diagnosis/symptom? @ -Viral upper respiratory infection Hypertension, chronic End-stage renal disease, chronic Acute, or Chronic, or Acute on Chronic? @ -[default] Uncomplicated (without systemic symptoms) or Complicated (systemic symptoms)? @ -[Uncomplicated Side effects of treatment? @ -[No] Exacerbation, Progression, or Severe Exacerbation? @ -[No] Poses a threat to life or bodily function? How? (Chest pain, [place], [place], pneumonia, PE, COPD, DKA, ARF, appy, cholecystitis, CVA, Diverticulitis, Homicidal, Suicidal, threat to staff... and all critical care pts) @ -[No] All treatments are based on ideal body weight as in ED triage - Lab Data Result diagrams: 10/13/24 03:10/13/24 03: Lab Results 10/13/24 10/13/24 10/13/24 Range/Units 02:09 03:27 03:27 WBC 10.1 (3.8-10.6) k/uL RBC 4.95 (4.30-5.90) m/uL Hgb 14.2 (13.0-17.5) gm/dL Hct 46.1 (39.0-53.0) % MCV 93.0 (80.0-100.0) fL MCH 28.7 (25.0-35.0) pg MCHC 30.9 L (31.0-37.0) g/dL RDW 18.3 H (11.5-15.5) % Plt Count 172 (150-450) k/uL MPV 7.9 Neutrophils % 82 % Lymphocytes % 9 % Monocytes % 3 % Eosinophils % 4 % Basophils % 1 % Neutrophils # 8.2 H (1.3-7.7) k/uL Lymphocytes # 0.9 L (1.0-4.8) k/uL Monocytes # 0.3 (0-1.0) k/uL Eosinophils # 0.4 (0-0.7) k/uL Basophils # 0.1 (0-0.2) k/uL Anisocytosis Slight Sodium 132 L (137-145) mmol/L Potassium 5.5 H (3.5-5.1) mmol/L Chloride 90 L (98-107) mmol/L Carbon Dioxide 24 (22-30) mmol/L Anion Gap 18 mmol/L BUN 73 H (9-20) mg/dL Creatinine 14.73 H* (0.66-1.25) mg/dL Est GFR (CKD-EPI)AfAm 4 (>60 ml/min/1.73 sqM) Est GFR (CKD-EPI)NonAf 4 (>60 ml/min/1.73 sqM) Glucose 83 (74-99) mg/dL Calcium 9.2 (8.4-10.2) mg/dL Total Bilirubin 1.1 (0.2-1.3) mg/dL AST 20 (17-59) U/L ALT 24 (4-49) U/L Alkaline Phosphatase 85 (38-126) U/L NT-Pro-B Natriuret Pep [id number] pg/mL Total Protein 7.0 (6.3-8.2) g/dL Albumin 4.4 (3.5-5.0) g/dL Influenza Type A (PCR) Not Detected (Not Detectd) Influenza Type B (PCR) Not Detected (Not Detectd) RSV (PCR) Not Detected (Not Detectd) SARS-CoV-2 (PCR) Not Detected (Not Detectd) Disposition Clinical Impression: Hypertension Disposition: HOME SELF-CARE Condition: Good Instructions (If sedation given, give patient instructions): Hypertension (ED) Is patient prescribed a controlled substance at d/c from ED?: No Referrals: Nonstaff,Physician [Primary Care Provider] - 1-2 days
[2024-10-13] MEDS: NITROGLYCERIN EXTENDED RELEASE 6.5 MG CAPSULE.ER PO STA (05:35)
[2024-10-13 06:49] VITALS: BP 153/91; PULSE 100; RESP 20; TEMP 98.8
== END 2024-10-13 06:49 | disposition home or self-care (01) ==
LOC: EC 01:45
DX: I10 Essential (primary) hypertension (principal); J06.9 Acute upper respiratory infection, unspecified; Z99.2 Dependence on renal dialysis; Z88.2 Allergy status to sulfonamides
CPT/HCPCS: 36415; 71046; 80053; 83880; 85025; 87636; 99283

== ENCOUNTER 2025-03-09 16:00 | Inpatient (IN) | payer MEDICARE, BC ==
--- NOTE | 2025-03-09 16:10 | ED ---
Chest Pain HPI - General Chief Complaint: Chest Pain Stated Complaint: Chest Pain Time Seen by Provider: 03/09/25 16:07 Source: EMS, RN notes reviewed, old records reviewed Mode of arrival: EMS Limitations: no limitations - History of Present Illness Initial Comments: This is a 44-year-old male to the ER for evaluation is presented today for evaluation in regards to chest patient has severely elevated blood pressure here in the ER significant chest pain for about 2 days some shortness of breath difficult to control blood pressure at home. Patient has felt chills like he may have had a fever but without cough or congestion. Patient has a long history of uncontrolled hypertension is a dialysis patient and renal failure was strong history of substance abuse MD Complaint: chest pain -: days(s) Onset: during rest, during exertion Pain Location: substernal Pain Radiation: none Severity: moderate Severity scale (1-10): 4 Quality: tightness, heaviness Consistency: intermittent Improves With: nothing Worsens With: exertion Anginal Symptoms: sense of impending doom Other Symptoms: palpitations Treatments Prior to Arrival: none - Related Data Home Medications Medication Instructions Recorded Confirmed Sevelamer [Renvela] 2,400 - 4,800 mg PO TID-W/MEALS 01/24/24 03/09/25 Testosterone Cypionate 200 mg IM ROSS 01/24/24 03/09/25 [Depo-Testosterone] calcitrioL [Rocaltrol] 0.5 mcg PO TH 01/24/24 03/09/25 Cinacalcet HCl [Sensipar] 60 mg PO MOTUWETHFR 03/09/25 03/09/25 Sildenafil Citrate 100 mg PO DAILY PRN 03/09/25 03/09/25 carvediloL [Coreg] 25 mg PO BID 03/10/25 03/10/25 Previous Rx's Medication Instructions Recorded Amoxic-Pot Clav 875-125Mg 1 tab PO Q12HR 5 Days #10 tab 03/11/25 [Augmentin 875-125] Isosorbide Dinitrate [Isordil] 10 mg PO TID #90 tab 03/11/25 hydrALAZINE HCL [Apresoline] 25 mg PO TID #90 tab 03/11/25 Allergies Allergy/AdvReac Type Severity Reaction Status Date / Time sulfamethoxazole Allergy Rash/Hives Verified 03/09/25 21:13 [From Bactrim] trimethoprim [From Bactrim] Allergy Rash/Hives Verified 03/09/25 21:13 Review of Systems ROS Statement: Those systems with pertinent positive or pertinent negative responses have been documented in the HPI. ROS Other: All systems not noted in ROS Statement are negative. EKG Findings - EKG Comments: EKG Findings:: EKG sinus tachycardia 111 IN 148 QRS 113 QTc 398 - EKG Results: EKG: interpreted by MARIE Past Medical History Past Medical History: Dialysis, Hypertension, Renal Disease Additional Past Medical History / Comment(s): Diaylsis since may 18 2021, right chest port since 2020, Kidney Failure since May 2021 r/t htn and pre- work out drinks History of Any Multi-Drug Resistant Organisms: None Reported Past Surgical History: Appendectomy, Orthopedic Surgery Additional Past Surgical History / Comment(s): Hemodiaylsis catheter in Friday2020, broken jaw repair Past Anesthesia/Blood Transfusion Reactions: No Reported Reaction Past Psychological History: No Psychological Hx Reported Smoking Status: Never smoker Past Alcohol Use History: None Reported Past Drug Use History: None Reported - Past Family History Mother Brother(s) Family Medical History: Hyperlipidemia General Exam General appearance: alert, in no apparent distress Head exam: Present: atraumatic, normocephalic, normal inspection Eye exam: Present: normal appearance, PERRL, EOMI. Absent: scleral icterus, conjunctival injection, periorbital swelling ENT exam: Present: normal exam, mucous membranes moist Neck exam: Present: normal inspection. Absent: tenderness, meningismus, lymphadenopathy Respiratory exam: Present: normal lung sounds bilaterally. Absent: respiratory distress, wheezes, rales, rhonchi, stridor Cardiovascular Exam: Present: regular rate, normal rhythm, normal heart sounds. Absent: systolic murmur, diastolic murmur, rubs, gallop, clicks GI/Abdominal exam: Present: soft, normal bowel sounds. Absent: distended, tenderness, guarding, rebound, rigid Extremities exam: Present: normal inspection, full ROM, normal capillary refill. Absent: tenderness, pedal edema, joint swelling, calf tenderness Back exam: Present: normal inspection Neurological exam: Present: alert, oriented X3, CN II-XII intact Psychiatric exam: Present: normal affect, normal mood Skin exam: Present: warm, dry, intact, normal color. Absent: rash Course Vital Signs 03/09/25 03/09/25 03/09/25 16:02 17:15 17:19 Temperature 99 F 100.6 F H Pulse Rate 109 H 115 H Respiratory 24 16 Rate Blood Pressure 171/91 162/88 O2 Sat by Pulse 95 97 Oximetry 03/09/25 03/09/25 03/09/25 18:22 20:00 21:47 Temperature 98.5 F Pulse Rate 109 H 108 H 98 Respiratory 18 18 16 Rate Blood Pressure 172/91 167/97 144/94 O2 Sat by Pulse 95 97 97 Oximetry 03/09/25 23:36 Temperature 98.3 F Pulse Rate 101 H Respiratory 18 Rate Blood Pressure 150/94 O2 Sat by Pulse 97 Oximetry - Reevaluation(s) Reevaluation #1: 03/09/25 16:29 Medical records reviewed Reevaluation #2: 03/09/25 18:01 Patient still with chest pain here in the ER blood pressure improved Reevaluation #3: 03/09/25 18:01 Patient informed of results and questions answered Reevaluation #4: Was pt. sent in by a medical professional or institution (, PA, [employer], urgent ca re, hospital, or prison...) When possible be specific @ -no Did you speak to anyone other than the patient for history (EMS, parent, family, police, friend...)? What history was obtained from this source @ -no Did you review nursing and triage notes (agree or disagree)? Why? @ -agree Are old charts reviewed (outside hosp., previous admission, EMS record, old EKG, old radiological studies, urgent care reports/EKG's, prison records)? Report findings @ -yes Differential Diagnosis (chest pain, altered mental status, abdominal pain women, abdominal pain men, vaginal bleeding, weakness, fever, dyspnea, syncope, headache, dizziness, GI bleed, back pain, seizure, CVA, palpatations, mental health, musculoskeletal)? @ -prior EKG interpreted by me (3pts min.). @ -yes X-rays interpreted by me (1pt min.). @ -yes negative for acute disease CT interpreted by me (1pt min.). @ -no U/S interpreted by me (1pt. min.). @ -no What testing was considered but not performed or refused? (CT, X-rays, U/S, labs)? Why? @ -none What meds were considered but not given or refused? Why? @ -none Did you discuss the management of the patient with other professionals (professionals i.e. , PA, [employer], lab, RT, psych nurse, social security specialist, cafeteria table attendant, teacher, evp chief exploration officer, case loader operator)? Give summary @ -no Was smoking cessation discussed for >3mins.? @ -no Was critical care preformed (if so, how long)? @ -yes31 Were there social determinants of health that impacted care today? How? (Homelessness, low income, unemployed, alcoholism, drug addiction, transportation, low edu. Level, literacy, decrease access to med. care, m[facility], rehab)? @ -none Was there de-escalation of care discussed even if they declined (Discuss DNR or withdrawal of care, Hospice)? DNR status @ -no What co-morbidities impacted this encounter? (DM, HTN, Smoking, COPD, CAD, Cancer, CVA, ARF, Chemo, Hep., AIDS, mental health diagnosis, sleep apnea, morbid obesity)? @ -none Was patient admitted / discharged? Hospital course, mention meds given and route, prescriptions, significant lab abnormalities, going to OR and other pertinent info. @ - 44 male to the ER for evaluation of chest pain elevated troponin here in the ER also found to have fever no cause of fever found here in the ER patient will be admitted for non-ST elevated FL we will evaluate patient for VQ scan in the morning as well elevated D-dimer blood pressure is improved here in the ER chest pain is improved Admitted chest pain non-STEMI Undiagnosed new problem with uncertain prognosis? @ -no Drug Therapy requiring intensive monitoring for toxicity (Heparin, Nitro, Insulin, Cardizem)? @ -no Were any procedures done? @ -no Diagnosis/symptom? @ - Acute, or Chronic, or Acute on Chronic? @ -Acute Uncomplicated (without systemic symptoms) or Complicated (systemic symptoms)? @ -Complicated Side effects of treatment? @ -no Exacerbation, Progression, or Severe Exacerbation? @ -exacerbation Poses a threat to life or bodily function? How? (Chest pain, USA, FL, pneumonia, PE, COPD, DKA, ARF, appy, cholecystitis, CVA, Diverticulitis, Homicidal, Suicidal, threat to staff... and all critical care pts) @ -yes with chest pain Reevaluation #5: Differential Chest Pain: Stable Angina, Unstable Angina, STEMI, NSTEMI Aortic Dissection, Pneumothorax, Musculoskeletal, Esophageal Spasm GERD, Cholecystitis, Pancreatitis, Zoster, this is not meant to be an all-inclusive list. - Consultations Consultation #1: Spoke with sound who agrees to admit this patient Chest Pain MDM - MDM 44 male to the ER for evaluation of chest pain elevated troponin here in the ER also found to have fever no cause of fever found here in the ER patient will be admitted for non-ST elevated FL we will evaluate patient for VQ scan in the morning as well elevated D-dimer blood pressure is improved here in the ER chest pain is improved Critical Care Time Critical Care Time: Yes Total Critical Care Time: 31 Disposition Clinical Impression: Chest pain, Atypical chest pain, Fever, Hypertension, Dialysis patient, Acute non-ST elevation myocardial infarction (NSTEMI), Pneumonia, ESRD (end stage renal disease) on dialysis Disposition: ADMITTED IP TO THIS HOSP Condition: Stable Is patient prescribed a controlled substance at d/c from ED?: No Time of Disposition: 18:00
[2025-03-09 16:28] LABS: Basophils # (A) 0.10 10*3/uL (0.00-0.10); Basophils % (A) 1.1 %; Eosinophils # (A) 0.29 10*3/uL (0.04-0.35); Eosinophils % (A) 3.1 %; HCT 41.9 % (39.6-50.0); HGB 13.6 g/dL (13.0-17.0); Lymphocytes # (A) 0.38 10*3/uL (0.90-5.00); Lymphocytes % (A) 4.0 %; MCH 26.7 pg (27.0-32.0); MCHC 32.5 g/dL (32.0-37.0); MCV 82.2 fL (80.0-97.0); Monocytes # (A) 0.71 10*3/uL (0.20-1.00); Monocytes % (A) 7.5 %; Neutrophils # (A) 7.95 10*3/uL (1.80-7.70); Neutrophils % (A) 84.0 %; Platelet Count 273 10*3/uL (140-440); RBC 5.10 10*6/uL (4.40-5.60); RDW 16.1 % (11.5-14.5); WBC 9.46 10*3/uL (4.50-10.00)
[2025-03-09 16:38] LABS: ALT 17 U/L (4-49); AST 24 U/L (17-59); African American GFR (CKD) 5 (>60 ml/min/1.73 sqM); Albumin 4.8 g/dL (3.5-5.0); Alkaline Phosphatase 75 U/L (38-126); Anion Gap 17 mmol/L; Blood Urea Nitrogen 53 mg/dL (9-20); Calcium 9.6 mg/dL (8.4-10.2); Carbon Dioxide 24 mmol/L (22-30); Chloride 92 mmol/L (98-107); Glucose 101 mg/dL (74-99); Lipase 167 U/L (23-300); Magnesium 2.3 mg/dL (1.6-2.3); Non-African American GFR(CKD) 5 (>60 ml/min/1.73 sqM); Sodium 133 mmol/L (137-145); Total Protein 8.0 g/dL (6.3-8.2)
[2025-03-09 16:41] LABS: Potassium 4.8 mmol/L (3.5-5.1)
[2025-03-09 16:44] LABS: INR 1.2 (<1.2); Partial Thromboplastin Time 24.7 sec (22.0-30.0); Prothrombin Time 12.7 sec (10.0-12.5)
--- NOTE | 2025-03-09 17:02 | XR ---
EXAMINATION TYPE: XR chest 2V DATE OF EXAM: 03/09/2025 4:56 PM COMPARISON: Chest radiographs from and 24 TECHNIQUE: XR chest 2V Frontal and lateral views of the chest. CLINICAL INDICATION:Male, 44 years old with history of Chest Pain; FINDINGS: Lungs/Pleura: No pneumothorax or pleural effusion. Patchy left upper lung airspace opacities. Pulmonary vascularity: Unremarkable. Heart/mediastinum: Cardiomediastinal silhouette is enlarged and stable. Musculoskeletal: No acute osseous pathology. IMPRESSION: Patchy left upper lung airspace opacities concerning for pneumonia. [facility], , 03/09/2025 5:00 PM
[2025-03-09 17:03] LABS: NT-Pro-B-Type Natriuretic Pept 105000 pg/mL
[2025-03-09] MEDS: HYDROmorphone 1 MG/ML 1 ML SYRINGE IVP STA (17:16)
[2025-03-09] MEDS ORDERED: NITROGLYCERIN SL TABS 0.4 MG TAB SUBLINGUAL PRN (17:55)
[2025-03-09] MEDS: ASPIRIN 81 MG PO STA (18:13)
[2025-03-09] MEDS: ATORVASTATIN 80 MG TAB PO SCH (18:13)
[2025-03-09] MEDS: cloNIDine 0.1 MG/24HR PATCH TRANSDERM STA (18:15)
[2025-03-09] MEDS: HEPARIN SODIUM 1,000 UN/ML (10ML VL) IV ONE (18:16)
[2025-03-09] MEDS: HEPARIN SOD,PORK IN 0.45% NACL 25,000 UNIT in 0.45% NACL 1 250ML.BAG IV SCH (18:20)
[2025-03-09] MEDS ORDERED: PNEUMONIA PROTOCOL UTILIZED 1 EACH MISC PO PRN (18:21)
[2025-03-09] MEDS ORDERED: IPRATROPIUM-ALBUTEROL 3 ML NEB INHALATION PRN (18:21)
[2025-03-09] MEDS: ACETAMINOPHEN IV (For NPO) 1,000 MG in EMPTY BAG 1 BAG IVPB STA (18:38)
[2025-03-09] MEDS: AZITHROMYCIN 500 MG in SODIUM CHLORIDE 0.9% 250 ML IVPB STA (20:12)
[2025-03-09] MEDS: MORPHINE SULFATE 4 MG/ML SYRINGE IV PRN (21:07)
[2025-03-09] MEDS: LABETALOL 5 MG/ML VIAL MDV IVP STA (23:25)
--- NOTE | 2025-03-09 23:37 | P.HPIM ---
History of Present Illness H&P Date: 03/09/25 Chief Complaint: Chest pain and Shortness of breath Patient is a 44-year-old male with past medical history of ESRD on dialysis, hypertension, testosterone use comes into the ED today for chest pain and shortness of breath. Patient stated that he had intermittent shortness of breath starting on Friday, which he thought retaliated to his fluid overload since he is on dialysis. Patient stated normally he gets fatigued and short of breath with exertion, but on Friday he was feverish and feeling cold. He also stated having bodyaches and feeling weak, but denied having chest pain. Patient is on home dialysis 6 days a week. He had dialysis today from 11 AM to 2:30 PM. He stated that he is only on blood pressure meds at home and his testosterone supplement. In the ED, his temperature was 100.6 F and he was tachycardic with HR 115. At bedside, patient stated a brief episode of mild chest pain for 5 minutes that subsided on its own. He denied abdominal pain headache, change in vision, numbness or tingling, neck swelling. Imaging Chest x-ray 03/09 Patchy left upper lung airspace opacities concerning for pneumonia. Labs WBC 9.46, Hgb 13.6, HCT 41.9, plt count 273 Na 133, K4.8, BUN 53, CR 11.71, GFR 5 Troponin 0.138, 0.154 Vitals T100.6 F, HR 115, RR 16, BP 162/88, O2 sat 97% on RA ED documentation reviewed. Review of systems: Pertinent positives and negatives as discussed in HPI, a complete review of systems was performed and all other systems are negative. Physical examination: Vital signs reviewed General Appearance: non toxic, no distress, alert and oriented x 3 Head: atraumatic, normocephalic Eyes: EOMI, anicteric sclera, pupils equal round reactive to light. ENT: Nose and ears atraumatic Neck: supple Mouth: no lip lesion, mucus membranes moist Cardiovascular: S1S2 reg, no murmur, no edema Lungs: Labored shallow breathing, no rhonchi, no rales, no accessory muscle use Abdominal: Firm, nontender to palpation, nondistended no guarding Ext: muscle strength 5 out of 5 in all 4 extremities grossly, no gross muscle atrophy, no deformity, tenderness. Derm: no unusual rashes/lesions, warm. Dialysis fistula on right forearm Neuro: Motor and sensory function normal, no focal neuro deficits Psych: Mood and affect appropriate Assessment/Plan: #. Acute pneumonia of left upper lung -Patchy airspace opacities in left upper lung on CXR -Continue IV ceftriaxone and azithromycin -Order DuoNeb inhalation PRN - Follow up on Echo to rule out CHF #. ESRD on home dialysis - Consult nephrology - Monitor electrolyte levels # Primary hypertension - Resume amlodipine 10 mg DVT prophylaxis: Heparin 4000 units IV The patient is admitted with an anticipated venous than 2 midnight stay for evaluation of shortness of breath CODE STATUS: Full code Discussed with: Dr. Gooden Anticipated discharge place: Home Luis Feliciano MD PGY-1 IM Dictation was produced using [employer] dictation software. please excuse any grammatical, word or spelling errors. I have seen and evaluated the patient today. I Discussed the case with the resident and agree with the resident's findings I edited the assessment and plan as necessary as documented in the resident's note. Past Medical History Past Medical History: Dialysis, Hypertension, Renal Disease Additional Past Medical History / Comment(s): Diaylsis since may 18 2021, right chest port since 2020, Kidney Failure since May 2021 r/t htn and pre- work out drinks History of Any Multi-Drug Resistant Organisms: None Reported Past Surgical History: Appendectomy, Orthopedic Surgery Additional Past Surgical History / Comment(s): Hemodiaylsis catheter in of 2020, broken jaw repair Past Anesthesia/Blood Transfusion Reactions: No Reported Reaction Past Psychological History: No Psychological Hx Reported Smoking Status: Never smoker Past Alcohol Use History: None Reported Past Drug Use History: None Reported - Past Family History Mother Brother(s) Family Medical History: Hyperlipidemia Medications and Allergies Home Medications Medication Instructions Recorded Confirmed Type Sevelamer [Renvela] 2,400 - 4,800 mg PO TID-W/MEALS 01/24/24 03/09/25 History Testosterone Cypionate 200 mg IM ROSS 01/24/24 03/09/25 History [Depo-Testosterone] amLODIPine [Norvasc] 10 mg PO DAILY 01/24/24 03/09/25 History calcitrioL [Rocaltrol] 0.5 mcg PO TH 01/24/24 03/09/25 History Cinacalcet HCl [Sensipar] 60 mg PO MOTUWETHFR 03/09/25 03/09/25 History Coreg(Unknown Dose) 1 tab PO BID 03/09/25 03/09/25 History Sildenafil Citrate 100 mg PO DAILY PRN 03/09/25 03/09/25 History Allergies Allergy/AdvReac Type Severity Reaction Status Date / Time sulfamethoxazole Allergy Rash/Hives Verified 03/09/25 21:13 [From Bactrim] trimethoprim [From Bactrim] Allergy Rash/Hives Verified 03/09/25 21:13 Physical Exam Vitals: Vital Signs Temp Pulse Resp BP Pulse Ox 03/09/25 21:47 98 16 144/94 97 03/09/25 20:00 98.5 F 108 H 18 167/97 97 03/09/25 18:22 109 H 18 172/91 95 03/09/25 17:19 100.6 F H 03/09/25 17:15 115 H 16 162/88 97 03/09/25 16:02 99 F 109 H 24 171/91 95 Intake and Output 03/09/25 03/09/25 03/10/25 14:59 22:59 06:59 Other: Weight 90.265 kg Results CBC & Chem 7: 03/09/25 16:16 03/09/25 16:16 Labs: Abnormal Lab Results - Last 24 Hours (Table) 03/09/25 03/09/25 03/09/25 Range/Units 16:16 16:16 16:16 MCH 26.7 L (27.0-32.0) pg Neutrophils # 7.95 H (1.80-7.70) 10*3/uL Lymphocytes # 0.38 L (0.90-5.00) 10*3/uL PT 12.7 H (10.0-12.5) sec INR 1.2 H (<1.2) D-Dimer 0.61 H (<0.60) mg/L FEU Sodium 133 L (137-145) mmol/L Chloride 92 L (98-107) mmol/L BUN 53 H (9-20) mg/dL Creatinine 11.71 H* (0.66-1.25) mg/dL Glucose 101 H (74-99) mg/dL Troponin I (0.000-0.034) ng/mL 03/09/25 03/09/25 Range/Units 16:16 18:54 MCH (27.0-32.0) pg Neutrophils # (1.80-7.70) 10*3/uL Lymphocytes # (0.90-5.00) 10*3/uL PT (10.0-12.5) sec INR (<1.2) D-Dimer (<0.60) mg/L FEU Sodium (137-145) mmol/L Chloride (98-107) mmol/L BUN (9-20) mg/dL Creatinine (0.66-1.25) mg/dL Glucose (74-99) mg/dL Troponin I 0.138 H* 0.154 H* (0.000-0.034) ng/mL
[2025-03-10] MEDS: HEPARIN SODIUM 1,000 UN/ML (10ML VL) IV PRN (01:46)
[2025-03-10 02:36] LABS: RSV Not Detected (Not Detectd)
[2025-03-10] MEDS: ACETAMINOPHEN TAB 325 MG TAB PO PRN (05:57)
--- NOTE | 2025-03-10 07:50 | XR ---
EXAMINATION TYPE: XR chest 2V DATE OF EXAM: 03/10/2025 7:22 AM COMPARISON: 03/09/2025 CLINICAL INDICATION: Male, 44 years old with history of pneumonia, TECHNIQUE: XR chest 2V view(s) obtained. FINDINGS: The heart size is prominent. The pulmonary vasculature is prominent. There is a left upper lobe opacification periphery. Correlate for pneumonia. Underlying mass should b e considered. Clinical correlation Follow-up is recommended. IMPRESSION: 1. Left upper lobe opacity. Pneumonia should be considered. This should be followed to [facility], , 03/10/2025 7:47 AM
[2025-03-10] MEDS ORDERED: NITROGLYCERIN SL TABS 0.4 MG TAB SUBLINGUAL PRN (08:37)
[2025-03-10] MEDS ORDERED: ALPRAZolam 0.5 MG TAB PO PRN (08:37)
[2025-03-10] MEDS ORDERED: ASPIRIN 325 MG TAB PO SCH (09:00)
[2025-03-10] MEDS: ASPIRIN 325 MG TAB PO STA (09:09)
[2025-03-10] MEDS: ATORVASTATIN 80 MG TAB PO STA (09:09)
[2025-03-10] MEDS: ASPIRIN 81 MG PO SCH (09:10)
[2025-03-10] MEDS: amLODIPine 10 MG TAB PO SCH (09:11)
[2025-03-10] MEDS: SODIUM CHLORIDE 0.9% 1,000 ML in EMPTY BAG 1 BAG IV SCH (10:14)
[2025-03-10] MEDS: ALPRAZolam 0.25 MG TAB PO PRN (10:27)
--- NOTE | 2025-03-10 11:00 | P.CRDCN ---
History of Present Illness History of present illness: HISTORY OF PRESENT ILLNESS: This is a 44-year-old male with a past medical history significant for hypertension and end-stage renal disease on hemodialysis. 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 We have been asked to see the patient in consultation for non-STEMI. Patient examined at the bedside. Patient states over the past few days he has been feeling unwell and has been having nausea fever of 102 to 103 F. Patient states yesterday he was doing hemodialysis at home when he began to have chest discomfort towards the end of his treatment. He states that it felt like a hard hitting in his chest. He states it would last for a couple minutes and then go away. He states this continued on and off for a while. He also reports that he felt like his heart was racing and felt like it was beating weird. He came to the hospital for further evaluation. Patient has had no further episodes of chest pain or palpitations since being in the hospital. He states he has had renal failure since 2020 and does complete hemodialysis at home. He denies any known history of diabetes or hyperlipidemia. He denies any smoking, drug use including marijuana, or alcohol use. He is currently on IV heparin for elevated troponins. DIAGNOSTICS: - EKG reveals sinus mechanism with incomplete right bundle branch block. LVH. - Chest xray patchy left upper lung airspace opacities concerning for pneumonia. - Laboratory data: WBC 9.46. Hemoglobin 13.6. Platelet count 273. D-dimer 0 .61. Sodium 133. Potassium 4.8. BUN 53. Creatinine 11.71. proBNP 105,000. Troponin 0.138. 0.154. 0.165. - Current home cardiac medications include amlodipine 10 mg daily and carvedilol 25 mg twice a day. - No previous echocardiogram available in EMR for review - Cardiac catheterization history: Patient denies REVIEW OF SYSTEMS: At the time of my exam: CONSTITUTIONAL: Denies fever or chills. HEENT: Denies blurred vision, vision changes, or eye pain. Denies hemoptysis CARDIOVASCULAR: Denies chest pain. Denies orthopnea. Denies PND. Denies palpitations RESPIRATORY: Denies shortness of breath. GASTROINTESTINAL: Denies abdominal pain. Denies nausea or vomiting. HEMATOLOGIC: Denies bleeding disorders. GENITOURINARY: Denies any blood in urine. SKIN: Denies pruitis. Denies rash. PHYSICAL EXAM: VITAL SIGNS: Reviewed. GENERAL: Well-developed in no acute distress. HEENT: Head is normocephalic. Pupils are equal, round. Sclerae anicteric. Mucous membranes of the mouth are moist. Neck supple. No JVD or thyromegaly LUNGS: Respirations even and unlabored. Lungs essentially clear to auscultation bilaterally. HEART: Regular rate and rhythm. S1 and S2 heard. ABDOMEN: Soft. Nondistended. Nontender. EXTREMITIES: Normal range of motion. No clubbing or cyanosis. Peripheral pulses intact. No lower extremity edema NEUROLOGIC: Awake and alert. Oriented x 3. ASSESSMENT: Fever at home, resolved Chest pain with elevated troponins, possible non-STEMI, versus elevated troponins due to poor renal clearance End-stage renal disease on hemodialysis Hypertension PLAN: Obtain 2D echo to assess cardiac structure and function Resume home cardiac medications including amlodipine and carvedilol Continue IV heparin Add aspirin and Lipitor Check lipid panel, hemoglobin A1c, and TSH Patient to undergo cardiac catheterization today with Dr. Singleton Further recommendations pending patient course Nurse practitioner note has been reviewed by physician. Signing provider agrees with the documented findings, assessment, and plan of care documented by RESAW TAILER as a scribe. Past Medical History Past Medical History: Dialysis, Hypertension, Renal Disease Additional Past Medical History / Comment(s): Diaylsis since may 18 2021, right chest port since 2020, Kidney Failure since May 2021 r/t htn and pre- work out drinks History of Any Multi-Drug Resistant Organisms: None Reported Past Surgical History: Appendectomy, Orthopedic Surgery Additional Past Surgical History / Comment(s): Hemodiaylsis catheter in Friday2020, broken jaw repair Past Anesthesia/Blood Transfusion Reactions: No Reported Reaction Past Psychological History: No Psychological Hx Reported Smoking Status: Never smoker Past Alcohol Use History: None Reported Past Drug Use History: None Reported - Past Family History Mother Brother(s) Family Medical History: Hyperlipidemia Medications and Allergies Home Medications Medication Instructions Recorded Confirmed Type Sevelamer [Renvela] 2,400 - 4,800 mg PO TID-W/MEALS 01/24/24 03/09/25 History Testosterone Cypionate 200 mg IM ROSS 01/24/24 03/09/25 History [Depo-Testosterone] amLODIPine [Norvasc] 10 mg PO DAILY 01/24/24 03/09/25 History calcitrioL [Rocaltrol] 0.5 mcg PO TH 01/24/24 03/09/25 History Cinacalcet HCl [Sensipar] 60 mg PO MOTUWETHFR 03/09/25 03/09/25 History Sildenafil Citrate 100 mg PO DAILY PRN 03/09/25 03/09/25 History carvediloL [Coreg] 25 mg PO BID 03/10/25 03/10/25 History Allergies Allergy/AdvReac Type Severity Reaction Status Date / Time sulfamethoxazole Allergy Rash/Hives Verified 03/09/25 21:13 [From Bactrim] trimethoprim [From Bactrim] Allergy Rash/Hives Verified 03/09/25 21:13 Physical Exam Vitals: Vital Signs Temp Pulse Pulse Resp BP BP Pulse Ox 03/10/25 03:55 99.5 F 109 H 23 163/75 99 03/10/25 02:15 99.7 F H 03/09/25 23:57 98.3 F 104 H 22 150/87 100 03/09/25 23:36 98.3 F 101 H 18 150/94 97 03/09/25 21:47 98 16 144/94 97 03/09/25 20:00 98.5 F 108 H 18 167/97 97 03/09/25 18:22 109 H 18 172/91 95 03/09/25 17:19 100.6 F H 03/09/25 17:15 115 H 16 162/88 97 03/09/25 16:02 99 F 109 H 24 171/91 95 Intake and Output 03/09/25 03/10/25 03/10/25 22:59 06:59 14:59 Intake Total 334.333 Balance 334.333 Intake: IV 20 Invasive Line 1 10 Invasive Line 2 10 Intake, IV Titration 74.333 Amount Heparin Sod,Pork in 0.45% 74.333 NaCl 25,000 unit In 0.45 % NaCl 1 250ml.bag @ 11. 078 UNITS/KG/HR 10 mls/hr IV .Q24H [facility] Rx#: [id number] Oral 240 Other: Voiding Method Toilet Weight 90.265 kg 87.8 kg Results 03/09/25 16:16 03/09/25 16:16 Cardiac Enzymes 03/09/25 03/09/25 03/09/25 Range/Units 16:16 16:16 18:54 AST 24 (17-59) U/L Troponin I 0.138 H* 0.154 H* (0.000-0.034) ng/mL 03/10/25 Range/Units 00:16 AST (17-59) U/L Troponin I 0.165 H* (0.000-0.034) ng/mL Coagulation 03/09/25 03/10/25 Range/Units 16:16 00:16 PT 12.7 H (10.0-12.5) sec APTT 24.7 25.3 (22.0-30.0) sec CBC 03/09/25 Range/Units 16:16 WBC 9.46 (4.50-10.00) 10*3/uL RBC 5.10 (4.40-5.60) 10*6/uL Hgb 13.6 (13.0-17.0) g/dL Hct 41.9 (39.6-50.0) % Plt Count 273 (140-440) 10*3/uL Comprehensive Metabolic Panel 03/09/25 Range/Units 16:16 Sodium 133 L (137-145) mmol/L Potassium 4.8 (3.5-5.1) mmol/L Chloride 92 L (98-107) mmol/L Carbon Dioxide 24 (22-30) mmol/L BUN 53 H (9-20) mg/dL Creatinine 11.71 H* (0.66-1.25) mg/dL Glucose 101 H (74-99) mg/dL Calcium 9.6 (8.4-10.2) mg/dL AST 24 (17-59) U/L ALT 17 (4-49) U/L Alkaline Phosphatase 75 (38-126) U/L Total Protein 8.0 (6.3-8.2) g/dL Albumin 4.8 (3.5-5.0) g/dL Current Medications Generic Name Dose Route Start Last Admin Trade Name Freq PRN Reason Stop Dose Admin Acetaminophen 650 mg 03/10/25 05:28 03/10/25 05:57 Acetaminophen Tab 325 Mg Tab PO 650 mg Q6HR PRN Administration Fever and/ or Pain Albuterol/Ipratropium 3 ml 03/09/25 18:21 Ipratropium-Albuterol 3 Ml Neb INHALATION RT-Q4H PRN shortness of breath Amlodipine Besylate 10 mg 03/10/25 09:00 Amlodipine 10 Mg Tab PO DAILY [facility] Aspirin 325 mg 03/10/25 09:00 Aspirin 325 Mg Tab PO DAILY [facility] Atorvastatin Calcium 80 mg 03/09/25 18:00 03/09/25 18:13 Atorvastatin 80 Mg Tab PO 80 mg DAILY [facility]UL[facility] Administration Heparin Sodium (Porcine) 0 unit 03/09/25 17:23 03/10/25 01:46 Heparin Sodium 1,000 Un/Ml (10ml Vl) IV 4,000 unit PER PROTOCOL PRN Administration Low PTT Protocol Heparin Sodium/Sodium Chloride 250 mls @ 10 mls/hr 03/09/25 17:30 03/10/25 01:46 25,000 unit/ Sodium Chloride IV 14.078 units/kg/hr .Q24H [facility] 12.708 mls/hr Titration Protocol 11.078 UNITS/KG/HR Ceftriaxone Sodium 2 gm/ 50 mls @ 100 mls/hr 03/10/25 09:00 Sodium Chloride IVPB 03/13/25 09:29 Q24HR [facility] Protocol Azithromycin 500 mg/ Sodium 250 mls @ 250 mls/hr 03/10/25 18:00 Chloride IVPB 03/11/25 18:59 DAILY@1800 [facility] Protocol Miscellaneous Information 1 each 03/09/25 18:21 Pneumonia Protocol Utilized 1 Each Misc PO ONCE PRN Per Protocol Morphine Sulfate 4 mg 03/09/25 17:55 03/10/25 00:41 Morphine Sulfate 4 Mg/Ml Syringe IV 4 mg Q4HR PRN Administration Chest Pain Nitroglycerin 0.4 mg 03/09/25 17:55 Nitroglycerin Sl Tabs 0.4 Mg Tab SUBLINGUAL Q5M PRN Chest Pain Intake and Output 03/09/25 03/10/25 03/10/25 22:59 06:59 14:59 Intake Total 334.333 Balance 334.333 Intake: IV 20 Invasive Line 1 10 Invasive Line 2 10 Intake, IV Titration 74.333 Amount Heparin Sod,Pork in 0.45% 74.333 NaCl 25,000 unit In 0.45 % NaCl 1 250ml.bag @ 11. 078 UNITS/KG/HR 10 mls/hr IV .Q24H [facility] Rx#: [id number] Oral 240 Other: Voiding Method Toilet Weight 90.265 kg 87.8 kg 03/09/25 16:16 03/09/25 16:16
--- NOTE | 2025-03-10 11:23 | P.NPCON ---
History of Present Illness - Reason for Consult end stage renal disease - History of Present Illness Patient is a 44-year-old male with end-stage renal disease maintained on home hemodialysis 6 days a week. He is admitted to the hospital with complaints of shortness of breath which progressively worsened over the last 2 days. Patient did increase his UF with hemodialysis to 3 L yesterday but this did not improve his shortness of breath. Noted to have fever of 100.6 F with heart rate of 115. Chest x-ray showed left lung infiltrates with concern for pneumonia. Patient is currently maintained on IV antibiotics. No complaints of nausea vomiting diarrhea Patient has been compliant with his hemodialysis treatments. Past Medical History Past Medical History: Dialysis, Hypertension, Renal Disease Additional Past Medical History / Comment(s): Diaylsis since may 18 2021, right chest port since 2020, Kidney Failure since May 2021 r/t htn and pre- work out drinks History of Any Multi-Drug Resistant Organisms: None Reported Past Surgical History: Appendectomy, Orthopedic Surgery Additional Past Surgical History / Comment(s): Hemodiaylsis catheter in Friday of 2020, broken jaw repair Past Anesthesia/Blood Transfusion Reactions: No Reported Reaction Past Psychological History: No Psychological Hx Reported Smoking Status: Never smoker Past Alcohol Use History: None Reported Past Drug Use History: None Reported - Past Family History Mother Brother(s) Family Medical History: Hyperlipidemia Medications and Allergies Home Medications Medication Instructions Recorded Confirmed Type Sevelamer [Renvela] 2,400 - 4,800 mg PO TID-W/MEALS 01/24/24 03/09/25 History Testosterone Cypionate 200 mg IM ROSS 01/24/24 03/09/25 History [Depo-Testosterone] amLODIPine [Norvasc] 10 mg PO DAILY 01/24/24 03/09/25 History calcitrioL [Rocaltrol] 0.5 mcg PO TH 01/24/24 03/09/25 History Cinacalcet HCl [Sensipar] 60 mg PO MOTUWETHFR 03/09/25 03/09/25 History Sildenafil Citrate 100 mg PO DAILY PRN 03/09/25 03/09/25 History carvediloL [Coreg] 25 mg PO BID 03/10/25 03/10/25 History Allergies Allergy/AdvReac Type Severity Reaction Status Date / Time sulfamethoxazole Allergy Rash/Hives Verified 07/23/25 21:13 [From Bactrim] trimethoprim [From Bactrim] Allergy Rash/Hives Verified 03/09/25 21:13 Physical Exam Vitals: Vital Signs Temp Pulse Pulse Resp BP BP Pulse Ox 03/10/25 08:00 98 F 98 22 148/103 99 03/10/25 03:55 99.5 F 109 H 23 163/75 99 03/10/25 02:15 99.7 F H 03/09/25 23:57 98.3 F 104 H 22 150/87 100 03/09/25 23:36 98.3 F 101 H 18 150/94 97 03/09/25 21:47 98 16 144/94 97 03/09/25 20:00 98.5 F 108 H 18 167/97 97 03/09/25 18:22 109 H 18 172/91 95 03/09/25 17:19 100.6 F H 03/09/25 17:15 115 H 16 162/88 97 03/09/25 16:02 99 F 109 H 24 171/91 95 Intake and Output 03/09/25 03/10/25 03/10/25 22:59 06:59 14:59 Intake Total 334.333 40 Balance 334.333 40 Intake: IV 20 40 Invasive Line 1 10 20 Invasive Line 2 10 20 Intake, IV Titration 74.333 Amount Heparin Sod,Pork in 0.45% 74.333 NaCl 25,000 unit In 0.45 % NaCl 1 250ml.bag @ 11. 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 End-stage renal disease on home hemodialysis 6 days a week via right arm AV fistula 2. Left lung pneumonia maintained on antibiotics 3. Hypertension with end-stage renal disease 4. CKD mineral bone disorder and secondary hyperparathyroidism, maintained on calcitriol and Sensipar 5. Elevated troponin being followed by cardiology, currently maintained on IV heparin Plan: Continue with antibiotics Continue Rocaltrol and Sensipar Hemodialysis in a.m.
[2025-03-10] MEDS: MIDAZOLAM 2 MG/2 ML VIAL IVP ONE (11:45)
[2025-03-10] MEDS: LIDOCAINE 2% (PF) 20 MG/ML 5 ML VIAL SQ ONE (11:45)
[2025-03-10] MEDS: fentaNYL (PF) 50 MCG/1 ML VIAL IVP ONE (11:45)
[2025-03-10] MEDS: HEPARIN SODIUM 1,000 UN/ML (10ML VL) IVP ONE (11:50)
[2025-03-10] MEDS: SODIUM CHLORIDE 0.9% 1,000 ML IV ONE (11:53)
[2025-03-10] MEDS: HEPARIN SODIUM,PORCINE (1 ML) 2,500 UNIT in SODIUM CHLORIDE 0.9% 250 ML IRRIGATION ONE (11:53)
[2025-03-10] MEDS: HEPARIN SODIUM,PORCINE 10,000 UNIT in SODIUM CHLORIDE 0.9% 1,000 ML IRRIGATION ONE (11:53)
[2025-03-10] MEDS: ONDANSETRON 4 MG/2 ML VIAL IVP ONE (11:54)
[2025-03-10] MEDS: IOPAMIDOL-370 100ML BTL IVP ONE (11:59)
--- NOTE | 2025-03-10 12:08 | P.CARDCATH ---
Description of Procedure: PROCEDURES PERFORMED: Left heart catheterization, bilateral coronary angiography, ultrasound guided arterial access INDICATION: Non-STEMI CONSENT:I have discussed the risks, benefits and alternative therapies for the above-mentioned procedure and for both sedation/analgesia as well as necessary blood product administration, if indicated, as they pertain to this patient. The patient has indicated understanding and acceptance of the risks and procedures discussed. PROCEDURE: After the risks, benefits and alternatives of the above mentioned procedure explained in detail with the patient, informed consent was obtained. Patient was taken to the catheterization lab and prepped and draped in usual fashion. Ultrasound guidance was used to assess for arterial access. 1% lidocaine was used to anesthetize the left radial artery. A 6-[place] sheath was placed in the left radial artery using modified Seldinger technique and ultr asound guidance. Left coronary angiography was performed with a 5-[place] Citizen JL 4.0 catheter and right coronary angiography was performed with a 5-[place] Citizen FR5 catheter in various views. A 5-[place] Citizen FR5 catheter was inserted into the left ventricle and pressure measurements were obtained. There did appear to be some discrepancy between the systemic blood pressure and the cuff likely related to faulty measurement by the transducer with significant lower in the systemic system. The right radial sheath was removed and a TR band was placed with hemostasis achieved. The patient tolerated the procedure well. Patient was transported back to the post catheterization holding area in stable condition. Conscious Sedation: Patient was monitored under the direct supervision of myself for conscious sedation using Versed and fentanyl for a total duration of 11 minutes HEMODYNAMICS: Aorta: 118/72 by cuff pressure, 88/65 by arterial pressure LV: 84/5, LVEDP 14 SELECTIVE CORONARY ARTERIOGRAPHY: LEFT MAIN: The left main is a large caliber vessel which bifurcates into the LAD and circumflex. There is no significant stenosis. LEFT ANTERIOR DESCENDING CORONARY ARTERY: LAD is a large caliber vessel which wraps around to the apex. There is no significant stenosis. LEFT CIRCUMFLEX CORONARY ARTERY: Left circumflex is a moderate caliber vessel without significant stenosis. RIGHT CORONARY ARTERY: The right coronary artery is a large caliber vessel which gives off a PDA and PLV branch and is the dominant vessel. There is no significant stenosis. FINAL IMPRESSION: 1. Normal coronary arteries as described above. 2. Normal left sided filling pressures PLAN: 1. Aggressive risk factor modification per most recent ACC/AHA guidelines. 2. Follow-up in the office in 1-2 weeks.
--- NOTE | 2025-03-10 13:53 | CA ---
Transthoracic Echo Report Name: Dionicio Sosa Age: 44 Gender: M : 1980 Exam Date: 03/10/2025 07:28 Exam Location: [place] [facility] Ht (in): 72 Wt (lb): 199 Ordering Physician: Man Grider DO Attending/Referring Phys: [id number], Marni Childcare Worker Sen Sanders RDCS Procedure CPT: Indications: Pain Cardiac Hx: Technical Quality: Fair Contrast 1: Definity Total Dose (mL): 2 Contrast 2: Total Dose (mL): MEASUREMENTS (Male / Female) Normal Values 2D ECHO LV Diastolic Diameter PLAX 6.4 cm 4.2 - 5.9 / 3.9 - 5.3 cm LV Systolic Diameter PLAX 5.7 cm IVS Diastolic Thickness 1.5 cm 0.6 - 1.0 / 0.6 - 0.9 cm LVPW Diastolic Thickness 1.6 cm 0.6 - 1.0 / 0.6 - 0.9 cm LV Relative Wall Thickness 0.5 RV Internal Dim ED PLAX 3.9 cm LVOT Diameter 2.5 cm LA Systolic Diameter LX 4.7 cm 3.0 - 4.0 / 2.7 - 3.8 cm LV Diastolic Volume MOD BP 183.6 cm??? 67 - 155 / 56 - 104 cm??? LV Systolic Volume MOD BP 134.5 cm??? 22 - 58 / 19 - 49 cm??? LV Ejection Fraction MOD BP 26.7 % >= 55 % LV Cardiac Index MOD BP 2255.8 cm???/min???m??? LV Diastolic Volume MOD 4C 146.3 cm??? LV Systolic Volume MOD 4C 92.3 cm??? LV Ejection Fraction MOD 4C 36.9 % LV Cardiac Index MOD 4C 2484.3 cm???/min???m??? LV Diastolic Length 4C 8.7 cm LV Systolic Length 4C 7.7 cm LV Diastolic Volume MOD 2C 196.1 cm??? LV Systolic Volume MOD 2C 182.8 cm??? LV Ejection Fraction MOD 2C 6.8 % LV Cardiac Index MOD 2C 611.9 cm???/min???m??? LV Diastolic Length 2C 10.3 cm LV Systolic Length 2C 8.4 cm LA Volume 88.3 cm??? 18 - 58 / 22 - 52 cm??? LA Volume Index 41.0 cm???/m??? 16 - 28 cm???/m??? Aorta at Sinuses Diameter 3.8 cm M-MODE Aortic Root Diameter MM 4.2 cm LA Systolic Diameter MM 4.8 cm LA Ao Ratio MM 1.1 MV E Point Septal Separation 2.1 cm AV Cusp Separation MM 2.3 cm DOPPLER AV Peak Velocity 120.2 cm/s AV Peak Gradient 5.8 mmHg AV Mean Velocity 87.5 cm/s AV Mean Gradient 3.4 mmHg AV Velocity Time Integral 20.3 cm AI Peak Velocity 286.8 cm/s AI Peak Gradient 32.9 mmHg AI Pressure Half Time 419.0 ms LVOT Peak Velocity 89.1 cm/s LVOT Peak Gradient 3.2 mmHg LVOT Velocity Time Integral 11.2 cm LVOT Stroke Volume 53.6 cm??? LVOT Stroke Volume Index 25.2 ml/m??? LVOT Cardiac Index 2464.1 cm???/min???m??? AV Area Cont Eq vti 2.6 cm??? AV Area Cont Eq pk 3.6 cm??? TR Peak Velocity 252.9 cm/s TR Peak Gradient 25.6 mmHg FINDINGS Left Ventricle Left ventricular ejection fraction is estimated at 25-30 %. Moderately increased septal wall thickness. Severely decreased left ventricular ejection fraction. Moderate concentric left ventricular hypertrophy. Right Ventricle Mild right ventricular dilatation. Right Atrium Moderate right atrial dilatation. No right atrial thrombus or mass seen. Left Atrium Moderate increased left atrial volume. No left atrial thrombus or mass present. Mitral Valve No mitral stenosis. Mild mitral regurgitation. Aortic Valve Trileaflet aortic valve. No aortic stenosis. Mild aortic regurgitation. Tricuspid Valve No tricuspid stenosis. Mild tricuspid regurgitation. Pulmonic Valve No pulmonic stenosis. Mild pulmonic regurgitation. Pericardium Normal pericardium. Minimal pericardial effusion (normal variant). Aorta Mild aortic dilatation at the level of the sinuses of valsalva (root). CONCLUSIONS LVEF 25 to 30% Moderate concentric LVH, dilated LV cavity. Severely reduced global LV systolic function Mild RV dilatation Moderate biatrial dilatation Mild mitral regurgitation, mild tricuspid regurgitation Dilated IVC with less than 50% collapse Previewed by: Dr Alfred Neal (Electronically Signed) Final Date: 10 March 2025 10:50
[2025-03-10 15:43] LABS: Cholesterol 88.00 mg/dL (0.00-200.00); HDL Cholesterol 30.70 mg/dL (40.00-60.00); LDL Cholesterol,Calculated 40.4 mg/dL (0.0-131.0); Triglycerides 84.40 mg/dL (0.00-149.00); VLDL Calculation 16.88 mg/dL (5.00-40.00)
--- NOTE | 2025-03-10 17:11 | P.PN ---
Subjective Progress Note Date: 03/10/25 44 year old M with PMH of ESRD on HD, HTN presents to the ED for chest pain and shortness of breath. He reports feeling feverish and cold on Friday along with bodyaches. In the ED he underwent extensive evaluation. T100.6 F, HR 115, RR 16, BP 162/88, O2 sat 97% on RA. CBC, Coag panel, CMP significant for PT 12.7, INR 1.2, Na 133, Cl 92, BUN 53, Cr 11.71, glu 101. Mag 2.3. BNP [id number]. Trop 0.138, 0.154, 0.165 with EKG showing sinus rhythm with RBBB and findings of LVH. CXR showed concerns of left upper lobe airspace opacities. Patient was started on heparin drip, Rocephin/Azithromycin and admitted for further workup and management. 03/10 Patient was seen and examined. Cardiology consulted, underwent cardiac cath showing patent coronaries. Lipid panel T. Chol 88, LDL 40.4. TSH 3.89. COVID, RSV, Flu neg. Plans for HD tomorrow. CXR shows LARA opacity. Echo shows EF 25-30% moderate LVH, mild MR/TR. General: no distress, appears at stated age Derm: warm, dry Head: atraumatic, normocephalic, symmetric Eyes: EOMI Mouth: no lip lesion, mucus membranes moist Cardiovascular: S1 S2 reg. No murmur. Lungs: Decreased BS bilaterally, no accessory muscle use Ext: no gross muscle atrophy, no edema, no contractures Neuro: No FND Psych: AO x 3, sluggish to respond Based on my assessment of this patient, this patient meets a high complexity level of care. Chest pain with elevated Troponin: Negative cath. Likely troponin leak from ESRD. ASA 81 mg PO QD. Lipitor 80 mg PO QD. Cardiology on board. Community acquired PNA: Continue Rocephin 2g IV QD + Azithromycin 500 mg PO QD (D2). Obtain sputum Cx + Legionella. HFrEF: Worsened. Coreg as above. Would benefit from ACEi + K sparing diuretic. Cardiology on board. ESRD on HD: Nephrology consulted. Plans for HD tomorrow. Hypertension: Coreg 25 mg PO BID. Amlodipine 10 mg pO QD. CODE STATUS: FULL CODE DVT Prophylaxis: Heparin SQ GI Prophylaxis: Designated medical POA if patient is not able to make medical decisions for themselves: I have reviewed the following events solutions consultant notes: Cardio I have reviewed the results of the following tests: As above. I have ordered the following tests: I have discussed the care of this patient with the following independent historian: SKYLER. Family at bedside. I have independently interpreted the following test below: EKG. I have discussed the management of this patient with the following physician: Objective - Vital Signs Vital signs: Vital Signs Temp 99.2 F 03/10/25 12:20 Pulse 80 03/10/25 13:00 Resp 20 03/10/25 13:00 BP 100/48 03/10/25 13:00 Pulse Ox 99 03/10/25 13:00 FiO2 Intake & Output 03/09/25 03/10/25 03/10/25 18:59 06:59 18:59 Intake Total 334.333 130 Balance 334.333 130 Weight 90.265 kg 87.8 kg Intake: IV 20 130 Invasive Line 1 10 30 Invasive Line 2 10 30 Intake, IV Titration 74.333 Amount Heparin Sod,Pork in 0.45% 74.333 NaCl 25,000 unit In 0.45 % NaCl 1 250ml.bag @ 11. 078 UNITS/KG/HR 10 mls/hr IV .Q24H [facility] Rx#: [id number] Oral 240 Other: Voiding Method Toilet Toilet # Voids 1 - Labs CBC & Chem 7: 03/09/25 16:16 03/09/25 16:16 Labs: Abnormal Lab Results - Last 24 Hours (Table) 03/09/25 03/09/25 03/09/25 Range/Units 16:16 16:16 18:54 PT 12.7 H (10.0-12.5) sec INR 1.2 H (<1.2) D-Dimer 0.61 H (<0.60) mg/L FEU Troponin I 0.138 H* 0.154 H* (0.000-0.034) ng/mL HDL Cholesterol (40.00-60.00) mg/dL 03/10/25 03/10/25 Range/Units 00:16 10:19 PT (10.0-12.5) sec INR (<1.2) D-Dimer (<0.60) mg/L FEU Troponin I 0.165 H* (0.000-0.034) ng/mL HDL Cholesterol 30.70 L (40.00-60.00) mg/dL
[2025-03-10] MEDS: AZITHROMYCIN 500 MG in SODIUM CHLORIDE 0.9% 250 ML IVPB SCH (17:30)
[2025-03-10] MEDS: HEPARIN SODIUM,PORCINE 5,000 UNIT/ML 1 ML VIAL SQ SCH (22:59)
[2025-03-11 06:40] LABS: HCT 34.1 % (39.6-50.0); HGB 11.0 g/dL (13.0-17.0); MCH 26.4 pg (27.0-32.0); MCHC 32.3 g/dL (32.0-37.0); MCV 82.0 fL (80.0-97.0); Platelet Count 258 10*3/uL (140-440); RBC 4.16 10*6/uL (4.40-5.60); RDW 16.0 % (11.5-14.5); WBC 6.43 10*3/uL (4.50-10.00)
[2025-03-11] MEDS ORDERED: HEPARIN SODIUM,PORCINE 10,000 UNIT in SODIUM CHLORIDE 0.9% 1,000 ML IRRIGATION PRN (07:00)
[2025-03-11] MEDS ORDERED: HEPARIN SODIUM,PORCINE (1 ML) 2,500 UNIT in SODIUM CHLORIDE 0.9% 250 ML IRRIGATION PRN (07:00)
[2025-03-11 07:02] LABS: Anion Gap 18 mmol/L; Blood Urea Nitrogen 81 mg/dL (9-20); Calcium 9.2 mg/dL (8.4-10.2); Carbon Dioxide 21 mmol/L (22-30); Chloride 88 mmol/L (98-107); Glucose 146 mg/dL (74-99); Potassium 4.5 mmol/L (3.5-5.1); Sodium 127 mmol/L (137-145)
[2025-03-11 07:08] LABS: African American GFR (CKD) 3 (>60 ml/min/1.73 sqM); Non-African American GFR(CKD) 3 (>60 ml/min/1.73 sqM)
--- NOTE | 2025-03-11 14:02 | P.PN ---
Subjective HISTORY OF PRESENT ILLNESS: This is a 44-year-old male with a past medical history significant for hypertension and end-stage renal disease on hemodialysis. Patient does not follow with a group controller. We have been asked to see the patient in co nsultation for non-STEMI. Patient examined at the bedside. Patient states over the past few days he has been feeling unwell and has been having nausea fever of 102 to 103 F. Patient states yesterday he was doing hemodialysis at home when he began to have chest discomfort towards the end of his treatment. He states that it felt like a hard hitting in his chest. He states it would last for a co uple minutes and then go away. He states this continued on and off for a while. He also reports that he felt like his heart was racing and felt like it was beating weird. He came to the hospital for further evaluation. Patient has had no further episodes of chest pain or palpitations since being in the hospital. He states he has had renal failure since 2020 and does complete hemodialysis at home. He denies any known history of diabetes or hyperlipidemia. He denies any smoking, drug use including marijuana, or alcohol use. He is currently on IV heparin for elevated troponins. DIAGNOSTICS: - EKG reveals sinus mechanism with incomplete right bundle branch block. LVH. - Chest xray patchy left upper lung airspace opacities concerning for pneumonia. - Laboratory data: WBC 9.46. Hemoglobin 13.6. Platelet count 273. D-dimer 0.61. Sodium 133. Potassium 4.8. BUN 53. Creatinine 11.71. proBNP 105,000. Troponin 0.138. 0.154. 0.165. - Current home cardiac medications include amlodipine 10 mg daily and carvedilol 25 mg twice a day. - No previous echocardiogram available in EMR for review - Cardiac catheterization history: Patient denies 03/11/2025 Patient is status post cardiac catheterization revealing normal coronary arteries. Patient examined this morning at the bedside. Patient denies any chest pain or pressure. He denies any shortness of breath. He had hemodialysis this morning. Vital signs are stable. Echocardiogram completed revealing ejection fraction 25 to 30% with moderate concentric LVH. PHYSICAL EXAM: VITAL SIGNS: Reviewed. GENERAL: Well-developed in no acute distress. HEENT: Head is normocephalic. Pupils are equal, round. Sclerae anicteric. Mucous membranes of the mouth are moist. Neck supple. No JVD or thyromegaly LUNGS: Respirations even and unlabored. Lungs essentially clear to auscultation bilaterally. HEART: Regular rate and rhythm. S1 and S2 heard. ABDOMEN: Soft. Nondistended. Nontender. EXTREMITIES: Normal range of motion. No clubbing or cyanosis. Peripheral pulses intact. No lower extremity edema NEUROLOGIC: Awake and alert. Oriented x 3. ASSESSMENT: Fever at home, resolved Chest pain with elevated troponins; elevated troponins secondary to due to poor renal clearance. No evidence of acute coronary syndrome, patient is status post cardiac catheterization revealing normal coronary arteries. Nonischemic cardiomyopathy, 25 to 30% End-stage renal disease on hemodialysis Hypertension PLAN: Discontinue amlodipine secondary to cardiomyopathy Add hydralazine and Isordil Patient instructed to monitor his blood pressures at home Patient may be discharged home today from a cardiac standpoint Patient to follow-up outpatient in the office post discharge Nurse practitioner note has been reviewed by physician. Signing provider agrees with the documented findings, assessment, and plan of care documented by [employer] as a scribe. Objective - Vital Signs Vital signs: Vital Signs Temp 97.8 F 03/11/25 03:35 Pulse 70 03/11/25 11:11 Resp 16 03/11/25 11:11 BP 113/63 03/11/25 11:11 Pulse Ox 97 03/11/25 03:35 FiO2 Intake & Output 03/10/25 03/11/25 03/11/25 18:59 06:59 18:59 Intake Total 680 280 100 Balance 680 280 100 Weight 88 kg Intake: IV 130 40 Invasive Line 1 30 20 Invasive Line 2 30 20 Intake, IV Titration 150 Amount Azithromycin 500 mg In 100 Sodium Chloride 0.9% 250 ml @ 250 mls/hr IVPB DAILY@1800 [facility] Rx#: [id number] cefTRIAXone 2 gm In 50 Sodium Chloride 0.9% 50 ml @ 100 mls/hr IVPB Q24HR [facility] Rx#:[id number] Oral 400 240 100 Other: Voiding Method Toilet Toilet # Voids 1 - Labs CBC & Chem 7: 03/11/25 06:28 03/11/25 06:28 Labs: Abnormal Lab Results - Last 24 Hours (Table) 03/10/25 03/11/25 03/11/25 Range/Units 10:19 06:28 06:28 RBC 4.16 L (4.40-5.60) 10*6/uL Hgb 11.0 L (13.0-17.0) g/dL Hct 34.1 L (39.6-50.0) % MCH 26.4 L (27.0-32.0) pg Sodium 127 L (137-145) mmol/L Chloride 88 L (98-107) mmol/L Carbon Dioxide 21 L (22-30) mmol/L BUN 81 H (9-20) mg/dL Creatinine 18.02 H* (0.66-1.25) mg/dL Glucose 146 H (74-99) mg/dL HDL Cholesterol 30.70 L (40.00-60.00) mg/dL Microbiology - Last 24 Hours (Table) 03/09/25 18:35 Blood Culture - Preliminary Blood
--- NOTE | 2025-03-11 14:58 | P.DS ---
Providers Date of admission: 03/09/25 17:58 Expected date of discharge: 03/11/25 Attending physician: Brenton Gooden MD Consults: 03/09/25 17:55 Consult Physician Urgent Consulting Provider: Mark Thompson Consult Reason/Comments: cp Do you want consulting provider notified?: Yes 03/10/25 05:27 Consult Physician Routine Consulting Provider: Ashley De Oliveira Consult Reason/Comments: CKD requiring dialysis Do you want consulting provider notified?: Yes, Notify in am Primary care physician: Physician Nonsta Hospital Course: 44 year old M with PMH of ESRD on HD, HTN presents to the ED for chest pain and shortness of breath. He reports feeling feverish and cold on Friday along with bodyaches. In the ED he underwent extensive evaluation. T100.6 F, HR 115, RR 16, BP 162/88, O2 sat 97% on RA. CBC, Coag panel, CMP significant for PT 12.7, INR 1.2, Na 133, Cl 92, BUN 53, Cr 11.71, glu 101. Mag 2.3. BNP 445020. Trop 0.138, 0.154, 0.165 with EKG showing sinus rhythm with RBBB and findings of LVH. CXR showed concerns of left upper lobe airspace opacities. Patient was started on heparin drip, Rocephin/Azithromycin and admitted for further workup and management. 03/10 Patient was seen and examined. Cardiology consulted, underwent cardiac cath showing patent coronaries. Lipid panel T. Chol 88, LDL 40.4. TSH 3.89. COVID, RSV, Flu neg. Plans for HD tomorrow. CXR shows LARA opacity. Echo shows EF 25-30% moderate LVH, mild MR/TR. 03/11 Patient was seen and examined. No complaints. Discussed with Dr. De Oliveira, cleared for DC after HD today. Discussed with Leonor HERNANDEZ, add Imdur/Hydralazine, DC Amlodipine, cleared for discharge. Discharge Plan: Imdur and Hydralazine prescribed to pharmacy. Resume dialysis on discharge. 5 more days of Augmentin to complete a total of 7 days antibiotics. Follow up with PCP within 1-2 days and Cardiology within 1 week of discharge. General: no distress, appears at stated age Derm: warm, dry Head: atraumatic, normocephalic, symmetric Eyes: EOMI Mouth: no lip lesion, mucus membranes moist Cardiovascular: S1 S2 reg. No murmur. Lungs: Decreased BS bilaterally, no accessory muscle use Ext: no gross muscle atrophy, no edema, no contractures Neuro: No FND Psych: AO x 3, sluggish to respond Discharge Diagnosis: Chest pain with elevated Troponin: Negative cath. Likely troponin leak from ESRD. Community acquired PNA HFrEF ESRD on HD Hypertension This complex discharge took 35 minutes to complete. Patient Condition at Discharge: Stable Plan - Discharge Summary Discharge Rx Participant: Yes New Discharge Prescriptions: New Isosorbide Dinitrate [Isordil] 10 mg PO TID #90 tab hydrALAZINE HCL [Apresoline] 25 mg PO TID #90 tab Amoxic-Pot Clav 875-125Mg [Augmentin 875-125] 1 tab PO Q12HR 5 Days #10 tab Continue Sildenafil Citrate 100 mg PO DAILY PRN PRN Reason: e.d. carvediloL [Coreg] 25 mg PO BID Cinacalcet HCl [Sensipar] 60 mg PO MOTUWETHFR Discontinued amLODIPine [Norvasc] 10 mg PO DAILY No Action Testosterone Cypionate [Depo-Testosterone] 200 mg IM ROSS calcitrioL [Rocaltrol] 0.5 mcg PO TH Sevelamer [Renvela] 2,400 - 4,800 mg PO TID-W/MEALS Discharge Medication List Sevelamer [Renvela] 2,400 - 4,800 mg PO TID-W/MEALS 01/24/24 [History] Testosterone Cypionate [Depo-Testosterone] 200 mg IM ROSS 01/24/24 [History] calcitrioL [Rocaltrol] 0.5 mcg PO TH 01/24/24 [History] Cinacalcet HCl [Sensipar] 60 mg PO MOTUWETHFR 03/09/25 [History] Sildenafil Citrate 100 mg PO DAILY PRN 03/09/25 [History] carvediloL [Coreg] 25 mg PO BID 03/10/25 [History] Amoxic-Pot Clav 875-125Mg [Augmentin 875-125] 1 tab PO Q12HR 5 Days #10 tab 03/11/25 [Rx] Isosorbide Dinitrate [Isordil] 10 mg PO TID #90 tab 07/25/25 [Rx] hydrALAZINE HCL [Apresoline] 25 mg PO TID #90 tab 03/11/25 [Rx] Follow up Appointment(s)/Referral(s): Alfred Neal MD [Medical Doctor] - 1 Week Nonstaff,Physician [Primary Care Provider] - 1-2 days Activity/Diet/Wound Care/Special Instructions: Diet: Low salt, Renal Follow up with PCP within 1-2 days, Cardiology within 1 week of discharge. Resume dialysis on the same schedule as you were prior to this hospitalization.
[2025-03-11] MEDS ORDERED: ISOSORBIDE DINITRATE 10 MG TAB PO SCH (16:00)
--- NOTE | 2025-03-11 16:00 | P.PN ---
Subjective Patient is seen for follow-up for end-stage renal disease. Seen on hemodialysis today. Tolerating treatment well. No significant complaints. No shortness of breath. Patient wants to go home. Objective - Vital Signs Vital signs: Vital Signs Temp 97.8 F 03/11/25 03:35 Pulse 70 03/11/25 11:11 Resp 16 03/11/25 11:11 BP 113/63 03/11/25 11:11 Pulse Ox 97 03/11/25 03:35 FiO2 Intake & Output 03/10/25 03/11/25 03/11/25 18:59 06:59 18:59 Intake Total 680 280 430 Balance 680 280 430 Weight 88 kg Intake: IV 130 40 Invasive Line 1 30 20 Invasive Line 2 30 20 Intake, IV Titration 150 Amount Azithromycin 500 mg In 100 Sodium Chloride 0.9% 250 ml @ 250 mls/hr IVPB DAILY@1800 [facility] Rx#: [id number] cefTRIAXone 2 gm In 50 Sodium Chloride 0.9% 50 ml @ 100 mls/hr IVPB Q24HR [facility] Rx#:[id number] Oral 400 240 430 Other: Voiding Method Toilet Toilet # Voids 1 - Exam Patient is awake, comfortable, no acute distress Examination shows no evidence of edema bilateral lower extremities [employer]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 - Labs CBC & Chem 7: 03/11/25 06:28 03/11/25 06:28 Labs: Abnormal Lab Results - Last 24 Hours (Table) 03/11/25 03/11/25 Range/Units 06:28 06:28 RBC 4.16 L (4.40-5.60) 10*6/uL Hgb 11.0 L (13.0-17.0) g/dL Hct 34.1 L (39.6-50.0) % MCH 26.4 L (27.0-32.0) pg Sodium 127 L (137-145) mmol/L Chloride 88 L (98-107) mmol/L Carbon Dioxide 21 L (22-30) mmol/L BUN 81 H (9-20) mg/dL Creatinine 18.02 H* (0.66-1.25) mg/dL Glucose 146 H (74-99) mg/dL Microbiology - Last 24 Hours (Table) 03/09/25 18:35 Blood Culture - Preliminary Blood Assessment and Plan Assessment: 1. End-stage renal disease on home hemodialysis 6 days a week via right arm AV fistula 2. Left lung pneumonia maintained on antibiotics 3. Hypertension with end-stage renal disease 4. CKD mineral bone disorder and secondary hyperparathyroidism, maintained on calcitriol and Sensipar 5. Elevated troponin being followed by cardiology, status post cardiac cath with no evidence of obstructive coronary artery disease Plan: Continue with antibiotics Continue Rocaltrol and Sensipar Stable for discharge from nephrology standpoint.
[2025-03-11 17:49] VITALS: BP 121/89; PULSE 71; RESP 17; TEMP 96.6
== END 2025-03-11 15:40 | disposition home or self-care (01) | DRG 193 ==
LOC: EC 16:00 → 3SCARD 17:58
PROVIDERS: ADMIT Internal Medicine; ATTEND Internal Medicine
PROC: B2111ZZ Fluoroscopy of Multiple Coronary Arteries using Low Osmolar Contrast (ICD-10-PCS; principal; 2025-03-10 13:45)
PROC: 4A023N7 Measurement of Cardiac Sampling and Pressure, Left Heart, Percutaneous Approach (ICD-10-PCS; principal; 2025-03-10 13:45)
PROC: 5A1D70Z Performance of Urinary Filtration, Intermittent, Less than 6 Hours Per Day (ICD-10-PCS; 2025-03-11)
DX: J18.9 Pneumonia, unspecified organism (principal); N18.6 End stage renal disease; I13.2 Hypertensive heart and chronic kidney disease with heart failure and with stage 5 chronic kidney disease, or end stage renal disease; N25.81 Secondary hyperparathyroidism of renal origin; I42.8 Other cardiomyopathies; I50.20 Unspecified systolic (congestive) heart failure; E83.9 Disorder of mineral metabolism, unspecified; Z99.2 Dependence on renal dialysis; I45.10 Unspecified right bundle-branch block; R79.89 Other specified abnormal findings of blood chemistry; Z79.890 Hormone replacement therapy; Z79.899 Other long term (current) drug therapy; Z88.2 Allergy status to sulfonamides
CPT/HCPCS: 36415; 71046; 80048; 80053; 80061; 83036; 83690; 83735; 83880; 84145; 84443; 84484; 85025; 85027; 85379; 85610; 85730; 87040; 87636; 90935; 93005; 93306; 93458; 96365; 96366; 96367; 96368; 96375; 99291